=== PATIENT | male | born 1940 | race Caucasian/White ===

== ENCOUNTER 2018-03-17 10:00 | Outpatient (RCR) | payer MEDICARE, OTHER, SELFPAY ==
[2018-03-10 09:02] VITALS: BP 134/76; PULSE 60; RESP 18; TEMP 35.6; BMI 32.0
--- NOTE | 2018-03-10 10:00 | HP.PCM_ITS ---
(1) Traumatic wound Status: Acute Current Visit: Yes (2) Atrial fibrillation Status: Chronic Current Visit: No Qualifiers: Atrial fibrillation type: chronic Qualified Code(s): I48.2 - Chronic atrial fibrillation Code(s): I48.91 - Unspecified atrial fibrillation (3) CHF (congestive heart failure) Status: Chronic Current Visit: No Code(s): I50.9 - Heart failure, unspecified (4) History of permanent cardiac pacemaker placement Status: Chronic Current Visit: No Code(s): Z95.0 - Presence of cardiac pacemaker (5) Renal insufficiency Status: Chronic Current Visit: No Code(s): N28.9 - Disorder of kidney and ureter, unspecified (6) Hyperlipidemia Status: Chronic Current Visit: No Code(s): E78.5 - Hyperlipidemia, unspecified (7) Exertional dyspnea Status: Chronic Current Visit: No Code(s): R06.09 - Other forms of dyspnea (8) Anticoagulated on Coumadin Status: Chronic Current Visit: Yes Code(s): Z51.81 - Encounter for therapeutic drug level monitoring; Z79.01 - snf (current) use of anticoagulants (9) History of thrombophlebitis Status: Chronic Current Visit: No Code(s): Z86.72 - Personal history of thrombophlebitis (10) Left leg swelling Status: Chronic Current Visit: Yes Code(s): M79.89 - Other specified soft tissue disorders (11) Leg edema, left Status: Chronic Current Visit: Yes Code(s): R60.0 - Localized edema (12) Lipodermatosclerosis Status: Chronic Current Visit: Yes Code(s): I83.10 - Varicose veins of unspecified lower extremity with inflammation (13) Chronic venous insufficiency Status: Chronic Current Visit: Yes Code(s): I87.2 - Venous insufficiency ( chronic) (peripheral) (14) Obesity (BMI 30.0-34.9) Status: Chronic Current Visit: No Code(s): E66.9 - Obesity, unspecified History of Present Illness Date of Service: 03/10/18 Chief Complaint: Recent traumatic injury to the left anterior tibial surface with persistent wound History of Wound: This is a 77-year-old male with multiple pre-existing medical problems. He was in his normal state of health until approximately 3 weeks ago. At that time, he sustained trauma to the left anterior tibial surface, resulting in 2 adjacent superficial wounds. He was evaluated by his primary care physician, and placed on oral cephalexin, which he continues to take on a daily basis, with approximately 3 days remaining. The traumatic wounds have failed to heal, and the patient presents at this time for further evaluation and management. The patient typically sleeps on a flat mattress at night, though occasionally sleeps in a recliner due to breathing problems. He claims to be active. He does not ambulate liberally, however, claiming to suffer from shortness of breath which occurs with activity. 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 It is uncertain whether this was deep or superficial thrombophlebitis. Past Medical History Past Medical History: Chronic Problems Atrial fibrillation (Chronic) CHF (congestive heart failure) (Chronic) History of permanent cardiac pacemaker placement (Chronic) Renal insufficiency (Chronic) Hyperlipidemia (Chronic) Exertional dyspnea (Chronic) Anticoagulated on Coumadin (Chronic) History of thrombophlebitis (Chronic) Left leg swelling (Chronic) Leg edema, left (Chronic) Lipodermatosclerosis (Chronic) Chronic venous insufficiency (Chronic) Obesity (BMI 30.0-34.9) (Chronic) Past Medical History: Patient has a history of atrial fibrillation, congestive heart failure, hypertension, prior pacemaker/defibrillator placement, renal insufficiency, and hyperlipidemia. He also has a history of right lower extremity thrombophlebitis. He suffers from exertional dyspnea. His history is negative for myocardial infarction, diabetes mellitus, cerebrovascular accident, pulmonary disease, and thyroid disease. Surgical History: total hip arthroplasty, total knee arthroplasty, - - Ablation and pacemaker/defibrillator insertion Allergies/Adverse Reactions: Allergies wheat Allergy (Verified 06/21/13 15:32) Other has Ciliac disease Home Medications: Ambulatory Orders Medication Instructions Recorded Carvedilol [Coreg] 25 mg PO BID 06/21/13 Ipratropium [place] 0.06% 2 spray NASAL BID 06/21/13 [ATROVENT NASAL SPRAY] Ropinirole HCl [Requip] 0.5 mg PO QHS 06/21/13 Simvastatin [Zocor] 20 mg PO QHS 06/21/13 Warfarin [Coumadin] 5 mg PO DAILY 06/21/13 traMADol [Ultram (G)] 50 mg PO DAILY PRN PRN 06/21/13 Calcium Carb/Vitamin D3/Vit K1 1 each PO DAILY 03/10/18 [Citracal Soft Chew] Cholecalciferol (Vitamin D3) 2,000 unit PO DAILY 03/10/18 [Vitamin D3] Losartan Potassium 100 mg PO DAILY 03/10/18 Magnesium 100 mg PO BID 03/10/18 Potassium 30 mg PO BID 03/10/18 - Family History Paternal - - The patient's father at the age of 72 with a history of emphysema. Patient's father was a smoker. Patient's mother at age of 87 from an abdominal aortic aneurysm. Patient had a sister who at the age of 37 from kidney failure. He also had a sister who at the age of 44 from a brain aneurysm. Lives: Spouse/ Significant Other Smoking Status: Never smoker Tobacco Use: Non-smoker Alcohol: Rare Drugs: None Review of Systems Constitutional: Denies: Chills, Fever, Weight Change Eyes: Denies: Pain, Vision Change HEENT: Denies: Difficulty Hearing, Difficulty Swallowing, Sinus Congestion Cardiovascular: Denies: Chest Pain, Palpitations Respiratory: Denies: Cough, Shortness of Breath Gastrointestinal: Denies: Diarrhea, Nausea, Vomiting Genitourinary: Denies: Dysuria, Hematuria Endocrine: Denies: Heat/ Cold Intolerance, Polydipsia, Polyuria Hematologic/ Lymphatic: Denies: Easy Bruising, Easy Bleeding - Physical Exam Vital Signs Temp Pulse Resp BP 96.0 F L 60 18 134/76 H 03/10/18 09:02 03/10/18 09:02 03/10/18 09:02 03/10/18 09:02 General: Alert, Oriented x3, Cooperative, No apparent distress, Well developed, Well nourished HEENT: Atraumatic, PERRLA, EOMI, Normocephalic Oral: Moist Mucosa Neck: Supple, No JVD, Negative Carotid Bruits, Negative Hepatojugular Reflux, No Nodes, No Nuchal Rigidity, Trachea Midline Lungs: Clear to auscultation, Normal air movement, No rhonchi, No wheeze, No rales Cardiovascular: Regular rate, Regular Rhythm, Normal S1, Normal S2, No murmurs, - - The patient's implanted pacemaker is palpable in the left upper chest. Abdomen: Soft, Non Tender, Non-Distended, Obese Extremities: No clubbing, No cyanosis, No Calf Tenderness, - - Mild swelling is noted in the patient's left lower extremity. Both lower extremities demonstrate chronic changes of venous insufficiency, namely hyperpigmentation and lipodermatosclerosis in the gaiter areas. 2 small superficial ulcerations are noted on the left anterior tibial surface, result of recent trauma. Mentions are documented elsewhere. There is no obvious sign of infection or cellulitis. There is a moderate amount of bioburden and some frankly necrotic tissue present. Skin: No rashes Wound Measurements and Assessment WC - Nurse 1 - General Ulcer Measurement Start: 03/10/18 09:01 Freq: Status: Active Protocol: Activity Type Activity Date Activity User E-Sign Co-Sign Detail Recorded Client Recorded Date Recorded By Document 03/10/18 09:02 DV [id number] 03/10/18 09:19 DV 03/10/18 09:02 Wound Center Nurse 1 [Ulcer Assessment] #4 LEFT INFERIOR CURTIS -Combined with other wound No -Current Size (cm) - Length 0.8 -Current Size (cm) - Width 0.5 -Current Size (cm) - Depth 0.1 -Total Square Cm 0.40 -Date of Last Picture (Recall this 03/10/18 field) -Photo Taken Yes -Epithelialization Medium 34-66% -Tunneling No -Undermining/Tunneling No -Circular Undermining No -Classification - Thickness Full Thickness without Exposed Support Structure -Exudate Amt None Present (0 %) -Wound Margin Flat & Intact -Granulation Amt None Present (0 %) -Granulation Quality N/A -Slough/Fibrin Yes -Necrosis Amt Medium (34-66%) -Necrotic Tissue Type Adherent Slough -Structure Exposed None/Limited to Skin Breakdown -Texture ([place]-wound Skin Appearance) Assessed Localized Edema Scarring -Moisture ([place]-wound Skin Appearance Assessed ) Weeping -Color ([place]-wound Skin Appearance) Assessed Hemosiderin Staining -Temperature ([place]-wound Skin No Abnormality Appearance) (Pt Warm) -Tenderness on Palpation ([place]-wound No Skin Appearance) -Ulcer Cleansing Rinsed/ Irrigated with Saline -Foul Odor after Cleansing No -Anesthetic Used 4% Lidocaine Solution #3 LEFT SUPERIOR CURTIS -Combined with other wound No -Current Size (cm) - Length 0.4 -Current Size (cm) - Width 0.8 -Current Size (cm) - Depth 0.1 -Total Square Cm 0.32 -Date of Last Picture (Recall this 03/10/18 field) -Photo Taken Yes -Epithelialization Medium 34-66% -Tunneling No -Undermining/Tunneling No -Classification - Thickness Full Thickness without Exposed Support Structure -Exudate Amt None Present (0 %) -Wound Margin Flat & Intact -Granulation Amt Medium (34-66%) -Granulation Quality Red -Slough/Fibrin Yes -Necrosis Amt Medium (34-66%) -Necrotic Tissue Type Adherent Slough -Structure Exposed None/Limited to Skin Breakdown -Texture ([place]-wound Skin Appearance) Assessed Scarring -Moisture ([place]-wound Skin Appearance Assessed ) Weeping -Color ([place]-wound Skin Appearance) Assessed Erythema Hemosiderin Staining -Temperature ([place]-wound Skin No Abnormality Appearance) (Pt Warm) -Tenderness on Palpation ([place]-wound No Skin Appearance) -Ulcer Cleansing Rinsed/ Irrigated with Saline -Foul Odor after Cleansing No -Anesthetic Used 4% Lidocaine Solution [Edema Assessment] -Lower Limb Edema Present Yes -Right Calf (cm) 38.0 -Right Ankle (cm) 23.5 -Left Calf (cm) 40.0 -Left Ankle (cm) 24.9 Musculoskeletal: No Muscle Wasting Neurological: Cranial nerves II-XII grossly intact, Neuro grossly intact Psych/Mental Status: Normal Affect, Appropriate, Alert and oriented to time, place, person, mood and affect Debridement Note Laterality: Left - Anterior tibial surface Type of Debridement: Excisional debridement Anesthesia Used: 4% Lidocaine Solution Depth: Down to and including healthy tissue, in the subcutaneous layer Percentage of wound debrided: 100 Instrument Used: 5mm curette Severity: Fat Layer Exposed Amount of bleeding with debridement: Mild Bleeding Controlled with: Compression and gauze Patient tolerated procedure well Assessment/Plan Active Problems Traumatic wound (Acute) Anticoagulated on Coumadin (Chronic) Left leg swelling (Chronic) Leg edema, left (Chronic) Lipodermatosclerosis (Chronic) Chronic venous insufficiency (Chronic) Assessment: Is a 77-year-old male multiple medical problems. He presents with trauma to the left anterior tibial surface approximately 3 weeks ago, and two superficial wounds on the left anterior tibial surface which have failed to heal appropriately. Patient is currently on cephalexin, as prescribed by his primary care physician. Plan: The patient has been advised to elevate his lower extremities as much as possible. Elevation is to be accomplished with his legs at heart level, or higher. This is to be implemented even during daytime hours. The patient has been encouraged to refrain from sleeping in a recliner. Activity has been encouraged. We are to implement compression initially by means of SpandaGrips to the lower extremities. We are to implement the use of collagenase Santyl topically to the superficial wounds on the left anterior tibial surface. Collagenase Santyl will be applied on a daily basis. We are to obtain a battery of diagnostic laboratory studies, including a CBC and conference of metabolic profile. With manifestations of chronic venous disease, a venous duplex examination will be performed. Because of the presence of a chronic, nonhealing wound, and noninvasive lower extremity arterial study will also be obtained. She has been advised to finish his current prescription for antibiotic. Patient is to return in 1 week for reevaluation. Influenza vaccine was not administered today. Patient is not a smoker. Patient weighs 243 pounds. He stands 6 feet 1 inches tall. His BMI is 32.1, which places him in an obese class I category. Weight loss has been recommended, and collaboration with his primary care physician has been recommended.
[2018-03-10 12:59] LABS: Hematocrit 43.2 % (40-54); Hemoglobin 14.5 g/dl (13.0-16.5); Mean Corp Hgb Conc 33.6 g/gl (32-36); Mean Corpuscular Hgb 32.8 pg (27.0-32.0); Mean Corpuscular Volume 97.7 fL (80-94); Mean Platelet Vol. 9.5 fl (6.2-12.0); Platelet Count 154 K/mm3 (150-450); RBC Distribution Width CV 14.1 % (11.6-14.6); Red Blood Count 4.42 M/mm3 (4.6-6.2); Scan Indicated on CBC? Y/N NO; White Blood Count 6.2 K/mm3 (4.4-11.0)
[2018-03-10 13:26] LABS: ALB/GLOB Ratio 1.1 RATIO (0.9-2.4); AST(SGOT) 20 U/L (15-37); Alanine Aminotransfer ALT/SGPT 28 U/L (16-61); Albumin, Serum 3.7 g/dL (3.2-5.0); Alkaline Phosphatase 44 U/L (45-117); BUN 23 mg/dL (7-18); BUN/Creat Ratio 14.4 RATIO (10-20); EST Glomerular Filtration Rate 45 mL/min (>60); Est Glom Filt Rate - Afr Amer 54 mL/min (>60); Globulin 3.4 g/dL (2.2-4.2); Glucose 81 mg/dL (74-106); Protein, Total 7.1 g/dL (6.4-8.2); Sodium Level 142 mmol/L (136-145)
[2018-03-10 13:27] LABS: Anion Gap 7 (5-15); Chloride 106 mmol/L (98-107); Potassium 4.9 mmol/L (3.5-5.1); Prealbumin 26.9 mg/dL (20.0-40.0)
--- NOTE | 2018-03-17 07:56 | VDLE_ITS ---
Reason For Study: venous insufficiency RIGHT LEFT CFV is compressible, spontaneous, phasic, CFV is compressible, spontaneous, phasic, competent and demonstrates normal competent, and demonstrates normal augmentation. augmentation. FV is compressible, spontaneous, phasic, FV is compressible, spontaneous, phasic, competent and demonstrates normal competent and demonstrates normal augmentation. augmentation. POP V is compressible, spontaneous, phasic, POP V is compressible, spontaneous, phasic, competent and demonstrates normal competent and demonstrates normal augmentation. augmentation. T/P Trunk is compressible. T/P Trunk is compressible. PTV is compressible. PTV is compressible. RT PerV is compressible. LT PerV is compressible. S-F Junction is incompetent for greater S-F Junction is competent. than .5 seconds. GSV is incompetent throughout for greater GSV is incompetent throughout for greater than .5 seconds. GSV measures .497 c .473 than .5 seconds. GSV measures .495 x .499 cm. cm. ASV below the knee is incompetent for SSV is competent. greater than .5 seconds. ASV measures .323 Procedure x .335 cm. Exam performed in department. SSV is incompetent for greater than .5 The exam was diagnostic. seconds. SSV measures .220 x .237 cm. Interpretation Summary Deep veins of the lower extremities are bilaterally patent and compressible segmentally. There is no evidence of deep vein thrombosis on either side. Valvular competence appears intact within the proximal deep venous systems bilaterally. The greater saphenous veins appear bilaterally patent and compressible segmentally. The right sapheno-femoral junction is incompetent . The left sapheno- femoral junction is competent . Segmental valvular incompetence is noted within the greater saphenous veins bilaterally. The right small saphenous vein is patent and competent. The left small saphenous vein is patent and incompetent. The left accessory saphenous vein below the knee is incompetent. Ordering Physician: Jose Raul Thomas Performed By: Gilmer Ren RVT
[2018-03-17 10:15] VITALS: BP 140/90; PULSE 61; RESP 18; TEMP 36; BMI 32.0
--- NOTE | 2018-03-17 11:34 | PCM.WC.HP ---
(1) Traumatic wound Status: Acute Current Visit: Yes (2) Atrial fibrillation Status: Chronic Current Visit: No Qualifiers: Atrial fibrillation type: chronic Qualified Code(s): I48.2 - Chronic atrial fibrillation Code(s): I48.91 - Unspecified atrial fibrillation (3) CHF (congestive heart failure) Status: Chronic Current Visit: No Code(s): I50.9 - Heart failure, unspecified (4) History of permanent cardiac pacemaker placement Status: Chronic Current Visit: No Code(s): Z95.0 - Presence of cardiac pacemaker (5) Renal insufficiency Status: Chronic Current Visit: No Code(s): N28.9 - Disorder of kidney and ureter, unspecified (6) Hyperlipidemia Status: Chronic Current Visit: No Code(s): E78.5 - Hyperlipidemia, unspecified (7) Exertional dyspnea Status: Chronic Current Visit: No Code(s): R06.09 - Other forms of dyspnea (8) Anticoagulated on Coumadin Status: Chronic Current Visit: Yes Code(s): Z51.81 - Encounter for therapeutic drug level monitoring; Z79.01 - FPC (current) use of anticoagulants (9) History of thrombophlebitis Status: Chronic Current Visit: No Code(s): Z86.72 - Personal history of thrombophlebitis (10) Left leg swelling Status: Chronic Current Visit: Yes Code(s): M79.89 - Other specified soft tissue disorders (11) Leg edema, left Status: Chronic Current Visit: Yes Code(s): R60.0 - Localized edema (12) Lipodermatosclerosis Status: Chronic Current Visit: Yes Code(s): I83.10 - Varicose veins of unspecified lower extremity with inflammation (13) Chronic venous insufficiency Status: Chronic Current Visit: Yes Code(s): I87.2 - Venous insufficiency (chronic) (peripheral) (14) Obesity (BMI 30.0-34.9) Status: Chronic Current Visit: No Code(s): E66.9 - Obesity, unspecified History of Present Illness Date of Service: 03/17/18 Chief Complaint: Recent traumatic injury to the left anterior tibial surface with persistent wound History of Wound: This is a 77-year-old male with multiple pre-existing medical problems. He was in his normal state of health until approximately 3 weeks prior to presentation. At that time, he sustained trauma to the left anterior tibial surface, resulting in 2 adjacent superficial wounds. He was evaluated by his primary care physician, and placed on oral cephalexin, which has now been completed. The traumatic wounds failed to heal, and the patient presented for further evaluation and management. The patient typically sleeps on a flat mattress at night, though occasionally sleeps in a recliner due to breathing problems. He claims to be active. He does not ambulate liberally, however, claiming to suffer from shortness of breath which occurs with activity. 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 It is uncertain whether this was deep or superficial thrombophlebitis. Past Medical History Past Medical History: Chronic Problems Atrial fibrillation (Chronic) CHF (congestive heart failure) (Chronic) History of permanent cardiac pacemaker placement (Chronic) Renal insufficiency (Chronic) Hyperlipidemia (Chronic) Exertional dyspnea (Chronic) Anticoagulated on Coumadin (Chronic) History of thrombophlebitis (Chronic) Left leg swelling (Chronic) Leg edema, left (Chronic) Lipodermatosclerosis (Chronic) Chronic venous insufficiency (Chronic) Obesity (BMI 30.0-34.9) (Chronic) Surgical History: total hip arthroplasty, total knee arthroplasty, - - Ablation and pacemaker/defibrillator insertion Allergies/Adverse Reactions: Allergies wheat Allergy (Verified 06/21/13 15:32) Other has Ciliac disease Home Medications: Ambulatory Orders Medication Instructions Recorded Carvedilol [Coreg] 25 mg PO BID 06/21/13 Ipratropium [place] 0.06% 2 spray NASAL BID 06/21/13 [ATROVENT NASAL SPRAY] Ropinirole HCl [Requip] 0.5 mg PO QHS 06/21/13 Simvastatin [Zocor] 20 mg PO QHS 06/21/13 Warfarin [Coumadin] 5 mg PO DAILY 06/21/13 traMADol [Ultram (G)] 50 mg PO DAILY PRN PRN 06/21/13 Calcium Carb/Vitamin D3/Vit K1 1 each PO DAILY 03/10/18 [Citracal Soft Chew] Cholecalciferol (Vitamin D3) 2,000 unit PO DAILY 03/10/18 [Vitamin D3] Losartan Potassium 100 mg PO DAILY 03/10/18 Magnesium 100 mg PO BID 03/10/18 Potassium 30 mg PO BID 03/10/18 - Family History Paternal - - The patient's father at the age of 72 with a history of emphysema. Patient's father was a smoker. Patient's mother at age of 87 from an abdominal aortic aneurysm. Patient had a sister who at the age of 37 from kidney failure. He also had a sister who at the age of 44 from a brain aneurysm. Lives: Spouse/ Significant Other Smoking Status: Never smoker Tobacco Use: Non-smoker Alcohol: Rare Drugs: None Review of Systems Constitutional: Denies: Chills, Fever, Weight Change Eyes: Denies: Pain, Vision Change HEENT: Denies: Difficulty Hearing, Difficulty Swallowing, Sinus Congestion Cardiovascular: Denies: Chest Pain, Palpitations Respiratory: Denies: Cough, Shortness of Breath Gastrointestinal: Denies: Diarrhea, Nausea, Vomiting Genitourinary: Denies: Dysuria, Hematuria Endocrine: Denies: Heat/ Cold Intolerance, Polydipsia, Polyuria Hematologic/ Lymphatic: Denies: Easy Bruising, Easy Bleeding - Physical Exam Vital Signs Temp Pulse Resp BP 96.8 F L 61 18 140/90 H 03/17/18 10:15 03/17/18 10:15 03/17/18 10:15 03/17/18 10:15 General: Alert, Oriented x3, Cooperative, No apparent distress, Well developed, Well nourished HEENT: Atraumatic, PERRLA, EOMI, Normocephalic Oral: Moist Mucosa Neck: No JVD Lungs: Normal air movement Abdomen: Non-Distended Extremities: No clubbing, No cyanosis, No Calf Tenderness, - - Very slight swelling and edema is noted in the lower extremities bilaterally. The traumatic wounds on the left anterior tibial surface appear slightly improved. There is a moderate amount of bioburden. There is no sign of infection or cellulitis. Dimensions are documented elsewhere. Skin: No rashes Wound Measurements and Assessment WC - Nurse 1 - General Ulcer Measurement Start: 03/10/18 09:01 Freq: Status: Active Protocol: Activity Type Activity Date Activity User E-Sign Co-Sign Detail Recorded Client Recorded Date Recorded By Document 03/17/18 10:15 [id number] 03/17/18 10:19 03/17/18 10:15 Wound Center Nurse 1 [Ulcer Assessment] #4 LEFT INFERIOR CURTIS -Combined with other wound No -Current Size (cm) - Length 1.0 -Current Size (cm) - Width 0.7 -Current Size (cm) - Depth 0.1 -Total Square Cm 0.70 -Photo Taken No -Epithelialization Small 1-33% -Tunneling No -Undermining/Tunneling No -Circular Undermining No -Classification - Thickness Full Thickness without Exposed Support Structure -Exudate Amt Small (1-33%) -Exudate Type Serosanguineous -Wound Margin Distinct, Outline Attached -Granulation Amt Large (67-100%) -Granulation Quality Red -Slough/Fibrin Yes -Necrosis Amt Small (1-33%) -Necrotic Tissue Type Adherent Slough -Structure Exposed Fascia Fat Layer Exposed -Texture ([place]-wound Skin Appearance) No Abnormality Assessed -Moisture ([place]-wound Skin Appearance Weeping ) -Color ([place]-wound Skin Appearance) Assessed Erythema -Temperature ([place]-wound Skin No Abnormality Appearance) (Pt Warm) -Tenderness on Palpation ([place]-wound No Skin Appearance) -Ulcer Cleansing Rinsed/ Irrigated with Saline -Foul Odor after Cleansing No -Anesthetic Used 4% Lidocaine Solution #3 LEFT SUPERIOR CURTIS -Combined with other wound No -Current Size (cm) - Length 0.3 -Current Size (cm) - Width 0.6 -Current Size (cm) - Depth 0.1 -Total Square Cm 0.18 -Photo Taken No -Epithelialization Small 1-33% -Tunneling No -Undermining/Tunneling No -Circular Undermining No -Classification - Thickness Full Thickness without Exposed Support Structure -Exudate Amt Small (1-33%) -Exudate Type Serosanguineous -Wound Margin Distinct, Outline Attached -Granulation Amt Large (67-100%) -Granulation Quality Red -Slough/Fibrin Yes -Necrosis Amt Small (1-33%) -Necrotic Tissue Type Adherent Slough -Structure Exposed Fascia Fat Layer Exposed -Texture ([place]-wound Skin Appearance) No Abnormality Assessed -Moisture ([place]-wound Skin Appearance Weeping ) -Color ([place]-wound Skin Appearance) Assessed Erythema -Temperature ([place]-wound Skin No Abnormality Appearance) (Pt Warm) -Tenderness on Palpation ([place]-wound No Skin Appearance) -Ulcer Cleansing Rinsed/ Irrigated with Saline -Foul Odor after Cleansing No -Anesthetic Used 4% Lidocaine Solution [Edema Assessment] -Lower Limb Edema Present Yes -Right Calf (cm) 38.0 -Right Ankle (cm) 24.0 -Left Calf (cm) 39.5 -Left Ankle (cm) 24.5 WC - Nurse 2 - General Ulcer CM Notes Start: 03/10/18 09:01 Freq: Status: Active Protocol: Activity Type Activity Date Activity User E-Sign Co-Sign Detail Recorded Client Recorded Date Recorded By Document 03/17/18 11:19 CS [id number] 03/17/18 11:26 CS 03/17/18 11:19 Wound Center Nurse 2 [Procedure/Treatment] #4 LEFT INFERIOR CURTIS -Time 11:20 -Correct Patient Yes -Correct Side, Site, Position Yes -Correct Procedure Yes -Procedure Performed Yes -Type of Procedure Debridement -Clinical Debridement Subcutaneous -Post Debridement Size (cm) - Length 0.8 -Post Debridement Size (cm) - Width 0.7 -Post Debridement Size (cm) - Depth 0.1 -Total Square Cm 0.56 -Wound/Ulcer Outcome Not Healed -Ulcer Cleansing Not Cleansed -Foul Odor after Cleansing No -Bioengineered Tissue No -Bleeding Controlled with NA -Treatment Response Procedure Tolerated Well #3 LEFT SUPERIOR CURTIS -Time 11:20 -Correct Patient Yes -Correct Side, Site, Position Yes -Correct Procedure Yes -Procedure Performed Yes -Type of Procedure Debridement -Clinical Debridement Subcutaneous -Post Debridement Size (cm) - Length 0.6 -Post Debridement Size (cm) - Width 1.0 -Post Debridement Size (cm) - Depth 0.1 -Total Square Cm 0.60 -Wound/Ulcer Outcome Not Healed -Ulcer Cleansing Not Cleansed -Foul Odor after Cleansing No -Bioengineered Tissue No -Bleeding Controlled with NA -Treatment Response Procedure Tolerated Well [See Physician Procedure note for Specifics] Pain Scale: 0-10 Numeric [Pain] -Is Patient Pain Free? Yes Musculoskeletal: No Muscle Wasting Neurological: Cranial nerves II-XII grossly intact, Neuro grossly intact Psych/Mental Status: Normal Affect, Appropriate, Alert and oriented to time, place, person, mood and affect Debridement Note Post-Debridement Measurements/Treatment WC - Nurse 2 - General Ulcer CM Notes Start: 03/10/18 09:01 Freq: Status: Active Protocol: Activity Type Activity Date Activity User E-Sign Co-Sign Detail Recorded Client Recorded Date Recorded By Document 03/10/18 09:53 JS [id number] 03/10/18 09:55 Document 03/17/18 11:19 [id number] 03/17/18 11:26 03/10/18 03/17/18 09:53 11:19 Wound Center Nurse 2 #4 LEFT INFERIOR CURTIS -Time 09:54 11:20 -Correct Patient Yes Yes -Correct Side, Site, Position Yes Yes -Correct Procedure Yes Yes -Procedure Performed Yes Yes -Type of Procedure Debridement -Clinical Debridement Subcutaneous -Post Debridement Size (cm) - Length 1.2 0.8 -Post Debridement Size (cm) - Width 0.9 0.7 -Post Debridement Size (cm) - Depth 0.1 0.1 -Total Square Cm 1.08 0.56 -Wound/Ulcer Outcome Not Healed Not Healed -Ulcer Cleansing Rinsed/ Not Cleansed Irrigated with Saline -Foul Odor after Cleansing No No -Bioengineered Tissue No No -Topical Lidocaine (%) 4 -Lidocaine (ml) 5 -Bleeding Controlled with NA NA -Treatment Response Procedure Procedure Tolerated Well Tolerated Well #3 LEFT SUPERIOR CURTIS -Time 09:53 11:20 -Correct Patient Yes Yes -Correct Side, Site, Position Yes Yes -Correct Procedure Yes Yes -Procedure Performed Yes Yes -Type of Procedure Debridement Debridement -Clinical Debridement Subcutaneous Subcutaneous -Post Debridement Size (cm) - Length 0.6 0.6 -Post Debridement Size (cm) - Width 1.2 1.0 -Post Debridement Size (cm) - Depth 0.1 0.1 -Total Square Cm 0.72 0.60 -Wound/Ulcer Outcome Not Healed Not Healed -Ulcer Cleansing Rinsed/ Not Cleansed Irrigated with Saline -Foul Odor after Cleansing No No -Bioengineered Tissue No No -Topical Lidocaine (%) 4 -Lidocaine (ml) 5 -Bleeding Controlled with NA NA -Treatment Response Procedure Procedure Tolerated Well Tolerated Well Pain Scale: 0-10 Numeric Is Patient Pain Free? Yes Yes Laterality: Left - Anterior tibial surface ? 2 Type of Debridement: Excisional debridement Anesthesia Used: 4% Lidocaine Solution Depth: Down to and including healthy tissue, in the subcutaneous layer Percentage of wound debrided: 100 Instrument Used: 5mm curette Severity: Fat Layer Exposed Amount of bleeding with debridement: Mild Bleeding Controlled with: Compression and gauze Patient tolerated procedure well Assessment/Plan Active Problems Traumatic wound (Acute) Anticoagulated on Coumadin (Chronic) Left leg swelling (Chronic) Leg edema, left (Chronic) Lipodermatosclerosis (Chronic) Chronic venous insufficiency (Chronic) Assessment: This is a 77-year-old male multiple medical problems. He presented with trauma to the left anterior tibial surface approximately 3 weeks prior to presentation, and two superficial wounds on the left anterior tibial surface which failed to heal appropriately. The patient has completed a course of oral cephalexin, as prescribed by his primary care physician. The battery of diagnostic tests have been completed. Laboratory results have been reviewed, and are as follows: Glucose 81, BUN 23, creatinine 1.60, total protein 7.1, albumin 3.7, calcium 9.0, AST 20, alkaline phosphatase 44, ALT 28, total bilirubin 0.80, sodium 142, potassium 4.9, chloride 106, serum prealbumin 26.9, white blood count 6.2, hemoglobin 14.5, hematocrit 43.2, platelets 154,000. Venous duplex has been performed, revealing incompetence of the right great saphenous vein, the left great saphenous vein, left small saphenous vein, and the left accessory saphenous vein. A noninvasive lower extremity arterial study appears relatively normal. Plan: The patient has been advised to elevate his lower extremities as much as possible. Elevation is to be accomplished with his legs at heart level, or higher. This is to be implemented even during daytime hours. The patient has been encouraged to refrain from sleeping in a recliner. Activity has been encouraged. We are to implement compression to the left lower extremity by means of SurePress wraps, which will be applied daily. We are to continue the use of collagenase Santyl topically to the superficial wounds on the left anterior tibial surface. Collagenase Santyl will be applied on a daily basis. Patient is to return in 2 weeks for reevaluation, as he will be on vacation next week. Influenza vaccine was not administered today. Patient is not a smoker. Patient weighs 243 pounds. He stands 6 feet 1 inches tall. His BMI is 32.1, which places him in an obese class I category. Weight loss has been recommended, and collaboration with his primary care physician has been recommended.
--- NOTE | 2018-03-17 15:12 | LEAS ---
Arterial Study - Arterial Study Arterial Study: This is a 77-year-old male with suspected peripheral arterial occlusive disease. He is brought to the noninvasive vascular laboratory at this time for the purpose of bilateral noninvasive lower extremity arterial assessment. Doppler signal assessment was used to evaluate the pulses at ankle level bilaterally. The posterior tibial and dorsalis pedis pulses were triphasic bilaterally. Segmental limb pressures were obtained bilaterally. The right ankle pressure, as determined by posterior tibial pulse, was measured at 196 mmHg. The right ankle pressure, as determined by dorsalis pedis pulse, was measured at 198 mmHg. The right digital pressure was measured at 192 mmHg. The left ankle pressure, as determined by posterior tibial pulse, was measured at 211 mmHg. The left ankle pressure, as determined by dorsalis pedis pulse, was measured at 199 mmHg. The left digital pressure was measured at 253 mmHg. Pulse-volume recordings were obtained bilaterally and segmentally. Waveform amplitudes appeared to be satisfactory at all levels bilaterally, including low thigh, calf, ankle, and digital levels. Resting ankle-brachial indices were calculated bilaterally. The resting right ankle-brachial index was calculated to be 1.32. The resting left ankle-brachial index was calculated to be 1.41. Digital-brachial indices were calculated bilaterally. The right digital-brachial index was calculated to be 1.28. The left digital-brachial index was calculated to be 1.69. Impression: Based upon the findings of this resting noninvasive lower extremity arterial study, there is no evidence of significant atherosclerotic peripheral arterial occlusive disease in the lower extremities bilaterally. Triphasic waveforms were noted at ankle level bilaterally. The resting right ankle-brachial index is normal. The resting left ankle-brachial index is supra-normal. The right digital-brachial index is normal. The left digital-brachial index is supra-normal. The supra-normal values of the resting ankle-brachial index and the digital-brachial index in the left lower extremity suggest arterial calcification. Clinical correlation is advised.
--- NOTE | 2018-03-17 15:20 | LEAS_ITS ---
Arterial Study - Arterial Study Arterial Study: This is a 77-year-old male with suspected peripheral arterial occlusive disease. He is brought to the noninvasive vascular laboratory at this time for the purpose of bilateral noninvasive lower extremity arterial assessment. Doppler signal assessment was used to evaluate the pulses at ankle level bilaterally. The posterior tibial and dorsalis pedis pulses were triphasic bilaterally. Segmental limb pressures were obtained bilaterally. The right ankle pressure, as determined by posterior tibial pulse, was measured at 196 mmHg. The right ankle pressure, as determined by dorsalis pedis pulse, was measured at 198 mmHg. The right digital pressure was measured at 192 mmHg. The left ankle pressure, as determined by posterior tibial pulse, was measured at 211 mmHg. The left ankle pressure, as determined by dorsalis pedis pulse, was measured at 199 mmHg. The left digital pressure was measured at 253 mmHg. Pulse-volume recordings were obtained bilaterally and segmentally. Waveform amplitudes appeared to be satisfactory at all levels bilaterally, including low thigh, calf, ankle, and digital levels. Resting ankle-brachial indices were calculated bilaterally. The resting right ankle-brachial index was calculated to be 1.32. The resting left ankle- brachial index was calculated to be 1.41. Digital-brachial indices were calculated bilaterally. The right digital- brachial index was calculated to be 1.28. The left digital-brachial index was calculated to be 1.69. Impression: Based upon the findings of this resting noninvasive lower extremity arterial study, there is no evidence of significant atherosclerotic peripheral arterial occlusive disease in the lower extremities bilaterally. Triphasic waveforms were noted at ankle level bilaterally. The resting right ankle- brachial index is normal. The resting left ankle-brachial index is supra- normal. The right digital-brachial index is normal. The left digital-brachial index is supra-normal. The supra-normal values of the resting ankle-brachial index and the digital-brachial index in the left lower extremity suggest arterial calcification. Clinical correlation is advised.
== END 2018-03-21 23:59 ==
LOC: WC 10:00
PROVIDERS: Family Provider Internal Medicine; PCP Internal Medicine; Visit Provider Surgery
DX: I83.10 Varicose veins of unspecified lower extremity with inflammation (principal); I48.91 Unspecified atrial fibrillation; I50.9 Heart failure, unspecified; Z95.0 Presence of cardiac pacemaker; E78.5 Hyperlipidemia, unspecified; R06.09 Other forms of dyspnea; R60.0 Localized edema; I87.2 Venous insufficiency (chronic) (peripheral); E66.9 Obesity, unspecified; Z68.32 Body mass index [BMI] 32.0-32.9, adult; Z71.3 Dietary counseling and surveillance; I73.9 Peripheral vascular disease, unspecified; M79.89 Other specified soft tissue disorders; S81.812A Laceration without foreign body, left lower leg, initial encounter; X58.XXXA Exposure to other specified factors, initial encounter
CPT/HCPCS: 11042; 80053; 84134; 85027; 93923; 93970; 99213; G0463

== ENCOUNTER 2018-03-29 11:15 | Emergency (ER) | payer MEDICARE, OTHER, SELFPAY ==
[2018-03-29 11:15] VITALS: BP 148/79; PULSE 60; RESP 14; TEMP 36; O2SAT 98; BMI 31.6
[2018-03-29 11:34] VITALS: BP 142/81; PULSE 60; RESP 15
[2018-03-29 11:49] LABS: Absolute Lymphocyte Count 1.28 X10^3/ul (0.83-4.51); Absolute Neutrophil Count 5.2 X10^3/uL (2.0-7.7); Basophil# 0.05 X10^3/uL; Basophil% 0.7 % (0-1); Eosinophil# 0.17 X10^3/uL; Eosinophils% 2.3 % (0-5); Hematocrit 41.2 % (40-54); Hemoglobin 14.3 g/dl (13.0-16.5); Lymphocyte # 1.28 X10^3/ul (4.0); Lymphocyte % 17.3 % (19-41); Mean Corp Hgb Conc 34.7 g/gl (32-36); Mean Corpuscular Hgb 33.9 pg (27.0-32.0); Mean Corpuscular Volume 97.6 fL (80-94); Mean Platelet Vol. 8.8 fl (6.2-12.0); Monocyte# 0.74 X10^3/uL; Neutrophil # 5.15 X10^3/uL (2.7-7.7); Neutrophil % 69.3 % (47-70); Platelet Count 163 K/mm3 (150-450); RBC Distribution Width CV 14.1 % (11.6-14.6); RBC Distribution Width SD 48.9 fl (35.1-43.9); Red Blood Count 4.22 M/mm3 (4.6-6.2); White Blood Count 7.4 K/mm3 (4.4-11.0)
[2018-03-29 11:51] LABS: POSITIVE COUNT NO; POSITIVE DIFFERENTIAL NO; POSITIVE MORPHOLOGY NO
--- NOTE | 2018-03-29 11:52 | ED.DCSUM_ITS ---
- ER Visit Summary Date of Service: 03/29/18 Chief Complaint: Left leg redness History of Present Illness: The patient is a 78 M presents to the emergency department with increasing redness of his left leg. The patient had an injury about 6 weeks ago. He has a nonhealing wound. There is some erythema around and he was on antibiotics for 10 days with little improvement. He has been following at the wound care center. He has had negative lower extremity Dopplers. He has had normal lower extremity arterial studies. He states that over the past 2 days, the redness has increased and is had some increasing pain. He denies any fevers or chills. The patient is on Coumadin for history of atrial fibrillation. Physical Examination: Exam is relatively unremarkable. Patient does have a nonhealing wound on the anterior aspect of the left garcia. There is some surrounding cellulitis. There is no purulence. There is a lymphogenic streak. Compartments are soft. Test Results: [] Emergency Department Course and Treatment: The patient has had some increasing redness around his chronic wound. There is minimal cellulitis. There is no streaking. I did obtain screening labs which are unremarkable. The patient has not had fever or chills. He has no evidence of sepsis. I am going to start him on oral doxycycline therapy as he is on Coumadin. He is comfortable with this plan of care and will continue to follow-up with the wound care center. Treatment Plan: [] Disposition: Discharge Impression: 1. Left lower extremity cellulitis This note was generated with [employer] dictation software. It may contain incorrect words, spelling, and punctuation that were not noted in review of the chart prior to signing ED Disposition - Plan for ED Patient: Chief Complaint: Cellulitis Instructions: Discharge Instructions for Cellulitis Prescriptions: Doxycycline Monohydrate 100 mg PO BID #20 cap Referrals: Dat Bullard [Primary Care Provider] -
[2018-03-29 12:02] LABS: Anion Gap 8 (5-15); BUN 29 mg/dL (7-18); BUN/Creat Ratio 15.3 RATIO (10-20); Calcium,Total 8.7 mg/dL (8.5-10.1); Chloride 106 mmol/L (98-107); Creatinine, Serum 1.89 mg/dL (0.70-1.30); EST Glomerular Filtration Rate 37 mL/min (>60); Est Glom Filt Rate - Afr Amer 45 mL/min (>60); Estimated Creatinine Clearance 37.45 ml/min; Glucose 99 mg/dL (74-106); Potassium 4.6 mmol/L (3.5-5.1); Sodium Level 141 mmol/L (136-145)
[2018-03-29] MEDS: Doxycycline 100 MG CAPSULE PO (12:22)
== END 2018-03-29 12:25 | disposition home or self-care (01) ==
PROVIDERS: Emergency Provider Emergency Medicine; Family Provider Internal Medicine; PCP Internal Medicine
DX: L03.116 Cellulitis of left lower limb (principal); I48.91 Unspecified atrial fibrillation; Z79.01 Long term (current) use of anticoagulants; Z79.891 Long term (current) use of opiate analgesic; Z79.899 Other long term (current) drug therapy
CPT/HCPCS: 80048; 85025; 99282; A4216

== ENCOUNTER 2018-04-16 10:15 | Outpatient (RCR) | payer MEDICARE, OTHER, SELFPAY ==
[2018-03-22 01:14] VITALS: BP 140/90; PULSE 61; RESP 18; TEMP 36
[2018-04-01 12:20] VITALS: BP 143/94; PULSE 60; RESP 16; TEMP 35.5
--- NOTE | 2018-04-01 15:04 | PCM.WC.PN ---
(1) Traumatic wound Status: Chronic Current Visit: Yes (2) Leg edema, left Status: Chronic Current Visit: Yes Code(s): R60.0 - Localized edema Type of Wound Date of Service: 04/01/18 Chief Complaint: Recent traumatic injury to the left anterior tibial surface with persistent wound History of Wound: This is a 77-year-old male with multiple pre-existing medical problems. He was in his normal state of health until approximately 3 weeks prior to presentation. At that time, he sustained trauma to the left anterior tibial surface, resulting in 2 adjacent superficial wounds. He was evaluated by his primary care physician, and placed on oral cephalexin, which has now been completed. The traumatic wounds failed to heal, and the patient presented for further evaluation and management. The patient typically sleeps on a flat mattress at night, though occasionally sleeps in a recliner due to breathing problems. He claims to be active. He does not ambulate liberally, however, claiming to suffer from shortness of breath which occurs with activity. 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 It is uncertain whether this was deep or superficial thrombophlebitis. Progress of Wound: Transfer of care from Dr. Thomas. No new complaints at this time. Has been applying santyl however, has not done this consistently due to burning on application. He was also recently seen in the ER and managed for left lower extremity cellulitis. He is currently on Doxycycline. He feels well otherwise and denies any other complaints at this time. - Physical Exam Vital Signs Temp Pulse Resp BP 96 F L 60 16 143/94 H 04/01/18 12:20 04/01/18 12:20 04/01/18 12:20 04/01/18 12:20 General: Alert, Oriented x3, Cooperative, No apparent distress HEENT: Atraumatic Oral: Moist Mucosa Neck: Supple Lungs: Normal air movement Abdomen: Soft, Non Tender Extremities: No cyanosis, Edema Skin: Ulcer/ Wound Wound Measurements and Assessment WC - Nurse 1 - General Ulcer Measurement Start: 04/01/18 12:20 Freq: Status: Active Protocol: Activity Type Activity Date Activity User E-Sign Co-Sign Detail Recorded Client Recorded Date Recorded By Document 04/01/18 12:20 [facility] [id number] 04/01/18 12:28 [facility] 04/01/18 12:20 Wound Center Nurse 1 [Ulcer Assessment] #4 LEFT INFERIOR GARCIA -Combined with other wound No -Current Size (cm) - Length 2.2 -Current Size (cm) - Width 1.1 -Current Size (cm) - Depth 0.1 -Total Square Cm 2.42 -Photo Taken No -Epithelialization None Present -Tunneling No -Undermining/Tunneling No -Circular Undermining No -Exudate Amt None Present (0 %) -Exudate Type Serosanguineous -Wound Margin Distinct, Outline Attached -Granulation Amt None Present (0 %) -Slough/Fibrin Yes -Necrosis Amt Small (1-33%) -Necrotic Tissue Type Adherent Slough -Structure Exposed N/A -Texture ([place]-wound Skin Appearance) Scarring -Moisture ([place]-wound Skin Appearance Dry/Scaly ) -Color ([place]-wound Skin Appearance) Hemosiderin Staining -Temperature ([place]-wound Skin No Abnormality Appearance) (Pt Warm) -Tenderness on Palpation ([place]-wound No Skin Appearance) -Ulcer Cleansing Rinsed/ Irrigated with Saline -Foul Odor after Cleansing No -Anesthetic Used 4% Lidocaine Solution #3 LEFT SUPERIOR GARCIA -Combined with other wound No -Current Size (cm) - Length 0.4 -Current Size (cm) - Width 0.6 -Current Size (cm) - Depth 0.1 -Total Square Cm 0.24 -Photo Taken No -Epithelialization None Present -Tunneling No -Undermining/Tunneling No -Circular Undermining No -Exudate Amt None Present (0 %) -Wound Margin Distinct, Outline Attached -Granulation Amt None Present (0 %) -Slough/Fibrin Yes -Necrosis Amt Large (67-100%) -Necrotic Tissue Type Eschar -Structure Exposed N/A -Texture ([place]-wound Skin Appearance) Scarring -Moisture ([place]-wound Skin Appearance Dry/Scaly ) -Color ([place]-wound Skin Appearance) Assessed -Temperature ([place]-wound Skin No Abnormality Appearance) (Pt Warm) -Tenderness on Palpation ([place]-wound No Skin Appearance) -Ulcer Cleansing Rinsed/ Irrigated with Saline -Foul Odor after Cleansing No -Anesthetic Used 4% Lidocaine Solution [Edema Assessment] -Lower Limb Edema Present Yes -Left Calf (cm) 37 -Left Ankle (cm) 23.8 WC - Nurse 2 - General Ulcer CM Notes Start: 07/11/18 12:20 Freq: Status: Active Protocol: Activity Type Activity Date Activity User E-Sign Co-Sign Detail Recorded Client Recorded Date Recorded By Document 04/01/18 13:26 [id number] 04/01/18 13:28 04/01/18 13:26 Wound Center Nurse 2 [Procedure/Treatment] #4 LEFT INFERIOR GARCIA -Time 13:27 -Correct Patient Yes -Correct Side, Site, Position Yes -Correct Procedure Yes -Procedure Performed Yes -Type of Procedure Debridement -Clinical Debridement Subcutaneous -Post Debridement Size (cm) - Length 2.0 -Post Debridement Size (cm) - Width 1.2 -Post Debridement Size (cm) - Depth 0.2 -Total Square Cm 2.40 -Wound/Ulcer Outcome Not Healed -Ulcer Cleansing Rinsed/ Irrigated with Saline -Foul Odor after Cleansing No -Bioengineered Tissue No -Topical Lidocaine (%) 5 -Bleeding Controlled with NA -Treatment Response Procedure Tolerated Well #3 LEFT SUPERIOR GARCIA -Time 13:27 -Correct Patient Yes -Correct Side, Site, Position Yes -Correct Procedure Yes -Procedure Performed Yes -Type of Procedure Debridement -Clinical Debridement Subcutaneous -Post Debridement Size (cm) - Length 0.7 -Post Debridement Size (cm) - Width 0.9 -Post Debridement Size (cm) - Depth 0.2 -Total Square Cm 0.63 -Wound/Ulcer Outcome Not Healed -Ulcer Cleansing Rinsed/ Irrigated with Saline -Foul Odor after Cleansing No -Bioengineered Tissue No -Topical Lidocaine (%) 5 -Bleeding Controlled with NA -Treatment Response Procedure Tolerated Well [See Physician Procedure note for Specifics] Pain Scale: 0-10 Numeric [Pain] -Is Patient Pain Free? Yes Musculoskeletal: No Muscle Wasting Neurological: Cranial nerves II-XII grossly intact Psych/Mental Status: Normal Affect Debridement Note Post-Debridement Measurements/Treatment WC - Nurse 2 - General Ulcer CM Notes Start: 04/01/18 12:20 Freq: Status: Active Protocol: Activity Type Activity Date Activity User E-Sign Co-Sign Detail Recorded Client Recorded Date Recorded By Document 04/01/18 13:26 [id number] 04/01/18 13:28 04/01/18 13:26 Wound Center Nurse 2 #4 LEFT INFERIOR GARCIA -Time 13:27 -Correct Patient Yes -Correct Side, Site, Position Yes -Correct Procedure Yes -Procedure Performed Yes -Type of Procedure Debridement -Clinical Debridement Subcutaneous -Post Debridement Size (cm) - Length 2.0 -Post Debridement Size (cm) - Width 1.2 -Post Debridement Size (cm) - Depth 0.2 -Total Square Cm 2.40 -Wound/Ulcer Outcome Not Healed -Ulcer Cleansing Rinsed/ Irrigated with Saline -Foul Odor after Cleansing No -Bioengineered Tissue No -Topical Lidocaine (%) 5 -Bleeding Controlled with NA -Treatment Response Procedure Tolerated Well #3 LEFT SUPERIOR GARCIA -Time 13:27 -Correct Patient Yes -Correct Side, Site, Position Yes -Correct Procedure Yes -Procedure Performed Yes -Type of Procedure Debridement -Clinical Debridement Subcutaneous -Post Debridement Size (cm) - Length 0.7 -Post Debridement Size (cm) - Width 0.9 -Post Debridement Size (cm) - Depth 0.2 -Total Square Cm 0.63 -Wound/Ulcer Outcome Not Healed -Ulcer Cleansing Rinsed/ Irrigated with Saline -Foul Odor after Cleansing No -Bioengineered Tissue No -Topical Lidocaine (%) 5 -Bleeding Controlled with NA -Treatment Response Procedure Tolerated Well Pain Scale: 0-10 Numeric Is Patient Pain Free? Yes Wound debrided: Left Garcia ( Inferior ) Wound Grade/Stage: Stage II Type of Debridement: Excisional debridement Anesthesia Used: 4% Lidocaine Solution Depth: Down to and including healthy tissue, in the subcutaneous layer Percentage of wound debrided: 100 Instrument Used: 5mm curette Tissue Removed: Slough and devitalized tissue Severity: Fat Layer Exposed Amount of bleeding with debridement: Mild Bleeding Controlled with: Pressure Patient tolerated procedure well - Additional Wound Wound debrided: Left garcia ( Superior ) Wound Grade/Stage: Stage II Type of Debridement: Excisional debridement Anesthesia Used: 4% Lidocaine Solution Depth: Down to and including healthy tissue, in the subcutaneous layer Percentage of wound debrided: 100 Instrument Used: 5mm curette Tissue Removed: Slough and devitalized tissue Severity: Fat Layer Exposed Amount of bleeding with debridement: Mild Bleeding Controlled with: Pressure Patient tolerated procedure: Patient tolerated procedure well Assessment/Plan Active Problems Traumatic wound (Chronic) Leg edema, left (Chronic) Assessment: Traumatic left lower extremity wounds with delayed healing. Left lower extremity cellulitis. Plan: Cellulitis appears to be resolving however, still significantly tender. No obvious signs of infection otherwise. Debridement done as documented above. Procedure was well tolerated. Advised to complete course of Abx. If indicated, will culture next week. Switch to Pomogran. Chnage daily. 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 Elevate lower extremity when sitted and in bed. Increased protein intake. Follow up in 1 week. Advised to call with any questions or concerns.
--- NOTE | 2018-04-01 15:13 | PN.PCM_ITS ---
(1) Traumatic wound Status: Chronic Current Visit: Yes (2) Leg edema, left Status: Chronic Current Visit: Yes Code(s): R60.0 - Localized edema Type of Wound Date of Service: 04/01/18 Chief Complaint: Recent traumatic injury to the left anterior tibial surface with persistent wound History of Wound: This is a 77-year-old male with multiple pre-existing medical problems. He was in his normal state of health until approximately 3 weeks prior to presentation. At that time, he sustained trauma to the left anterior tibial surface, resulting in 2 adjacent superficial wounds. He was evaluated by his primary care physician, and placed on oral cephalexin, which has now been completed. The traumatic wounds failed to heal, and the patient presented for further evaluation and management. The patient typically sleeps on a flat mattress at night, though occasionally sleeps in a recliner due to breathing problems. He claims to be active. He does not ambulate liberally, however, claiming to suffer from shortness of breath which occurs with activity. 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 It is uncertain whether this was deep or superficial thrombophlebitis. Progress of Wound: Transfer of care from Dr. Thomas. No new complaints at this time. Has been applying santyl however, has not done this consistently due to burning on application. He was also recently seen in the ER and managed for left lower extremity cellulitis. He is currently on Doxycycline. He feels well otherwise and denies any other complaints at this time. - Physical Exam Vital Signs Temp Pulse Resp BP 96 F L 60 16 143/94 H 04/01/18 12:20 04/01/18 12:20 04/01/18 12:20 04/01/18 12:20 General: Alert, Oriented x3, Cooperative, No apparent distress HEENT: Atraumatic Oral: Moist Mucosa Neck: Supple Lungs: Normal air movement Abdomen: Soft, Non Tender Extremities: No cyanosis, Edema Skin: Ulcer/ Wound Wound Measurements and Assessment WC - Nurse 1 - General Ulcer Measurement Start: 04/01/18 12:20 Freq: Status: Active Protocol: Activity Type Activity Date Activity User E-Sign Co-Sign Detail Recorded Client Recorded Date Recorded By Document 04/01/18 12:20 [facility] [id number] 04/01/18 12:28 [facility] 04/01/18 12:20 Wound Center Nurse 1 [Ulcer Assessment] #4 LEFT INFERIOR GARCIA -Combined with other wound No -Current Size (cm) - Length 2.2 -Current Size (cm) - Width 1.1 -Current Size (cm) - Depth 0.1 -Total Square Cm 2.42 -Photo Taken No -Epithelialization None Present -Tunneling No -Undermining/Tunneling No -Circular Undermining No -Exudate Amt None Present (0 %) -Exudate Type Serosanguineous -Wound Margin Distinct, Outline Attached -Granulation Amt None Present (0 %) -Slough/Fibrin Yes -Necrosis Amt Small (1-33%) -Necrotic Tissue Type Adherent Slough -Structure Exposed N/A -Texture ([place]-wound Skin Appearance) Scarring -Moisture ([place]-wound Skin Appearance Dry/Scaly ) -Color ([place]-wound Skin Appearance) Hemosiderin Staining -Temperature ([place]-wound Skin No Abnormality Appearance) (Pt Warm) -Tenderness on Palpation ([place]-wound No Skin Appearance) -Ulcer Cleansing Rinsed/ Irrigated with Saline -Foul Odor after Cleansing No -Anesthetic Used 4% Lidocaine Solution #3 LEFT SUPERIOR GARCIA -Combined with other wound No -Current Size (cm) - Length 0.4 -Current Size (cm) - Width 0.6 -Current Size (cm) - Depth 0.1 -Total Square Cm 0.24 -Photo Taken No -Epithelialization None Present -Tunneling No -Undermining/Tunneling No -Circular Undermining No -Exudate Amt None Present (0 %) -Wound Margin Distinct, Outline Attached -Granulation Amt None Present (0 %) -Slough/Fibrin Yes -Necrosis Amt Large (67-100%) -Necrotic Tissue Type Eschar -Structure Exposed N/A -Texture ([place]-wound Skin Appearance) Scarring -Moisture ([place]-wound Skin Appearance Dry/Scaly ) -Color ([place]-wound Skin Appearance) Assessed -Temperature ([place]-wound Skin No Abnormality Appearance) (Pt Warm) -Tenderness on Palpation ([place]-wound No Skin Appearance) -Ulcer Cleansing Rinsed/ Irrigated with Saline -Foul Odor after Cleansing No -Anesthetic Used 4% Lidocaine Solution [Edema Assessment] -Lower Limb Edema Present Yes -Left Calf (cm) 37 -Left Ankle (cm) 23.8 WC - Nurse 2 - General Ulcer CM Notes Start: 07/11/18 12:20 Freq: Status: Active Protocol: Activity Type Activity Date Activity User E-Sign Co-Sign Detail Recorded Client Recorded Date Recorded By Document 04/01/18 13:26 [id number] 04/01/18 13:28 04/01/18 13:26 Wound Center Nurse 2 [Procedure/Treatment] #4 LEFT INFERIOR GARCIA -Time 13:27 -Correct Patient Yes -Correct Side, Site, Position Yes -Correct Procedure Yes -Procedure Performed Yes -Type of Procedure Debridement -Clinical Debridement Subcutaneous -Post Debridement Size (cm) - Length 2.0 -Post Debridement Size (cm) - Width 1.2 -Post Debridement Size (cm) - Depth 0.2 -Total Square Cm 2.40 -Wound/Ulcer Outcome Not Healed -Ulcer Cleansing Rinsed/ Irrigated with Saline -Foul Odor after Cleansing No -Bioengineered Tissue No -Topical Lidocaine (%) 5 -Bleeding Controlled with NA -Treatment Response Procedure Tolerated Well #3 LEFT SUPERIOR GARCIA -Time 13:27 -Correct Patient Yes -Correct Side, Site, Position Yes -Correct Procedure Yes -Procedure Performed Yes -Type of Procedure Debridement -Clinical Debridement Subcutaneous -Post Debridement Size (cm) - Length 0.7 -Post Debridement Size (cm) - Width 0.9 -Post Debridement Size (cm) - Depth 0.2 -Total Square Cm 0.63 -Wound/Ulcer Outcome Not Healed -Ulcer Cleansing Rinsed/ Irrigated with Saline -Foul Odor after Cleansing No -Bioengineered Tissue No -Topical Lidocaine (%) 5 -Bleeding Controlled with NA -Treatment Response Procedure Tolerated Well [See Physician Procedure note for Specifics] Pain Scale: 0-10 Numeric [Pain] -Is Patient Pain Free? Yes Musculoskeletal: No Muscle Wasting Neurological: Cranial nerves II-XII grossly intact Psych/Mental Status: Normal Affect Debridement Note Post-Debridement Measurements/Treatment WC - Nurse 2 - General Ulcer CM Notes Start: 04/01/18 12:20 Freq: Status: Active Protocol: Activity Type Activity Date Activity User E-Sign Co-Sign Detail Recorded Client Recorded Date Recorded By Document 04/01/18 13:26 [id number] 04/01/18 13:28 04/01/18 13:26 Wound Center Nurse 2 #4 LEFT INFERIOR GARCIA -Time 13:27 -Correct Patient Yes -Correct Side, Site, Position Yes -Correct Procedure Yes -Procedure Performed Yes -Type of Procedure Debridement -Clinical Debridement Subcutaneous -Post Debridement Size (cm) - Length 2.0 -Post Debridement Size (cm) - Width 1.2 -Post Debridement Size (cm) - Depth 0.2 -Total Square Cm 2.40 -Wound/Ulcer Outcome Not Healed -Ulcer Cleansing Rinsed/ Irrigated with Saline -Foul Odor after Cleansing No -Bioengineered Tissue No -Topical Lidocaine (%) 5 -Bleeding Controlled with NA -Treatment Response Procedure Tolerated Well #3 LEFT SUPERIOR GARCIA -Time 13:27 -Correct Patient Yes -Correct Side, Site, Position Yes -Correct Procedure Yes -Procedure Performed Yes -Type of Procedure Debridement -Clinical Debridement Subcutaneous -Post Debridement Size (cm) - Length 0.7 -Post Debridement Size (cm) - Width 0.9 -Post Debridement Size (cm) - Depth 0.2 -Total Square Cm 0.63 -Wound/Ulcer Outcome Not Healed -Ulcer Cleansing Rinsed/ Irrigated with Saline -Foul Odor after Cleansing No -Bioengineered Tissue No -Topical Lidocaine (%) 5 -Bleeding Controlled with NA -Treatment Response Procedure Tolerated Well Pain Scale: 0-10 Numeric Is Patient Pain Free? Yes Wound debrided: Left Garcia ( Inferior ) Wound Grade/Stage: Stage II Type of Debridement: Excisional debridement Anesthesia Used: 4% Lidocaine Solution Depth: Down to and including healthy tissue, in the subcutaneous layer Percentage of wound debrided: 100 Instrument Used: 5mm curette Tissue Removed: Slough and devitalized tissue Severity: Fat Layer Exposed Amount of bleeding with debridement: Mild Bleeding Controlled with: Pressure Patient tolerated procedure well - Additional Wound Wound debrided: Left garcia ( Superior ) Wound Grade/Stage: Stage II Type of Debridement: Excisional debridement Anesthesia Used: 4% Lidocaine Solution Depth: Down to and including healthy tissue, in the subcutaneous layer Percentage of wound debrided: 100 Instrument Used: 5mm curette Tissue Removed: Slough and devitalized tissue Severity: Fat Layer Exposed Amount of bleeding with debridement: Mild Bleeding Controlled with: Pressure Patient tolerated procedure: Patient tolerated procedure well Assessment/Plan Active Problems Traumatic wound (Chronic) Leg edema, left (Chronic) Assessment: Traumatic left lower extremity wounds with delayed healing. Left lower extremity cellulitis. Plan: Cellulitis appears to be resolving however, still significantly tender. No obvious signs of infection otherwise. Debridement done as documented above. Procedure was well tolerated. Advised to complete course of Abx. If indicated, will culture next week. Switch to Pomogran. Chnage daily. 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 Elevate lower extremity when sitted and in bed. Increased protein intake. Follow up in 1 week. Advised to call with any questions or concerns.
[2018-04-03 15:41] VITALS: BP 157/98; PULSE 61; RESP 16; TEMP 36.1
--- NOTE | 2018-04-03 18:36 | PCM.WC.HP ---
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 He was in his normal state of health until February 2018. At that time, he sustained trauma to the left anterior tibial surface, resulting in 2 adjacent superficial wounds. He was evaluated by his primary care physician, and placed on oral cephalexin, which has now been completed. The traumatic wounds failed to heal, and the patient presented for further evaluation and management. The patient typically sleeps on a flat mattress at night, though occasionally sleeps in a recliner due to breathing problems. He claims to be active. He does not ambulate liberally, however, claiming to suffer from shortness of breath which occurs with activity. 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 It is uncertain whether this was deep or superficial thrombophlebitis. He has been being seen by several physicians at the wound center, most recently Dr. Thomas and Dr. Valentine. He had been using santyl but was changed to promogran last week. He has had increased pain and redness and went to the ER and was given doxycycline. He is tolerating this medicine. He is on day 5 of 10. He states that the pain has not improved. No cultures have been taken. Denies fever or chills or drainage. 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 (Chronic) Surgical History: total hip arthroplasty, total knee arthroplasty, - - Ablation and pacemaker/defibrillator insertion Allergies/Adverse Reactions: Allergies wheat Allergy (Verified 03/29/18 11:19) Other has Ciliac disease Home Medications: Ambulatory Orders Medication Instructions Recorded Carvedilol [Coreg] 25 mg PO BID 06/21/13 Ipratropium [place] 0.06% 2 spray NASAL BID 06/21/13 [ATROVENT NASAL SPRAY] Ropinirole HCl [Requip] 0.5 mg PO QHS 06/21/13 Simvastatin [Zocor] 20 mg PO QHS 06/21/13 Warfarin [Coumadin] 5 mg PO DAILY 06/21/13 traMADol [Ultram (G)] 50 mg PO DAILY PRN PRN 06/21/13 Calcium Carb/Vitamin D3/Vit K1 1 each PO DAILY 03/10/18 [Citracal Soft Chew] Cholecalciferol (Vitamin D3) 2,000 unit PO BID 03/10/18 [Vitamin D3] Losartan Potassium 100 mg PO DAILY 03/10/18 Magnesium 100 mg PO DAILY 03/10/18 Potassium 30 mg PO DAILY 03/10/18 Doxycycline Monohydrate 100 mg PO BID #20 cap 03/29/18 - Family History Paternal - - The patient's father at the age of 72 with a history of emphysema. Patient's father was a smoker. Patient's mother at age of 87 from an abdominal aortic aneurysm. Patient had a sister who at the age of 37 from kidney failure. He also had a sister who at the age of 44 from a brain aneurysm. Lives: Spouse/ Significant Other Smoking Status: Never smoker Tobacco Use: Non-smoker Alcohol: None Drugs: None Review of Systems Constitutional: Denies: Chills, Fever, Weight Change Eyes: Denies: Pain, Vision Change HEENT: Denies: Difficulty Hearing, Difficulty Swallowing, Sinus Congestion Cardiovascular: Denies: Chest Pain, Palpitations Respiratory: Denies: Cough, Shortness of Breath Gastrointestinal: Denies: Diarrhea, Nausea, Vomiting Genitourinary: Denies: Dysuria, Hematuria Musculoskeletal: Reports: Back Pain, Joint Pain Skin: Reports: Wounds Endocrine: Denies: Heat/ Cold Intolerance, Polydipsia, Polyuria Hematologic/ Lymphatic: Denies: Easy Bruising, Easy Bleeding - Physical Exam Vital Signs Temp Pulse Resp BP 96.9 F L 61 16 157/98 H 04/03/18 15:41 04/03/18 15:41 04/03/18 15:41 04/03/18 15:41 General: Alert, Oriented x3, Cooperative, No apparent distress HEENT: Atraumatic, Normocephalic Oral: Moist Mucosa Neck: Supple, No JVD Lungs: Clear to auscultation Cardiovascular: Regular rate, Regular Rhythm Abdomen: Soft, Non Tender Extremities: Edema Skin: Ulcer/ Wound Wound Measurements and Assessment - Nurse 1 - General Ulcer Measurement Start: 04/01/18 12:20 Freq: Status: Active Protocol: Activity Type Activity Date Activity User E-Sign Co-Sign Detail Recorded Client Recorded Date Recorded By Document 04/01/18 12:20 [facility] [id number] 04/01/18 12:28 [facility] Document 04/03/18 15:41 [facility] [id number] 04/03/18 15:50 [facility] 04/01/18 04/03/18 12:20 15:41 Wound Center Nurse 1 [Ulcer Assessment] #4 LEFT INFERIOR GARCIA cluster -Combined with other wound No No -Current Size (cm) - Length 2.2 2.5 -Current Size (cm) - Width 1.1 0.8 -Current Size (cm) - Depth 0.1 0.1 -Total Square Cm 2.42 2.00 -Photo Taken No No -Epithelialization None Present None Present -Tunneling No No -Undermining/Tunneling No No -Circular Undermining No No -Exudate Amt None Present (0 Small (1-33%) %) -Exudate Type Serosanguineous Serosanguineous -Wound Margin Distinct, Distinct, Outline Outline Attached Attached -Granulation Amt None Present (0 Small (1-33%) %) -Granulation Quality Red -Slough/Fibrin Yes Yes -Necrosis Amt Small (1-33%) Large (67-100%) -Necrotic Tissue Type Adherent Slough Eschar -Structure Exposed N/A N/A -Texture ([place]-wound Skin Appearance) Scarring Scarring -Moisture ([place]-wound Skin Appearance Dry/Scaly Dry/Scaly ) -Color ([place]-wound Skin Appearance) Hemosiderin Erythema Staining Hemosiderin Staining -Temperature ([place]-wound Skin No Abnormality No Abnormality Appearance) (Pt Warm) (Pt Warm) -Tenderness on Palpation ([place]-wound No Yes Skin Appearance) -Ulcer Cleansing Rinsed/ Rinsed/ Irrigated with Irrigated with Saline Saline -Foul Odor after Cleansing No No -Anesthetic Used 4% Lidocaine 5% Lidocaine Solution Gel #3 LEFT SUPERIOR GARCIA -Combined with other wound No No -Current Size (cm) - Length 0.4 0.5 -Current Size (cm) - Width 0.6 0.5 -Current Size (cm) - Depth 0.1 0.1 -Total Square Cm 0.24 0.25 -Photo Taken No No -Epithelialization None Present None Present -Tunneling No No -Undermining/Tunneling No No -Circular Undermining No No -Exudate Amt None Present (0 Small (1-33%) %) -Exudate Type Serosanguineous -Wound Margin Distinct, Distinct, Outline Outline Attached Attached -Granulation Amt None Present (0 Small (1-33%) %) -Granulation Quality Red -Slough/Fibrin Yes Yes -Necrosis Amt Large (67-100%) Large (67-100%) -Necrotic Tissue Type Eschar Adherent Slough -Structure Exposed N/A None/Limited to Skin Breakdown -Texture ([place]-wound Skin Appearance) Scarring Scarring -Moisture ([place]-wound Skin Appearance Dry/Scaly Dry/Scaly ) -Color ([place]-wound Skin Appearance) Assessed Erythema Hemosiderin Staining -Temperature ([place]-wound Skin No Abnormality No Abnormality Appearance) (Pt Warm) (Pt Warm) -Tenderness on Palpation ([place]-wound No Yes Skin Appearance) -Ulcer Cleansing Rinsed/ Rinsed/ Irrigated with Irrigated with Saline Saline -Foul Odor after Cleansing No No -Anesthetic Used 4% Lidocaine 5% Lidocaine Solution Gel [Edema Assessment] -Lower Limb Edema Present Yes Yes -Left Calf (cm) 37 36.6 -Left Ankle (cm) 23.8 22.9 WC - Nurse 2 - General Ulcer CM Notes Start: 04/01/18 12:20 Freq: Status: Active Protocol: Activity Type Activity Date Activity User E-Sign Co-Sign Detail Recorded Client Recorded Date Recorded By Document 04/01/18 13:26 JS [id number] 04/01/18 13:28 JS Document 04/03/18 16:30 TM [id number] 04/03/18 16:43 TM 04/01/18 04/03/18 13:26 16:30 Wound Center Nurse 2 [Procedure/Treatment] #4 LEFT INFERIOR GARCIA cluster -Time 13:27 16:30 -Correct Patient Yes Yes -Correct Side, Site, Position Yes Yes -Correct Procedure Yes Yes -Procedure Performed Yes Yes -Type of Procedure Debridement Debridement -Clinical Debridement Subcutaneous Subcutaneous -Post Debridement Size (cm) - Length 2.0 3.2 -Post Debridement Size (cm) - Width 1.2 3.0 -Post Debridement Size (cm) - Depth 0.2 0.1 -Total Square Cm 2.40 9.60 -Wound/Ulcer Outcome Not Healed Not Healed -Ulcer Cleansing Rinsed/ Rinsed/ Irrigated with Irrigated with Saline Saline -Foul Odor after Cleansing No No -Bioengineered Tissue No No -Topical Lidocaine (%) 5 5 -Bleeding Controlled with NA Pressure -Treatment Response Procedure Procedure Tolerated Well Tolerated Well #3 LEFT SUPERIOR GARCIA -Time 13:27 16:31 -Correct Patient Yes Yes -Correct Side, Site, Position Yes Yes -Correct Procedure Yes Yes -Procedure Performed Yes Yes -Type of Procedure Debridement Debridement -Clinical Debridement Subcutaneous Subcutaneous -Post Debridement Size (cm) - Length 0.7 0.6 -Post Debridement Size (cm) - Width 0.9 0.7 -Post Debridement Size (cm) - Depth 0.2 0.1 -Total Square Cm 0.63 0.42 -Wound/Ulcer Outcome Not Healed Not Healed -Ulcer Cleansing Rinsed/ Rinsed/ Irrigated with Irrigated with Saline Saline -Foul Odor after Cleansing No No -Bioengineered Tissue No No -Topical Lidocaine (%) 5 5 -Bleeding Controlled with NA Pressure -Treatment Response Procedure Procedure Tolerated Well Tolerated Well [See Physician Procedure note for Specifics] Pain Scale: 0-10 Numeric [Pain] -Is Patient Pain Free? Yes Yes Psych/Mental Status: Normal Affect, Appropriate Debridement Note Post-Debridement Measurements/Treatment WC - Nurse 2 - General Ulcer CM Notes Start: 04/01/18 12:20 Freq: Status: Active Protocol: Activity Type Activity Date Activity User E-Sign Co-Sign Detail Recorded Client Recorded Date Recorded By Document 04/01/18 13:26 JS [id number] 04/01/18 13:28 JS Document 04/03/18 16:30 TM [id number] 04/03/18 16:43 TM 04/01/18 04/03/18 13:26 16:30 Wound Center Nurse 2 #4 LEFT INFERIOR GARCIA cluster -Time 13:27 16:30 -Correct Patient Yes Yes -Correct Side, Site, Position Yes Yes -Correct Procedure Yes Yes -Procedure Performed Yes Yes -Type of Procedure Debridement Debridement -Clinical Debridement Subcutaneous Subcutaneous -Post Debridement Size (cm) - Length 2.0 3.2 -Post Debridement Size (cm) - Width 1.2 3.0 -Post Debridement Size (cm) - Depth 0.2 0.1 -Total Square Cm 2.40 9.60 -Wound/Ulcer Outcome Not Healed Not Healed -Ulcer Cleansing Rinsed/ Rinsed/ Irrigated with Irrigated with Saline Saline -Foul Odor after Cleansing No No -Bioengineered Tissue No No -Topical Lidocaine (%) 5 5 -Bleeding Controlled with NA Pressure -Treatment Response Procedure Procedure Tolerated Well Tolerated Well #3 LEFT SUPERIOR GARCIA -Time 13:27 16:31 -Correct Patient Yes Yes -Correct Side, Site, Position Yes Yes -Correct Procedure Yes Yes -Procedure Performed Yes Yes -Type of Procedure Debridement Debridement -Clinical Debridement Subcutaneous Subcutaneous -Post Debridement Size (cm) - Length 0.7 0.6 -Post Debridement Size (cm) - Width 0.9 0.7 -Post Debridement Size (cm) - Depth 0.2 0.1 -Total Square Cm 0.63 0.42 -Wound/Ulcer Outcome Not Healed Not Healed -Ulcer Cleansing Rinsed/ Rinsed/ Irrigated with Irrigated with Saline Saline -Foul Odor after Cleansing No No -Bioengineered Tissue No No -Topical Lidocaine (%) 5 5 -Bleeding Controlled with NA Pressure -Treatment Response Procedure Procedure Tolerated Well Tolerated Well Pain Scale: 0-10 Numeric Is Patient Pain Free? Yes Yes Wound debrided: left inferior garcia cluster Laterality: Left Type of Debridement: Excisional debridement Anesthesia Used: 4% Lidocaine Solution Depth: Down to and including healthy tissue, in the subcutaneous layer Percentage of wound debrided: 100 Instrument Used: 5mm curette Tissue Removed: yellow slough, devitalized tissue Severity: Fat Layer Exposed Amount of bleeding with debridement: Mild Bleeding Controlled with: Compression and gauze Patient tolerated procedure well - Additional Wound Wound debrided: left superior garcia Laterality: Left Type of Debridement: Excisional debridement Anesthesia Used: 4% Lidocaine Solution Depth: Down to and including healthy tissue, in the subcutaneous layer Percentage of wound debrided: 100 Instrument Used: 5mm curette Tissue Removed: yellow slough, devitalized tissue Severity: Fat Layer Exposed Amount of bleeding with debridement: Mild Bleeding Controlled with: Compression and gauze Patient tolerated procedure: Patient tolerated procedure well Assessment/Plan Active Problems Traumatic wound (Chronic) Anticoagulated on Coumadin (Chronic) Leg edema, left (Chronic) Open wound of left lower extremity (Chronic) 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 Left lower extremity cellulitis. Plan: Cellulitis improved but he continues to still be significantly tender. No obvious signs of infection otherwise. Debridement done as documented above. Procedure was tolerated. Advised to complete course of Abx. Culture obtained. Advised tylenol and tramadol for pain. Could consider xray or CT for evaluation for osteomyelitis if he still continues to have pain out of proportion to clinical appearance. Significant eschar present on inferior wound - changed back to Santyl. Continued Promogran to superior wound. Change daily. 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 Elevate lower extremity when sitting and in bed. Increased protein intake. Follow up in 1 week. Advised to call with any questions or concerns.
--- NOTE | 2018-04-03 18:48 | HP.PCM_ITS ---
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 He was in his normal state of health until February 2018. At that time, he sustained trauma to the left anterior tibial surface, resulting in 2 adjacent superficial wounds. He was evaluated by his primary care physician, and placed on oral cephalexin, which has now been completed. The traumatic wounds failed to heal, and the patient presented for further evaluation and management. The patient typically sleeps on a flat mattress at night, though occasionally sleeps in a recliner due to breathing problems. He claims to be active. He does not ambulate liberally, however, claiming to suffer from shortness of breath which occurs with activity. 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 It is uncertain whether this was deep or superficial thrombophlebitis. He has been being seen by several physicians at the wound center, most recently Dr. Thomas and Dr. Valentine. He had been using santyl but was changed to promogran last week. He has had increased pain and redness and went to the ER and was given doxycycline. He is tolerating this medicine. He is on day 5 of 10. He states that the pain has not improved. No cultures have been taken. Denies fever or chills or drainage. 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 (Chronic) Surgical History: total hip arthroplasty, total knee arthroplasty, - - Ablation and pacemaker/defibrillator insertion Allergies/Adverse Reactions: Allergies wheat Allergy (Verified 03/29/18 11:19) Other has Ciliac disease Home Medications: Ambulatory Orders Medication Instructions Recorded Carvedilol [Coreg] 25 mg PO BID 06/21/13 Ipratropium [place] 0.06% 2 spray NASAL BID 06/21/13 [ATROVENT NASAL SPRAY] Ropinirole HCl [Requip] 0.5 mg PO QHS 06/21/13 Simvastatin [Zocor] 20 mg PO QHS 06/21/13 Warfarin [Coumadin] 5 mg PO DAILY 06/21/13 traMADol [Ultram (G)] 50 mg PO DAILY PRN PRN 06/21/13 Calcium Carb/Vitamin D3/Vit K1 1 each PO DAILY 03/10/18 [Citracal Soft Chew] Cholecalciferol (Vitamin D3) 2,000 unit PO BID 03/10/18 [Vitamin D3] Losartan Potassium 100 mg PO DAILY 03/10/18 Magnesium 100 mg PO DAILY 03/10/18 Potassium 30 mg PO DAILY 03/10/18 Doxycycline Monohydrate 100 mg PO BID #20 cap 03/29/18 - Family History Paternal - - The patient's father at the age of 72 with a history of emphysema. Patient's father was a smoker. Patient's mother at age of 87 from an abdominal aortic aneurysm. Patient had a sister who at the age of 37 from kidney failure. He also had a sister who at the age of 44 from a brain aneurysm. Lives: Spouse/ Significant Other Smoking Status: Never smoker Tobacco Use: Non-smoker Alcohol: None Drugs: None Review of Systems Constitutional: Denies: Chills, Fever, Weight Change Eyes: Denies: Pain, Vision Change HEENT: Denies: Difficulty Hearing, Difficulty Swallowing, Sinus Congestion Cardiovascular: Denies: Chest Pain, Palpitations Respiratory: Denies: Cough, Shortness of Breath Gastrointestinal: Denies: Diarrhea, Nausea, Vomiting Genitourinary: Denies: Dysuria, Hematuria Musculoskeletal: Reports: Back Pain, Joint Pain Skin: Reports: Wounds Endocrine: Denies: Heat/ Cold Intolerance, Polydipsia, Polyuria Hematologic/ Lymphatic: Denies: Easy Bruising, Easy Bleeding - Physical Exam Vital Signs Temp Pulse Resp BP 96.9 F L 61 16 157/98 H 04/03/18 15:41 04/03/18 15:41 04/03/18 15:41 04/03/18 15:41 General: Alert, Oriented x3, Cooperative, No apparent distress HEENT: Atraumatic, Normocephalic Oral: Moist Mucosa Neck: Supple, No JVD Lungs: Clear to auscultation Cardiovascular: Regular rate, Regular Rhythm Abdomen: Soft, Non Tender Extremities: Edema Skin: Ulcer/ Wound Wound Measurements and Assessment - Nurse 1 - General Ulcer Measurement Start: 04/01/18 12:20 Freq: Status: Active Protocol: Activity Type Activity Date Activity User E-Sign Co-Sign Detail Recorded Client Recorded Date Recorded By Document 04/01/18 12:20 [facility] [id number] 04/01/18 12:28 [facility] Document 04/03/18 15:41 [facility] [id number] 04/03/18 15:50 [facility] 04/01/18 04/03/18 12:20 15:41 Wound Center Nurse 1 [Ulcer Assessment] #4 LEFT INFERIOR GARCIA cluster -Combined with other wound No No -Current Size (cm) - Length 2.2 2.5 -Current Size (cm) - Width 1.1 0.8 -Current Size (cm) - Depth 0.1 0.1 -Total Square Cm 2.42 2.00 -Photo Taken No No -Epithelialization None Present None Present -Tunneling No No -Undermining/Tunneling No No -Circular Undermining No No -Exudate Amt None Present (0 Small (1-33%) %) -Exudate Type Serosanguineous Serosanguineous -Wound Margin Distinct, Distinct, Outline Outline Attached Attached -Granulation Amt None Present (0 Small (1-33%) %) -Granulation Quality Red -Slough/Fibrin Yes Yes -Necrosis Amt Small (1-33%) Large (67-100%) -Necrotic Tissue Type Adherent Slough Eschar -Structure Exposed N/A N/A -Texture ([place]-wound Skin Appearance) Scarring Scarring -Moisture ([place]-wound Skin Appearance Dry/Scaly Dry/Scaly ) -Color ([place]-wound Skin Appearance) Hemosiderin Erythema Staining Hemosiderin Staining -Temperature ([place]-wound Skin No Abnormality No Abnormality Appearance) (Pt Warm) (Pt Warm) -Tenderness on Palpation ([place]-wound No Yes Skin Appearance) -Ulcer Cleansing Rinsed/ Rinsed/ Irrigated with Irrigated with Saline Saline -Foul Odor after Cleansing No No -Anesthetic Used 4% Lidocaine 5% Lidocaine Solution Gel #3 LEFT SUPERIOR GARCIA -Combined with other wound No No -Current Size (cm) - Length 0.4 0.5 -Current Size (cm) - Width 0.6 0.5 -Current Size (cm) - Depth 0.1 0.1 -Total Square Cm 0.24 0.25 -Photo Taken No No -Epithelialization None Present None Present -Tunneling No No -Undermining/Tunneling No No -Circular Undermining No No -Exudate Amt None Present (0 Small (1-33%) %) -Exudate Type Serosanguineous -Wound Margin Distinct, Distinct, Outline Outline Attached Attached -Granulation Amt None Present (0 Small (1-33%) %) -Granulation Quality Red -Slough/Fibrin Yes Yes -Necrosis Amt Large (67-100%) Large (67-100%) -Necrotic Tissue Type Eschar Adherent Slough -Structure Exposed N/A None/Limited to Skin Breakdown -Texture ([place]-wound Skin Appearance) Scarring Scarring -Moisture ([place]-wound Skin Appearance Dry/Scaly Dry/Scaly ) -Color ([place]-wound Skin Appearance) Assessed Erythema Hemosiderin Staining -Temperature ([place]-wound Skin No Abnormality No Abnormality Appearance) (Pt Warm) (Pt Warm) -Tenderness on Palpation ([place]-wound No Yes Skin Appearance) -Ulcer Cleansing Rinsed/ Rinsed/ Irrigated with Irrigated with Saline Saline -Foul Odor after Cleansing No No -Anesthetic Used 4% Lidocaine 5% Lidocaine Solution Gel [Edema Assessment] -Lower Limb Edema Present Yes Yes -Left Calf (cm) 37 36.6 -Left Ankle (cm) 23.8 22.9 WC - Nurse 2 - General Ulcer CM Notes Start: 04/01/18 12:20 Freq: Status: Active Protocol: Activity Type Activity Date Activity User E-Sign Co-Sign Detail Recorded Client Recorded Date Recorded By Document 04/01/18 13:26 JS [id number] 04/01/18 13:28 JS Document 04/03/18 16:30 TM [id number] 04/03/18 16:43 TM 04/01/18 04/03/18 13:26 16:30 Wound Center Nurse 2 [Procedure/Treatment] #4 LEFT INFERIOR GARCIA cluster -Time 13:27 16:30 -Correct Patient Yes Yes -Correct Side, Site, Position Yes Yes -Correct Procedure Yes Yes -Procedure Performed Yes Yes -Type of Procedure Debridement Debridement -Clinical Debridement Subcutaneous Subcutaneous -Post Debridement Size (cm) - Length 2.0 3.2 -Post Debridement Size (cm) - Width 1.2 3.0 -Post Debridement Size (cm) - Depth 0.2 0.1 -Total Square Cm 2.40 9.60 -Wound/Ulcer Outcome Not Healed Not Healed -Ulcer Cleansing Rinsed/ Rinsed/ Irrigated with Irrigated with Saline Saline -Foul Odor after Cleansing No No -Bioengineered Tissue No No -Topical Lidocaine (%) 5 5 -Bleeding Controlled with NA Pressure -Treatment Response Procedure Procedure Tolerated Well Tolerated Well #3 LEFT SUPERIOR GARCIA -Time 13:27 16:31 -Correct Patient Yes Yes -Correct Side, Site, Position Yes Yes -Correct Procedure Yes Yes -Procedure Performed Yes Yes -Type of Procedure Debridement Debridement -Clinical Debridement Subcutaneous Subcutaneous -Post Debridement Size (cm) - Length 0.7 0.6 -Post Debridement Size (cm) - Width 0.9 0.7 -Post Debridement Size (cm) - Depth 0.2 0.1 -Total Square Cm 0.63 0.42 -Wound/Ulcer Outcome Not Healed Not Healed -Ulcer Cleansing Rinsed/ Rinsed/ Irrigated with Irrigated with Saline Saline -Foul Odor after Cleansing No No -Bioengineered Tissue No No -Topical Lidocaine (%) 5 5 -Bleeding Controlled with NA Pressure -Treatment Response Procedure Procedure Tolerated Well Tolerated Well [See Physician Procedure note for Specifics] Pain Scale: 0-10 Numeric [Pain] -Is Patient Pain Free? Yes Yes Psych/Mental Status: Normal Affect, Appropriate Debridement Note Post-Debridement Measurements/Treatment WC - Nurse 2 - General Ulcer CM Notes Start: 04/01/18 12:20 Freq: Status: Active Protocol: Activity Type Activity Date Activity User E-Sign Co-Sign Detail Recorded Client Recorded Date Recorded By Document 04/01/18 13:26 JS [id number] 04/01/18 13:28 JS Document 04/03/18 16:30 TM [id number] 04/03/18 16:43 TM 04/01/18 04/03/18 13:26 16:30 Wound Center Nurse 2 #4 LEFT INFERIOR GARCIA cluster -Time 13:27 16:30 -Correct Patient Yes Yes -Correct Side, Site, Position Yes Yes -Correct Procedure Yes Yes -Procedure Performed Yes Yes -Type of Procedure Debridement Debridement -Clinical Debridement Subcutaneous Subcutaneous -Post Debridement Size (cm) - Length 2.0 3.2 -Post Debridement Size (cm) - Width 1.2 3.0 -Post Debridement Size (cm) - Depth 0.2 0.1 -Total Square Cm 2.40 9.60 -Wound/Ulcer Outcome Not Healed Not Healed -Ulcer Cleansing Rinsed/ Rinsed/ Irrigated with Irrigated with Saline Saline -Foul Odor after Cleansing No No -Bioengineered Tissue No No -Topical Lidocaine (%) 5 5 -Bleeding Controlled with NA Pressure -Treatment Response Procedure Procedure Tolerated Well Tolerated Well #3 LEFT SUPERIOR GARCIA -Time 13:27 16:31 -Correct Patient Yes Yes -Correct Side, Site, Position Yes Yes -Correct Procedure Yes Yes -Procedure Performed Yes Yes -Type of Procedure Debridement Debridement -Clinical Debridement Subcutaneous Subcutaneous -Post Debridement Size (cm) - Length 0.7 0.6 -Post Debridement Size (cm) - Width 0.9 0.7 -Post Debridement Size (cm) - Depth 0.2 0.1 -Total Square Cm 0.63 0.42 -Wound/Ulcer Outcome Not Healed Not Healed -Ulcer Cleansing Rinsed/ Rinsed/ Irrigated with Irrigated with Saline Saline -Foul Odor after Cleansing No No -Bioengineered Tissue No No -Topical Lidocaine (%) 5 5 -Bleeding Controlled with NA Pressure -Treatment Response Procedure Procedure Tolerated Well Tolerated Well Pain Scale: 0-10 Numeric Is Patient Pain Free? Yes Yes Wound debrided: left inferior garcia cluster Laterality: Left Type of Debridement: Excisional debridement Anesthesia Used: 4% Lidocaine Solution Depth: Down to and including healthy tissue, in the subcutaneous layer Percentage of wound debrided: 100 Instrument Used: 5mm curette Tissue Removed: yellow slough, devitalized tissue Severity: Fat Layer Exposed Amount of bleeding with debridement: Mild Bleeding Controlled with: Compression and gauze Patient tolerated procedure well - Additional Wound Wound debrided: left superior garcia Laterality: Left Type of Debridement: Excisional debridement Anesthesia Used: 4% Lidocaine Solution Depth: Down to and including healthy tissue, in the subcutaneous layer Percentage of wound debrided: 100 Instrument Used: 5mm curette Tissue Removed: yellow slough, devitalized tissue Severity: Fat Layer Exposed Amount of bleeding with debridement: Mild Bleeding Controlled with: Compression and gauze Patient tolerated procedure: Patient tolerated procedure well Assessment/Plan Active Problems Traumatic wound (Chronic) Anticoagulated on Coumadin (Chronic) Leg edema, left (Chronic) Open wound of left lower extremity (Chronic) 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 Left lower extremity cellulitis. Plan: Cellulitis improved but he continues to still be significantly tender. No obvious signs of infection otherwise. Debridement done as documented above. Procedure was tolerated. Advised to complete course of Abx. Culture obtained. Advised tylenol and tramadol for pain. Could consider xray or CT for evaluation for osteomyelitis if he still continues to have pain out of proportion to clinical appearance. Significant eschar present on inferior wound - changed back to Santyl. Continued Promogran to superior wound. Change daily. Tubi authorizer for edema management. Elevate lower extremity when sitting and in bed. Increased protein intake. Follow up in 1 week. Advised to call with any questions or concerns.
[2018-04-08 08:49] VITALS: BP 135/53; PULSE 65; RESP 16; TEMP 36
--- NOTE | 2018-04-08 10:01 | PCM.WC.PN ---
(1) Traumatic wound Status: Chronic Current Visit: Yes (2) Leg edema, left Status: Chronic Current Visit: Yes Code(s): R60.0 - Localized edema Type of Wound Date of Service: 04/08/18 Chief Complaint: Recent traumatic injury to the left anterior tibial surface with persistent wound History of Wound: This is a 77-year-old male with multiple pre-existing medical problems. He was in his normal state of health until February 2018. At that time, he sustained trauma to the left anterior tibial surface, resulting in 2 adjacent superficial wounds. He was evaluated by his primary care physician, and placed on oral cephalexin, which has now been completed. The traumatic wounds failed to heal, and the patient presented for further evaluation and management. The patient typically sleeps on a flat mattress at night, though occasionally sleeps in a recliner due to breathing problems. He claims to be active. He does not ambulate liberally, however, claiming to suffer from shortness of breath which occurs with activity. 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 It is uncertain whether this was deep or superficial thrombophlebitis. He has been being seen by several physicians at the wound center, most recently Dr. Thomas and Dr. Valentine. He had been using santyl but was changed to promogran last week. He has had increased pain and redness and went to the ER and was given doxycycline. He is tolerating this medicine. He is on day 5 of 10. He states that the pain has not improved. No cultures have been taken. Denies fever or chills or drainage. Progress of Wound: Pain is better at this time. However, he presents with a new wound adjacent to his previous wound. He denies any known precipitaing factor. He represented here on friday and was seen by Dr. Tavarez due to significant pain. He was switched back to santyl and this time he states that he tolerated this well. He otherwise feels well. - Physical Exam Vital Signs Temp Pulse Resp BP 96.8 F L 65 16 135/53 H 04/08/18 08:49 04/08/18 08:49 04/08/18 08:49 04/08/18 08:49 General: Alert, Oriented x3, Cooperative, No apparent distress HEENT: Atraumatic Oral: Moist Mucosa Neck: Supple Lungs: Normal air movement Abdomen: Non Tender Extremities: No cyanosis Skin: Ulcer/ Wound Wound Measurements and Assessment WC - Nurse 1 - General Ulcer Measurement Start: 04/01/18 12:20 Freq: Status: Active Protocol: Activity Type Activity Date Activity User E-Sign Co-Sign Detail Recorded Client Recorded Date Recorded By Document 04/08/18 08:49 ME [id number] 04/08/18 09:00 [place] 04/08/18 08:49 Wound Center Nurse 1 [Ulcer Assessment] #4 LEFT INFERIOR CURTIS cluster -Combined with other wound No -Current Size (cm) - Length 3.7 -Current Size (cm) - Width 2 -Current Size (cm) - Depth 0.1 -Total Square Cm 7.4 -Date of Last Picture (Recall this 04/08/18 field) -Photo Taken Yes -Epithelialization None Present -Tunneling No -Undermining/Tunneling No -Circular Undermining No -Exudate Amt Small (1-33%) -Exudate Type Serosanguineous -Wound Margin Flat & Intact -Granulation Amt Small (1-33%) -Granulation Quality Red -Necrosis Amt Large (67-100%) -Necrotic Tissue Type Eschar -Structure Exposed N/A -Texture (Eznobia-wound Skin Appearance) Assessed Localized Edema -Moisture (Zenobia-wound Skin Appearance Assessed ) -Color (Zenobia-wound Skin Appearance) Assessed Hemosiderin Staining -Temperature (Zenobia-wound Skin No Abnormality Appearance) (Pt Warm) -Tenderness on Palpation (Zenobia-wound Yes Skin Appearance) -Ulcer Cleansing Rinsed/ Irrigated with Saline -Foul Odor after Cleansing No -Anesthetic Used 4% Lidocaine Solution #3 LEFT SUPERIOR CURTIS -Combined with other wound No -Current Size (cm) - Length 0.5 -Current Size (cm) - Width 0.7 -Current Size (cm) - Depth 0.1 -Total Square Cm 0.35 -Date of Last Picture (Recall this 04/08/18 field) -Photo Taken Yes -Epithelialization None Present -Tunneling No -Undermining/Tunneling No -Circular Undermining No -Exudate Amt Small (1-33%) -Exudate Type Serosanguineous -Wound Margin Flat & Intact -Granulation Amt None Present (0 %) -Granulation Quality N/A -Slough/Fibrin Yes -Necrosis Amt Large (67-100%) -Necrotic Tissue Type Eschar -Texture (Zenobia-wound Skin Appearance) Assessed Localized Edema -Moisture (Zenobia-wound Skin Appearance Assessed ) -Color (Zenobia-wound Skin Appearance) Assessed Hemosiderin Staining -Temperature (Zenobia-wound Skin No Abnormality Appearance) (Pt Warm) -Tenderness on Palpation (Zenobia-wound No Skin Appearance) -Ulcer Cleansing Rinsed/ Irrigated with Saline -Foul Odor after Cleansing Yes -Anesthetic Used 4% Lidocaine Solution [Edema Assessment] -Left Calf (cm) 38 -Point of Measurement (cm from the 23.5 medial instep) WC - Nurse 2 - General Ulcer CM Notes Start: 04/01/18 12:20 Freq: Status: Active Protocol: Activity Type Activity Date Activity User E-Sign Co-Sign Detail Recorded Client Recorded Date Recorded By Document 04/08/18 09:34 ZOË [id number] 04/08/18 09:36 ZOË 04/08/18 09:34 Wound Center Nurse 2 [Procedure/Treatment] #4 LEFT INFERIOR CURTIS cluster -Time 09:34 -Correct Patient Yes -Correct Side, Site, Position Yes -Correct Procedure Yes -Procedure Performed Yes -Type of Procedure Debridement -Clinical Debridement Subcutaneous -Post Debridement Size (cm) - Length 3.9 -Post Debridement Size (cm) - Width 2.2 -Post Debridement Size (cm) - Depth 0.2 -Total Square Cm 8.58 -Wound/Ulcer Outcome Not Healed -Ulcer Cleansing Rinsed/ Irrigated with Saline -Foul Odor after Cleansing No -Bioengineered Tissue No -Topical Lidocaine (%) 4 -Lidocaine (ml) 5 -Bleeding Controlled with NA -Treatment Response Procedure Tolerated Well #3 LEFT SUPERIOR CURTIS -Time 09:35 -Correct Patient Yes -Correct Side, Site, Position Yes -Correct Procedure Yes -Procedure Performed Yes -Type of Procedure Debridement -Clinical Debridement Subcutaneous -Post Debridement Size (cm) - Length 0.5 -Post Debridement Size (cm) - Width 0.9 -Post Debridement Size (cm) - Depth 0.2 -Total Square Cm 0.45 -Wound/Ulcer Outcome Not Healed -Ulcer Cleansing Rinsed/ Irrigated with Saline -Foul Odor after Cleansing No -Bioengineered Tissue No -Topical Lidocaine (%) 4 -Lidocaine (ml) 5 -Bleeding Controlled with NA -Treatment Response Procedure Tolerated Well [See Physician Procedure note for Specifics] Pain Scale: 0-10 Numeric [Pain] -Is Patient Pain Free? Yes Musculoskeletal: No Muscle Wasting Neurological: Cranial nerves II-XII grossly intact Psych/Mental Status: Normal Affect Debridement Note Post-Debridement Measurements/Treatment WC - Nurse 2 - General Ulcer CM Notes Start: 04/01/18 12:20 Freq: Status: Active Protocol: Activity Type Activity Date Activity User E-Sign Co-Sign Detail Recorded Client Recorded Date Recorded By Document 04/01/18 13:26 [id number] 04/01/18 13:28 Document 04/03/18 16:30 TM [id number] 04/03/18 16:43 TM Document 04/08/18 09:34 JS [id number] 04/08/18 09:36 04/01/18 04/03/18 04/08/18 13:26 16:30 09:34 Wound Center Nurse 2 #4 LEFT INFERIOR CURTIS cluster -Time 13:27 16:30 09:34 -Correct Patient Yes Yes Yes -Correct Side, Site, Position Yes Yes Yes -Correct Procedure Yes Yes Yes -Procedure Performed Yes Yes Yes -Type of Procedure Debridement Debridement Debridement -Clinical Debridement Subcutaneous Subcutaneous Subcutaneous -Post Debridement Size (cm) - Length 2.0 3.2 3.9 -Post Debridement Size (cm) - Width 1.2 3.0 2.2 -Post Debridement Size (cm) - Depth 0.2 0.1 0.2 -Total Square Cm 2.40 9.60 8.58 -Wound/Ulcer Outcome Not Healed Not Healed Not Healed -Ulcer Cleansing Rinsed/ Rinsed/ Rinsed/ Irrigated with Irrigated with Irrigated with Saline Saline Saline -Foul Odor after Cleansing No No No -Bioengineered Tissue No No No -Topical Lidocaine (%) 5 5 4 -Lidocaine (ml) 5 -Bleeding Controlled with NA Pressure NA -Treatment Response Procedure Procedure Procedure Tolerated Well Tolerated Well Tolerated Well #3 LEFT SUPERIOR CURTIS -Time 13:27 16:31 09:35 -Correct Patient Yes Yes Yes -Correct Side, Site, Position Yes Yes Yes -Correct Procedure Yes Yes Yes -Procedure Performed Yes Yes Yes -Type of Procedure Debridement Debridement Debridement -Clinical Debridement Subcutaneous Subcutaneous Subcutaneous -Post Debridement Size (cm) - Length 0.7 0.6 0.5 -Post Debridement Size (cm) - Width 0.9 0.7 0.9 -Post Debridement Size (cm) - Depth 0.2 0.1 0.2 -Total Square Cm 0.63 0.42 0.45 -Wound/Ulcer Outcome Not Healed Not Healed Not Healed -Ulcer Cleansing Rinsed/ Rinsed/ Rinsed/ Irrigated with Irrigated with Irrigated with Saline Saline Saline -Foul Odor after Cleansing No No No -Bioengineered Tissue No No No -Topical Lidocaine (%) 5 5 4 -Lidocaine (ml) 5 -Bleeding Controlled with NA Pressure NA -Treatment Response Procedure Procedure Procedure Tolerated Well Tolerated Well Tolerated Well Pain Scale: 0-10 Numeric Is Patient Pain Free? Yes Yes Yes Wound debrided: Left Lower extremity ( Inferior cluster ) Wound Grade/Stage: Stage II Type of Debridement: Excisional debridement Anesthesia Used: 4% Lidocaine Solution Depth: Down to and including healthy tissue, in the subcutaneous layer Percentage of wound debrided: 100 Instrument Used: 5mm curette Tissue Removed: Slough and devitalized tisue Severity: Fat Layer Exposed Amount of bleeding with debridement: Mild Bleeding Controlled with: Pressure Patient tolerated procedure well - Additional Wound Wound debrided: Left lower extremity Superior Wound Grade/Stage: Stage II Type of Debridement: Excisional debridement Anesthesia Used: 4% Lidocaine Solution Depth: Down to and including healthy tissue, in the subcutaneous layer Percentage of wound debrided: 100 Instrument Used: 5mm curette Tissue Removed: Slough and devitalized tissue Severity: Fat Layer Exposed Amount of bleeding with debridement: Mild Bleeding Controlled with: Pressure Patient tolerated procedure: Patient tolerated procedure well Assessment/Plan Active Problems Traumatic wound (Chronic) Anticoagulated on Coumadin (Chronic) Leg edema, left (Chronic) Open wound of left lower extremity (Chronic) 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 Left lower extremity cellulitis. Plan: New wound noted ajacent to the inferior ulcer. Debridement of all ulcers done as documented above. Procedure was well tolerated. No significant Eschar noted on inferior ulcer and pain is improved as compared to last week. Cultuyres reviewed. Last dose of Abx was today. Will however hold off Abx due to interaction with Coumadin. Will review need for next week. Continue Promogran/Cassandra with adaptic over top. Change daily. 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 Elevate lower extremity when sitting and in bed. Increased protein intake. Follow up in 1 week. Advised to call with any questions or concerns.
--- NOTE | 2018-04-08 10:12 | PN.PCM_ITS ---
(1) Traumatic wound Status: Chronic Current Visit: Yes (2) Leg edema, left Status: Chronic Current Visit: Yes Code(s): R60.0 - Localized edema Type of Wound Date of Service: 04/08/18 Chief Complaint: Recent traumatic injury to the left anterior tibial surface with persistent wound History of Wound: This is a 77-year-old male with multiple pre-existing medical problems. He was in his normal state of health until February 2018. At that time, he sustained trauma to the left anterior tibial surface, resulting in 2 adjacent superficial wounds. He was evaluated by his primary care physician, and placed on oral cephalexin, which has now been completed. The traumatic wounds failed to heal, and the patient presented for further evaluation and management. The patient typically sleeps on a flat mattress at night, though occasionally sleeps in a recliner due to breathing problems. He claims to be active. He does not ambulate liberally, however, claiming to suffer from shortness of breath which occurs with activity. 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 It is uncertain whether this was deep or superficial thrombophlebitis. He has been being seen by several physicians at the wound center, most recently Dr. Thomas and Dr. Valentine. He had been using santyl but was changed to promogran last week. He has had increased pain and redness and went to the ER and was given doxycycline. He is tolerating this medicine. He is on day 5 of 10. He states that the pain has not improved. No cultures have been taken. Denies fever or chills or drainage. Progress of Wound: Pain is better at this time. However, he presents with a new wound adjacent to his previous wound. He denies any known precipitaing factor. He represented here on friday and was seen by Dr. Tavarez due to significant pain. He was switched back to santyl and this time he states that he tolerated this well. He otherwise feels well. - Physical Exam Vital Signs Temp Pulse Resp BP 96.8 F L 65 16 135/53 H 04/08/18 08:49 04/08/18 08:49 04/08/18 08:49 04/08/18 08:49 General: Alert, Oriented x3, Cooperative, No apparent distress HEENT: Atraumatic Oral: Moist Mucosa Neck: Supple Lungs: Normal air movement Abdomen: Non Tender Extremities: No cyanosis Skin: Ulcer/ Wound Wound Measurements and Assessment WC - Nurse 1 - General Ulcer Measurement Start: 04/01/18 12:20 Freq: Status: Active Protocol: Activity Type Activity Date Activity User E-Sign Co-Sign Detail Recorded Client Recorded Date Recorded By Document 04/08/18 08:49 [place] [id number] 04/08/18 09:00 [place] 04/08/18 08:49 Wound Center Nurse 1 [Ulcer Assessment] #4 LEFT INFERIOR CURTIS cluster -Combined with other wound No -Current Size (cm) - Length 3.7 -Current Size (cm) - Width 2 -Current Size (cm) - Depth 0.1 -Total Square Cm 7.4 -Date of Last Picture (Recall this 04/08/18 field) -Photo Taken Yes -Epithelialization None Present -Tunneling No -Undermining/Tunneling No -Circular Undermining No -Exudate Amt Small (1-33%) -Exudate Type Serosanguineous -Wound Margin Flat & Intact -Granulation Amt Small (1-33%) -Granulation Quality Red -Necrosis Amt Large (67-100%) -Necrotic Tissue Type Eschar -Structure Exposed N/A -Texture (Zenobia-wound Skin Appearance) Assessed Localized Edema -Moisture (Zenobia-wound Skin Appearance Assessed ) -Color (Zenobia-wound Skin Appearance) Assessed Hemosiderin Staining -Temperature (Zenobia-wound Skin No Abnormality Appearance) (Pt Warm) -Tenderness on Palpation (Zenobia-wound Yes Skin Appearance) -Ulcer Cleansing Rinsed/ Irrigated with Saline -Foul Odor after Cleansing No -Anesthetic Used 4% Lidocaine Solution #3 LEFT SUPERIOR CURTIS -Combined with other wound No -Current Size (cm) - Length 0.5 -Current Size (cm) - Width 0.7 -Current Size (cm) - Depth 0.1 -Total Square Cm 0.35 -Date of Last Picture (Recall this 04/08/18 field) -Photo Taken Yes -Epithelialization None Present -Tunneling No -Undermining/Tunneling No -Circular Undermining No -Exudate Amt Small (1-33%) -Exudate Type Serosanguineous -Wound Margin Flat & Intact -Granulation Amt None Present (0 %) -Granulation Quality N/A -Slough/Fibrin Yes -Necrosis Amt Large (67-100%) -Necrotic Tissue Type Eschar -Texture (Zenobia-wound Skin Appearance) Assessed Localized Edema -Moisture (Zenobia-wound Skin Appearance Assessed ) -Color (Zenobia-wound Skin Appearance) Assessed Hemosiderin Staining -Temperature (Zenobia-wound Skin No Abnormality Appearance) (Pt Warm) -Tenderness on Palpation (Zenobia-wound No Skin Appearance) -Ulcer Cleansing Rinsed/ Irrigated with Saline -Foul Odor after Cleansing Yes -Anesthetic Used 4% Lidocaine Solution [Edema Assessment] -Left Calf (cm) 38 -Point of Measurement (cm from the 23.5 medial instep) WC - Nurse 2 - General Ulcer CM Notes Start: 04/01/18 12:20 Freq: Status: Active Protocol: Activity Type Activity Date Activity User E-Sign Co-Sign Detail Recorded Client Recorded Date Recorded By Document 04/08/18 09:34 ZOË [id number] 04/08/18 09:36 ZOË 04/08/18 09:34 Wound Center Nurse 2 [Procedure/Treatment] #4 LEFT INFERIOR CURTIS cluster -Time 09:34 -Correct Patient Yes -Correct Side, Site, Position Yes -Correct Procedure Yes -Procedure Performed Yes -Type of Procedure Debridement -Clinical Debridement Subcutaneous -Post Debridement Size (cm) - Length 3.9 -Post Debridement Size (cm) - Width 2.2 -Post Debridement Size (cm) - Depth 0.2 -Total Square Cm 8.58 -Wound/Ulcer Outcome Not Healed -Ulcer Cleansing Rinsed/ Irrigated with Saline -Foul Odor after Cleansing No -Bioengineered Tissue No -Topical Lidocaine (%) 4 -Lidocaine (ml) 5 -Bleeding Controlled with NA -Treatment Response Procedure Tolerated Well #3 LEFT SUPERIOR CURTIS -Time 09:35 -Correct Patient Yes -Correct Side, Site, Position Yes -Correct Procedure Yes -Procedure Performed Yes -Type of Procedure Debridement -Clinical Debridement Subcutaneous -Post Debridement Size (cm) - Length 0.5 -Post Debridement Size (cm) - Width 0.9 -Post Debridement Size (cm) - Depth 0.2 -Total Square Cm 0.45 -Wound/Ulcer Outcome Not Healed -Ulcer Cleansing Rinsed/ Irrigated with Saline -Foul Odor after Cleansing No -Bioengineered Tissue No -Topical Lidocaine (%) 4 -Lidocaine (ml) 5 -Bleeding Controlled with NA -Treatment Response Procedure Tolerated Well [See Physician Procedure note for Specifics] Pain Scale: 0-10 Numeric [Pain] -Is Patient Pain Free? Yes Musculoskeletal: No Muscle Wasting Neurological: Cranial nerves II-XII grossly intact Psych/Mental Status: Normal Affect Debridement Note Post-Debridement Measurements/Treatment WC - Nurse 2 - General Ulcer CM Notes Start: 04/01/18 12:20 Freq: Status: Active Protocol: Activity Type Activity Date Activity User E-Sign Co-Sign Detail Recorded Client Recorded Date Recorded By Document 04/01/18 13:26 [id number] 04/01/18 13:28 Document 04/03/18 16:30 TM [id number] 04/03/18 16:43 TM Document 04/08/18 09:34 JS [id number] 04/08/18 09:36 04/01/18 04/03/18 04/08/18 13:26 16:30 09:34 Wound Center Nurse 2 #4 LEFT INFERIOR CURTIS cluster -Time 13:27 16:30 09:34 -Correct Patient Yes Yes Yes -Correct Side, Site, Position Yes Yes Yes -Correct Procedure Yes Yes Yes -Procedure Performed Yes Yes Yes -Type of Procedure Debridement Debridement Debridement -Clinical Debridement Subcutaneous Subcutaneous Subcutaneous -Post Debridement Size (cm) - Length 2.0 3.2 3.9 -Post Debridement Size (cm) - Width 1.2 3.0 2.2 -Post Debridement Size (cm) - Depth 0.2 0.1 0.2 -Total Square Cm 2.40 9.60 8.58 -Wound/Ulcer Outcome Not Healed Not Healed Not Healed -Ulcer Cleansing Rinsed/ Rinsed/ Rinsed/ Irrigated with Irrigated with Irrigated with Saline Saline Saline -Foul Odor after Cleansing No No No -Bioengineered Tissue No No No -Topical Lidocaine (%) 5 5 4 -Lidocaine (ml) 5 -Bleeding Controlled with NA Pressure NA -Treatment Response Procedure Procedure Procedure Tolerated Well Tolerated Well Tolerated Well #3 LEFT SUPERIOR CURTIS -Time 13:27 16:31 09:35 -Correct Patient Yes Yes Yes -Correct Side, Site, Position Yes Yes Yes -Correct Procedure Yes Yes Yes -Procedure Performed Yes Yes Yes -Type of Procedure Debridement Debridement Debridement -Clinical Debridement Subcutaneous Subcutaneous Subcutaneous -Post Debridement Size (cm) - Length 0.7 0.6 0.5 -Post Debridement Size (cm) - Width 0.9 0.7 0.9 -Post Debridement Size (cm) - Depth 0.2 0.1 0.2 -Total Square Cm 0.63 0.42 0.45 -Wound/Ulcer Outcome Not Healed Not Healed Not Healed -Ulcer Cleansing Rinsed/ Rinsed/ Rinsed/ Irrigated with Irrigated with Irrigated with Saline Saline Saline -Foul Odor after Cleansing No No No -Bioengineered Tissue No No No -Topical Lidocaine (%) 5 5 4 -Lidocaine (ml) 5 -Bleeding Controlled with NA Pressure NA -Treatment Response Procedure Procedure Procedure Tolerated Well Tolerated Well Tolerated Well Pain Scale: 0-10 Numeric Is Patient Pain Free? Yes Yes Yes Wound debrided: Left Lower extremity ( Inferior cluster ) Wound Grade/Stage: Stage II Type of Debridement: Excisional debridement Anesthesia Used: 4% Lidocaine Solution Depth: Down to and including healthy tissue, in the subcutaneous layer Percentage of wound debrided: 100 Instrument Used: 5mm curette Tissue Removed: Slough and devitalized tisue Severity: Fat Layer Exposed Amount of bleeding with debridement: Mild Bleeding Controlled with: Pressure Patient tolerated procedure well - Additional Wound Wound debrided: Left lower extremity Superior Wound Grade/Stage: Stage II Type of Debridement: Excisional debridement Anesthesia Used: 4% Lidocaine Solution Depth: Down to and including healthy tissue, in the subcutaneous layer Percentage of wound debrided: 100 Instrument Used: 5mm curette Tissue Removed: Slough and devitalized tissue Severity: Fat Layer Exposed Amount of bleeding with debridement: Mild Bleeding Controlled with: Pressure Patient tolerated procedure: Patient tolerated procedure well Assessment/Plan Active Problems Traumatic wound (Chronic) Anticoagulated on Coumadin (Chronic) Leg edema, left (Chronic) Open wound of left lower extremity (Chronic) 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 Left lower extremity cellulitis. Plan: New wound noted ajacent to the inferior ulcer. Debridement of all ulcers done as documented above. Procedure was well tolerated. No significant Eschar noted on inferior ulcer and pain is improved as compared to last week. Cultuyres reviewed. Last dose of Abx was today. Will however hold off Abx due to interaction with Coumadin. Will review need for next week. Continue Promogran/Cassandra with adaptic over top. Change daily. 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 Elevate lower extremity when sitting and in bed. Increased protein intake. Follow up in 1 week. Advised to call with any questions or concerns.
[2018-04-16 11:00] VITALS: BP 111/73; PULSE 60; RESP 18; TEMP 35.1
--- NOTE | 2018-04-16 13:03 | PCM.WC.PN ---
(1) Traumatic wound Status: Chronic Current Visit: Yes (2) Leg edema, left Status: Chronic Current Visit: Yes Code(s): R60.0 - Localized edema Type of Wound Date of Service: 04/16/18 Chief Complaint: Recent traumatic injury to the left anterior tibial surface with persistent wound History of Wound: This is a 77-year-old male with multiple pre-existing medical problems. He was in his normal state of health until February 2018. At that time, he sustained trauma to the left anterior tibial surface, resulting in 2 adjacent superficial wounds. He was evaluated by his primary care physician, and placed on oral cephalexin, which has now been completed. The traumatic wounds failed to heal, and the patient presented for further evaluation and management. The patient typically sleeps on a flat mattress at night, though occasionally sleeps in a recliner due to breathing problems. He claims to be active. He does not ambulate liberally, however, claiming to suffer from shortness of breath which occurs with activity. 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 It is uncertain whether this was deep or superficial thrombophlebitis. He has been being seen by several physicians at the wound center, most recently Dr. Thomas and Dr. Valentine. He had been using santyl but was changed to promogran last week. He has had increased pain and redness and went to the ER and was given doxycycline. He is tolerating this medicine. He is on day 5 of 10. He states that the pain has not improved. No cultures have been taken. Denies fever or chills or drainage. Progress of Wound: Stable. No new complaints at this time. Now approved for epifix. - Physical Exam Vital Signs Temp Pulse Resp BP 95.1 F L 60 18 111/73 04/16/18 11:00 04/16/18 11:00 04/16/18 11:00 04/16/18 11:00 General: Alert, Oriented x3, Cooperative, No apparent distress HEENT: Atraumatic Oral: Moist Mucosa Neck: Supple Lungs: Normal air movement Abdomen: Non Tender Extremities: No cyanosis, Edema Skin: Ulcer/ Wound Wound Measurements and Assessment WC - Nurse 1 - General Ulcer Measurement Start: 04/01/18 12:20 Freq: Status: Active Protocol: Activity Type Activity Date Activity User E-Sign Co-Sign Detail Recorded Client Recorded Date Recorded By Document 04/16/18 11:00 DL [id number] 04/16/18 11:07 DL 04/16/18 11:00 Wound Center Nurse 1 [Ulcer Assessment] #4 LEFT INFERIOR CURTIS cluster -Current Size (cm) - Length 3.9 -Current Size (cm) - Width 2 -Current Size (cm) - Depth 0.1 -Total Square Cm 7.8 -Photo Taken No -Exudate Amt Small (1-33%) -Exudate Type Serosanguineous -Wound Margin Distinct, Outline Attached -Granulation Amt Small (1-33%) -Granulation Quality Red -Necrosis Amt Large (67-100%) -Necrotic Tissue Type Adherent Slough -Structure Exposed N/A -Texture ([place]-wound Skin Appearance) Scarring -Moisture ([place]-wound Skin Appearance Dry/Scaly ) -Color ([place]-wound Skin Appearance) Hemosiderin Staining -Temperature ([place]-wound Skin No Abnormality Appearance) (Pt Warm) -Tenderness on Palpation ([place]-wound No Skin Appearance) -Ulcer Cleansing Rinsed/ Irrigated with Saline -Foul Odor after Cleansing No -Anesthetic Used 5% Lidocaine Gel #3 LEFT SUPERIOR CURTIS -Current Size (cm) - Length 0.4 -Current Size (cm) - Width 0.5 -Current Size (cm) - Depth 0.1 -Total Square Cm 0.20 -Photo Taken No -Exudate Amt Small (1-33%) -Exudate Type Serosanguineous -Wound Margin Distinct, Outline Attached -Granulation Amt None Present (0 %) -Necrosis Amt Large (67-100%) -Necrotic Tissue Type Adherent Slough -Structure Exposed N/A -Texture ([place]-wound Skin Appearance) Scarring -Moisture ([place]-wound Skin Appearance Dry/Scaly ) -Color ([place]-wound Skin Appearance) Hemosiderin Staining -Temperature ([place]-wound Skin No Abnormality Appearance) (Pt Warm) -Ulcer Cleansing Rinsed/ Irrigated with Saline -Foul Odor after Cleansing No -Anesthetic Used 5% Lidocaine Gel [Edema Assessment] -Left Calf (cm) 35.6 -Left Ankle (cm) 22.6 WC - Nurse 2 - General Ulcer CM Notes Start: 04/01/18 12:20 Freq: Status: Active Protocol: Activity Type Activity Date Activity User E-Sign Co-Sign Detail Recorded Client Recorded Date Recorded By Document 04/16/18 11:48 TM [id number] 04/16/18 11:51 04/16/18 11:48 Wound Center Nurse 2 [Procedure/Treatment] #4 LEFT INFERIOR CURTIS cluster -Time 11:48 -Correct Patient Yes -Correct Side, Site, Position Yes -Correct Procedure Yes -Procedure Performed Yes -Type of Procedure Debridement -Clinical Debridement Subcutaneous -Post Debridement Size (cm) - Length 4.0 -Post Debridement Size (cm) - Width 2.0 -Post Debridement Size (cm) - Depth 0.2 -Total Square Cm 8.00 -Wound/Ulcer Outcome Not Healed -Ulcer Cleansing Rinsed/ Irrigated with Saline -Foul Odor after Cleansing No -Bioengineered Tissue Yes -Type of bioengineered Tissue EPIFIX -Expiration Date 01/20/23 -Product Lot Number [id number] -Percent Used 50 -Saline Lot Number [id number] -Topical Lidocaine (%) 4 -Bleeding Controlled with Pressure -Treatment Response Procedure Tolerated Well #3 LEFT SUPERIOR CURTIS -Time 11:49 -Correct Patient Yes -Correct Side, Site, Position Yes -Correct Procedure Yes -Procedure Performed Yes -Type of Procedure Debridement -Clinical Debridement Subcutaneous -Post Debridement Size (cm) - Length 0.4 -Post Debridement Size (cm) - Width 0.4 -Post Debridement Size (cm) - Depth 0.2 -Total Square Cm 0.16 -Wound/Ulcer Outcome Not Healed -Ulcer Cleansing Rinsed/ Irrigated with Saline -Foul Odor after Cleansing No -Bioengineered Tissue Yes -Type of bioengineered Tissue EPIFIX -Expiration Date 01/20/23 -Product Lot Number [id number] -Percent Used 50 -Saline Lot Number [id number] -Topical Lidocaine (%) 4 -Bleeding Controlled with Pressure -Treatment Response Procedure Tolerated Well [See Physician Procedure note for Specifics] Pain Scale: 0-10 Numeric [Pain] -Is Patient Pain Free? Yes Musculoskeletal: No Muscle Wasting Neurological: Cranial nerves II-XII grossly intact Psych/Mental Status: Normal Affect Debridement Note Post-Debridement Measurements/Treatment WC - Nurse 2 - General Ulcer CM Notes Start: 04/01/18 12:20 Freq: Status: Active Protocol: Activity Type Activity Date Activity User E-Sign Co-Sign Detail Recorded Client Recorded Date Recorded By Document 04/01/18 13:26 [id number] 04/01/18 13:28 Document 04/03/18 16:30 [id number] 04/03/18 16:43 Document 04/08/18 09:34 JS [id number] 04/08/18 09:36 JS Document 04/16/18 11:48 [id number] 04/16/18 11:51 04/01/18 04/03/18 04/08/18 13:26 16:30 09:34 Wound Center Nurse 2 #4 LEFT INFERIOR CURTIS cluster -Time 13:27 16:30 09:34 -Correct Patient Yes Yes Yes -Correct Side, Site, Position Yes Yes Yes -Correct Procedure Yes Yes Yes -Procedure Performed Yes Yes Yes -Type of Procedure Debridement Debridement Debridement -Clinical Debridement Subcutaneous Subcutaneous Subcutaneous -Post Debridement Size (cm) - Length 2.0 3.2 3.9 -Post Debridement Size (cm) - Width 1.2 3.0 2.2 -Post Debridement Size (cm) - Depth 0.2 0.1 0.2 -Total Square Cm 2.40 9.60 8.58 -Wound/Ulcer Outcome Not Healed Not Healed Not Healed -Ulcer Cleansing Rinsed/ Rinsed/ Rinsed/ Irrigated with Irrigated with Irrigated with Saline Saline Saline -Foul Odor after Cleansing No No No -Bioengineered Tissue No No No -Type of bioengineered Tissue -Expiration Date -Product Lot Number -Percent Used -Saline Lot Number -Topical Lidocaine (%) 5 5 4 -Lidocaine (ml) 5 -Bleeding Controlled with NA Pressure NA -Treatment Response Procedure Procedure Procedure Tolerated Well Tolerated Well Tolerated Well #3 LEFT SUPERIOR CURTIS -Time 13:27 16:31 09:35 -Correct Patient Yes Yes Yes -Correct Side, Site, Position Yes Yes Yes -Correct Procedure Yes Yes Yes -Procedure Performed Yes Yes Yes -Type of Procedure Debridement Debridement Debridement -Clinical Debridement Subcutaneous Subcutaneous Subcutaneous -Post Debridement Size (cm) - Length 0.7 0.6 0.5 -Post Debridement Size (cm) - Width 0.9 0.7 0.9 -Post Debridement Size (cm) - Depth 0.2 0.1 0.2 -Total Square Cm 0.63 0.42 0.45 -Wound/Ulcer Outcome Not Healed Not Healed Not Healed -Ulcer Cleansing Rinsed/ Rinsed/ Rinsed/ Irrigated with Irrigated with Irrigated with Saline Saline Saline -Foul Odor after Cleansing No No No -Bioengineered Tissue No No No -Type of bioengineered Tissue -Expiration Date -Product Lot Number -Percent Used -Saline Lot Number -Topical Lidocaine (%) 5 5 4 -Lidocaine (ml) 5 -Bleeding Controlled with NA Pressure NA -Treatment Response Procedure Procedure Procedure Tolerated Well Tolerated Well Tolerated Well Pain Scale: 0-10 Numeric Is Patient Pain Free? Yes Yes Yes 04/16/18 11:48 Wound Center Nurse 2 #4 LEFT INFERIOR CURTIS cluster -Time 11:48 -Correct Patient Yes -Correct Side, Site, Position Yes -Correct Procedure Yes -Procedure Performed Yes -Type of Procedure Debridement -Clinical Debridement Subcutaneous -Post Debridement Size (cm) - Length 4.0 -Post Debridement Size (cm) - Width 2.0 -Post Debridement Size (cm) - Depth 0.2 -Total Square Cm 8.00 -Wound/Ulcer Outcome Not Healed -Ulcer Cleansing Rinsed/ Irrigated with Saline -Foul Odor after Cleansing No -Bioengineered Tissue Yes -Type of bioengineered Tissue EPIFIX -Expiration Date 01/20/23 -Product Lot Number [id number] -Percent Used 50 -Saline Lot Number [id number] -Topical Lidocaine (%) 4 -Lidocaine (ml) -Bleeding Controlled with Pressure -Treatment Response Procedure Tolerated Well #3 LEFT SUPERIOR CURTIS -Time 11:49 -Correct Patient Yes -Correct Side, Site, Position Yes -Correct Procedure Yes -Procedure Performed Yes -Type of Procedure Debridement -Clinical Debridement Subcutaneous -Post Debridement Size (cm) - Length 0.4 -Post Debridement Size (cm) - Width 0.4 -Post Debridement Size (cm) - Depth 0.2 -Total Square Cm 0.16 -Wound/Ulcer Outcome Not Healed -Ulcer Cleansing Rinsed/ Irrigated with Saline -Foul Odor after Cleansing No -Bioengineered Tissue Yes -Type of bioengineered Tissue EPIFIX -Expiration Date 01/20/23 -Product Lot Number [id number] -Percent Used 50 -Saline Lot Number [id number] -Topical Lidocaine (%) 4 -Lidocaine (ml) -Bleeding Controlled with Pressure -Treatment Response Procedure Tolerated Well Pain Scale: 0-10 Numeric Is Patient Pain Free? Yes Wound debrided: Left lower extremity Wound Grade/Stage: Stage II Type of Debridement: Excisional debridement Anesthesia Used: 4% Lidocaine Solution, 5% Lidocaine Gel Depth: Down to and including healthy tissue, in the subcutaneous layer Percentage of wound debrided: 100 Instrument Used: 5mm curette Tissue Removed: Slough and devitalized tissue Severity: Fat Layer Exposed Amount of bleeding with debridement: Mild Bleeding Controlled with: Pressure Patient tolerated procedure well Assessment/Plan Active Problems Traumatic wound (Chronic) Anticoagulated on Coumadin (Chronic) Leg edema, left (Chronic) Open wound of left lower extremity (Chronic) 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 Left lower extremity cellulitis. Plan: No new complaints at this time. Still has lower extremity pain but denies any discharge from wound. No ovbious signs of infection. he also has not utilized compression well due to ?pain. Debridement done as documented above. First application of Epifix done using the mesh using 100% of product. Moistened with hydrogel, wound veil over top secured with steristrips. Tubi edging machine catcher for edema management. Elevate lower extremity when sitting and in bed. Increased protein intake and protein supplements. Follow up in 1 week. Advised to call with any questions or concerns.
--- NOTE | 2018-04-16 13:10 | PN.PCM_ITS ---
(1) Traumatic wound Status: Chronic Current Visit: Yes (2) Leg edema, left Status: Chronic Current Visit: Yes Code(s): R60.0 - Localized edema Type of Wound Date of Service: 04/16/18 Chief Complaint: Recent traumatic injury to the left anterior tibial surface with persistent wound History of Wound: This is a 77-year-old male with multiple pre-existing medical problems. He was in his normal state of health until February 2018. At that time, he sustained trauma to the left anterior tibial surface, resulting in 2 adjacent superficial wounds. He was evaluated by his primary care physician, and placed on oral cephalexin, which has now been completed. The traumatic wounds failed to heal, and the patient presented for further evaluation and management. The patient typically sleeps on a flat mattress at night, though occasionally sleeps in a recliner due to breathing problems. He claims to be active. He does not ambulate liberally, however, claiming to suffer from shortness of breath which occurs with activity. 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 It is uncertain whether this was deep or superficial thrombophlebitis. He has been being seen by several physicians at the wound center, most recently Dr. Thomas and Dr. Valentine. He had been using santyl but was changed to promogran last week. He has had increased pain and redness and went to the ER and was given doxycycline. He is tolerating this medicine. He is on day 5 of 10. He states that the pain has not improved. No cultures have been taken. Denies fever or chills or drainage. Progress of Wound: Stable. No new complaints at this time. Now approved for epifix. - Physical Exam Vital Signs Temp Pulse Resp BP 95.1 F L 60 18 111/73 04/16/18 11:00 04/16/18 11:00 04/16/18 11:00 04/16/18 11:00 General: Alert, Oriented x3, Cooperative, No apparent distress HEENT: Atraumatic Oral: Moist Mucosa Neck: Supple Lungs: Normal air movement Abdomen: Non Tender Extremities: No cyanosis, Edema Skin: Ulcer/ Wound Wound Measurements and Assessment WC - Nurse 1 - General Ulcer Measurement Start: 04/01/18 12:20 Freq: Status: Active Protocol: Activity Type Activity Date Activity User E-Sign Co-Sign Detail Recorded Client Recorded Date Recorded By Document 04/16/18 11:00 DL [id number] 04/16/18 11:07 DL 04/16/18 11:00 Wound Center Nurse 1 [Ulcer Assessment] #4 LEFT INFERIOR CURTIS cluster -Current Size (cm) - Length 3.9 -Current Size (cm) - Width 2 -Current Size (cm) - Depth 0.1 -Total Square Cm 7.8 -Photo Taken No -Exudate Amt Small (1-33%) -Exudate Type Serosanguineous -Wound Margin Distinct, Outline Attached -Granulation Amt Small (1-33%) -Granulation Quality Red -Necrosis Amt Large (67-100%) -Necrotic Tissue Type Adherent Slough -Structure Exposed N/A -Texture ([place]-wound Skin Appearance) Scarring -Moisture ([place]-wound Skin Appearance Dry/Scaly ) -Color ([place]-wound Skin Appearance) Hemosiderin Staining -Temperature ([place]-wound Skin No Abnormality Appearance) (Pt Warm) -Tenderness on Palpation ([place]-wound No Skin Appearance) -Ulcer Cleansing Rinsed/ Irrigated with Saline -Foul Odor after Cleansing No -Anesthetic Used 5% Lidocaine Gel #3 LEFT SUPERIOR CURTIS -Current Size (cm) - Length 0.4 -Current Size (cm) - Width 0.5 -Current Size (cm) - Depth 0.1 -Total Square Cm 0.20 -Photo Taken No -Exudate Amt Small (1-33%) -Exudate Type Serosanguineous -Wound Margin Distinct, Outline Attached -Granulation Amt None Present (0 %) -Necrosis Amt Large (67-100%) -Necrotic Tissue Type Adherent Slough -Structure Exposed N/A -Texture ([place]-wound Skin Appearance) Scarring -Moisture ([place]-wound Skin Appearance Dry/Scaly ) -Color ([place]-wound Skin Appearance) Hemosiderin Staining -Temperature ([place]-wound Skin No Abnormality Appearance) (Pt Warm) -Ulcer Cleansing Rinsed/ Irrigated with Saline -Foul Odor after Cleansing No -Anesthetic Used 5% Lidocaine Gel [Edema Assessment] -Left Calf (cm) 35.6 -Left Ankle (cm) 22.6 WC - Nurse 2 - General Ulcer CM Notes Start: 04/01/18 12:20 Freq: Status: Active Protocol: Activity Type Activity Date Activity User E-Sign Co-Sign Detail Recorded Client Recorded Date Recorded By Document 04/16/18 11:48 TM [id number] 04/16/18 11:51 04/16/18 11:48 Wound Center Nurse 2 [Procedure/Treatment] #4 LEFT INFERIOR CURTIS cluster -Time 11:48 -Correct Patient Yes -Correct Side, Site, Position Yes -Correct Procedure Yes -Procedure Performed Yes -Type of Procedure Debridement -Clinical Debridement Subcutaneous -Post Debridement Size (cm) - Length 4.0 -Post Debridement Size (cm) - Width 2.0 -Post Debridement Size (cm) - Depth 0.2 -Total Square Cm 8.00 -Wound/Ulcer Outcome Not Healed -Ulcer Cleansing Rinsed/ Irrigated with Saline -Foul Odor after Cleansing No -Bioengineered Tissue Yes -Type of bioengineered Tissue EPIFIX -Expiration Date 01/20/23 -Product Lot Number [id number] -Percent Used 50 -Saline Lot Number [id number] -Topical Lidocaine (%) 4 -Bleeding Controlled with Pressure -Treatment Response Procedure Tolerated Well #3 LEFT SUPERIOR CURTIS -Time 11:49 -Correct Patient Yes -Correct Side, Site, Position Yes -Correct Procedure Yes -Procedure Performed Yes -Type of Procedure Debridement -Clinical Debridement Subcutaneous -Post Debridement Size (cm) - Length 0.4 -Post Debridement Size (cm) - Width 0.4 -Post Debridement Size (cm) - Depth 0.2 -Total Square Cm 0.16 -Wound/Ulcer Outcome Not Healed -Ulcer Cleansing Rinsed/ Irrigated with Saline -Foul Odor after Cleansing No -Bioengineered Tissue Yes -Type of bioengineered Tissue EPIFIX -Expiration Date 01/20/23 -Product Lot Number [id number] -Percent Used 50 -Saline Lot Number [id number] -Topical Lidocaine (%) 4 -Bleeding Controlled with Pressure -Treatment Response Procedure Tolerated Well [See Physician Procedure note for Specifics] Pain Scale: 0-10 Numeric [Pain] -Is Patient Pain Free? Yes Musculoskeletal: No Muscle Wasting Neurological: Cranial nerves II-XII grossly intact Psych/Mental Status: Normal Affect Debridement Note Post-Debridement Measurements/Treatment WC - Nurse 2 - General Ulcer CM Notes Start: 04/01/18 12:20 Freq: Status: Active Protocol: Activity Type Activity Date Activity User E-Sign Co-Sign Detail Recorded Client Recorded Date Recorded By Document 04/01/18 13:26 [id number] 04/01/18 13:28 Document 04/03/18 16:30 [id number] 04/03/18 16:43 Document 04/08/18 09:34 JS [id number] 04/08/18 09:36 JS Document 04/16/18 11:48 [id number] 04/16/18 11:51 04/01/18 04/03/18 04/08/18 13:26 16:30 09:34 Wound Center Nurse 2 #4 LEFT INFERIOR CURTIS cluster -Time 13:27 16:30 09:34 -Correct Patient Yes Yes Yes -Correct Side, Site, Position Yes Yes Yes -Correct Procedure Yes Yes Yes -Procedure Performed Yes Yes Yes -Type of Procedure Debridement Debridement Debridement -Clinical Debridement Subcutaneous Subcutaneous Subcutaneous -Post Debridement Size (cm) - Length 2.0 3.2 3.9 -Post Debridement Size (cm) - Width 1.2 3.0 2.2 -Post Debridement Size (cm) - Depth 0.2 0.1 0.2 -Total Square Cm 2.40 9.60 8.58 -Wound/Ulcer Outcome Not Healed Not Healed Not Healed -Ulcer Cleansing Rinsed/ Rinsed/ Rinsed/ Irrigated with Irrigated with Irrigated with Saline Saline Saline -Foul Odor after Cleansing No No No -Bioengineered Tissue No No No -Type of bioengineered Tissue -Expiration Date -Product Lot Number -Percent Used -Saline Lot Number -Topical Lidocaine (%) 5 5 4 -Lidocaine (ml) 5 -Bleeding Controlled with NA Pressure NA -Treatment Response Procedure Procedure Procedure Tolerated Well Tolerated Well Tolerated Well #3 LEFT SUPERIOR CURTIS -Time 13:27 16:31 09:35 -Correct Patient Yes Yes Yes -Correct Side, Site, Position Yes Yes Yes -Correct Procedure Yes Yes Yes -Procedure Performed Yes Yes Yes -Type of Procedure Debridement Debridement Debridement -Clinical Debridement Subcutaneous Subcutaneous Subcutaneous -Post Debridement Size (cm) - Length 0.7 0.6 0.5 -Post Debridement Size (cm) - Width 0.9 0.7 0.9 -Post Debridement Size (cm) - Depth 0.2 0.1 0.2 -Total Square Cm 0.63 0.42 0.45 -Wound/Ulcer Outcome Not Healed Not Healed Not Healed -Ulcer Cleansing Rinsed/ Rinsed/ Rinsed/ Irrigated with Irrigated with Irrigated with Saline Saline Saline -Foul Odor after Cleansing No No No -Bioengineered Tissue No No No -Type of bioengineered Tissue -Expiration Date -Product Lot Number -Percent Used -Saline Lot Number -Topical Lidocaine (%) 5 5 4 -Lidocaine (ml) 5 -Bleeding Controlled with NA Pressure NA -Treatment Response Procedure Procedure Procedure Tolerated Well Tolerated Well Tolerated Well Pain Scale: 0-10 Numeric Is Patient Pain Free? Yes Yes Yes 04/16/18 11:48 Wound Center Nurse 2 #4 LEFT INFERIOR CURTIS cluster -Time 11:48 -Correct Patient Yes -Correct Side, Site, Position Yes -Correct Procedure Yes -Procedure Performed Yes -Type of Procedure Debridement -Clinical Debridement Subcutaneous -Post Debridement Size (cm) - Length 4.0 -Post Debridement Size (cm) - Width 2.0 -Post Debridement Size (cm) - Depth 0.2 -Total Square Cm 8.00 -Wound/Ulcer Outcome Not Healed -Ulcer Cleansing Rinsed/ Irrigated with Saline -Foul Odor after Cleansing No -Bioengineered Tissue Yes -Type of bioengineered Tissue EPIFIX -Expiration Date 01/20/23 -Product Lot Number [id number] -Percent Used 50 -Saline Lot Number [id number] -Topical Lidocaine (%) 4 -Lidocaine (ml) -Bleeding Controlled with Pressure -Treatment Response Procedure Tolerated Well #3 LEFT SUPERIOR CURTIS -Time 11:49 -Correct Patient Yes -Correct Side, Site, Position Yes -Correct Procedure Yes -Procedure Performed Yes -Type of Procedure Debridement -Clinical Debridement Subcutaneous -Post Debridement Size (cm) - Length 0.4 -Post Debridement Size (cm) - Width 0.4 -Post Debridement Size (cm) - Depth 0.2 -Total Square Cm 0.16 -Wound/Ulcer Outcome Not Healed -Ulcer Cleansing Rinsed/ Irrigated with Saline -Foul Odor after Cleansing No -Bioengineered Tissue Yes -Type of bioengineered Tissue EPIFIX -Expiration Date 01/20/23 -Product Lot Number [id number] -Percent Used 50 -Saline Lot Number [id number] -Topical Lidocaine (%) 4 -Lidocaine (ml) -Bleeding Controlled with Pressure -Treatment Response Procedure Tolerated Well Pain Scale: 0-10 Numeric Is Patient Pain Free? Yes Wound debrided: Left lower extremity Wound Grade/Stage: Stage II Type of Debridement: Excisional debridement Anesthesia Used: 4% Lidocaine Solution, 5% Lidocaine Gel Depth: Down to and including healthy tissue, in the subcutaneous layer Percentage of wound debrided: 100 Instrument Used: 5mm curette Tissue Removed: Slough and devitalized tissue Severity: Fat Layer Exposed Amount of bleeding with debridement: Mild Bleeding Controlled with: Pressure Patient tolerated procedure well Assessment/Plan Active Problems Traumatic wound (Chronic) Anticoagulated on Coumadin (Chronic) Leg edema, left (Chronic) Open wound of left lower extremity (Chronic) 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 Left lower extremity cellulitis. Plan: No new complaints at this time. Still has lower extremity pain but denies any discharge from wound. No ovbious signs of infection. he also has not utilized compression well due to ?pain. Debridement done as documented above. First application of Epifix done using the mesh using 100% of product. Moistened with hydrogel, wound veil over top secured with steristrips. Tubi technical solution architect for edema management. Elevate lower extremity when sitting and in bed. Increased protein intake and protein supplements. Follow up in 1 week. Advised to call with any questions or concerns.
== END 2018-04-21 23:59 ==
LOC: WC 10:15
PROVIDERS: Family Provider Internal Medicine; PCP Internal Medicine; Visit Provider Internal Medicine
DX: I83.028 Varicose veins of left lower extremity with ulcer other part of lower leg (principal); L97.822 Non-pressure chronic ulcer of other part of left lower leg with fat layer exposed; Z79.01 Long term (current) use of anticoagulants; I48.2 Chronic atrial fibrillation; E78.5 Hyperlipidemia, unspecified; I50.9 Heart failure, unspecified; Z95.0 Presence of cardiac pacemaker
CPT/HCPCS: 11042; 15271; 87070; 87075; 87077; 87186; 87205; 97602; Q4131

== ENCOUNTER 2018-05-20 09:30 | Outpatient (RCR) | payer MEDICARE, OTHER, SELFPAY ==
[2018-04-22 01:09] VITALS: BP 111/73; PULSE 60; RESP 18; TEMP 35.1
[2018-04-22 08:38] VITALS: BP 114/76; PULSE 64; RESP 16; TEMP 36.1
--- NOTE | 2018-04-22 08:44 | PCM.WC.PN ---
(1) Atrial fibrillation Status: Chronic Current Visit: No Qualifiers: Code(s): I48.91 - Unspecified atrial fibrillation (2) Open wound of left lower extremity Status: Chronic Current Visit: No Qualifiers: Code(s): S81.802A - Unspecified open wound, left lower leg, initial encounter Type of Wound Date of Service: 04/22/18 Chief Complaint: Recent traumatic injury to the left anterior tibial surface with persistent wound History of Wound: This is a 77-year-old male with multiple pre-existing medical problems. He was in his normal state of health until February 2018. At that time, he sustained trauma to the left anterior tibial surface, resulting in 2 adjacent superficial wounds. He was evaluated by his primary care physician, and placed on oral cephalexin, which has now been completed. The traumatic wounds failed to heal, and the patient presented for further evaluation and management. The patient typically sleeps on a flat mattress at night, though occasionally sleeps in a recliner due to breathing problems. He claims to be active. He does not ambulate liberally, however, claiming to suffer from shortness of breath which occurs with activity. 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 It is uncertain whether this was deep or superficial thrombophlebitis. He has been being seen by several physicians at the wound center, most recently Dr. Thomas and Dr. Valentine. He had been using santyl but was changed to promogran last week. He has had increased pain and redness and went to the ER and was given doxycycline. He is tolerating this medicine. He is on day 5 of 10. He states that the pain has not improved. No cultures have been taken. Denies fever or chills or drainage. Progress of Wound: Stable. Has had one application of epiifx so far. - Physical Exam Vital Signs Temp Pulse Resp BP 95.1 F L 60 18 111/73 04/22/18 01:09 04/22/18 01:09 04/22/18 01:09 04/22/18 01:09 General: Alert, Oriented x3, Cooperative, No apparent distress HEENT: Atraumatic Oral: Moist Mucosa Neck: Supple Lungs: Normal air movement Extremities: No cyanosis, Edema Musculoskeletal: No Muscle Wasting Neurological: Cranial nerves II-XII grossly intact Psych/Mental Status: Normal Affect Debridement Note Wound debrided: Left lower extremity Wound Grade/Stage: Stage II Type of Debridement: Excisional debridement Anesthesia Used: 4% Lidocaine Solution Depth: Down to and including healthy tissue, in the subcutaneous layer Percentage of wound debrided: 100 Instrument Used: 5mm curette Tissue Removed: Slough and devitalized tissue Severity: Fat Layer Exposed Amount of bleeding with debridement: Mild Bleeding Controlled with: Pressure Patient tolerated procedure well Assessment/Plan Assessment: Traumatic left lower extremity wounds with delayed healing. Left lower extremity cellulitis. Plan: No new complaints at this time. Debridement done as documented above. 2nd application of Epifix done using the mesh using 100% of product. Moistened with hydrogel, wound veil over top secured with steristrips. Double layer Tubi plastic machine operator for edema management. Elevate lower extremity when seated and in bed. Increased protein intake and protein supplements. Follow up in 1 week. Advised to call with any questions or concerns.
[2018-04-29 09:35] VITALS: BP 126/79; PULSE 61; RESP 16; TEMP 36.3
--- NOTE | 2018-04-29 10:18 | PCM.WC.PN ---
(1) Open wound of left lower extremity Status: Chronic Current Visit: Yes Qualifiers: Code(s): S81.802A - Unspecified open wound, left lower leg, initial encounter (2) Atrial fibrillation Status: Chronic Current Visit: No Qualifiers: Code(s): I48.91 - Unspecified atrial fibrillation Type of Wound Date of Service: 04/29/18 Chief Complaint: Recent traumatic injury to the left anterior tibial surface with persistent wound History of Wound: This is a 77-year-old male with multiple pre-existing medical problems. He was in his normal state of health until February 2018. At that time, he sustained trauma to the left anterior tibial surface, resulting in 2 adjacent superficial wounds. He was evaluated by his primary care physician, and placed on oral cephalexin, which has now been completed. The traumatic wounds failed to heal, and the patient presented for further evaluation and management. The patient typically sleeps on a flat mattress at night, though occasionally sleeps in a recliner due to breathing problems. He claims to be active. He does not ambulate liberally, however, claiming to suffer from shortness of breath which occurs with activity. 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 It is uncertain whether this was deep or superficial thrombophlebitis. He has been being seen by several physicians at the wound center, most recently Dr. Thomas and Dr. Valentine. He had been using santyl but was changed to promogran last week. He has had increased pain and redness and went to the ER and was given doxycycline. He is tolerating this medicine. He is on day 5 of 10. He states that the pain has not improved. No cultures have been taken. Denies fever or chills or drainage. Progress of Wound: Improving. - Physical Exam Vital Signs Temp Pulse Resp BP 97.3 F L 61 16 126/79 H 04/29/18 09:35 04/29/18 09:35 04/29/18 09:35 04/29/18 09:35 General: Alert, Oriented x3, Cooperative, No apparent distress HEENT: Atraumatic Oral: Moist Mucosa Neck: Supple Lungs: Normal air movement Extremities: No cyanosis Skin: Ulcer/ Wound Wound Measurements and Assessment WC - Nurse 1 - General Ulcer Measurement Start: 04/22/18 08:37 Freq: Status: Active Protocol: Activity Type Activity Date Activity User E-Sign Co-Sign Detail Recorded Client Recorded Date Recorded By Document 04/29/18 09:27 [id number] 04/29/18 09:35 04/29/18 09:27 Wound Center Nurse 1 [Ulcer Assessment] #4 LEFT INFERIOR CURTIS cluster -Combined with other wound No -Current Size (cm) - Length 3.2 -Current Size (cm) - Width 1.6 -Current Size (cm) - Depth 0.1 -Total Square Cm 5.12 -Photo Taken No -Epithelialization Small 1-33% -Tunneling No -Undermining/Tunneling No -Circular Undermining No -Exudate Amt Small (1-33%) -Exudate Type Serosanguineous -Wound Margin Distinct, Outline Attached -Granulation Amt Medium (34-66%) -Granulation Quality Pale [place] -Slough/Fibrin Yes -Necrosis Amt None Present (0 %) -Necrotic Tissue Type Adherent Slough -Structure Exposed N/A None/Limited to Skin Breakdown -Texture ([place]-wound Skin Appearance) Assessed Scarring -Moisture ([place]-wound Skin Appearance No Abnormality ) Assessed -Color ([place]-wound Skin Appearance) No Abnormality Assessed -Temperature ([place]-wound Skin No Abnormality Appearance) (Pt Warm) -Tenderness on Palpation ([place]-wound No Skin Appearance) -Ulcer Cleansing Rinsed/ Irrigated with Saline -Foul Odor after Cleansing No -Anesthetic Used 4% Lidocaine Solution #3 LEFT SUPERIOR CURTIS -Combined with other wound No -Current Size (cm) - Length 0.1 -Current Size (cm) - Width 0.1 -Current Size (cm) - Depth 0.1 -Total Square Cm 0.01 -Photo Taken No -Epithelialization Large 67-100% -Tunneling No -Undermining/Tunneling No -Circular Undermining No [Edema Assessment] -Lower Limb Edema Present No -Right Calf (cm) 35.8 -Right Ankle (cm) 22 -Left Calf (cm) 36.1 -Left Ankle (cm) 22.2 Musculoskeletal: No Muscle Wasting Neurological: Cranial nerves II-XII grossly intact Psych/Mental Status: Normal Affect Debridement Note Post-Debridement Measurements/Treatment WC - Nurse 2 - General Ulcer CM Notes Start: 04/22/18 08:37 Freq: Status: Active Protocol: Activity Type Activity Date Activity User E-Sign Co-Sign Detail Recorded Client Recorded Date Recorded By Document 04/22/18 08:52 MW [id number] 04/22/18 09:03 MW 04/22/18 08:52 Wound Center Nurse 2 #4 LEFT INFERIOR CURTIS cluster -Time 08:52 -Correct Patient Yes -Correct Side, Site, Position Yes -Correct Procedure Yes -Procedure Performed Yes -Type of Procedure Debridement -Clinical Debridement Subcutaneous -Post Debridement Size (cm) - Length 3.8 -Post Debridement Size (cm) - Width 2.0 -Post Debridement Size (cm) - Depth 0.2 -Total Square Cm 7.60 -Wound/Ulcer Outcome Not Healed -Ulcer Cleansing Rinsed/ Irrigated with Saline -Foul Odor after Cleansing No -Bioengineered Tissue Yes -Type of bioengineered Tissue EPIFIX -Expiration Date 09/26/22 -Product Lot Number [id number] -Percent Used 100 -Saline Lot Number [id number] -Bleeding Controlled with Pressure -Treatment Response Procedure Tolerated Well #3 LEFT SUPERIOR CURTIS -Time 08:52 -Correct Patient Yes -Correct Side, Site, Position Yes -Correct Procedure Yes -Procedure Performed Yes -Type of Procedure Debridement -Clinical Debridement Subcutaneous -Post Debridement Size (cm) - Length 0.4 -Post Debridement Size (cm) - Width 0.5 -Post Debridement Size (cm) - Depth 0.1 -Total Square Cm 0.20 -Wound/Ulcer Outcome Not Healed -Ulcer Cleansing Rinsed/ Irrigated with Saline -Foul Odor after Cleansing No -Bioengineered Tissue Yes -Type of bioengineered Tissue EPIFIX -Expiration Date 09/26/22 -Product Lot Number [id number] -Percent Used 100 -Saline Lot Number [id number] -Bleeding Controlled with Pressure -Treatment Response Procedure Tolerated Well Pain Scale: 0-10 Numeric Is Patient Pain Free? Yes Wound debrided: Left lowere extremity ( Inferior ) Wound Grade/Stage: Stage II Type of Debridement: Excisional debridement Anesthesia Used: 4% Lidocaine Solution Depth: Down to and including healthy tissue, in the subcutaneous layer Percentage of wound debrided: 100 Instrument Used: 5mm curette Tissue Removed: Slough and devitalized tissue Severity: Fat Layer Exposed Amount of bleeding with debridement: Mild Bleeding Controlled with: Pressure Patient tolerated procedure well - Additional Wound Wound debrided: Left lower extremity ( Superior ) Wound Grade/Stage: Stage II Type of Debridement: Excisional debridement Anesthesia Used: 4% Lidocaine Solution Depth: Down to and including healthy tissue, in the subcutaneous layer Percentage of wound debrided: 100 Instrument Used: 5mm curette Tissue Removed: Devitalized tissue Severity: Fat Layer Exposed Amount of bleeding with debridement: Mild Bleeding Controlled with: Pressure Patient tolerated procedure: Patient tolerated procedure well Assessment/Plan Active Problems Open wound of left lower extremity (Chronic) Assessment: Traumatic left lower extremity wounds with delayed healing. Left lower extremity cellulitis. Plan: Improving wound. Debridement done as documented above. 3rd application of Epifix done using 100% of product to the inferior ulcer. Moistened with hydrogel, wound veil over top secured with steristrips. Pomogran to the superior ulcer. leave in place x 1 week. Double layer Tubi supervisor sawmill for edema management. Elevate lower extremity when seated and in bed. Increased protein intake and protein supplements. Follow up in 1 week. Advised to call with any questions or concerns.
--- NOTE | 2018-04-29 10:22 | PN.PCM_ITS ---
(1) Open wound of left lower extremity Status: Chronic Current Visit: Yes Qualifiers: Code(s): S81.802A - Unspecified open wound, left lower leg, initial encounter (2) Atrial fibrillation Status: Chronic Current Visit: No Qualifiers: Code(s): I48.91 - Unspecified atrial fibrillation Type of Wound Date of Service: 04/29/18 Chief Complaint: Recent traumatic injury to the left anterior tibial surface with persistent wound History of Wound: This is a 77-year-old male with multiple pre-existing medical problems. He was in his normal state of health until February 2018. At that time, he sustained trauma to the left anterior tibial surface, resulting in 2 adjacent superficial wounds. He was evaluated by his primary care physician, and placed on oral cephalexin, which has now been completed. The traumatic wounds failed to heal, and the patient presented for further evaluation and management. The patient typically sleeps on a flat mattress at night, though occasionally sleeps in a recliner due to breathing problems. He claims to be active. He does not ambulate liberally, however, claiming to suffer from shortness of breath which occurs with activity. 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 It is uncertain whether this was deep or superficial thrombophlebitis. He has been being seen by several physicians at the wound center, most recently Dr. Thomas and Dr. Valentine. He had been using santyl but was changed to promogran last week. He has had increased pain and redness and went to the ER and was given doxycycline. He is tolerating this medicine. He is on day 5 of 10. He states that the pain has not improved. No cultures have been taken. Denies fever or chills or drainage. Progress of Wound: Improving. - Physical Exam Vital Signs Temp Pulse Resp BP 97.3 F L 61 16 126/79 H 04/29/18 09:35 04/29/18 09:35 04/29/18 09:35 04/29/18 09:35 General: Alert, Oriented x3, Cooperative, No apparent distress HEENT: Atraumatic Oral: Moist Mucosa Neck: Supple Lungs: Normal air movement Extremities: No cyanosis Skin: Ulcer/ Wound Wound Measurements and Assessment WC - Nurse 1 - General Ulcer Measurement Start: 04/22/18 08:37 Freq: Status: Active Protocol: Activity Type Activity Date Activity User E-Sign Co-Sign Detail Recorded Client Recorded Date Recorded By Document 04/29/18 09:27 [id number] 04/29/18 09:35 04/29/18 09:27 Wound Center Nurse 1 [Ulcer Assessment] #4 LEFT INFERIOR CUTRIS cluster -Combined with other wound No -Current Size (cm) - Length 3.2 -Current Size (cm) - Width 1.6 -Current Size (cm) - Depth 0.1 -Total Square Cm 5.12 -Photo Taken No -Epithelialization Small 1-33% -Tunneling No -Undermining/Tunneling No -Circular Undermining No -Exudate Amt Small (1-33%) -Exudate Type Serosanguineous -Wound Margin Distinct, Outline Attached -Granulation Amt Medium (34-66%) -Granulation Quality Pale [place] -Slough/Fibrin Yes -Necrosis Amt None Present (0 %) -Necrotic Tissue Type Adherent Slough -Structure Exposed N/A None/Limited to Skin Breakdown -Texture ([place]-wound Skin Appearance) Assessed Scarring -Moisture ([place]-wound Skin Appearance No Abnormality ) Assessed -Color ([place]-wound Skin Appearance) No Abnormality Assessed -Temperature ([place]-wound Skin No Abnormality Appearance) (Pt Warm) -Tenderness on Palpation ([place]-wound No Skin Appearance) -Ulcer Cleansing Rinsed/ Irrigated with Saline -Foul Odor after Cleansing No -Anesthetic Used 4% Lidocaine Solution #3 LEFT SUPERIOR CURTIS -Combined with other wound No -Current Size (cm) - Length 0.1 -Current Size (cm) - Width 0.1 -Current Size (cm) - Depth 0.1 -Total Square Cm 0.01 -Photo Taken No -Epithelialization Large 67-100% -Tunneling No -Undermining/Tunneling No -Circular Undermining No [Edema Assessment] -Lower Limb Edema Present No -Right Calf (cm) 35.8 -Right Ankle (cm) 22 -Left Calf (cm) 36.1 -Left Ankle (cm) 22.2 Musculoskeletal: No Muscle Wasting Neurological: Cranial nerves II-XII grossly intact Psych/Mental Status: Normal Affect Debridement Note Post-Debridement Measurements/Treatment WC - Nurse 2 - General Ulcer CM Notes Start: 04/22/18 08:37 Freq: Status: Active Protocol: Activity Type Activity Date Activity User E-Sign Co-Sign Detail Recorded Client Recorded Date Recorded By Document 04/22/18 08:52 MW [id number] 04/22/18 09:03 MW 04/22/18 08:52 Wound Center Nurse 2 #4 LEFT INFERIOR CURTIS cluster -Time 08:52 -Correct Patient Yes -Correct Side, Site, Position Yes -Correct Procedure Yes -Procedure Performed Yes -Type of Procedure Debridement -Clinical Debridement Subcutaneous -Post Debridement Size (cm) - Length 3.8 -Post Debridement Size (cm) - Width 2.0 -Post Debridement Size (cm) - Depth 0.2 -Total Square Cm 7.60 -Wound/Ulcer Outcome Not Healed -Ulcer Cleansing Rinsed/ Irrigated with Saline -Foul Odor after Cleansing No -Bioengineered Tissue Yes -Type of bioengineered Tissue EPIFIX -Expiration Date 09/26/22 -Product Lot Number [id number] -Percent Used 100 -Saline Lot Number [id number] -Bleeding Controlled with Pressure -Treatment Response Procedure Tolerated Well #3 LEFT SUPERIOR CURTIS -Time 08:52 -Correct Patient Yes -Correct Side, Site, Position Yes -Correct Procedure Yes -Procedure Performed Yes -Type of Procedure Debridement -Clinical Debridement Subcutaneous -Post Debridement Size (cm) - Length 0.4 -Post Debridement Size (cm) - Width 0.5 -Post Debridement Size (cm) - Depth 0.1 -Total Square Cm 0.20 -Wound/Ulcer Outcome Not Healed -Ulcer Cleansing Rinsed/ Irrigated with Saline -Foul Odor after Cleansing No -Bioengineered Tissue Yes -Type of bioengineered Tissue EPIFIX -Expiration Date 09/26/22 -Product Lot Number [id number] -Percent Used 100 -Saline Lot Number [id number] -Bleeding Controlled with Pressure -Treatment Response Procedure Tolerated Well Pain Scale: 0-10 Numeric Is Patient Pain Free? Yes Wound debrided: Left lowere extremity ( Inferior ) Wound Grade/Stage: Stage II Type of Debridement: Excisional debridement Anesthesia Used: 4% Lidocaine Solution Depth: Down to and including healthy tissue, in the subcutaneous layer Percentage of wound debrided: 100 Instrument Used: 5mm curette Tissue Removed: Slough and devitalized tissue Severity: Fat Layer Exposed Amount of bleeding with debridement: Mild Bleeding Controlled with: Pressure Patient tolerated procedure well - Additional Wound Wound debrided: Left lower extremity ( Superior ) Wound Grade/Stage: Stage II Type of Debridement: Excisional debridement Anesthesia Used: 4% Lidocaine Solution Depth: Down to and including healthy tissue, in the subcutaneous layer Percentage of wound debrided: 100 Instrument Used: 5mm curette Tissue Removed: Devitalized tissue Severity: Fat Layer Exposed Amount of bleeding with debridement: Mild Bleeding Controlled with: Pressure Patient tolerated procedure: Patient tolerated procedure well Assessment/Plan Active Problems Open wound of left lower extremity (Chronic) Assessment: Traumatic left lower extremity wounds with delayed healing. Left lower extremity cellulitis. Plan: Improving wound. Debridement done as documented above. 3rd application of Epifix done using 100% of product to the inferior ulcer. Moistened with hydrogel, wound veil over top secured with steristrips. Pomogran to the superior ulcer. leave in place x 1 week. Double layer Tubi brick pitcher for edema management. Elevate lower extremity when seated and in bed. Increased protein intake and protein supplements. Follow up in 1 week. Advised to call with any questions or concerns.
[2018-05-06 08:31] VITALS: BP 146/64; PULSE 60; RESP 16; TEMP 36.1
--- NOTE | 2018-05-06 09:01 | PCM.WC.PN ---
(1) Open wound of left lower extremity Status: Chronic Current Visit: Yes Qualifiers: Code(s): S81.802A - Unspecified open wound, left lower leg, initial encounter (2) Atrial fibrillation Status: Chronic Current Visit: No Qualifiers: Code(s): I48.91 - Unspecified atrial fibrillation Type of Wound Date of Service: 05/06/18 Chief Complaint: Recent traumatic injury to the left anterior tibial surface with persistent wound History of Wound: This is a 77-year-old male with multiple pre-existing medical problems. He was in his normal state of health until February 2018. At that time, he sustained trauma to the left anterior tibial surface, resulting in 2 adjacent superficial wounds. He was evaluated by his primary care physician, and placed on oral cephalexin, which has now been completed. The traumatic wounds failed to heal, and the patient presented for further evaluation and management. The patient typically sleeps on a flat mattress at night, though occasionally sleeps in a recliner due to breathing problems. He claims to be active. He does not ambulate liberally, however, claiming to suffer from shortness of breath which occurs with activity. 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 It is uncertain whether this was deep or superficial thrombophlebitis. He has been being seen by several physicians at the wound center, most recently Dr. Thomas and Dr. Valentine. He had been using santyl but was changed to promogran last week. He has had increased pain and redness and went to the ER and was given doxycycline. He is tolerating this medicine. He is on day 5 of 10. He states that the pain has not improved. No cultures have been taken. Denies fever or chills or drainage. Progress of Wound: Improving. - Physical Exam Vital Signs Temp Pulse Resp BP 97.0 F L 60 16 146/64 H 05/06/18 08:31 05/06/18 08:31 05/06/18 08:31 05/06/18 08:31 General: Alert, Oriented x3, Cooperative, No apparent distress HEENT: Atraumatic Oral: Moist Mucosa Neck: Supple Lungs: Normal air movement Extremities: No cyanosis Skin: Ulcer/ Wound Wound Measurements and Assessment WC - Nurse 1 - General Ulcer Measurement Start: 04/22/18 08:37 Freq: Status: Active Protocol: Activity Type Activity Date Activity User E-Sign Co-Sign Detail Recorded Client Recorded Date Recorded By Document 05/06/18 08:31 TX [id number] 05/06/18 08:35 [place] 05/06/18 08:31 Wound Center Nurse 1 [Ulcer Assessment] #4 LEFT INFERIOR CURTIS cluster -Combined with other wound No -Current Size (cm) - Length 3.6 -Current Size (cm) - Width 1.8 -Current Size (cm) - Depth 0.1 -Total Square Cm 6.48 -Photo Taken No -Tunneling No -Undermining/Tunneling No -Circular Undermining No -Exudate Amt Small (1-33%) -Exudate Type Serosanguineous -Wound Margin Flat & Intact -Granulation Amt Small (1-33%) -Granulation Quality Pale [place] -Slough/Fibrin Yes -Necrosis Amt Large (67-100%) -Necrotic Tissue Type Eschar -Texture ([place]-wound Skin Appearance) Assessed -Moisture ([place]-wound Skin Appearance Assessed ) -Color ([place]-wound Skin Appearance) Assessed Hemosiderin Staining -Temperature ([place]-wound Skin No Abnormality Appearance) (Pt Warm) -Tenderness on Palpation ([place]-wound Yes Skin Appearance) -Ulcer Cleansing Rinsed/ Irrigated with Saline -Foul Odor after Cleansing No -Anesthetic Used 5% Lidocaine Gel #3 LEFT SUPERIOR CURTIS -Combined with other wound No -Current Size (cm) - Length 0.3 -Current Size (cm) - Width 0.3 -Current Size (cm) - Depth 0.1 -Total Square Cm 0.09 -Photo Taken No -Epithelialization Small 1-33% -Tunneling No -Undermining/Tunneling No -Circular Undermining No -Exudate Amt None Present (0 %) -Wound Margin Flat & Intact -Granulation Amt Large (67-100%) -Granulation Quality [place] -Slough/Fibrin No -Texture ([place]-wound Skin Appearance) Assessed -Moisture ([place]-wound Skin Appearance Assessed ) -Color ([place]-wound Skin Appearance) Assessed -Temperature ([place]-wound Skin No Abnormality Appearance) (Pt Warm) -Tenderness on Palpation ([place]-wound No Skin Appearance) -Ulcer Cleansing Rinsed/ Irrigated with Saline -Foul Odor after Cleansing No -Anesthetic Used 5% Lidocaine Gel [Edema Assessment] -Lower Limb Edema Present Yes -Left Calf (cm) 37 -Left Ankle (cm) 24 WC - Nurse 2 - General Ulcer CM Notes Start: 04/22/18 08:37 Freq: Status: Active Protocol: Activity Type Activity Date Activity User E-Sign Co-Sign Detail Recorded Client Recorded Date Recorded By Document 05/06/18 08:49 CS [id number] 05/06/18 08:56 CS 05/06/18 08:49 Wound Center Nurse 2 [Procedure/Treatment] #4 LEFT INFERIOR CURTIS cluster -Time 08:52 -Correct Patient Yes -Correct Side, Site, Position Yes -Correct Procedure Yes -Procedure Performed Yes -Type of Procedure Debridement -Clinical Debridement Subcutaneous -Post Debridement Size (cm) - Length 3.5 -Post Debridement Size (cm) - Width 1.8 -Post Debridement Size (cm) - Depth 0.1 -Total Square Cm 6.30 -Wound/Ulcer Outcome Not Healed -Ulcer Cleansing Rinsed/ Irrigated with Saline -Foul Odor after Cleansing No -Bioengineered Tissue Yes -Type of bioengineered Tissue EPIFIX -Expiration Date 01/20/23 -Product Lot Number [id number] -Percent Used 100 -Saline Lot Number [id number] -Bleeding Controlled with Pressure -Treatment Response Procedure Tolerated Well #3 LEFT SUPERIOR CURTIS -Time 08:51 -Correct Patient No -Correct Side, Site, Position No -Correct Procedure No -Procedure Performed No -Post Debridement Size (cm) - Length 0 -Post Debridement Size (cm) - Width 0 -Post Debridement Size (cm) - Depth 0 -Total Square Cm 0 -Wound/Ulcer Outcome Healed- Epithelialized [See Physician Procedure note for Specifics] Pain Scale: 0-10 Numeric [Pain] -Is Patient Pain Free? No Musculoskeletal: No Muscle Wasting Neurological: Cranial nerves II-XII grossly intact Psych/Mental Status: Normal Affect Debridement Note Post-Debridement Measurements/Treatment WC - Nurse 2 - General Ulcer CM Notes Start: 04/22/18 08:37 Freq: Status: Active Protocol: Activity Type Activity Date Activity User E-Sign Co-Sign Detail Recorded Client Recorded Date Recorded By Document 04/22/18 08:52 MW [id number] 04/22/18 09:03 MW Document 04/29/18 10:16 JS [id number] 04/29/18 10:20 JS Document 05/06/18 08:49 CS [id number] 05/06/18 08:56 04/22/18 0805/06/18 08:52 10:16 08:49 Wound Center Nurse 2 #4 LEFT INFERIOR CURTIS cluster -Time 08:52 10:16 08:52 -Correct Patient Yes Yes Yes -Correct Side, Site, Position Yes Yes Yes -Correct Procedure Yes Yes Yes -Procedure Performed Yes Yes Yes -Type of Procedure Debridement Debridement Debridement -Clinical Debridement Subcutaneous Subcutaneous Subcutaneous -Post Debridement Size (cm) - Length 3.8 3.5 3.5 -Post Debridement Size (cm) - Width 2.0 1.5 1.8 -Post Debridement Size (cm) - Depth 0.2 0.2 0.1 -Total Square Cm 7.60 5.25 6.30 -Wound/Ulcer Outcome Not Healed Not Healed Not Healed -Ulcer Cleansing Rinsed/ Rinsed/ Rinsed/ Irrigated with Irrigated with Irrigated with Saline Saline Saline -Foul Odor after Cleansing No No No -Bioengineered Tissue Yes Yes Yes -Type of bioengineered Tissue EPIFIX EPIFIX EPIFIX -Expiration Date 09/26/22 12/21/22 01/20/23 -Product Lot Number [id number] -Percent Used 100 100 100 -Saline Lot Number [id number] -Topical Lidocaine (%) 4 -Bleeding Controlled with Pressure NA Pressure -Treatment Response Procedure Procedure Procedure Tolerated Well Tolerated Well Tolerated Well #3 LEFT SUPERIOR CURTIS -Time 08:52 10:17 08:51 -Correct Patient Yes Yes No -Correct Side, Site, Position Yes Yes No -Correct Procedure Yes Yes No -Procedure Performed Yes Yes No -Type of Procedure Debridement Debridement -Clinical Debridement Subcutaneous Subcutaneous -Post Debridement Size (cm) - Length 0.4 0.1 0 -Post Debridement Size (cm) - Width 0.5 0.1 0 -Post Debridement Size (cm) - Depth 0.1 0.1 0 -Total Square Cm 0.20 0.01 0 -Wound/Ulcer Outcome Not Healed Not Healed Healed- Epithelialized -Ulcer Cleansing Rinsed/ Rinsed/ Irrigated with Irrigated with Saline Saline -Foul Odor after Cleansing No No -Bioengineered Tissue Yes No -Type of bioengineered Tissue EPIFIX -Expiration Date 09/26/22 -Product Lot Number [id number] -Percent Used 100 -Saline Lot Number [id number] -Bleeding Controlled with Pressure NA -Treatment Response Procedure Procedure Tolerated Well Tolerated Well Pain Scale: 0-10 Numeric Is Patient Pain Free? Yes Yes No Wound debrided: Left lower extremity Wound Grade/Stage: Stage II Type of Debridement: Excisional debridement Anesthesia Used: 4% Lidocaine Solution Depth: Down to and including healthy tissue, in the subcutaneous layer Percentage of wound debrided: 100 Instrument Used: 5mm curette Tissue Removed: Slough and devitalized tissue Severity: Fat Layer Exposed Amount of bleeding with debridement: Mild Bleeding Controlled with: Pressure Patient tolerated procedure well Assessment/Plan Active Problems Open wound of left lower extremity (Chronic) Assessment: Traumatic left lower extremity wounds with delayed healing. Left lower extremity cellulitis. Plan: Stable wound. Debridement done as documented above. 4th application of Epifix done using 100% of product to the inferior ulcer. Moistened with hydrogel, wound veil over top secured with steristrip. Leave in place x 1 week. Tubi application tester for edema management. Elevate lower extremity when seated and in bed. Increased protein intake and protein supplements. Follow up in 1 week. Advised to call with any questions or concerns.
--- NOTE | 2018-05-06 09:04 | PN.PCM_ITS ---
(1) Open wound of left lower extremity Status: Chronic Current Visit: Yes Qualifiers: Code(s): S81.802A - Unspecified open wound, left lower leg, initial encounter (2) Atrial fibrillation Status: Chronic Current Visit: No Qualifiers: Code(s): I48.91 - Unspecified atrial fibrillation Type of Wound Date of Service: 05/06/18 Chief Complaint: Recent traumatic injury to the left anterior tibial surface with persistent wound History of Wound: This is a 77-year-old male with multiple pre-existing medical problems. He was in his normal state of health until February 2018. At that time, he sustained trauma to the left anterior tibial surface, resulting in 2 adjacent superficial wounds. He was evaluated by his primary care physician, and placed on oral cephalexin, which has now been completed. The traumatic wounds failed to heal, and the patient presented for further evaluation and management. The patient typically sleeps on a flat mattress at night, though occasionally sleeps in a recliner due to breathing problems. He claims to be active. He does not ambulate liberally, however, claiming to suffer from shortness of breath which occurs with activity. 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 It is uncertain whether this was deep or superficial thrombophlebitis. He has been being seen by several physicians at the wound center, most recently Dr. Thomas and Dr. Valentine. He had been using santyl but was changed to promogran last week. He has had increased pain and redness and went to the ER and was given doxycycline. He is tolerating this medicine. He is on day 5 of 10. He states that the pain has not improved. No cultures have been taken. Denies fever or chills or drainage. Progress of Wound: Improving. - Physical Exam Vital Signs Temp Pulse Resp BP 97.0 F L 60 16 146/64 H 05/06/18 08:31 05/06/18 08:31 05/06/18 08:31 05/06/18 08:31 General: Alert, Oriented x3, Cooperative, No apparent distress HEENT: Atraumatic Oral: Moist Mucosa Neck: Supple Lungs: Normal air movement Extremities: No cyanosis Skin: Ulcer/ Wound Wound Measurements and Assessment WC - Nurse 1 - General Ulcer Measurement Start: 04/22/18 08:37 Freq: Status: Active Protocol: Activity Type Activity Date Activity User E-Sign Co-Sign Detail Recorded Client Recorded Date Recorded By Document 05/06/18 08:31 LA [id number] 05/06/18 08:35 LA 05/06/18 08:31 Wound Center Nurse 1 [Ulcer Assessment] #4 LEFT INFERIOR CURTIS cluster -Combined with other wound No -Current Size (cm) - Length 3.6 -Current Size (cm) - Width 1.8 -Current Size (cm) - Depth 0.1 -Total Square Cm 6.48 -Photo Taken No -Tunneling No -Undermining/Tunneling No -Circular Undermining No -Exudate Amt Small (1-33%) -Exudate Type Serosanguineous -Wound Margin Flat & Intact -Granulation Amt Small (1-33%) -Granulation Quality Pale [place] -Slough/Fibrin Yes -Necrosis Amt Large (67-100%) -Necrotic Tissue Type Eschar -Texture ([place]-wound Skin Appearance) Assessed -Moisture ([place]-wound Skin Appearance Assessed ) -Color ([place]-wound Skin Appearance) Assessed Hemosiderin Staining -Temperature ([place]-wound Skin No Abnormality Appearance) (Pt Warm) -Tenderness on Palpation ([place]-wound Yes Skin Appearance) -Ulcer Cleansing Rinsed/ Irrigated with Saline -Foul Odor after Cleansing No -Anesthetic Used 5% Lidocaine Gel #3 LEFT SUPERIOR CURTIS -Combined with other wound No -Current Size (cm) - Length 0.3 -Current Size (cm) - Width 0.3 -Current Size (cm) - Depth 0.1 -Total Square Cm 0.09 -Photo Taken No -Epithelialization Small 1-33% -Tunneling No -Undermining/Tunneling No -Circular Undermining No -Exudate Amt None Present (0 %) -Wound Margin Flat & Intact -Granulation Amt Large (67-100%) -Granulation Quality [place] -Slough/Fibrin No -Texture ([place]-wound Skin Appearance) Assessed -Moisture ([place]-wound Skin Appearance Assessed ) -Color ([place]-wound Skin Appearance) Assessed -Temperature ([place]-wound Skin No Abnormality Appearance) (Pt Warm) -Tenderness on Palpation ([place]-wound No Skin Appearance) -Ulcer Cleansing Rinsed/ Irrigated with Saline -Foul Odor after Cleansing No -Anesthetic Used 5% Lidocaine Gel [Edema Assessment] -Lower Limb Edema Present Yes -Left Calf (cm) 37 -Left Ankle (cm) 24 WC - Nurse 2 - General Ulcer CM Notes Start: 04/22/18 08:37 Freq: Status: Active Protocol: Activity Type Activity Date Activity User E-Sign Co-Sign Detail Recorded Client Recorded Date Recorded By Document 05/06/18 08:49 CS [id number] 05/06/18 08:56 CS 05/06/18 08:49 Wound Center Nurse 2 [Procedure/Treatment] #4 LEFT INFERIOR CURTIS cluster -Time 08:52 -Correct Patient Yes -Correct Side, Site, Position Yes -Correct Procedure Yes -Procedure Performed Yes -Type of Procedure Debridement -Clinical Debridement Subcutaneous -Post Debridement Size (cm) - Length 3.5 -Post Debridement Size (cm) - Width 1.8 -Post Debridement Size (cm) - Depth 0.1 -Total Square Cm 6.30 -Wound/Ulcer Outcome Not Healed -Ulcer Cleansing Rinsed/ Irrigated with Saline -Foul Odor after Cleansing No -Bioengineered Tissue Yes -Type of bioengineered Tissue EPIFIX -Expiration Date 01/20/23 -Product Lot Number [id number] -Percent Used 100 -Saline Lot Number [id number] -Bleeding Controlled with Pressure -Treatment Response Procedure Tolerated Well #3 LEFT SUPERIOR CURTIS -Time 08:51 -Correct Patient No -Correct Side, Site, Position No -Correct Procedure No -Procedure Performed No -Post Debridement Size (cm) - Length 0 -Post Debridement Size (cm) - Width 0 -Post Debridement Size (cm) - Depth 0 -Total Square Cm 0 -Wound/Ulcer Outcome Healed- Epithelialized [See Physician Procedure note for Specifics] Pain Scale: 0-10 Numeric [Pain] -Is Patient Pain Free? No Musculoskeletal: No Muscle Wasting Neurological: Cranial nerves II-XII grossly intact Psych/Mental Status: Normal Affect Debridement Note Post-Debridement Measurements/Treatment WC - Nurse 2 - General Ulcer CM Notes Start: 04/22/18 08:37 Freq: Status: Active Protocol: Activity Type Activity Date Activity User E-Sign Co-Sign Detail Recorded Client Recorded Date Recorded By Document 04/22/18 08:52 MW [id number] 04/22/18 09:03 MW Document 04/29/18 10:16 JS [id number] 04/29/18 10:20 JS Document 05/06/18 08:49 CS [id number] 05/06/18 08:56 04/22/18 0805/06/18 08:52 10:16 08:49 Wound Center Nurse 2 #4 LEFT INFERIOR CURTIS cluster -Time 08:52 10:16 08:52 -Correct Patient Yes Yes Yes -Correct Side, Site, Position Yes Yes Yes -Correct Procedure Yes Yes Yes -Procedure Performed Yes Yes Yes -Type of Procedure Debridement Debridement Debridement -Clinical Debridement Subcutaneous Subcutaneous Subcutaneous -Post Debridement Size (cm) - Length 3.8 3.5 3.5 -Post Debridement Size (cm) - Width 2.0 1.5 1.8 -Post Debridement Size (cm) - Depth 0.2 0.2 0.1 -Total Square Cm 7.60 5.25 6.30 -Wound/Ulcer Outcome Not Healed Not Healed Not Healed -Ulcer Cleansing Rinsed/ Rinsed/ Rinsed/ Irrigated with Irrigated with Irrigated with Saline Saline Saline -Foul Odor after Cleansing No No No -Bioengineered Tissue Yes Yes Yes -Type of bioengineered Tissue EPIFIX EPIFIX EPIFIX -Expiration Date 09/26/22 12/21/22 01/20/23 -Product Lot Number [id number] -Percent Used 100 100 100 -Saline Lot Number [id number] -Topical Lidocaine (%) 4 -Bleeding Controlled with Pressure NA Pressure -Treatment Response Procedure Procedure Procedure Tolerated Well Tolerated Well Tolerated Well #3 LEFT SUPERIOR CURTIS -Time 08:52 10:17 08:51 -Correct Patient Yes Yes No -Correct Side, Site, Position Yes Yes No -Correct Procedure Yes Yes No -Procedure Performed Yes Yes No -Type of Procedure Debridement Debridement -Clinical Debridement Subcutaneous Subcutaneous -Post Debridement Size (cm) - Length 0.4 0.1 0 -Post Debridement Size (cm) - Width 0.5 0.1 0 -Post Debridement Size (cm) - Depth 0.1 0.1 0 -Total Square Cm 0.20 0.01 0 -Wound/Ulcer Outcome Not Healed Not Healed Healed- Epithelialized -Ulcer Cleansing Rinsed/ Rinsed/ Irrigated with Irrigated with Saline Saline -Foul Odor after Cleansing No No -Bioengineered Tissue Yes No -Type of bioengineered Tissue EPIFIX -Expiration Date 09/26/22 -Product Lot Number [id number] -Percent Used 100 -Saline Lot Number [id number] -Bleeding Controlled with Pressure NA -Treatment Response Procedure Procedure Tolerated Well Tolerated Well Pain Scale: 0-10 Numeric Is Patient Pain Free? Yes Yes No Wound debrided: Left lower extremity Wound Grade/Stage: Stage II Type of Debridement: Excisional debridement Anesthesia Used: 4% Lidocaine Solution Depth: Down to and including healthy tissue, in the subcutaneous layer Percentage of wound debrided: 100 Instrument Used: 5mm curette Tissue Removed: Slough and devitalized tissue Severity: Fat Layer Exposed Amount of bleeding with debridement: Mild Bleeding Controlled with: Pressure Patient tolerated procedure well Assessment/Plan Active Problems Open wound of left lower extremity (Chronic) Assessment: Traumatic left lower extremity wounds with delayed healing. Left lower extremity cellulitis. Plan: Stable wound. Debridement done as documented above. 4th application of Epifix done using 100% of product to the inferior ulcer. Moistened with hydrogel, wound veil over top secured with steristrip. Leave in place x 1 week. Tubi wheel fitter for edema management. Elevate lower extremity when seated and in bed. Increased protein intake and protein supplements. Follow up in 1 week. Advised to call with any questions or concerns.
[2018-05-13 09:08] VITALS: BP 158/89; PULSE 60; RESP 20; TEMP 36.3
--- NOTE | 2018-05-13 10:23 | PCM.WC.PN ---
(1) Open wound of left lower extremity Status: Chronic Current Visit: Yes Qualifiers: Code(s): S81.802A - Unspecified open wound, left lower leg, initial encounter (2) Atrial fibrillation Status: Chronic Current Visit: No Qualifiers: Code(s): I48.91 - Unspecified atrial fibrillation Type of Wound Date of Service: 05/13/18 Chief Complaint: Recent traumatic injury to the left anterior tibial surface with persistent wound History of Wound: This is a 77-year-old male with multiple pre-existing medical problems. He was in his normal state of health until February 2018. At that time, he sustained trauma to the left anterior tibial surface, resulting in 2 adjacent superficial wounds. He was evaluated by his primary care physician, and placed on oral cephalexin, which has now been completed. The traumatic wounds failed to heal, and the patient presented for further evaluation and management. The patient typically sleeps on a flat mattress at night, though occasionally sleeps in a recliner due to breathing problems. He claims to be active. He does not ambulate liberally, however, claiming to suffer from shortness of breath which occurs with activity. 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 It is uncertain whether this was deep or superficial thrombophlebitis. He has been being seen by several physicians at the wound center, most recently Dr. Thomas and Dr. Valentine. He had been using santyl but was changed to promogran last week. He has had increased pain and redness and went to the ER and was given doxycycline. He is tolerating this medicine. He is on day 5 of 10. He states that the pain has not improved. No cultures have been taken. Denies fever or chills or drainage. Progress of Wound: Improving. - Physical Exam Vital Signs Temp Pulse Resp BP 97.3 F L 60 20 H 158/89 H 05/13/18 09:08 05/13/18 09:08 05/13/18 09:08 05/13/18 09:08 General: Alert HEENT: Atraumatic Oral: Moist Mucosa Neck: Supple Lungs: Normal air movement Extremities: No cyanosis Skin: Ulcer/ Wound Wound Measurements and Assessment WC - Nurse 1 - General Ulcer Measurement Start: 04/22/18 08:37 Freq: Status: Active Protocol: Activity Type Activity Date Activity User E-Sign Co-Sign Detail Recorded Client Recorded Date Recorded By Document 05/13/18 09:08 RB [id number] 05/13/18 09:15 RB 05/13/18 09:08 Wound Center Nurse 1 [Ulcer Assessment] #4 LEFT INFERIOR CURTIS cluster -Combined with other wound No -Current Size (cm) - Length 3.3 -Current Size (cm) - Width 1.5 -Current Size (cm) - Depth 0.2 -Total Square Cm 4.95 -Photo Taken No -Tunneling No -Undermining/Tunneling No -Circular Undermining No -Classification - Thickness Full Thickness without Exposed Support Structure -Exudate Amt Small (1-33%) -Exudate Type Serosanguineous -Wound Margin Distinct, Outline Attached -Granulation Amt Large (67-100%) -Granulation Quality [place] -Slough/Fibrin Yes -Necrosis Amt Small (1-33%) -Necrotic Tissue Type Adherent Slough -Structure Exposed N/A -Texture ([place]-wound Skin Appearance) Assessed -Moisture ([place]-wound Skin Appearance Assessed ) -Color ([place]-wound Skin Appearance) Assessed -Temperature ([place]-wound Skin No Abnormality Appearance) (Pt Warm) -Tenderness on Palpation ([place]-wound No Skin Appearance) -Ulcer Cleansing Rinsed/ Irrigated with Saline -Foul Odor after Cleansing No -Anesthetic Used 5% Lidocaine Gel [Edema Assessment] -Lower Limb Edema Present Yes -Left Calf (cm) 37.2 -Left Ankle (cm) 23 WC - Nurse 2 - General Ulcer CM Notes Start: 04/22/18 08:37 Freq: Status: Active Protocol: Activity Type Activity Date Activity User E-Sign Co-Sign Detail Recorded Client Recorded Date Recorded By Document 05/13/18 09:33 MW [id number] 05/13/18 09:39 MW 05/13/18 09:33 Wound Center Nurse 2 [Procedure/Treatment] #4 LEFT INFERIOR CURTIS cluster -Time 09:34 -Correct Patient Yes -Correct Side, Site, Position Yes -Correct Procedure Yes -Procedure Performed Yes -Type of Procedure Debridement -Clinical Debridement Subcutaneous -Post Debridement Size (cm) - Length 3.2 -Post Debridement Size (cm) - Width 1.7 -Post Debridement Size (cm) - Depth 0.1 -Total Square Cm 5.44 -Wound/Ulcer Outcome Not Healed -Ulcer Cleansing Rinsed/ Irrigated with Saline -Foul Odor after Cleansing No -Bioengineered Tissue Yes -Type of bioengineered Tissue EPIFIX -Expiration Date 01/20/23 -Product Lot Number [id number] -Percent Used 100 -Saline Lot Number [id number] -Bleeding Controlled with Pressure -Treatment Response Procedure Tolerated Well [See Physician Procedure note for Specifics] Pain Scale: 0-10 Numeric [Pain] -Is Patient Pain Free? Yes Musculoskeletal: No Muscle Wasting Neurological: Cranial nerves II-XII grossly intact Psych/Mental Status: Normal Affect Debridement Note Post-Debridement Measurements/Treatment WC - Nurse 2 - General Ulcer CM Notes Start: 04/22/18 08:37 Freq: Status: Active Protocol: Activity Type Activity Date Activity User E-Sign Co-Sign Detail Recorded Client Recorded Date Recorded By Document 04/22/18 08:52 MW [id number] 04/22/18 09:03 MW Document 04/29/18 10:16 JS [id number] 04/29/18 10:20 JS Document 05/06/18 08:49 CS [id number] 05/06/18 08:56 CS Document 05/13/18 09:33 MW [id number] 05/13/18 09:39 MW 04/22/18 04/29/18 05/06/18 08:52 10:16 08:49 Wound Center Nurse 2 #4 LEFT INFERIOR CURTIS cluster -Time 08:52 10:16 08:52 -Correct Patient Yes Yes Yes -Correct Side, Site, Position Yes Yes Yes -Correct Procedure Yes Yes Yes -Procedure Performed Yes Yes Yes -Type of Procedure Debridement Debridement Debridement -Clinical Debridement Subcutaneous Subcutaneous Subcutaneous -Post Debridement Size (cm) - Length 3.8 3.5 3.5 -Post Debridement Size (cm) - Width 2.0 1.5 1.8 -Post Debridement Size (cm) - Depth 0.2 0.2 0.1 -Total Square Cm 7.60 5.25 6.30 -Wound/Ulcer Outcome Not Healed Not Healed Not Healed -Ulcer Cleansing Rinsed/ Rinsed/ Rinsed/ Irrigated with Irrigated with Irrigated with Saline Saline Saline -Foul Odor after Cleansing No No No -Bioengineered Tissue Yes Yes Yes -Type of bioengineered Tissue EPIFIX EPIFIX EPIFIX -Expiration Date 09/26/22 12/21/22 01/20/23 -Product Lot Number [id number] -Percent Used 100 100 100 -Saline Lot Number [id number] -Topical Lidocaine (%) 4 -Bleeding Controlled with Pressure NA Pressure -Treatment Response Procedure Procedure Procedure Tolerated Well Tolerated Well Tolerated Well #3 LEFT SUPERIOR CURTIS -Time 08:52 10:17 08:51 -Correct Patient Yes Yes No -Correct Side, Site, Position Yes Yes No -Correct Procedure Yes Yes No -Procedure Performed Yes Yes No -Type of Procedure Debridement Debridement -Clinical Debridement Subcutaneous Subcutaneous -Post Debridement Size (cm) - Length 0.4 0.1 0 -Post Debridement Size (cm) - Width 0.5 0.1 0 -Post Debridement Size (cm) - Depth 0.1 0.1 0 -Total Square Cm 0.20 0.01 0 -Wound/Ulcer Outcome Not Healed Not Healed Healed- Epithelialized -Ulcer Cleansing Rinsed/ Rinsed/ Irrigated with Irrigated with Saline Saline -Foul Odor after Cleansing No No -Bioengineered Tissue Yes No -Type of bioengineered Tissue EPIFIX -Expiration Date 09/26/22 -Product Lot Number [id number] -Percent Used 100 -Saline Lot Number [id number] -Bleeding Controlled with Pressure NA -Treatment Response Procedure Procedure Tolerated Well Tolerated Well Pain Scale: 0-10 Numeric Is Patient Pain Free? Yes Yes No 18 09:33 Wound Center Nurse 2 #4 LEFT INFERIOR CURTIS cluster -Time 09:34 -Correct Patient Yes -Correct Side, Site, Position Yes -Correct Procedure Yes -Procedure Performed Yes -Type of Procedure Debridement -Clinical Debridement Subcutaneous -Post Debridement Size (cm) - Length 3.2 -Post Debridement Size (cm) - Width 1.7 -Post Debridement Size (cm) - Depth 0.1 -Total Square Cm 5.44 -Wound/Ulcer Outcome Not Healed -Ulcer Cleansing Rinsed/ Irrigated with Saline -Foul Odor after Cleansing No -Bioengineered Tissue Yes -Type of bioengineered Tissue EPIFIX -Expiration Date 01/20/23 -Product Lot Number [id number] -Percent Used 100 -Saline Lot Number [id number] -Topical Lidocaine (%) -Bleeding Controlled with Pressure -Treatment Response Procedure Tolerated Well #3 LEFT SUPERIOR CURTIS -Time -Correct Patient -Correct Side, Site, Position -Correct Procedure -Procedure Performed -Type of Procedure -Clinical Debridement -Post Debridement Size (cm) - Length -Post Debridement Size (cm) - Width -Post Debridement Size (cm) - Depth -Total Square Cm -Wound/Ulcer Outcome -Ulcer Cleansing -Foul Odor after Cleansing -Bioengineered Tissue -Type of bioengineered Tissue -Expiration Date -Product Lot Number -Percent Used -Saline Lot Number -Bleeding Controlled with -Treatment Response Pain Scale: 0-10 Numeric Is Patient Pain Free? Yes Wound debrided: Left lower extremity ( Inferior ) Wound Grade/Stage: Stgae II Type of Debridement: Excisional debridement Anesthesia Used: 5% Lidocaine Gel Depth: Down to and including healthy tissue, in the subcutaneous layer Percentage of wound debrided: 100 Instrument Used: 3mm curette Tissue Removed: Slough and devitalized tissue Severity: Fat Layer Exposed Amount of bleeding with debridement: Mild Bleeding Controlled with: Pressure Patient tolerated procedure well Assessment/Plan Active Problems Open wound of left lower extremity (Chronic) Assessment: Traumatic left lower extremity wounds with delayed healing. Left lower extremity cellulitis. Plan: Improving wound. Debridement done as documented above. 5th application of Epifix done using 100% of product to the inferior ulcer. Moistened with hydrogel, wound veil over top secured with steristrip. Leave in place x 1 week. 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 Elevate lower extremity when seated and in bed. Increased protein intake and protein supplements. Follow up in 1 week. Advised to call with any questions or concerns.
--- NOTE | 2018-05-13 10:26 | PN.PCM_ITS ---
(1) Open wound of left lower extremity Status: Chronic Current Visit: Yes Qualifiers: Code(s): S81.802A - Unspecified open wound, left lower leg, initial encounter (2) Atrial fibrillation Status: Chronic Current Visit: No Qualifiers: Code(s): I48.91 - Unspecified atrial fibrillation Type of Wound Date of Service: 05/13/18 Chief Complaint: Recent traumatic injury to the left anterior tibial surface with persistent wound History of Wound: This is a 77-year-old male with multiple pre-existing medical problems. He was in his normal state of health until February 2018. At that time, he sustained trauma to the left anterior tibial surface, resulting in 2 adjacent superficial wounds. He was evaluated by his primary care physician, and placed on oral cephalexin, which has now been completed. The traumatic wounds failed to heal, and the patient presented for further evaluation and management. The patient typically sleeps on a flat mattress at night, though occasionally sleeps in a recliner due to breathing problems. He claims to be active. He does not ambulate liberally, however, claiming to suffer from shortness of breath which occurs with activity. 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 It is uncertain whether this was deep or superficial thrombophlebitis. He has been being seen by several physicians at the wound center, most recently Dr. Thomas and Dr. Valentine. He had been using santyl but was changed to promogran last week. He has had increased pain and redness and went to the ER and was given doxycycline. He is tolerating this medicine. He is on day 5 of 10. He states that the pain has not improved. No cultures have been taken. Denies fever or chills or drainage. Progress of Wound: Improving. - Physical Exam Vital Signs Temp Pulse Resp BP 97.3 F L 60 20 H 158/89 H 05/13/18 09:08 05/13/18 09:08 05/13/18 09:08 05/13/18 09:08 General: Alert HEENT: Atraumatic Oral: Moist Mucosa Neck: Supple Lungs: Normal air movement Extremities: No cyanosis Skin: Ulcer/ Wound Wound Measurements and Assessment WC - Nurse 1 - General Ulcer Measurement Start: 04/22/18 08:37 Freq: Status: Active Protocol: Activity Type Activity Date Activity User E-Sign Co-Sign Detail Recorded Client Recorded Date Recorded By Document 05/13/18 09:08 RB [id number] 05/13/18 09:15 RB 05/13/18 09:08 Wound Center Nurse 1 [Ulcer Assessment] #4 LEFT INFERIOR CURTIS cluster -Combined with other wound No -Current Size (cm) - Length 3.3 -Current Size (cm) - Width 1.5 -Current Size (cm) - Depth 0.2 -Total Square Cm 4.95 -Photo Taken No -Tunneling No -Undermining/Tunneling No -Circular Undermining No -Classification - Thickness Full Thickness without Exposed Support Structure -Exudate Amt Small (1-33%) -Exudate Type Serosanguineous -Wound Margin Distinct, Outline Attached -Granulation Amt Large (67-100%) -Granulation Quality [place] -Slough/Fibrin Yes -Necrosis Amt Small (1-33%) -Necrotic Tissue Type Adherent Slough -Structure Exposed N/A -Texture ([place]-wound Skin Appearance) Assessed -Moisture ([place]-wound Skin Appearance Assessed ) -Color ([place]-wound Skin Appearance) Assessed -Temperature ([place]-wound Skin No Abnormality Appearance) (Pt Warm) -Tenderness on Palpation ([place]-wound No Skin Appearance) -Ulcer Cleansing Rinsed/ Irrigated with Saline -Foul Odor after Cleansing No -Anesthetic Used 5% Lidocaine Gel [Edema Assessment] -Lower Limb Edema Present Yes -Left Calf (cm) 37.2 -Left Ankle (cm) 23 WC - Nurse 2 - General Ulcer CM Notes Start: 04/22/18 08:37 Freq: Status: Active Protocol: Activity Type Activity Date Activity User E-Sign Co-Sign Detail Recorded Client Recorded Date Recorded By Document 05/13/18 09:33 MW [id number] 05/13/18 09:39 MW 05/13/18 09:33 Wound Center Nurse 2 [Procedure/Treatment] #4 LEFT INFERIOR CURTIS cluster -Time 09:34 -Correct Patient Yes -Correct Side, Site, Position Yes -Correct Procedure Yes -Procedure Performed Yes -Type of Procedure Debridement -Clinical Debridement Subcutaneous -Post Debridement Size (cm) - Length 3.2 -Post Debridement Size (cm) - Width 1.7 -Post Debridement Size (cm) - Depth 0.1 -Total Square Cm 5.44 -Wound/Ulcer Outcome Not Healed -Ulcer Cleansing Rinsed/ Irrigated with Saline -Foul Odor after Cleansing No -Bioengineered Tissue Yes -Type of bioengineered Tissue EPIFIX -Expiration Date 01/20/23 -Product Lot Number [id number] -Percent Used 100 -Saline Lot Number [id number] -Bleeding Controlled with Pressure -Treatment Response Procedure Tolerated Well [See Physician Procedure note for Specifics] Pain Scale: 0-10 Numeric [Pain] -Is Patient Pain Free? Yes Musculoskeletal: No Muscle Wasting Neurological: Cranial nerves II-XII grossly intact Psych/Mental Status: Normal Affect Debridement Note Post-Debridement Measurements/Treatment WC - Nurse 2 - General Ulcer CM Notes Start: 04/22/18 08:37 Freq: Status: Active Protocol: Activity Type Activity Date Activity User E-Sign Co-Sign Detail Recorded Client Recorded Date Recorded By Document 04/22/18 08:52 MW [id number] 04/22/18 09:03 MW Document 04/29/18 10:16 JS [id number] 04/29/18 10:20 JS Document 05/06/18 08:49 CS [id number] 05/06/18 08:56 CS Document 05/13/18 09:33 MW [id number] 05/13/18 09:39 MW 04/22/18 04/29/18 05/06/18 08:52 10:16 08:49 Wound Center Nurse 2 #4 LEFT INFERIOR CURTIS cluster -Time 08:52 10:16 08:52 -Correct Patient Yes Yes Yes -Correct Side, Site, Position Yes Yes Yes -Correct Procedure Yes Yes Yes -Procedure Performed Yes Yes Yes -Type of Procedure Debridement Debridement Debridement -Clinical Debridement Subcutaneous Subcutaneous Subcutaneous -Post Debridement Size (cm) - Length 3.8 3.5 3.5 -Post Debridement Size (cm) - Width 2.0 1.5 1.8 -Post Debridement Size (cm) - Depth 0.2 0.2 0.1 -Total Square Cm 7.60 5.25 6.30 -Wound/Ulcer Outcome Not Healed Not Healed Not Healed -Ulcer Cleansing Rinsed/ Rinsed/ Rinsed/ Irrigated with Irrigated with Irrigated with Saline Saline Saline -Foul Odor after Cleansing No No No -Bioengineered Tissue Yes Yes Yes -Type of bioengineered Tissue EPIFIX EPIFIX EPIFIX -Expiration Date 09/26/22 12/21/22 01/20/23 -Product Lot Number [id number] -Percent Used 100 100 100 -Saline Lot Number [id number] -Topical Lidocaine (%) 4 -Bleeding Controlled with Pressure NA Pressure -Treatment Response Procedure Procedure Procedure Tolerated Well Tolerated Well Tolerated Well #3 LEFT SUPERIOR CURTIS -Time 08:52 10:17 08:51 -Correct Patient Yes Yes No -Correct Side, Site, Position Yes Yes No -Correct Procedure Yes Yes No -Procedure Performed Yes Yes No -Type of Procedure Debridement Debridement -Clinical Debridement Subcutaneous Subcutaneous -Post Debridement Size (cm) - Length 0.4 0.1 0 -Post Debridement Size (cm) - Width 0.5 0.1 0 -Post Debridement Size (cm) - Depth 0.1 0.1 0 -Total Square Cm 0.20 0.01 0 -Wound/Ulcer Outcome Not Healed Not Healed Healed- Epithelialized -Ulcer Cleansing Rinsed/ Rinsed/ Irrigated with Irrigated with Saline Saline -Foul Odor after Cleansing No No -Bioengineered Tissue Yes No -Type of bioengineered Tissue EPIFIX -Expiration Date 09/26/22 -Product Lot Number [id number] -Percent Used 100 -Saline Lot Number [id number] -Bleeding Controlled with Pressure NA -Treatment Response Procedure Procedure Tolerated Well Tolerated Well Pain Scale: 0-10 Numeric Is Patient Pain Free? Yes Yes No 18 09:33 Wound Center Nurse 2 #4 LEFT INFERIOR CURTIS cluster -Time 09:34 -Correct Patient Yes -Correct Side, Site, Position Yes -Correct Procedure Yes -Procedure Performed Yes -Type of Procedure Debridement -Clinical Debridement Subcutaneous -Post Debridement Size (cm) - Length 3.2 -Post Debridement Size (cm) - Width 1.7 -Post Debridement Size (cm) - Depth 0.1 -Total Square Cm 5.44 -Wound/Ulcer Outcome Not Healed -Ulcer Cleansing Rinsed/ Irrigated with Saline -Foul Odor after Cleansing No -Bioengineered Tissue Yes -Type of bioengineered Tissue EPIFIX -Expiration Date 01/20/23 -Product Lot Number [id number] -Percent Used 100 -Saline Lot Number [id number] -Topical Lidocaine (%) -Bleeding Controlled with Pressure -Treatment Response Procedure Tolerated Well #3 LEFT SUPERIOR CURTIS -Time -Correct Patient -Correct Side, Site, Position -Correct Procedure -Procedure Performed -Type of Procedure -Clinical Debridement -Post Debridement Size (cm) - Length -Post Debridement Size (cm) - Width -Post Debridement Size (cm) - Depth -Total Square Cm -Wound/Ulcer Outcome -Ulcer Cleansing -Foul Odor after Cleansing -Bioengineered Tissue -Type of bioengineered Tissue -Expiration Date -Product Lot Number -Percent Used -Saline Lot Number -Bleeding Controlled with -Treatment Response Pain Scale: 0-10 Numeric Is Patient Pain Free? Yes Wound debrided: Left lower extremity ( Inferior ) Wound Grade/Stage: Stgae II Type of Debridement: Excisional debridement Anesthesia Used: 5% Lidocaine Gel Depth: Down to and including healthy tissue, in the subcutaneous layer Percentage of wound debrided: 100 Instrument Used: 3mm curette Tissue Removed: Slough and devitalized tissue Severity: Fat Layer Exposed Amount of bleeding with debridement: Mild Bleeding Controlled with: Pressure Patient tolerated procedure well Assessment/Plan Active Problems Open wound of left lower extremity (Chronic) Assessment: Traumatic left lower extremity wounds with delayed healing. Left lower extremity cellulitis. Plan: Improving wound. Debridement done as documented above. 5th application of Epifix done using 100% of product to the inferior ulcer. Moistened with hydrogel, wound veil over top secured with steristrip. Leave in place x 1 week. 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 Elevate lower extremity when seated and in bed. Increased protein intake and protein supplements. Follow up in 1 week. Advised to call with any questions or concerns.
[2018-05-20 09:24] VITALS: BP 146/83; PULSE 62; RESP 18; TEMP 36.2
--- NOTE | 2018-05-20 09:53 | PCM.WC.PN ---
(1) Open wound of left lower extremity Status: Chronic Current Visit: Yes Qualifiers: Code(s): S81.802A - Unspecified open wound, left lower leg, initial encounter (2) Atrial fibrillation Status: Chronic Current Visit: No Qualifiers: Code(s): I48.91 - Unspecified atrial fibrillation Type of Wound Date of Service: 05/20/18 Chief Complaint: Recent traumatic injury to the left anterior tibial surface with persistent wound History of Wound: This is a 77-year-old male with multiple pre-existing medical problems. He was in his normal state of health until February 2018. At that time, he sustained trauma to the left anterior tibial surface, resulting in 2 adjacent superficial wounds. He was evaluated by his primary care physician, and placed on oral cephalexin, which has now been completed. The traumatic wounds failed to heal, and the patient presented for further evaluation and management. The patient typically sleeps on a flat mattress at night, though occasionally sleeps in a recliner due to breathing problems. He claims to be active. He does not ambulate liberally, however, claiming to suffer from shortness of breath which occurs with activity. 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 It is uncertain whether this was deep or superficial thrombophlebitis. He has been being seen by several physicians at the wound center, most recently Dr. Thomas and Dr. Valentine. He had been using santyl but was changed to promogran last week. He has had increased pain and redness and went to the ER and was given doxycycline. He is tolerating this medicine. He is on day 5 of 10. He states that the pain has not improved. No cultures have been taken. Denies fever or chills or drainage. Progress of Wound: Improving. - Physical Exam Vital Signs Temp Pulse Resp BP 97.1 F L 62 18 146/83 H 05/20/18 09:24 05/20/18 09:24 05/20/18 09:24 05/20/18 09:24 General: Alert, Oriented x3, Cooperative, No apparent distress HEENT: Atraumatic Oral: Moist Mucosa Neck: Supple Lungs: Normal air movement Extremities: No cyanosis Skin: Ulcer/ Wound Wound Measurements and Assessment WC - Nurse 1 - General Ulcer Measurement Start: 04/22/18 08:37 Freq: Status: Active Protocol: Activity Type Activity Date Activity User E-Sign Co-Sign Detail Recorded Client Recorded Date Recorded By Document 05/20/18 09:24 CS [id number] 05/20/18 09:29 CS 05/20/18 09:24 Wound Center Nurse 1 [Ulcer Assessment] #4 LEFT INFERIOR CURTIS cluster -Combined with other wound No -Current Size (cm) - Length 3.4 -Current Size (cm) - Width 1.1 -Current Size (cm) - Depth 0.2 -Total Square Cm 3.74 -Photo Taken No -Epithelialization None Present -Tunneling No -Undermining/Tunneling No -Circular Undermining No -Exudate Amt Medium (34-66%) -Exudate Type Serosanguineous -Wound Margin Thickened & Rolled Under -Granulation Amt Medium (34-66%) -Granulation Quality Pale [place] -Slough/Fibrin Yes -Necrosis Amt None Present (0 %) -Necrotic Tissue Type Adherent Slough -Structure Exposed None/Limited to Skin Breakdown -Texture (Zenobia-wound Skin Appearance) No Abnormality Assessed -Moisture ([place]-wound Skin Appearance No Abnormality ) Assessed -Color ([place]-wound Skin Appearance) Hemosiderin Staining -Temperature ([place]-wound Skin No Abnormality Appearance) (Pt Warm) -Tenderness on Palpation ([place]-wound No Skin Appearance) -Ulcer Cleansing Rinsed/ Irrigated with Saline -Foul Odor after Cleansing No -Anesthetic Used 5% Lidocaine Gel [Edema Assessment] -Lower Limb Edema Present Yes -Left Calf (cm) 38.1 -Left Ankle (cm) 23 WC - Nurse 2 - General Ulcer CM Notes Start: 04/22/18 08:37 Freq: Status: Active Protocol: Activity Type Activity Date Activity User E-Sign Co-Sign Detail Recorded Client Recorded Date Recorded By Document 05/20/18 09:42 MW [id number] 05/20/18 09:50 MW 05/20/18 09:42 Wound Center Nurse 2 [Procedure/Treatment] #4 LEFT INFERIOR CURTIS cluster -Time 09:43 -Correct Patient Yes -Correct Side, Site, Position Yes -Correct Procedure Yes -Procedure Performed Yes -Type of Procedure Debridement -Clinical Debridement Subcutaneous -Post Debridement Size (cm) - Length 3.0 -Post Debridement Size (cm) - Width 1.6 -Post Debridement Size (cm) - Depth 0.1 -Total Square Cm 4.80 -Wound/Ulcer Outcome Not Healed -Ulcer Cleansing Rinsed/ Irrigated with Saline -Foul Odor after Cleansing No -Bioengineered Tissue Yes -Type of bioengineered Tissue EPIFIX -Expiration Date 01/20/23 -Product Lot Number [id number] -Percent Used 100 -Saline Lot Number [id number] -Bleeding Controlled with Pressure -Treatment Response Procedure Tolerated Well [See Physician Procedure note for Specifics] Pain Scale: 0-10 Numeric [Pain] -Is Patient Pain Free? Yes Musculoskeletal: No Muscle Wasting Neurological: Cranial nerves II-XII grossly intact Psych/Mental Status: Normal Affect Debridement Note Post-Debridement Measurements/Treatment WC - Nurse 2 - General Ulcer CM Notes Start: 04/22/18 08:37 Freq: Status: Active Protocol: Activity Type Activity Date Activity User E-Sign Co-Sign Detail Recorded Client Recorded Date Recorded By Document 04/22/18 08:52 MW [id number] 04/22/18 09:03 MW Document 04/29/18 10:16 JS [id number] 04/29/18 10:20 JS Document 05/06/18 08:49 CS [id number] 05/06/18 08:56 CS Document 05/13/18 09:33 MW [id number] 05/13/18 09:39 MW Document 05/20/18 09:42 MW [id number] 05/20/18 09:50 MW 04/22/18 04/29/18 05/06/18 08:52 10:16 08:49 Wound Center Nurse 2 #4 LEFT INFERIOR CURTIS cluster -Time 08:52 10:16 08:52 -Correct Patient Yes Yes Yes -Correct Side, Site, Position Yes Yes Yes -Correct Procedure Yes Yes Yes -Procedure Performed Yes Yes Yes -Type of Procedure Debridement Debridement Debridement -Clinical Debridement Subcutaneous Subcutaneous Subcutaneous -Post Debridement Size (cm) - Length 3.8 3.5 3.5 -Post Debridement Size (cm) - Width 2.0 1.5 1.8 -Post Debridement Size (cm) - Depth 0.2 0.2 0.1 -Total Square Cm 7.60 5.25 6.30 -Wound/Ulcer Outcome Not Healed Not Healed Not Healed -Ulcer Cleansing Rinsed/ Rinsed/ Rinsed/ Irrigated with Irrigated with Irrigated with Saline Saline Saline -Foul Odor after Cleansing No No No -Bioengineered Tissue Yes Yes Yes -Type of bioengineered Tissue EPIFIX EPIFIX EPIFIX -Expiration Date 09/26/22 12/21/22 01/20/23 -Product Lot Number [id number] -Percent Used 100 100 100 -Saline Lot Number [id number] -Topical Lidocaine (%) 4 -Bleeding Controlled with Pressure NA Pressure -Treatment Response Procedure Procedure Procedure Tolerated Well Tolerated Well Tolerated Well #3 LEFT SUPERIOR CURTIS -Time 08:52 10:17 08:51 -Correct Patient Yes Yes No -Correct Side, Site, Position Yes Yes No -Correct Procedure Yes Yes No -Procedure Performed Yes Yes No -Type of Procedure Debridement Debridement -Clinical Debridement Subcutaneous Subcutaneous -Post Debridement Size (cm) - Length 0.4 0.1 0 -Post Debridement Size (cm) - Width 0.5 0.1 0 -Post Debridement Size (cm) - Depth 0.1 0.1 0 -Total Square Cm 0.20 0.01 0 -Wound/Ulcer Outcome Not Healed Not Healed Healed- Epithelialized -Ulcer Cleansing Rinsed/ Rinsed/ Irrigated with Irrigated with Saline Saline -Foul Odor after Cleansing No No -Bioengineered Tissue Yes No -Type of bioengineered Tissue EPIFIX -Expiration Date 09/26/22 -Product Lot Number [id number] -Percent Used 100 -Saline Lot Number [id number] -Bleeding Controlled with Pressure NA -Treatment Response Procedure Procedure Tolerated Well Tolerated Well Pain Scale: 0-10 Numeric Is Patient Pain Free? Yes Yes No 05/13/18 05/20/18 09:33 09:42 Wound Center Nurse 2 #4 LEFT INFERIOR CURTIS cluster -Time 09:34 09:43 -Correct Patient Yes Yes -Correct Side, Site, Position Yes Yes -Correct Procedure Yes Yes -Procedure Performed Yes Yes -Type of Procedure Debridement Debridement -Clinical Debridement Subcutaneous Subcutaneous -Post Debridement Size (cm) - Length 3.2 3.0 -Post Debridement Size (cm) - Width 1.7 1.6 -Post Debridement Size (cm) - Depth 0.1 0.1 -Total Square Cm 5.44 4.80 -Wound/Ulcer Outcome Not Healed Not Healed -Ulcer Cleansing Rinsed/ Rinsed/ Irrigated with Irrigated with Saline Saline -Foul Odor after Cleansing No No -Bioengineered Tissue Yes Yes -Type of bioengineered Tissue EPIFIX EPIFIX -Expiration Date 01/20/23 01/20/23 -Product Lot Number [id number] -Percent Used 100 100 -Saline Lot Number [id number] -Topical Lidocaine (%) -Bleeding Controlled with Pressure Pressure -Treatment Response Procedure Procedure Tolerated Well Tolerated Well #3 LEFT SUPERIOR CURTIS -Time -Correct Patient -Correct Side, Site, Position -Correct Procedure -Procedure Performed -Type of Procedure -Clinical Debridement -Post Debridement Size (cm) - Length -Post Debridement Size (cm) - Width -Post Debridement Size (cm) - Depth -Total Square Cm -Wound/Ulcer Outcome -Ulcer Cleansing -Foul Odor after Cleansing -Bioengineered Tissue -Type of bioengineered Tissue -Expiration Date -Product Lot Number -Percent Used -Saline Lot Number -Bleeding Controlled with -Treatment Response Pain Scale: 0-10 Numeric Is Patient Pain Free? Yes Yes Wound debrided: Left lower extremity Wound Grade/Stage: Stage II Type of Debridement: Excisional debridement Anesthesia Used: 4% Lidocaine Solution Depth: Down to and including healthy tissue, in the subcutaneous layer Percentage of wound debrided: 100 Instrument Used: 3mm curette Tissue Removed: Slough and devitalized tissue Severity: Fat Layer Exposed Amount of bleeding with debridement: Mild Bleeding Controlled with: Pressure Patient tolerated procedure well Assessment/Plan Active Problems Open wound of left lower extremity (Chronic) Assessment: Traumatic left lower extremity wounds with delayed healing. Left lower extremity cellulitis. Plan: Improving wound. Debridement done as documented above. 6th application of Epifix done using 100% of product. Moistened with hydrogel, wound veil over top secured with steristrip. Leave in place x 1 week. Tubi tarp repairer for edema management. Elevate lower extremity when seated and in bed. Increased protein intake and protein supplements. Follow up in 1 week. Advised to call with any questions or concerns.
--- NOTE | 2018-05-20 09:56 | PN.PCM_ITS ---
(1) Open wound of left lower extremity Status: Chronic Current Visit: Yes Qualifiers: Code(s): S81.802A - Unspecified open wound, left lower leg, initial encounter (2) Atrial fibrillation Status: Chronic Current Visit: No Qualifiers: Code(s): I48.91 - Unspecified atrial fibrillation Type of Wound Date of Service: 05/20/18 Chief Complaint: Recent traumatic injury to the left anterior tibial surface with persistent wound History of Wound: This is a 77-year-old male with multiple pre-existing medical problems. He was in his normal state of health until February 2018. At that time, he sustained trauma to the left anterior tibial surface, resulting in 2 adjacent superficial wounds. He was evaluated by his primary care physician, and placed on oral cephalexin, which has now been completed. The traumatic wounds failed to heal, and the patient presented for further evaluation and management. The patient typically sleeps on a flat mattress at night, though occasionally sleeps in a recliner due to breathing problems. He claims to be active. He does not ambulate liberally, however, claiming to suffer from shortness of breath which occurs with activity. 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 It is uncertain whether this was deep or superficial thrombophlebitis. He has been being seen by several physicians at the wound center, most recently Dr. Thomas and Dr. Valentine. He had been using santyl but was changed to promogran last week. He has had increased pain and redness and went to the ER and was given doxycycline. He is tolerating this medicine. He is on day 5 of 10. He states that the pain has not improved. No cultures have been taken. Denies fever or chills or drainage. Progress of Wound: Improving. - Physical Exam Vital Signs Temp Pulse Resp BP 97.1 F L 62 18 146/83 H 05/20/18 09:24 05/20/18 09:24 05/20/18 09:24 05/20/18 09:24 General: Alert, Oriented x3, Cooperative, No apparent distress HEENT: Atraumatic Oral: Moist Mucosa Neck: Supple Lungs: Normal air movement Extremities: No cyanosis Skin: Ulcer/ Wound Wound Measurements and Assessment WC - Nurse 1 - General Ulcer Measurement Start: 04/22/18 08:37 Freq: Status: Active Protocol: Activity Type Activity Date Activity User E-Sign Co-Sign Detail Recorded Client Recorded Date Recorded By Document 05/20/18 09:24 CS [id number] 05/20/18 09:29 CS 05/20/18 09:24 Wound Center Nurse 1 [Ulcer Assessment] #4 LEFT INFERIOR CURTIS cluster -Combined with other wound No -Current Size (cm) - Length 3.4 -Current Size (cm) - Width 1.1 -Current Size (cm) - Depth 0.2 -Total Square Cm 3.74 -Photo Taken No -Epithelialization None Present -Tunneling No -Undermining/Tunneling No -Circular Undermining No -Exudate Amt Medium (34-66%) -Exudate Type Serosanguineous -Wound Margin Thickened & Rolled Under -Granulation Amt Medium (34-66%) -Granulation Quality Pale [place] -Slough/Fibrin Yes -Necrosis Amt None Present (0 %) -Necrotic Tissue Type Adherent Slough -Structure Exposed None/Limited to Skin Breakdown -Texture ([place]-wound Skin Appearance) No Abnormality Assessed -Moisture ([place]-wound Skin Appearance No Abnormality ) Assessed -Color ([place]-wound Skin Appearance) Hemosiderin Staining -Temperature ([place]-wound Skin No Abnormality Appearance) (Pt Warm) -Tenderness on Palpation ([place]-wound No Skin Appearance) -Ulcer Cleansing Rinsed/ Irrigated with Saline -Foul Odor after Cleansing No -Anesthetic Used 5% Lidocaine Gel [Edema Assessment] -Lower Limb Edema Present Yes -Left Calf (cm) 38.1 -Left Ankle (cm) 23 WC - Nurse 2 - General Ulcer CM Notes Start: 04/22/18 08:37 Freq: Status: Active Protocol: Activity Type Activity Date Activity User E-Sign Co-Sign Detail Recorded Client Recorded Date Recorded By Document 05/20/18 09:42 MW [id number] 05/20/18 09:50 MW 05/20/18 09:42 Wound Center Nurse 2 [Procedure/Treatment] #4 LEFT INFERIOR CURTIS cluster -Time 09:43 -Correct Patient Yes -Correct Side, Site, Position Yes -Correct Procedure Yes -Procedure Performed Yes -Type of Procedure Debridement -Clinical Debridement Subcutaneous -Post Debridement Size (cm) - Length 3.0 -Post Debridement Size (cm) - Width 1.6 -Post Debridement Size (cm) - Depth 0.1 -Total Square Cm 4.80 -Wound/Ulcer Outcome Not Healed -Ulcer Cleansing Rinsed/ Irrigated with Saline -Foul Odor after Cleansing No -Bioengineered Tissue Yes -Type of bioengineered Tissue EPIFIX -Expiration Date 01/20/23 -Product Lot Number [id number] -Percent Used 100 -Saline Lot Number [id number] -Bleeding Controlled with Pressure -Treatment Response Procedure Tolerated Well [See Physician Procedure note for Specifics] Pain Scale: 0-10 Numeric [Pain] -Is Patient Pain Free? Yes Musculoskeletal: No Muscle Wasting Neurological: Cranial nerves II-XII grossly intact Psych/Mental Status: Normal Affect Debridement Note Post-Debridement Measurements/Treatment WC - Nurse 2 - General Ulcer CM Notes Start: 04/22/18 08:37 Freq: Status: Active Protocol: Activity Type Activity Date Activity User E-Sign Co-Sign Detail Recorded Client Recorded Date Recorded By Document 04/22/18 08:52 MW [id number] 04/22/18 09:03 MW Document 04/29/18 10:16 JS [id number] 04/29/18 10:20 JS Document 05/06/18 08:49 CS [id number] 05/06/18 08:56 CS Document 05/13/18 09:33 MW [id number] 05/13/18 09:39 MW Document 05/20/18 09:42 MW [id number] 05/20/18 09:50 MW 04/22/18 04/29/18 05/06/18 08:52 10:16 08:49 Wound Center Nurse 2 #4 LEFT INFERIOR CURTIS cluster -Time 08:52 10:16 08:52 -Correct Patient Yes Yes Yes -Correct Side, Site, Position Yes Yes Yes -Correct Procedure Yes Yes Yes -Procedure Performed Yes Yes Yes -Type of Procedure Debridement Debridement Debridement -Clinical Debridement Subcutaneous Subcutaneous Subcutaneous -Post Debridement Size (cm) - Length 3.8 3.5 3.5 -Post Debridement Size (cm) - Width 2.0 1.5 1.8 -Post Debridement Size (cm) - Depth 0.2 0.2 0.1 -Total Square Cm 7.60 5.25 6.30 -Wound/Ulcer Outcome Not Healed Not Healed Not Healed -Ulcer Cleansing Rinsed/ Rinsed/ Rinsed/ Irrigated with Irrigated with Irrigated with Saline Saline Saline -Foul Odor after Cleansing No No No -Bioengineered Tissue Yes Yes Yes -Type of bioengineered Tissue EPIFIX EPIFIX EPIFIX -Expiration Date 09/26/22 12/21/22 01/20/23 -Product Lot Number [id number] -Percent Used 100 100 100 -Saline Lot Number [id number] -Topical Lidocaine (%) 4 -Bleeding Controlled with Pressure NA Pressure -Treatment Response Procedure Procedure Procedure Tolerated Well Tolerated Well Tolerated Well #3 LEFT SUPERIOR CURTIS -Time 08:52 10:17 08:51 -Correct Patient Yes Yes No -Correct Side, Site, Position Yes Yes No -Correct Procedure Yes Yes No -Procedure Performed Yes Yes No -Type of Procedure Debridement Debridement -Clinical Debridement Subcutaneous Subcutaneous -Post Debridement Size (cm) - Length 0.4 0.1 0 -Post Debridement Size (cm) - Width 0.5 0.1 0 -Post Debridement Size (cm) - Depth 0.1 0.1 0 -Total Square Cm 0.20 0.01 0 -Wound/Ulcer Outcome Not Healed Not Healed Healed- Epithelialized -Ulcer Cleansing Rinsed/ Rinsed/ Irrigated with Irrigated with Saline Saline -Foul Odor after Cleansing No No -Bioengineered Tissue Yes No -Type of bioengineered Tissue EPIFIX -Expiration Date 09/26/22 -Product Lot Number [id number] -Percent Used 100 -Saline Lot Number [id number] -Bleeding Controlled with Pressure NA -Treatment Response Procedure Procedure Tolerated Well Tolerated Well Pain Scale: 0-10 Numeric Is Patient Pain Free? Yes Yes No 05/13/18 05/20/18 09:33 09:42 Wound Center Nurse 2 #4 LEFT INFERIOR CURTIS cluster -Time 09:34 09:43 -Correct Patient Yes Yes -Correct Side, Site, Position Yes Yes -Correct Procedure Yes Yes -Procedure Performed Yes Yes -Type of Procedure Debridement Debridement -Clinical Debridement Subcutaneous Subcutaneous -Post Debridement Size (cm) - Length 3.2 3.0 -Post Debridement Size (cm) - Width 1.7 1.6 -Post Debridement Size (cm) - Depth 0.1 0.1 -Total Square Cm 5.44 4.80 -Wound/Ulcer Outcome Not Healed Not Healed -Ulcer Cleansing Rinsed/ Rinsed/ Irrigated with Irrigated with Saline Saline -Foul Odor after Cleansing No No -Bioengineered Tissue Yes Yes -Type of bioengineered Tissue EPIFIX EPIFIX -Expiration Date 01/20/23 01/20/23 -Product Lot Number [id number] -Percent Used 100 100 -Saline Lot Number [id number] -Topical Lidocaine (%) -Bleeding Controlled with Pressure Pressure -Treatment Response Procedure Procedure Tolerated Well Tolerated Well #3 LEFT SUPERIOR CURTIS -Time -Correct Patient -Correct Side, Site, Position -Correct Procedure -Procedure Performed -Type of Procedure -Clinical Debridement -Post Debridement Size (cm) - Length -Post Debridement Size (cm) - Width -Post Debridement Size (cm) - Depth -Total Square Cm -Wound/Ulcer Outcome -Ulcer Cleansing -Foul Odor after Cleansing -Bioengineered Tissue -Type of bioengineered Tissue -Expiration Date -Product Lot Number -Percent Used -Saline Lot Number -Bleeding Controlled with -Treatment Response Pain Scale: 0-10 Numeric Is Patient Pain Free? Yes Yes Wound debrided: Left lower extremity Wound Grade/Stage: Stage II Type of Debridement: Excisional debridement Anesthesia Used: 4% Lidocaine Solution Depth: Down to and including healthy tissue, in the subcutaneous layer Percentage of wound debrided: 100 Instrument Used: 3mm curette Tissue Removed: Slough and devitalized tissue Severity: Fat Layer Exposed Amount of bleeding with debridement: Mild Bleeding Controlled with: Pressure Patient tolerated procedure well Assessment/Plan Active Problems Open wound of left lower extremity (Chronic) Assessment: Traumatic left lower extremity wounds with delayed healing. Left lower extremity cellulitis. Plan: Improving wound. Debridement done as documented above. 6th application of Epifix done using 100% of product. Moistened with hydrogel, wound veil over top secured with steristrip. Leave in place x 1 week. Tubi letterpress setter for edema management. Elevate lower extremity when seated and in bed. Increased protein intake and protein supplements. Follow up in 1 week. Advised to call with any questions or concerns.
== END 2018-05-22 23:59 ==
LOC: WC 09:30
PROVIDERS: Family Provider Internal Medicine; PCP Internal Medicine; Visit Provider Internal Medicine
DX: S81.832A Puncture wound without foreign body, left lower leg, initial encounter (principal); X58.XXXA Exposure to other specified factors, initial encounter; I48.91 Unspecified atrial fibrillation; R06.02 Shortness of breath; Z86.72 Personal history of thrombophlebitis; L03.116 Cellulitis of left lower limb; R60.0 Localized edema
CPT/HCPCS: 15271; 15275; Q4131

== ENCOUNTER 2018-06-17 08:30 | Outpatient (RCR) | payer MEDICARE, OTHER, SELFPAY ==
[2018-05-23 01:14] VITALS: BP 146/83; PULSE 62; RESP 18; TEMP 36.2
[2018-05-27 09:22] VITALS: BP 128/79; PULSE 60; RESP 18; TEMP 36.1
--- NOTE | 2018-05-27 10:05 | PCM.WC.PN ---
(1) Open wound of left lower extremity Status: Chronic Current Visit: Yes Qualifiers: Code(s): S81.802A - Unspecified open wound, left lower leg, initial encounter (2) Chronic venous insufficiency Status: Chronic Current Visit: Yes Code(s): I87.2 - Venous insufficiency (chronic) (peripheral) (3) Traumatic wound Status: Chronic Current Visit: Yes Type of Wound Date of Service: 05/27/18 Chief Complaint: Recent traumatic injury to the left anterior tibial surface with persistent wound History of Wound: This is a 77-year-old male with multiple pre-existing medical problems. He was in his normal state of health until February 2018. At that time, he sustained trauma to the left anterior tibial surface, resulting in 2 adjacent superficial wounds. He was evaluated by his primary care physician, and placed on oral cephalexin, which has now been completed. The traumatic wounds failed to heal, and the patient presented for further evaluation and management. The patient typically sleeps on a flat mattress at night, though occasionally sleeps in a recliner due to breathing problems. He claims to be active. He does not ambulate liberally, however, claiming to suffer from shortness of breath which occurs with activity. 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 It is uncertain whether this was deep or superficial thrombophlebitis. He has been being seen by several physicians at the wound center, most recently Dr. Thomas and Dr. Valentine. He had been using santyl but was changed to promogran last week. He has had increased pain and redness and went to the ER and was given doxycycline. He is tolerating this medicine. He is on day 5 of 10. He states that the pain has not improved. No cultures have been taken. Denies fever or chills or drainage. Progress of Wound: Stable. - Physical Exam Vital Signs Temp Pulse Resp BP 97 F L 60 18 128/79 H 05/27/18 09:22 05/27/18 09:22 05/27/18 09:22 05/27/18 09:22 General: Alert, Oriented x3, Cooperative, No apparent distress HEENT: Atraumatic Oral: Moist Mucosa Neck: Supple Lungs: Normal air movement Abdomen: Non Tender Extremities: No cyanosis Skin: Ulcer/ Wound Wound Measurements and Assessment WC - Nurse 1 - General Ulcer Measurement Start: 05/27/18 09:22 Freq: Status: Active Protocol: Activity Type Activity Date Activity User E-Sign Co-Sign Detail Recorded Client Recorded Date Recorded By Document 05/27/18 09:22 RB [id number] 05/27/18 09:32 RB 05/27/18 09:22 Wound Center Nurse 1 [Ulcer Assessment] #4 LEFT INFERIOR CURTIS cluster -Combined with other wound No -Current Size (cm) - Length 3.2 -Current Size (cm) - Width 1.5 -Current Size (cm) - Depth 0.1 -Total Square Cm 4.80 -Photo Taken No -Tunneling No -Undermining/Tunneling No -Circular Undermining No -Classification - Thickness Full Thickness without Exposed Support Structure -Exudate Amt Small (1-33%) -Exudate Type Serosanguineous -Wound Margin Distinct, Outline Attached -Granulation Amt Medium (34-66%) -Granulation Quality Red -Necrosis Amt Small (1-33%) -Necrotic Tissue Type Adherent Slough -Structure Exposed N/A -Texture ([place]enobia-wound Skin Appearance) Assessed -Moisture ([place]-wound Skin Appearance Assessed ) Dry/Scaly -Color ([place]obia-wound Skin Appearance) Assessed -Temperature ([place]-wound Skin No Abnormality Appearance) (Pt Warm) -Tenderness on Palpation ([place]enobia-wound No Skin Appearance) -Ulcer Cleansing Rinsed/ Irrigated with Saline -Foul Odor after Cleansing No -Anesthetic Used 5% Lidocaine Gel [Edema Assessment] -Lower Limb Edema Present Yes -Left Calf (cm) 38 -Left Ankle (cm) 24.2 - Nurse 2 - General Ulcer CM Notes Start: 05/27/18 09:22 Freq: Status: Active Protocol: Activity Type Activity Date Activity User E-Sign Co-Sign Detail Recorded Client Recorded Date Recorded By Document 05/27/18 09:42 MW [id number] 05/27/18 09:50 MW 05/27/18 09:42 Wound Center Nurse 2 [Procedure/Treatment] #4 LEFT INFERIOR CURTIS cluster -Time 09:42 -Correct Patient Yes -Correct Side, Site, Position Yes -Correct Procedure Yes -Procedure Performed Yes -Type of Procedure Debridement -Clinical Debridement Subcutaneous -Post Debridement Size (cm) - Length 3.0 -Post Debridement Size (cm) - Width 1.5 -Post Debridement Size (cm) - Depth 0.1 -Total Square Cm 4.50 -Wound/Ulcer Outcome Not Healed -Ulcer Cleansing Rinsed/ Irrigated with Saline -Foul Odor after Cleansing No -Bioengineered Tissue Yes -Type of bioengineered Tissue EPIFIX -Expiration Date 01/20/23 -Product Lot Number [id number] -Percent Used 100 -Bleeding Controlled with Pressure -Treatment Response Procedure Tolerated Well [See Physician Procedure note for Specifics] Pain Scale: 0-10 Numeric [Pain] -Is Patient Pain Free? Yes Musculoskeletal: No Muscle Wasting Neurological: Cranial nerves II-XII grossly intact Psych/Mental Status: Normal Affect Debridement Note Post-Debridement Measurements/Treatment WC - Nurse 2 - General Ulcer CM Notes Start: 05/27/18 09:22 Freq: Status: Active Protocol: Activity Type Activity Date Activity User E-Sign Co-Sign Detail Recorded Client Recorded Date Recorded By Document 05/27/18 09:42 MW [id number] 05/27/18 09:50 MW 05/27/18 09:42 Wound Center Nurse 2 #4 LEFT INFERIOR CURTIS cluster -Time 09:42 -Correct Patient Yes -Correct Side, Site, Position Yes -Correct Procedure Yes -Procedure Performed Yes -Type of Procedure Debridement -Clinical Debridement Subcutaneous -Post Debridement Size (cm) - Length 3.0 -Post Debridement Size (cm) - Width 1.5 -Post Debridement Size (cm) - Depth 0.1 -Total Square Cm 4.50 -Wound/Ulcer Outcome Not Healed -Ulcer Cleansing Rinsed/ Irrigated with Saline -Foul Odor after Cleansing No -Bioengineered Tissue Yes -Type of bioengineered Tissue EPIFIX -Expiration Date 01/20/23 -Product Lot Number [id number] -Percent Used 100 -Bleeding Controlled with Pressure -Treatment Response Procedure Tolerated Well Pain Scale: 0-10 Numeric Is Patient Pain Free? Yes Wound debrided: Left lower extremity Wound Grade/Stage: Stage II Type of Debridement: Excisional debridement Anesthesia Used: 4% Lidocaine Solution, 5% Lidocaine Gel Depth: Down to and including healthy tissue, in the subcutaneous layer Percentage of wound debrided: 100 Instrument Used: 3mm curette Tissue Removed: Slough and devitalized tissue Severity: Fat Layer Exposed Amount of bleeding with debridement: Mild Bleeding Controlled with: Pressure Patient tolerated procedure well Assessment/Plan Active Problems Traumatic wound (Chronic) Chronic venous insufficiency (Chronic) Open wound of left lower extremity (Chronic) Assessment: Traumatic left lower extremity wounds with delayed healing. Left lower extremity cellulitis. Plan: Stable wound. Debridement done as documented above. 7th application of Epifix done using 100% of product. Moistened with hydrogel, wound veil over top secured with steristrip. Leave in place x 1 week. Tubi lapeler for edema management. Elevate lower extremity when seated and in bed. Increased protein intake and protein supplements. Follow up in 1 week. Advised to call with any questions or concerns.
--- NOTE | 2018-05-27 10:09 | PN.PCM_ITS ---
(1) Open wound of left lower extremity Status: Chronic Current Visit: Yes Qualifiers: Code(s): S81.802A - Unspecified open wound, left lower leg, initial encounter (2) Chronic venous insufficiency Status: Chronic Current Visit: Yes Code(s): I87.2 - Venous insufficiency ( chronic) (peripheral) (3) Traumatic wound Status: Chronic Current Visit: Yes Type of Wound Date of Service: 05/27/18 Chief Complaint: Recent traumatic injury to the left anterior tibial surface with persistent wound History of Wound: This is a 77-year-old male with multiple pre-existing medical problems. He was in his normal state of health until February 2018. At that time, he sustained trauma to the left anterior tibial surface, resulting in 2 adjacent superficial wounds. He was evaluated by his primary care physician, and placed on oral cephalexin, which has now been completed. The traumatic wounds failed to heal, and the patient presented for further evaluation and management. The patient typically sleeps on a flat mattress at night, though occasionally sleeps in a recliner due to breathing problems. He claims to be active. He does not ambulate liberally, however, claiming to suffer from shortness of breath which occurs with activity. 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 It is uncertain whether this was deep or superficial thrombophlebitis. He has been being seen by several physicians at the wound center, most recently Dr. Thomas and Dr. Valentine. He had been using santyl but was changed to promogran last week. He has had increased pain and redness and went to the ER and was given doxycycline. He is tolerating this medicine. He is on day 5 of 10. He states that the pain has not improved. No cultures have been taken. Denies fever or chills or drainage. Progress of Wound: Stable. - Physical Exam Vital Signs Temp Pulse Resp BP 97 F L 60 18 128/79 H 05/27/18 09:22 05/27/18 09:22 05/27/18 09:22 05/27/18 09:22 General: Alert, Oriented x3, Cooperative, No apparent distress HEENT: Atraumatic Oral: Moist Mucosa Neck: Supple Lungs: Normal air movement Abdomen: Non Tender Extremities: No cyanosis Skin: Ulcer/ Wound Wound Measurements and Assessment WC - Nurse 1 - General Ulcer Measurement Start: 05/27/18 09:22 Freq: Status: Active Protocol: Activity Type Activity Date Activity User E-Sign Co-Sign Detail Recorded Client Recorded Date Recorded By Document 05/27/18 09:22 RB [id number] 05/27/18 09:32 RB 05/27/18 09:22 Wound Center Nurse 1 [Ulcer Assessment] #4 LEFT INFERIOR CURTIS cluster -Combined with other wound No -Current Size (cm) - Length 3.2 -Current Size (cm) - Width 1.5 -Current Size (cm) - Depth 0.1 -Total Square Cm 4.80 -Photo Taken No -Tunneling No -Undermining/Tunneling No -Circular Undermining No -Classification - Thickness Full Thickness without Exposed Support Structure -Exudate Amt Small (1-33%) -Exudate Type Serosanguineous -Wound Margin Distinct, Outline Attached -Granulation Amt Medium (34-66%) -Granulation Quality Red -Necrosis Amt Small (1-33%) -Necrotic Tissue Type Adherent Slough -Structure Exposed N/A -Texture ([place]enobia-wound Skin Appearance) Assessed -Moisture ([place]-wound Skin Appearance Assessed ) Dry/Scaly -Color ([place]-wound Skin Appearance) Assessed -Temperature ([place]-wound Skin No Abnormality Appearance) (Pt Warm) -Tenderness on Palpation ([place]-wound No Skin Appearance) -Ulcer Cleansing Rinsed/ Irrigated with Saline -Foul Odor after Cleansing No -Anesthetic Used 5% Lidocaine Gel [Edema Assessment] -Lower Limb Edema Present Yes -Left Calf (cm) 38 -Left Ankle (cm) 24.2 - Nurse 2 - General Ulcer CM Notes Start: 05/27/18 09:22 Freq: Status: Active Protocol: Activity Type Activity Date Activity User E-Sign Co-Sign Detail Recorded Client Recorded Date Recorded By Document 05/27/18 09:42 MW [id number] 05/27/18 09:50 MW 05/27/18 09:42 Wound Center Nurse 2 [Procedure/Treatment] #4 LEFT INFERIOR CURTIS cluster -Time 09:42 -Correct Patient Yes -Correct Side, Site, Position Yes -Correct Procedure Yes -Procedure Performed Yes -Type of Procedure Debridement -Clinical Debridement Subcutaneous -Post Debridement Size (cm) - Length 3.0 -Post Debridement Size (cm) - Width 1.5 -Post Debridement Size (cm) - Depth 0.1 -Total Square Cm 4.50 -Wound/Ulcer Outcome Not Healed -Ulcer Cleansing Rinsed/ Irrigated with Saline -Foul Odor after Cleansing No -Bioengineered Tissue Yes -Type of bioengineered Tissue EPIFIX -Expiration Date 01/20/23 -Product Lot Number [id number] -Percent Used 100 -Bleeding Controlled with Pressure -Treatment Response Procedure Tolerated Well [See Physician Procedure note for Specifics] Pain Scale: 0-10 Numeric [Pain] -Is Patient Pain Free? Yes Musculoskeletal: No Muscle Wasting Neurological: Cranial nerves II-XII grossly intact Psych/Mental Status: Normal Affect Debridement Note Post-Debridement Measurements/Treatment WC - Nurse 2 - General Ulcer CM Notes Start: 05/27/18 09:22 Freq: Status: Active Protocol: Activity Type Activity Date Activity User E-Sign Co-Sign Detail Recorded Client Recorded Date Recorded By Document 05/27/18 09:42 MW [id number] 05/27/18 09:50 MW 05/27/18 09:42 Wound Center Nurse 2 #4 LEFT INFERIOR CURTIS cluster -Time 09:42 -Correct Patient Yes -Correct Side, Site, Position Yes -Correct Procedure Yes -Procedure Performed Yes -Type of Procedure Debridement -Clinical Debridement Subcutaneous -Post Debridement Size (cm) - Length 3.0 -Post Debridement Size (cm) - Width 1.5 -Post Debridement Size (cm) - Depth 0.1 -Total Square Cm 4.50 -Wound/Ulcer Outcome Not Healed -Ulcer Cleansing Rinsed/ Irrigated with Saline -Foul Odor after Cleansing No -Bioengineered Tissue Yes -Type of bioengineered Tissue EPIFIX -Expiration Date 01/20/23 -Product Lot Number [id number] -Percent Used 100 -Bleeding Controlled with Pressure -Treatment Response Procedure Tolerated Well Pain Scale: 0-10 Numeric Is Patient Pain Free? Yes Wound debrided: Left lower extremity Wound Grade/Stage: Stage II Type of Debridement: Excisional debridement Anesthesia Used: 4% Lidocaine Solution, 5% Lidocaine Gel Depth: Down to and including healthy tissue, in the subcutaneous layer Percentage of wound debrided: 100 Instrument Used: 3mm curette Tissue Removed: Slough and devitalized tissue Severity: Fat Layer Exposed Amount of bleeding with debridement: Mild Bleeding Controlled with: Pressure Patient tolerated procedure well Assessment/Plan Active Problems Traumatic wound (Chronic) Chronic venous insufficiency (Chronic) Open wound of left lower extremity (Chronic) Assessment: Traumatic left lower extremity wounds with delayed healing. Left lower extremity cellulitis. Plan: Stable wound. Debridement done as documented above. 7th application of Epifix done using 100% of product. Moistened with hydrogel, wound veil over top secured with steristrip. Leave in place x 1 week. Tubi appeals writer for edema management. Elevate lower extremity when seated and in bed. Increased protein intake and protein supplements. Follow up in 1 week. Advised to call with any questions or concerns.
[2018-06-03 08:06] VITALS: BP 137/86; PULSE 64; RESP 18; TEMP 35.9
--- NOTE | 2018-06-03 08:35 | PCM.WC.PN ---
(1) Open wound of left lower extremity Status: Chronic Current Visit: Yes Qualifiers: Code(s): S81.802A - Unspecified open wound, left lower leg, initial encounter (2) Chronic venous insufficiency Status: Chronic Current Visit: Yes Code(s): I87.2 - Venous insufficiency (chronic) (peripheral) (3) Traumatic wound Status: Chronic Current Visit: Yes Type of Wound Date of Service: 06/03/18 Chief Complaint: Recent traumatic injury to the left anterior tibial surface with persistent wound History of Wound: This is a 77-year-old male with multiple pre-existing medical problems. He was in his normal state of health until February 2018. At that time, he sustained trauma to the left anterior tibial surface, resulting in 2 adjacent superficial wounds. He was evaluated by his primary care physician, and placed on oral cephalexin, which has now been completed. The traumatic wounds failed to heal, and the patient presented for further evaluation and management. The patient typically sleeps on a flat mattress at night, though occasionally sleeps in a recliner due to breathing problems. He claims to be active. He does not ambulate liberally, however, claiming to suffer from shortness of breath which occurs with activity. 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 It is uncertain whether this was deep or superficial thrombophlebitis. He has been being seen by several physicians at the wound center, most recently Dr. Thomas and Dr. Valentine. He had been using santyl but was changed to promogran last week. He has had increased pain and redness and went to the ER and was given doxycycline. He is tolerating this medicine. He is on day 5 of 10. He states that the pain has not improved. No cultures have been taken. Denies fever or chills or drainage. Progress of Wound: Stable. - Physical Exam Vital Signs Temp Pulse Resp BP 96.7 F L 64 18 137/86 H 06/03/18 08:06 06/03/18 08:06 06/03/18 08:06 06/03/18 08:06 General: Alert, Oriented x3, Cooperative, No apparent distress HEENT: Atraumatic Oral: Moist Mucosa Neck: Supple Lungs: Normal air movement Abdomen: Soft, Non Tender Extremities: No cyanosis, Edema Skin: Ulcer/ Wound Wound Measurements and Assessment WC - Nurse 1 - General Ulcer Measurement Start: 05/27/18 09:22 Freq: Status: Active Protocol: Activity Type Activity Date Activity User E-Sign Co-Sign Detail Recorded Client Recorded Date Recorded By Document 06/03/18 08:06 DL [id number] 06/03/18 08:14 DL 06/03/18 08:06 Wound Center Nurse 1 [Ulcer Assessment] #4 LEFT INFERIOR CURTIS cluster -Current Size (cm) - Length 2.8 -Current Size (cm) - Width 1.5 -Current Size (cm) - Depth 0.1 -Total Square Cm 4.20 -Photo Taken No -Exudate Amt None Present (0 %) -Wound Margin Thickened -Granulation Amt None Present (0 %) -Necrosis Amt Large (67-100%) -Necrotic Tissue Type Adherent Slough -Structure Exposed N/A -Texture (Zenobia-wound Skin Appearance) Scarring -Moisture ([place]-wound Skin Appearance No Abnormality ) -Color ([place]-wound Skin Appearance) Hemosiderin Staining -Temperature ([place]-wound Skin No Abnormality Appearance) (Pt Warm) -Tenderness on Palpation ([place]-wound No Skin Appearance) -Ulcer Cleansing Wound Cleanser -Foul Odor after Cleansing No -Anesthetic Used 4% Lidocaine Solution [Edema Assessment] -Right Calf (cm) 35 -Right Ankle (cm) 22.6 -Left Calf (cm) 37 -Left Ankle (cm) 22.8 - Nurse 2 - General Ulcer CM Notes Start: 05/27/18 09:22 Freq: Status: Active Protocol: Activity Type Activity Date Activity User E-Sign Co-Sign Detail Recorded Client Recorded Date Recorded By Document 06/03/18 08:22 MW [id number] 06/03/18 08:25 MW 06/03/18 08:22 Wound Center Nurse 2 [Procedure/Treatment] #4 LEFT INFERIOR CURTIS cluster -Time 08:23 -Correct Patient Yes -Correct Side, Site, Position Yes -Correct Procedure Yes -Procedure Performed Yes -Type of Procedure Debridement -Clinical Debridement Subcutaneous -Post Debridement Size (cm) - Length 3.0 -Post Debridement Size (cm) - Width 0.8 -Post Debridement Size (cm) - Depth 0.1 -Total Square Cm 2.40 -Wound/Ulcer Outcome Not Healed -Ulcer Cleansing Rinsed/ Irrigated with Saline -Foul Odor after Cleansing No -Bioengineered Tissue No -Bleeding Controlled with Pressure -Treatment Response Procedure Tolerated Well [See Physician Procedure note for Specifics] Pain Scale: 0-10 Numeric [Pain] -Is Patient Pain Free? Yes Musculoskeletal: No Muscle Wasting Neurological: Cranial nerves II-XII grossly intact Psych/Mental Status: Normal Affect Debridement Note Post-Debridement Measurements/Treatment WC - Nurse 2 - General Ulcer CM Notes Start: 05/27/18 09:22 Freq: Status: Active Protocol: Activity Type Activity Date Activity User E-Sign Co-Sign Detail Recorded Client Recorded Date Recorded By Document 05/27/18 09:42 MW [id number] 05/27/18 09:50 MW Document 06/03/18 08:22 MW [id number] 06/03/18 08:25 MW 05/27/18 06/03/18 09:42 08:22 Wound Center Nurse 2 #4 LEFT INFERIOR CURTIS cluster -Time 09:42 08:23 -Correct Patient Yes Yes -Correct Side, Site, Position Yes Yes -Correct Procedure Yes Yes -Procedure Performed Yes Yes -Type of Procedure Debridement Debridement -Clinical Debridement Subcutaneous Subcutaneous -Post Debridement Size (cm) - Length 3.0 3.0 -Post Debridement Size (cm) - Width 1.5 0.8 -Post Debridement Size (cm) - Depth 0.1 0.1 -Total Square Cm 4.50 2.40 -Wound/Ulcer Outcome Not Healed Not Healed -Ulcer Cleansing Rinsed/ Rinsed/ Irrigated with Irrigated with Saline Saline -Foul Odor after Cleansing No No -Bioengineered Tissue Yes No -Type of bioengineered Tissue EPIFIX -Expiration Date 01/20/23 -Product Lot Number [id number] -Percent Used 100 -Bleeding Controlled with Pressure Pressure -Treatment Response Procedure Procedure Tolerated Well Tolerated Well Pain Scale: 0-10 Numeric Is Patient Pain Free? Yes Yes Wound debrided: Left lower extremity Wound Grade/Stage: Stage II Type of Debridement: Excisional debridement Anesthesia Used: 4% Lidocaine Solution, 5% Lidocaine Gel Depth: Down to and including healthy tissue, in the subcutaneous layer Percentage of wound debrided: 100 Instrument Used: 3mm curette Tissue Removed: Slough and devitalized tissue Severity: Fat Layer Exposed Amount of bleeding with debridement: Mild Bleeding Controlled with: Pressure Patient tolerated procedure well Assessment/Plan Active Problems Traumatic wound (Chronic) Chronic venous insufficiency (Chronic) Open wound of left lower extremity (Chronic) Assessment: Traumatic left lower extremity wounds with delayed healing. Left lower extremity cellulitis. Plan: Improving wound. Debridement done as documenetd above. procedure was well tolerated.Epifix holiday for now. Will switch to pomogran for a 1 - 2 weeks. Change every other day with adpatic over top. Tubi project geophysicist for edema management. Elevate lower extremity when seated and in bed. Increased protein intake and protein supplements. Follow up in 1 week. Advised to call with any questions or concerns.
--- NOTE | 2018-06-03 08:38 | PN.PCM_ITS ---
(1) Open wound of left lower extremity Status: Chronic Current Visit: Yes Qualifiers: Code(s): S81.802A - Unspecified open wound, left lower leg, initial encounter (2) Chronic venous insufficiency Status: Chronic Current Visit: Yes Code(s): I87.2 - Venous insufficiency ( chronic) (peripheral) (3) Traumatic wound Status: Chronic Current Visit: Yes Type of Wound Date of Service: 06/03/18 Chief Complaint: Recent traumatic injury to the left anterior tibial surface with persistent wound History of Wound: This is a 77-year-old male with multiple pre-existing medical problems. He was in his normal state of health until February 2018. At that time, he sustained trauma to the left anterior tibial surface, resulting in 2 adjacent superficial wounds. He was evaluated by his primary care physician, and placed on oral cephalexin, which has now been completed. The traumatic wounds failed to heal, and the patient presented for further evaluation and management. The patient typically sleeps on a flat mattress at night, though occasionally sleeps in a recliner due to breathing problems. He claims to be active. He does not ambulate liberally, however, claiming to suffer from shortness of breath which occurs with activity. 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 It is uncertain whether this was deep or superficial thrombophlebitis. He has been being seen by several physicians at the wound center, most recently Dr. Thomas and Dr. Valentine. He had been using santyl but was changed to promogran last week. He has had increased pain and redness and went to the ER and was given doxycycline. He is tolerating this medicine. He is on day 5 of 10. He states that the pain has not improved. No cultures have been taken. Denies fever or chills or drainage. Progress of Wound: Stable. - Physical Exam Vital Signs Temp Pulse Resp BP 96.7 F L 64 18 137/86 H 06/03/18 08:06 06/03/18 08:06 06/03/18 08:06 06/03/18 08:06 General: Alert, Oriented x3, Cooperative, No apparent distress HEENT: Atraumatic Oral: Moist Mucosa Neck: Supple Lungs: Normal air movement Abdomen: Soft, Non Tender Extremities: No cyanosis, Edema Skin: Ulcer/ Wound Wound Measurements and Assessment WC - Nurse 1 - General Ulcer Measurement Start: 05/27/18 09:22 Freq: Status: Active Protocol: Activity Type Activity Date Activity User E-Sign Co-Sign Detail Recorded Client Recorded Date Recorded By Document 06/03/18 08:06 DL [id number] 06/03/18 08:14 DL 06/03/18 08:06 Wound Center Nurse 1 [Ulcer Assessment] #4 LEFT INFERIOR CURTIS cluster -Current Size (cm) - Length 2.8 -Current Size (cm) - Width 1.5 -Current Size (cm) - Depth 0.1 -Total Square Cm 4.20 -Photo Taken No -Exudate Amt None Present (0 %) -Wound Margin Thickened -Granulation Amt None Present (0 %) -Necrosis Amt Large (67-100%) -Necrotic Tissue Type Adherent Slough -Structure Exposed N/A -Texture ([place]-wound Skin Appearance) Scarring -Moisture ([place]-wound Skin Appearance No Abnormality ) -Color ([place]-wound Skin Appearance) Hemosiderin Staining -Temperature ([place]-wound Skin No Abnormality Appearance) (Pt Warm) -Tenderness on Palpation ([place]-wound No Skin Appearance) -Ulcer Cleansing Wound Cleanser -Foul Odor after Cleansing No -Anesthetic Used 4% Lidocaine Solution [Edema Assessment] -Right Calf (cm) 35 -Right Ankle (cm) 22.6 -Left Calf (cm) 37 -Left Ankle (cm) 22.8 - Nurse 2 - General Ulcer CM Notes Start: 05/27/18 09:22 Freq: Status: Active Protocol: Activity Type Activity Date Activity User E-Sign Co-Sign Detail Recorded Client Recorded Date Recorded By Document 06/03/18 08:22 MW [id number] 06/03/18 08:25 MW 06/03/18 08:22 Wound Center Nurse 2 [Procedure/Treatment] #4 LEFT INFERIOR CURTIS cluster -Time 08:23 -Correct Patient Yes -Correct Side, Site, Position Yes -Correct Procedure Yes -Procedure Performed Yes -Type of Procedure Debridement -Clinical Debridement Subcutaneous -Post Debridement Size (cm) - Length 3.0 -Post Debridement Size (cm) - Width 0.8 -Post Debridement Size (cm) - Depth 0.1 -Total Square Cm 2.40 -Wound/Ulcer Outcome Not Healed -Ulcer Cleansing Rinsed/ Irrigated with Saline -Foul Odor after Cleansing No -Bioengineered Tissue No -Bleeding Controlled with Pressure -Treatment Response Procedure Tolerated Well [See Physician Procedure note for Specifics] Pain Scale: 0-10 Numeric [Pain] -Is Patient Pain Free? Yes Musculoskeletal: No Muscle Wasting Neurological: Cranial nerves II-XII grossly intact Psych/Mental Status: Normal Affect Debridement Note Post-Debridement Measurements/Treatment WC - Nurse 2 - General Ulcer CM Notes Start: 05/27/18 09:22 Freq: Status: Active Protocol: Activity Type Activity Date Activity User E-Sign Co-Sign Detail Recorded Client Recorded Date Recorded By Document 05/27/18 09:42 MW [id number] 05/27/18 09:50 MW Document 06/03/18 08:22 MW [id number] 06/03/18 08:25 MW 05/27/18 06/03/18 09:42 08:22 Wound Center Nurse 2 #4 LEFT INFERIOR CURTIS cluster -Time 09:42 08:23 -Correct Patient Yes Yes -Correct Side, Site, Position Yes Yes -Correct Procedure Yes Yes -Procedure Performed Yes Yes -Type of Procedure Debridement Debridement -Clinical Debridement Subcutaneous Subcutaneous -Post Debridement Size (cm) - Length 3.0 3.0 -Post Debridement Size (cm) - Width 1.5 0.8 -Post Debridement Size (cm) - Depth 0.1 0.1 -Total Square Cm 4.50 2.40 -Wound/Ulcer Outcome Not Healed Not Healed -Ulcer Cleansing Rinsed/ Rinsed/ Irrigated with Irrigated with Saline Saline -Foul Odor after Cleansing No No -Bioengineered Tissue Yes No -Type of bioengineered Tissue EPIFIX -Expiration Date 01/20/23 -Product Lot Number [id number] -Percent Used 100 -Bleeding Controlled with Pressure Pressure -Treatment Response Procedure Procedure Tolerated Well Tolerated Well Pain Scale: 0-10 Numeric Is Patient Pain Free? Yes Yes Wound debrided: Left lower extremity Wound Grade/Stage: Stage II Type of Debridement: Excisional debridement Anesthesia Used: 4% Lidocaine Solution, 5% Lidocaine Gel Depth: Down to and including healthy tissue, in the subcutaneous layer Percentage of wound debrided: 100 Instrument Used: 3mm curette Tissue Removed: Slough and devitalized tissue Severity: Fat Layer Exposed Amount of bleeding with debridement: Mild Bleeding Controlled with: Pressure Patient tolerated procedure well Assessment/Plan Active Problems Traumatic wound (Chronic) Chronic venous insufficiency (Chronic) Open wound of left lower extremity (Chronic) Assessment: Traumatic left lower extremity wounds with delayed healing. Left lower extremity cellulitis. Plan: Improving wound. Debridement done as documenetd above. procedure was well tolerated.Epifix holiday for now. Will switch to pomogran for a 1 - 2 weeks. Change every other day with adpatic over top. Tubi assembler metal building for edema management. Elevate lower extremity when seated and in bed. Increased protein intake and protein supplements. Follow up in 1 week. Advised to call with any questions or concerns.
[2018-06-10 09:09] VITALS: BP 135/82; PULSE 61; RESP 18; TEMP 36.7
--- NOTE | 2018-06-10 10:04 | PCM.WC.PN ---
(1) Open wound of left lower extremity Status: Chronic Current Visit: Yes Qualifiers: Code(s): S81.802A - Unspecified open wound, left lower leg, initial encounter (2) Chronic venous insufficiency Status: Chronic Current Visit: Yes Code(s): I87.2 - Venous insufficiency (chronic) (peripheral) (3) Traumatic wound Status: Chronic Current Visit: Yes Type of Wound Date of Service: 06/10/18 Chief Complaint: Recent traumatic injury to the left anterior tibial surface with persistent wound History of Wound: This is a 77-year-old male with multiple pre-existing medical problems. He was in his normal state of health until February 2018. At that time, he sustained trauma to the left anterior tibial surface, resulting in 2 adjacent superficial wounds. He was evaluated by his primary care physician, and placed on oral cephalexin, which has now been completed. The traumatic wounds failed to heal, and the patient presented for further evaluation and management. The patient typically sleeps on a flat mattress at night, though occasionally sleeps in a recliner due to breathing problems. He claims to be active. He does not ambulate liberally, however, claiming to suffer from shortness of breath which occurs with activity. 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 It is uncertain whether this was deep or superficial thrombophlebitis. He has been being seen by several physicians at the wound center, most recently Dr. Thomas and Dr. Valentine. He had been using santyl but was changed to promogran last week. He has had increased pain and redness and went to the ER and was given doxycycline. He is tolerating this medicine. He is on day 5 of 10. He states that the pain has not improved. No cultures have been taken. Denies fever or chills or drainage. Progress of Wound: Improving. - Physical Exam Vital Signs Temp Pulse Resp BP 98.0 F 61 18 135/82 H 06/10/18 09:09 06/10/18 09:09 06/10/18 09:09 06/10/18 09:09 General: Alert, Oriented x3, Cooperative, No apparent distress HEENT: Atraumatic Oral: Moist Mucosa Neck: Supple Lungs: Normal air movement Cardiovascular: Regular rate Extremities: No cyanosis Skin: Ulcer/ Wound Wound Measurements and Assessment WC - Nurse 1 - General Ulcer Measurement Start: 05/27/18 09:22 Freq: Status: Active Protocol: Activity Type Activity Date Activity User E-Sign Co-Sign Detail Recorded Client Recorded Date Recorded By Document 06/10/18 09:09 DV [id number] 06/10/18 09:11 DV 06/10/18 09:09 Wound Center Nurse 1 [Ulcer Assessment] #4 LEFT INFERIOR CURTIS cluster -Combined with other wound No -Current Size (cm) - Length 3.0 -Current Size (cm) - Width 0.9 -Current Size (cm) - Depth 0.1 -Total Square Cm 2.70 -Date of Last Picture (Recall this 06/10/18 field) -Photo Taken Yes -Epithelialization Small 1-33% -Tunneling No -Undermining/Tunneling No -Circular Undermining No -Exudate Amt Small (1-33%) -Exudate Type Serous -Wound Margin Flat & Intact -Granulation Amt Small (1-33%) -Granulation Quality Pale [place] -Necrosis Amt Small (1-33%) -Necrotic Tissue Type Adherent Slough -Structure Exposed Bone None/Limited to Skin Breakdown -Texture ([place]-wound Skin Appearance) Assessed Scarring -Moisture ([place]-wound Skin Appearance No Abnormality ) Assessed -Color ([place]-wound Skin Appearance) Assessed -Temperature ([place]-wound Skin No Abnormality Appearance) (Pt Warm) -Tenderness on Palpation ([place]-wound No Skin Appearance) -Ulcer Cleansing Wound Cleanser -Foul Odor after Cleansing No -Anesthetic Used 5% Lidocaine Gel JANIA - Nurse 2 - General Ulcer CM Notes Start: 05/27/18 09:22 Freq: Status: Active Protocol: Activity Type Activity Date Activity User E-Sign Co-Sign Detail Recorded Client Recorded Date Recorded By Document 06/10/18 09:30 MW [id number] 06/10/18 09:31 MW 06/10/18 09:30 Wound Center Nurse 2 [Procedure/Treatment] -Time 09:30 -Correct Patient Yes -Correct Side, Site, Position Yes -Correct Procedure Yes -Procedure Performed Yes -Type of Procedure Debridement -Clinical Debridement Subcutaneous -Post Debridement Size (cm) - Length 2.8 -Post Debridement Size (cm) - Width 0.7 -Post Debridement Size (cm) - Depth 0.1 -Total Square Cm 1.96 -Wound/Ulcer Outcome Not Healed -Ulcer Cleansing Rinsed/ Irrigated with Saline -Foul Odor after Cleansing No -Bioengineered Tissue No -Bleeding Controlled with Pressure -Treatment Response Procedure Tolerated Well [See Physician Procedure note for Specifics] Pain Scale: 0-10 Numeric [Pain] -Is Patient Pain Free? Yes Musculoskeletal: No Muscle Wasting Neurological: Cranial nerves II-XII grossly intact Psych/Mental Status: Normal Affect Debridement Note Post-Debridement Measurements/Treatment WC - Nurse 2 - General Ulcer CM Notes Start: 05/27/18 09:22 Freq: Status: Active Protocol: Activity Type Activity Date Activity User E-Sign Co-Sign Detail Recorded Client Recorded Date Recorded By Document 05/27/18 09:42 MW [id number] 05/27/18 09:50 MW Document 06/03/18 08:22 MW [id number] 06/03/18 08:25 MW Document 06/10/18 09:30 MW [id number] 06/10/18 09:31 MW 05/27/18 06/03/18 06/10/18 09:42 08:22 09:30 Wound Center Nurse 2 #4 LEFT INFERIOR CURTIS cluster -Time 09:42 08:23 09:30 -Correct Patient Yes Yes Yes -Correct Side, Site, Position Yes Yes Yes -Correct Procedure Yes Yes Yes -Procedure Performed Yes Yes Yes -Type of Procedure Debridement Debridement Debridement -Clinical Debridement Subcutaneous Subcutaneous Subcutaneous -Post Debridement Size (cm) - Length 3.0 3.0 2.8 -Post Debridement Size (cm) - Width 1.5 0.8 0.7 -Post Debridement Size (cm) - Depth 0.1 0.1 0.1 -Total Square Cm 4.50 2.40 1.96 -Wound/Ulcer Outcome Not Healed Not Healed Not Healed -Ulcer Cleansing Rinsed/ Rinsed/ Rinsed/ Irrigated with Irrigated with Irrigated with Saline Saline Saline -Foul Odor after Cleansing No No No -Bioengineered Tissue Yes No No -Type of bioengineered Tissue EPIFIX -Expiration Date 01/20/23 -Product Lot Number [id number] -Percent Used 100 -Bleeding Controlled with Pressure Pressure Pressure -Treatment Response Procedure Procedure Procedure Tolerated Well Tolerated Well Tolerated Well Pain Scale: 0-10 Numeric Is Patient Pain Free? Yes Yes Yes Wound debrided: Left Lower Extremity Wound Grade/Stage: Stage II Type of Debridement: Excisional debridement Anesthesia Used: 4% Lidocaine Solution Depth: Down to and including healthy tissue, in the subcutaneous layer Percentage of wound debrided: 100 Instrument Used: 3mm curette Tissue Removed: Slough and devitalized tissue Severity: Fat Layer Exposed Amount of bleeding with debridement: Mild Bleeding Controlled with: Pressure Patient tolerated procedure well Assessment/Plan Active Problems Traumatic wound (Chronic) Chronic venous insufficiency (Chronic) Open wound of left lower extremity (Chronic) Assessment: Penetrating traumatic left lower extremity wounds with delayed healing. Left lower extremity cellulitis. Plan: Wound continues to show slow but steady improvement. Debridement done as documenetd above. procedure was well tolerated.continue Epifix holiday for 1 more week. Continue pomogran. Change every other day with adpatic over top. Tubi manager privacy for edema management. Elevate lower extremity when seated and in bed. Increased protein intake and protein supplements also recommended. Follow up in 1 week. Advised to call with any questions or concerns. This note was generated with [employer] dictation software. It may contain incorrect words, spelling, and punctuation that were not noted in checking the note before signing.
--- NOTE | 2018-06-10 10:08 | PN.PCM_ITS ---
(1) Open wound of left lower extremity Status: Chronic Current Visit: Yes Qualifiers: Code(s): S81.802A - Unspecified open wound, left lower leg, initial encounter (2) Chronic venous insufficiency Status: Chronic Current Visit: Yes Code(s): I87.2 - Venous insufficiency ( chronic) (peripheral) (3) Traumatic wound Status: Chronic Current Visit: Yes Type of Wound Date of Service: 06/10/18 Chief Complaint: Recent traumatic injury to the left anterior tibial surface with persistent wound History of Wound: This is a 77-year-old male with multiple pre-existing medical problems. He was in his normal state of health until February 2018. At that time, he sustained trauma to the left anterior tibial surface, resulting in 2 adjacent superficial wounds. He was evaluated by his primary care physician, and placed on oral cephalexin, which has now been completed. The traumatic wounds failed to heal, and the patient presented for further evaluation and management. The patient typically sleeps on a flat mattress at night, though occasionally sleeps in a recliner due to breathing problems. He claims to be active. He does not ambulate liberally, however, claiming to suffer from shortness of breath which occurs with activity. 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 It is uncertain whether this was deep or superficial thrombophlebitis. He has been being seen by several physicians at the wound center, most recently Dr. Thomas and Dr. Valentine. He had been using santyl but was changed to promogran last week. He has had increased pain and redness and went to the ER and was given doxycycline. He is tolerating this medicine. He is on day 5 of 10. He states that the pain has not improved. No cultures have been taken. Denies fever or chills or drainage. Progress of Wound: Improving. - Physical Exam Vital Signs Temp Pulse Resp BP 98.0 F 61 18 135/82 H 06/10/18 09:09 06/10/18 09:09 06/10/18 09:09 06/10/18 09:09 General: Alert, Oriented x3, Cooperative, No apparent distress HEENT: Atraumatic Oral: Moist Mucosa Neck: Supple Lungs: Normal air movement Cardiovascular: Regular rate Extremities: No cyanosis Skin: Ulcer/ Wound Wound Measurements and Assessment WC - Nurse 1 - General Ulcer Measurement Start: 05/27/18 09:22 Freq: Status: Active Protocol: Activity Type Activity Date Activity User E-Sign Co-Sign Detail Recorded Client Recorded Date Recorded By Document 06/10/18 09:09 DV [id number] 06/10/18 09:11 DV 06/10/18 09:09 Wound Center Nurse 1 [Ulcer Assessment] #4 LEFT INFERIOR CURTIS cluster -Combined with other wound No -Current Size (cm) - Length 3.0 -Current Size (cm) - Width 0.9 -Current Size (cm) - Depth 0.1 -Total Square Cm 2.70 -Date of Last Picture (Recall this 06/10/18 field) -Photo Taken Yes -Epithelialization Small 1-33% -Tunneling No -Undermining/Tunneling No -Circular Undermining No -Exudate Amt Small (1-33%) -Exudate Type Serous -Wound Margin Flat & Intact -Granulation Amt Small (1-33%) -Granulation Quality Pale [place] -Necrosis Amt Small (1-33%) -Necrotic Tissue Type Adherent Slough -Structure Exposed Bone None/Limited to Skin Breakdown -Texture ([place]-wound Skin Appearance) Assessed Scarring -Moisture ([place]-wound Skin Appearance No Abnormality ) Assessed -Color ([place]-wound Skin Appearance) Assessed -Temperature ([place]-wound Skin No Abnormality Appearance) (Pt Warm) -Tenderness on Palpation ([place]-wound No Skin Appearance) -Ulcer Cleansing Wound Cleanser -Foul Odor after Cleansing No -Anesthetic Used 5% Lidocaine Gel JANIA - Nurse 2 - General Ulcer CM Notes Start: 05/27/18 09:22 Freq: Status: Active Protocol: Activity Type Activity Date Activity User E-Sign Co-Sign Detail Recorded Client Recorded Date Recorded By Document 06/10/18 09:30 MW [id number] 06/10/18 09:31 MW 06/10/18 09:30 Wound Center Nurse 2 [Procedure/Treatment] -Time 09:30 -Correct Patient Yes -Correct Side, Site, Position Yes -Correct Procedure Yes -Procedure Performed Yes -Type of Procedure Debridement -Clinical Debridement Subcutaneous -Post Debridement Size (cm) - Length 2.8 -Post Debridement Size (cm) - Width 0.7 -Post Debridement Size (cm) - Depth 0.1 -Total Square Cm 1.96 -Wound/Ulcer Outcome Not Healed -Ulcer Cleansing Rinsed/ Irrigated with Saline -Foul Odor after Cleansing No -Bioengineered Tissue No -Bleeding Controlled with Pressure -Treatment Response Procedure Tolerated Well [See Physician Procedure note for Specifics] Pain Scale: 0-10 Numeric [Pain] -Is Patient Pain Free? Yes Musculoskeletal: No Muscle Wasting Neurological: Cranial nerves II-XII grossly intact Psych/Mental Status: Normal Affect Debridement Note Post-Debridement Measurements/Treatment WC - Nurse 2 - General Ulcer CM Notes Start: 05/27/18 09:22 Freq: Status: Active Protocol: Activity Type Activity Date Activity User E-Sign Co-Sign Detail Recorded Client Recorded Date Recorded By Document 05/27/18 09:42 MW [id number] 05/27/18 09:50 MW Document 06/03/18 08:22 MW [id number] 06/03/18 08:25 MW Document 06/10/18 09:30 MW [id number] 06/10/18 09:31 MW 05/27/18 06/03/18 06/10/18 09:42 08:22 09:30 Wound Center Nurse 2 #4 LEFT INFERIOR CURTIS cluster -Time 09:42 08:23 09:30 -Correct Patient Yes Yes Yes -Correct Side, Site, Position Yes Yes Yes -Correct Procedure Yes Yes Yes -Procedure Performed Yes Yes Yes -Type of Procedure Debridement Debridement Debridement -Clinical Debridement Subcutaneous Subcutaneous Subcutaneous -Post Debridement Size (cm) - Length 3.0 3.0 2.8 -Post Debridement Size (cm) - Width 1.5 0.8 0.7 -Post Debridement Size (cm) - Depth 0.1 0.1 0.1 -Total Square Cm 4.50 2.40 1.96 -Wound/Ulcer Outcome Not Healed Not Healed Not Healed -Ulcer Cleansing Rinsed/ Rinsed/ Rinsed/ Irrigated with Irrigated with Irrigated with Saline Saline Saline -Foul Odor after Cleansing No No No -Bioengineered Tissue Yes No No -Type of bioengineered Tissue EPIFIX -Expiration Date 01/20/23 -Product Lot Number [id number] -Percent Used 100 -Bleeding Controlled with Pressure Pressure Pressure -Treatment Response Procedure Procedure Procedure Tolerated Well Tolerated Well Tolerated Well Pain Scale: 0-10 Numeric Is Patient Pain Free? Yes Yes Yes Wound debrided: Left Lower Extremity Wound Grade/Stage: Stage II Type of Debridement: Excisional debridement Anesthesia Used: 4% Lidocaine Solution Depth: Down to and including healthy tissue, in the subcutaneous layer Percentage of wound debrided: 100 Instrument Used: 3mm curette Tissue Removed: Slough and devitalized tissue Severity: Fat Layer Exposed Amount of bleeding with debridement: Mild Bleeding Controlled with: Pressure Patient tolerated procedure well Assessment/Plan Active Problems Traumatic wound (Chronic) Chronic venous insufficiency (Chronic) Open wound of left lower extremity (Chronic) Assessment: Penetrating traumatic left lower extremity wounds with delayed healing. Left lower extremity cellulitis. Plan: Wound continues to show slow but steady improvement. Debridement done as documenetd above. procedure was well tolerated.continue Epifix holiday for 1 more week. Continue pomogran. Change every other day with adpatic over top. Tubi waste treatment operator for edema management. Elevate lower extremity when seated and in bed. Increased protein intake and protein supplements also recommended. Follow up in 1 week. Advised to call with any questions or concerns. This note was generated with [employer] dictation software. It may contain incorrect words, spelling, and punctuation that were not noted in checking the note before signing.
[2018-06-17 08:34] VITALS: BP 150/90; PULSE 60; RESP 16; TEMP 36
--- NOTE | 2018-06-17 08:50 | PCM.WC.PN ---
(1) Open wound of left lower extremity Status: Chronic Current Visit: Yes Qualifiers: Code(s): S81.802A - Unspecified open wound, left lower leg, initial encounter (2) Chronic venous insufficiency Status: Chronic Current Visit: Yes Code(s): I87.2 - Venous insufficiency (chronic) (peripheral) (3) Traumatic wound Status: Chronic Current Visit: Yes Type of Wound Chief Complaint: Recent traumatic injury to the left anterior tibial surface with persistent wound History of Wound: This is a 77-year-old male with multiple pre-existing medical problems. He was in his normal state of health until February 2018. At that time, he sustained trauma to the left anterior tibial surface, resulting in 2 adjacent superficial wounds. He was evaluated by his primary care physician, and placed on oral cephalexin, which has now been completed. The traumatic wounds failed to heal, and the patient presented for further evaluation and management. The patient typically sleeps on a flat mattress at night, though occasionally sleeps in a recliner due to breathing problems. He claims to be active. He does not ambulate liberally, however, claiming to suffer from shortness of breath which occurs with activity. 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 It is uncertain whether this was deep or superficial thrombophlebitis. He has been being seen by several physicians at the wound center, most recently Dr. Thomas and Dr. Valentine. He had been using santyl but was changed to promogran last week. He has had increased pain and redness and went to the ER and was given doxycycline. He is tolerating this medicine. He is on day 5 of 10. He states that the pain has not improved. No cultures have been taken. Denies fever or chills or drainage. Progress of Wound: Old wound is improving. He however now presents with a new left inferior nazario wound whih he states that he sustained from brushing/ rubbing his skin too hard to remove skin . He denies any other complaints at this time. - Physical Exam Vital Signs Temp Pulse Resp BP 96.8 F L 60 16 150/90 H 06/17/18 08:34 06/17/18 08:34 06/17/18 08:34 06/17/18 08:34 General: Alert, Oriented x3, Cooperative, No apparent distress HEENT: Atraumatic Oral: Moist Mucosa Neck: Supple Lungs: Normal air movement Abdomen: Soft, Non Tender Extremities: No cyanosis Skin: Ulcer/ Wound Wound Measurements and Assessment WC - Nurse 1 - General Ulcer Measurement Start: 05/27/18 09:22 Freq: Status: Active Protocol: Activity Type Activity Date Activity User E-Sign Co-Sign Detail Recorded Client Recorded Date Recorded By Document 06/17/18 08:28 [id number] 06/17/18 08:34 06/17/18 08:28 Wound Center Nurse 1 [Ulcer Assessment] #5 LEFT INFERIOR NAZARIO -Combined with other wound No -Current Size (cm) - Length 1.9 -Current Size (cm) - Width 1.6 -Current Size (cm) - Depth 0.1 -Total Square Cm 3.04 -Date of Last Picture (Recall this 06/17/18 field) -Photo Taken Yes -Epithelialization None Present -Tunneling No -Undermining/Tunneling No -Circular Undermining No -Exudate Amt Small (1-33%) -Exudate Type Serosanguineous -Wound Margin Flat & Intact -Granulation Amt Large (67-100%) -Granulation Quality Red -Slough/Fibrin No -Necrosis Amt None Present (0 %) -Structure Exposed None/Limited to Skin Breakdown -Texture ([place]enobia-wound Skin Appearance) No Abnormality Assessed -Moisture ([place]-wound Skin Appearance No Abnormality ) Assessed -Color ([place]-wound Skin Appearance) No Abnormality Assessed -Temperature ([place]-wound Skin No Abnormality Appearance) (Pt Warm) -Tenderness on Palpation ([place]-wound No Skin Appearance) -Ulcer Cleansing Rinsed/ Irrigated with Saline -Foul Odor after Cleansing No -Anesthetic Used 5% Lidocaine Gel #4 LEFT SUPERIOR NAZARIO -Combined with other wound No -Current Size (cm) - Length 1.8 -Current Size (cm) - Width 0.7 -Current Size (cm) - Depth 0.1 -Total Square Cm 1.26 -Photo Taken No -Epithelialization Small 1-33% -Tunneling No -Undermining/Tunneling No -Circular Undermining No -Exudate Amt Small (1-33%) -Exudate Type Serosanguineous -Wound Margin Distinct, Outline Attached -Granulation Amt Medium (34-66%) -Granulation Quality Pale [place] -Slough/Fibrin Yes -Necrosis Amt None Present (0 %) -Necrotic Tissue Type Adherent Slough -Structure Exposed None/Limited to Skin Breakdown -Texture ([place]-wound Skin Appearance) Assessed Scarring -Moisture ([place]-wound Skin Appearance No Abnormality ) Assessed -Color ([place]-wound Skin Appearance) No Abnormality Assessed -Temperature ([place]-wound Skin No Abnormality Appearance) (Pt Warm) -Tenderness on Palpation ([place]enobia-wound No Skin Appearance) -Ulcer Cleansing Rinsed/ Irrigated with Saline -Foul Odor after Cleansing No -Anesthetic Used 5% Lidocaine Gel [Edema Assessment] -Lower Limb Edema Present No -Left Calf (cm) 37 -Left Ankle (cm) 23.2 WC - Nurse 2 - General Ulcer CM Notes Start: 05/27/18 09:22 Freq: Status: Active Protocol: Activity Type Activity Date Activity User E-Sign Co-Sign Detail Recorded Client Recorded Date Recorded By Document 06/17/18 08:41 MW [id number] 06/17/18 08:49 MW 06/17/18 08:41 Wound Center Nurse 2 [Procedure/Treatment] #5 LEFT INFERIOR NAZARIO -Time 08:43 -Correct Patient Yes -Correct Side, Site, Position Yes -Correct Procedure Yes -Procedure Performed Yes -Type of Procedure Debridement -Clinical Debridement Subcutaneous -Post Debridement Size (cm) - Length 1.8 -Post Debridement Size (cm) - Width 1.7 -Post Debridement Size (cm) - Depth 0.1 -Total Square Cm 3.06 -Wound/Ulcer Outcome Not Healed -Ulcer Cleansing Rinsed/ Irrigated with Saline -Foul Odor after Cleansing No -Bioengineered Tissue No -Bleeding Controlled with Pressure -Treatment Response Procedure Tolerated Well #4 LEFT SUPERIOR NAZARIO -Time 08:43 -Correct Patient Yes -Correct Side, Site, Position Yes -Correct Procedure Yes -Procedure Performed Yes -Type of Procedure Debridement -Clinical Debridement Subcutaneous -Post Debridement Size (cm) - Length 1.6 -Post Debridement Size (cm) - Width 0.7 -Post Debridement Size (cm) - Depth 0.1 -Total Square Cm 1.12 -Wound/Ulcer Outcome Not Healed -Ulcer Cleansing Rinsed/ Irrigated with Saline -Foul Odor after Cleansing No -Bioengineered Tissue Yes -Type of bioengineered Tissue EPIFIX -Expiration Date 02/20/23 -Product Lot Number [id number] -Percent Used 100 -Saline Lot Number [id number] -Bleeding Controlled with Pressure -Treatment Response Procedure Tolerated Well [See Physician Procedure note for Specifics] Pain Scale: 0-10 Numeric [Pain] -Is Patient Pain Free? Yes Musculoskeletal: No Muscle Wasting Neurological: Cranial nerves II-XII grossly intact Psych/Mental Status: Normal Affect Debridement Note Post-Debridement Measurements/Treatment WC - Nurse 2 - General Ulcer CM Notes Start: 05/27/18 09:22 Freq: Status: Active Protocol: Activity Type Activity Date Activity User E-Sign Co-Sign Detail Recorded Client Recorded Date Recorded By Document 05/27/18 09:42 MW [id number] 05/27/18 09:50 MW Document 06/03/18 08:22 MW [id number] 06/03/18 08:25 MW Document 06/10/18 09:30 MW [id number] 06/10/18 09:31 MW Document 06/17/18 08:41 MW [id number] 06/17/18 08:49 MW 05/27/18 06/03/18 06/10/18 09:42 08:22 09:30 Wound Center Nurse 2 #5 LEFT INFERIOR NAZARIO -Time -Correct Patient -Correct Side, Site, Position -Correct Procedure -Procedure Performed -Type of Procedure -Clinical Debridement -Post Debridement Size (cm) - Length -Post Debridement Size (cm) - Width -Post Debridement Size (cm) - Depth -Total Square Cm -Wound/Ulcer Outcome -Ulcer Cleansing -Foul Odor after Cleansing -Bioengineered Tissue -Bleeding Controlled with -Treatment Response #4 LEFT SUPERIOR NAZARIO -Time 09:42 08:23 09:30 -Correct Patient Yes Yes Yes -Correct Side, Site, Position Yes Yes Yes -Correct Procedure Yes Yes Yes -Procedure Performed Yes Yes Yes -Type of Procedure Debridement Debridement Debridement -Clinical Debridement Subcutaneous Subcutaneous Subcutaneous -Post Debridement Size (cm) - Length 3.0 3.0 2.8 -Post Debridement Size (cm) - Width 1.5 0.8 0.7 -Post Debridement Size (cm) - Depth 0.1 0.1 0.1 -Total Square Cm 4.50 2.40 1.96 -Wound/Ulcer Outcome Not Healed Not Healed Not Healed -Ulcer Cleansing Rinsed/ Rinsed/ Rinsed/ Irrigated with Irrigated with Irrigated with Saline Saline Saline -Foul Odor after Cleansing No No No -Bioengineered Tissue Yes No No -Type of bioengineered Tissue EPIFIX -Expiration Date 01/20/23 -Product Lot Number [id number] -Percent Used 100 -Saline Lot Number -Bleeding Controlled with Pressure Pressure Pressure -Treatment Response Procedure Procedure Procedure Tolerated Well Tolerated Well Tolerated Well Pain Scale: 0-10 Numeric Is Patient Pain Free? Yes Yes Yes 06/17/18 08:41 Wound Center Nurse 2 #5 LEFT INFERIOR NAZARIO -Time 08:43 -Correct Patient Yes -Correct Side, Site, Position Yes -Correct Procedure Yes -Procedure Performed Yes -Type of Procedure Debridement -Clinical Debridement Subcutaneous -Post Debridement Size (cm) - Length 1.8 -Post Debridement Size (cm) - Width 1.7 -Post Debridement Size (cm) - Depth 0.1 -Total Square Cm 3.06 -Wound/Ulcer Outcome Not Healed -Ulcer Cleansing Rinsed/ Irrigated with Saline -Foul Odor after Cleansing No -Bioengineered Tissue No -Bleeding Controlled with Pressure -Treatment Response Procedure Tolerated Well #4 LEFT SUPERIOR NAZARIO -Time 08:43 -Correct Patient Yes -Correct Side, Site, Position Yes -Correct Procedure Yes -Procedure Performed Yes -Type of Procedure Debridement -Clinical Debridement Subcutaneous -Post Debridement Size (cm) - Length 1.6 -Post Debridement Size (cm) - Width 0.7 -Post Debridement Size (cm) - Depth 0.1 -Total Square Cm 1.12 -Wound/Ulcer Outcome Not Healed -Ulcer Cleansing Rinsed/ Irrigated with Saline -Foul Odor after Cleansing No -Bioengineered Tissue Yes -Type of bioengineered Tissue EPIFIX -Expiration Date 02/20/23 -Product Lot Number [id number] -Percent Used 100 -Saline Lot Number [id number] -Bleeding Controlled with Pressure -Treatment Response Procedure Tolerated Well Pain Scale: 0-10 Numeric Is Patient Pain Free? Yes Wound debrided: Left Nazario ( Superior ) Wound Grade/Stage: Stage II Type of Debridement: Excisional debridement Anesthesia Used: 4% Lidocaine Solution Depth: Down to and including healthy tissue, in the subcutaneous layer Percentage of wound debrided: 100 Instrument Used: 3mm curette Tissue Removed: Slough and devitalized tissue Severity: Fat Layer Exposed Amount of bleeding with debridement: Mild Bleeding Controlled with: Pressure Patient tolerated procedure well - Additional Wound Wound debrided: Left nazario ( Inferior ) Wound Grade/Stage: Stage II Type of Debridement: Excisional debridement Anesthesia Used: 4% Lidocaine Solution Depth: Down to and including healthy tissue, in the subcutaneous layer Percentage of wound debrided: 100 Instrument Used: 3mm curette Tissue Removed: Slough and devitalized tissue Severity: Fat Layer Exposed Amount of bleeding with debridement: Mild Bleeding Controlled with: Pressure Patient tolerated procedure: Patient tolerated procedure well Assessment/Plan Active Problems Traumatic wound (Chronic) Chronic venous insufficiency (Chronic) Open wound of left lower extremity (Chronic) Assessment: Penetrating traumatic left lower extremity wounds with delayed healing. Left lower extremity cellulitis. Plan: Debridement of both wounds done as documenetd above. Procedure was well tolerated. Epifix applied to the superior wound using 100% of product. Moistened with saline, covered with wound veil and secured with steristrips. Pomogran to left inferior nazario wound with adpatic over top. Change every other day. 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 Elevate lower extremity when seated and in bed. Increased protein intake and protein supplements also recommended. Follow up in 1 week. Advised to call with any questions or concerns. This note was generated with [employer] dictation software. It may contain incorrect words, spelling, and punctuation that were not noted in checking the note before signing.
--- NOTE | 2018-06-17 09:02 | PN.PCM_ITS ---
(1) Open wound of left lower extremity Status: Chronic Current Visit: Yes Qualifiers: Code(s): S81.802A - Unspecified open wound, left lower leg, initial encounter (2) Chronic venous insufficiency Status: Chronic Current Visit: Yes Code(s): I87.2 - Venous insufficiency (chronic) (peripheral) (3) Traumatic wound Status: Chronic Current Visit: Yes Type of Wound Chief Complaint: Recent traumatic injury to the left anterior tibial surface with persistent wound History of Wound: This is a 77-year-old male with multiple pre-existing medical problems. He was in his normal state of health until February 2018. At that time, he sustained trauma to the left anterior tibial surface, resulting in 2 adjacent superficial wounds. He was evaluated by his primary care physician, and placed on oral cephalexin, which has now been completed. The traumatic wounds failed to heal, and the patient presented for further evaluation and management. The patient typically sleeps on a flat mattress at night, though occasionally sleeps in a recliner due to breathing problems. He claims to be active. He does not ambulate liberally, however, claiming to suffer from shortness of breath which occurs with activity. 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 It is uncertain whether this was deep or superficial thrombophlebitis. He has been being seen by several physicians at the wound center, most recently Dr. Thomas and Dr. Valentine. He had been using santyl but was changed to promogran last week. He has had increased pain and redness and went to the ER and was given doxycycline. He is tolerating this medicine. He is on day 5 of 10. He states that the pain has not improved. No cultures have been taken. Denies fever or chills or drainage. Progress of Wound: Old wound is improving. He however now presents with a new left inferior nazario wound whih he states that he sustained from brushing/ rubbing his skin too hard to remove skin . He denies any other complaints at this time. - Physical Exam Vital Signs Temp Pulse Resp BP 96.8 F L 60 16 150/90 H 06/17/18 08:34 06/17/18 08:34 06/17/18 08:34 06/17/18 08:34 General: Alert, Oriented x3, Cooperative, No apparent distress HEENT: Atraumatic Oral: Moist Mucosa Neck: Supple Lungs: Normal air movement Abdomen: Soft, Non Tender Extremities: No cyanosis Skin: Ulcer/ Wound Wound Measurements and Assessment WC - Nurse 1 - General Ulcer Measurement Start: 05/27/18 09:22 Freq: Status: Active Protocol: Activity Type Activity Date Activity User E-Sign Co-Sign Detail Recorded Client Recorded Date Recorded By Document 06/17/18 08:28 [id number] 06/17/18 08:34 06/17/18 08:28 Wound Center Nurse 1 [Ulcer Assessment] #5 LEFT INFERIOR NAZARIO -Combined with other wound No -Current Size (cm) - Length 1.9 -Current Size (cm) - Width 1.6 -Current Size (cm) - Depth 0.1 -Total Square Cm 3.04 -Date of Last Picture (Recall this 06/17/18 field) -Photo Taken Yes -Epithelialization None Present -Tunneling No -Undermining/Tunneling No -Circular Undermining No -Exudate Amt Small (1-33%) -Exudate Type Serosanguineous -Wound Margin Flat & Intact -Granulation Amt Large (67-100%) -Granulation Quality Red -Slough/Fibrin No -Necrosis Amt None Present (0 %) -Structure Exposed None/Limited to Skin Breakdown -Texture ([place]obia-wound Skin Appearance) No Abnormality Assessed -Moisture ([place]-wound Skin Appearance No Abnormality ) Assessed -Color ([place]-wound Skin Appearance) No Abnormality Assessed -Temperature ([place]-wound Skin No Abnormality Appearance) (Pt Warm) -Tenderness on Palpation ([place]obia-wound No Skin Appearance) -Ulcer Cleansing Rinsed/ Irrigated with Saline -Foul Odor after Cleansing No -Anesthetic Used 5% Lidocaine Gel #4 LEFT SUPERIOR NAZARIO -Combined with other wound No -Current Size (cm) - Length 1.8 -Current Size (cm) - Width 0.7 -Current Size (cm) - Depth 0.1 -Total Square Cm 1.26 -Photo Taken No -Epithelialization Small 1-33% -Tunneling No -Undermining/Tunneling No -Circular Undermining No -Exudate Amt Small (1-33%) -Exudate Type Serosanguineous -Wound Margin Distinct, Outline Attached -Granulation Amt Medium (34-66%) -Granulation Quality Pale [place] -Slough/Fibrin Yes -Necrosis Amt None Present (0 %) -Necrotic Tissue Type Adherent Slough -Structure Exposed None/Limited to Skin Breakdown -Texture ([place]enobia-wound Skin Appearance) Assessed Scarring -Moisture ([place]enobia-wound Skin Appearance No Abnormality ) Assessed -Color (Zenobia-wound Skin Appearance) No Abnormality Assessed -Temperature ([place]-wound Skin No Abnormality Appearance) (Pt Warm) -Tenderness on Palpation (Zenobia-wound No Skin Appearance) -Ulcer Cleansing Rinsed/ Irrigated with Saline -Foul Odor after Cleansing No -Anesthetic Used 5% Lidocaine Gel [Edema Assessment] -Lower Limb Edema Present No -Left Calf (cm) 37 -Left Ankle (cm) 23.2 WC - Nurse 2 - General Ulcer CM Notes Start: 05/27/18 09:22 Freq: Status: Active Protocol: Activity Type Activity Date Activity User E-Sign Co-Sign Detail Recorded Client Recorded Date Recorded By Document 06/17/18 08:41 MW [id number] 06/17/18 08:49 MW 06/17/18 08:41 Wound Center Nurse 2 [Procedure/Treatment] #5 LEFT INFERIOR NAZARIO -Time 08:43 -Correct Patient Yes -Correct Side, Site, Position Yes -Correct Procedure Yes -Procedure Performed Yes -Type of Procedure Debridement -Clinical Debridement Subcutaneous -Post Debridement Size (cm) - Length 1.8 -Post Debridement Size (cm) - Width 1.7 -Post Debridement Size (cm) - Depth 0.1 -Total Square Cm 3.06 -Wound/Ulcer Outcome Not Healed -Ulcer Cleansing Rinsed/ Irrigated with Saline -Foul Odor after Cleansing No -Bioengineered Tissue No -Bleeding Controlled with Pressure -Treatment Response Procedure Tolerated Well #4 LEFT SUPERIOR NAZARIO -Time 08:43 -Correct Patient Yes -Correct Side, Site, Position Yes -Correct Procedure Yes -Procedure Performed Yes -Type of Procedure Debridement -Clinical Debridement Subcutaneous -Post Debridement Size (cm) - Length 1.6 -Post Debridement Size (cm) - Width 0.7 -Post Debridement Size (cm) - Depth 0.1 -Total Square Cm 1.12 -Wound/Ulcer Outcome Not Healed -Ulcer Cleansing Rinsed/ Irrigated with Saline -Foul Odor after Cleansing No -Bioengineered Tissue Yes -Type of bioengineered Tissue EPIFIX -Expiration Date 02/20/23 -Product Lot Number [id number] -Percent Used 100 -Saline Lot Number [id number] -Bleeding Controlled with Pressure -Treatment Response Procedure Tolerated Well [See Physician Procedure note for Specifics] Pain Scale: 0-10 Numeric [Pain] -Is Patient Pain Free? Yes Musculoskeletal: No Muscle Wasting Neurological: Cranial nerves II-XII grossly intact Psych/Mental Status: Normal Affect Debridement Note Post-Debridement Measurements/Treatment WC - Nurse 2 - General Ulcer CM Notes Start: 05/27/18 09:22 Freq: Status: Active Protocol: Activity Type Activity Date Activity User E-Sign Co-Sign Detail Recorded Client Recorded Date Recorded By Document 05/27/18 09:42 MW [id number] 05/27/18 09:50 MW Document 06/03/18 08:22 MW [id number] 06/03/18 08:25 MW Document 06/10/18 09:30 MW [id number] 06/10/18 09:31 MW Document 06/17/18 08:41 MW [id number] 06/17/18 08:49 MW 05/27/18 06/03/18 06/10/18 09:42 08:22 09:30 Wound Center Nurse 2 #5 LEFT INFERIOR NAZARIO -Time -Correct Patient -Correct Side, Site, Position -Correct Procedure -Procedure Performed -Type of Procedure -Clinical Debridement -Post Debridement Size (cm) - Length -Post Debridement Size (cm) - Width -Post Debridement Size (cm) - Depth -Total Square Cm -Wound/Ulcer Outcome -Ulcer Cleansing -Foul Odor after Cleansing -Bioengineered Tissue -Bleeding Controlled with -Treatment Response #4 LEFT SUPERIOR NAZARIO -Time 09:42 08:23 09:30 -Correct Patient Yes Yes Yes -Correct Side, Site, Position Yes Yes Yes -Correct Procedure Yes Yes Yes -Procedure Performed Yes Yes Yes -Type of Procedure Debridement Debridement Debridement -Clinical Debridement Subcutaneous Subcutaneous Subcutaneous -Post Debridement Size (cm) - Length 3.0 3.0 2.8 -Post Debridement Size (cm) - Width 1.5 0.8 0.7 -Post Debridement Size (cm) - Depth 0.1 0.1 0.1 -Total Square Cm 4.50 2.40 1.96 -Wound/Ulcer Outcome Not Healed Not Healed Not Healed -Ulcer Cleansing Rinsed/ Rinsed/ Rinsed/ Irrigated with Irrigated with Irrigated with Saline Saline Saline -Foul Odor after Cleansing No No No -Bioengineered Tissue Yes No No -Type of bioengineered Tissue EPIFIX -Expiration Date 01/20/23 -Product Lot Number [id number] -Percent Used 100 -Saline Lot Number -Bleeding Controlled with Pressure Pressure Pressure -Treatment Response Procedure Procedure Procedure Tolerated Well Tolerated Well Tolerated Well Pain Scale: 0-10 Numeric Is Patient Pain Free? Yes Yes Yes 06/17/18 08:41 Wound Center Nurse 2 #5 LEFT INFERIOR NAZARIO -Time 08:43 -Correct Patient Yes -Correct Side, Site, Position Yes -Correct Procedure Yes -Procedure Performed Yes -Type of Procedure Debridement -Clinical Debridement Subcutaneous -Post Debridement Size (cm) - Length 1.8 -Post Debridement Size (cm) - Width 1.7 -Post Debridement Size (cm) - Depth 0.1 -Total Square Cm 3.06 -Wound/Ulcer Outcome Not Healed -Ulcer Cleansing Rinsed/ Irrigated with Saline -Foul Odor after Cleansing No -Bioengineered Tissue No -Bleeding Controlled with Pressure -Treatment Response Procedure Tolerated Well #4 LEFT SUPERIOR NAZARIO -Time 08:43 -Correct Patient Yes -Correct Side, Site, Position Yes -Correct Procedure Yes -Procedure Performed Yes -Type of Procedure Debridement -Clinical Debridement Subcutaneous -Post Debridement Size (cm) - Length 1.6 -Post Debridement Size (cm) - Width 0.7 -Post Debridement Size (cm) - Depth 0.1 -Total Square Cm 1.12 -Wound/Ulcer Outcome Not Healed -Ulcer Cleansing Rinsed/ Irrigated with Saline -Foul Odor after Cleansing No -Bioengineered Tissue Yes -Type of bioengineered Tissue EPIFIX -Expiration Date 02/20/23 -Product Lot Number [id number] -Percent Used 100 -Saline Lot Number [id number] -Bleeding Controlled with Pressure -Treatment Response Procedure Tolerated Well Pain Scale: 0-10 Numeric Is Patient Pain Free? Yes Wound debrided: Left Nazario ( Superior ) Wound Grade/Stage: Stage II Type of Debridement: Excisional debridement Anesthesia Used: 4% Lidocaine Solution Depth: Down to and including healthy tissue, in the subcutaneous layer Percentage of wound debrided: 100 Instrument Used: 3mm curette Tissue Removed: Slough and devitalized tissue Severity: Fat Layer Exposed Amount of bleeding with debridement: Mild Bleeding Controlled with: Pressure Patient tolerated procedure well - Additional Wound Wound debrided: Left nazario ( Inferior ) Wound Grade/Stage: Stage II Type of Debridement: Excisional debridement Anesthesia Used: 4% Lidocaine Solution Depth: Down to and including healthy tissue, in the subcutaneous layer Percentage of wound debrided: 100 Instrument Used: 3mm curette Tissue Removed: Slough and devitalized tissue Severity: Fat Layer Exposed Amount of bleeding with debridement: Mild Bleeding Controlled with: Pressure Patient tolerated procedure: Patient tolerated procedure well Assessment/Plan Active Problems Traumatic wound (Chronic) Chronic venous insufficiency (Chronic) Open wound of left lower extremity (Chronic) Assessment: Penetrating traumatic left lower extremity wounds with delayed healing. Left lower extremity cellulitis. Plan: Debridement of both wounds done as documenetd above. Procedure was well tolerated. Epifix applied to the superior wound using 100% of product. Moistened with saline, covered with wound veil and secured with steristrips. Pomogran to left inferior nazario wound with adpatic over top. Change every other day. Tubi correspondent for edema management. Elevate lower extremity when seated and in bed. Increased protein intake and protein supplements also recommended. Follow up in 1 week. Advised to call with any questions or concerns. This note was generated with [employer] dictation software. It may contain incorrect words, spelling, and punctuation that were not noted in checking the note before signing.
== END 2018-06-21 23:59 ==
LOC: WC 08:30
PROVIDERS: Family Provider Internal Medicine; PCP Internal Medicine; Visit Provider Internal Medicine
DX: I87.2 Venous insufficiency (chronic) (peripheral) (principal); S81.832A Puncture wound without foreign body, left lower leg, initial encounter; X58.XXXA Exposure to other specified factors, initial encounter; L03.116 Cellulitis of left lower limb
CPT/HCPCS: 11042; 15271; Q4131

== ENCOUNTER 2018-07-22 10:15 | Outpatient (RCR) | payer MEDICARE, OTHER, SELFPAY ==
[2018-06-22 00:57] VITALS: BP 150/90; PULSE 60; RESP 16; TEMP 36
[2018-06-24 10:00] VITALS: BP 121/78; PULSE 60; RESP 16; TEMP 36.6
--- NOTE | 2018-06-24 11:08 | PCM.WC.PN ---
(1) Open wound of left lower extremity Status: Chronic Current Visit: Yes Qualifiers: Code(s): S81.802A - Unspecified open wound, left lower leg, initial encounter (2) Traumatic wound Status: Chronic Current Visit: Yes Comment: Penetrating wound with fat layer exposed. (3) Chronic venous insufficiency Status: Chronic Current Visit: No Code(s): I87.2 - Venous insufficiency (chronic) (peripheral) Type of Wound Date of Service: 06/24/18 Chief Complaint: Recent traumatic injury to the left anterior tibial surface with persistent wound History of Wound: This is a 77-year-old male with multiple pre-existing medical problems. He was in his normal state of health until February 2018. At that time, he sustained trauma to the left anterior tibial surface, resulting in 2 adjacent superficial wounds. He was evaluated by his primary care physician, and placed on oral cephalexin, which has now been completed. The traumatic wounds failed to heal, and the patient presented for further evaluation and management. The patient typically sleeps on a flat mattress at night, though occasionally sleeps in a recliner due to breathing problems. He claims to be active. He does not ambulate liberally, however, claiming to suffer from shortness of breath which occurs with activity. 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 It is uncertain whether this was deep or superficial thrombophlebitis. He has been being seen by several physicians at the wound center, most recently Dr. Thomas and Dr. Valentine. He had been using santyl but was changed to promogran last week. He has had increased pain and redness and went to the ER and was given doxycycline. He is tolerating this medicine. He is on day 5 of 10. He states that the pain has not improved. No cultures have been taken. Denies fever or chills or drainage. Progress of Wound: Stable wounds. No complaints at this time. - Physical Exam Vital Signs Temp Pulse Resp BP 97.9 F 60 16 121/78 H 06/24/18 10:00 06/24/18 10:00 06/24/18 10:06/24/18 10:00 General: Alert, Oriented x3, Cooperative, No apparent distress HEENT: Atraumatic Oral: Moist Mucosa Neck: Supple Lungs: Normal air movement Abdomen: Non Tender Extremities: No cyanosis, Edema Skin: Ulcer/ Wound Wound Measurements and Assessment WC - Nurse 1 - General Ulcer Measurement Start: 06/24/18 09:59 Freq: Status: Active Protocol: Activity Type Activity Date Activity User E-Sign Co-Sign Detail Recorded Client Recorded Date Recorded By Document 06/24/18 10:00 [facility] [id number] 06/24/18 10:11 [facility] 06/24/18 10:00 Wound Center Nurse 1 [Ulcer Assessment] #5 LEFT INFERIOR CURTIS -Combined with other wound No -Current Size (cm) - Length 2.0 -Current Size (cm) - Width 1.4 -Current Size (cm) - Depth 0.1 -Total Square Cm 2.80 -Photo Taken No -Epithelialization Small 1-33% -Tunneling No -Undermining/Tunneling No -Circular Undermining No -Classification - Thickness Full Thickness without Exposed Support Structure -Exudate Amt Small (1-33%) -Exudate Type Serosanguineous -Wound Margin Flat & Intact -Granulation Amt Large (67-100%) -Granulation Quality Red -Slough/Fibrin No -Necrosis Amt None Present (0 %) -Structure Exposed None/Limited to Skin Breakdown -Texture (Zenobia-wound Skin Appearance) Scarring -Moisture (Zenobia-wound Skin Appearance No Abnormality ) Assessed -Color (Zenobia-wound Skin Appearance) Assessed Hemosiderin Staining -Temperature (Zenobia-wound Skin No Abnormality Appearance) (Pt Warm) -Tenderness on Palpation (Zenobia-wound Yes Skin Appearance) -Ulcer Cleansing Rinsed/ Irrigated with Saline -Foul Odor after Cleansing No -Anesthetic Used 4% Lidocaine Solution #4 LEFT SUPERIOR CURTIS -Combined with other wound No -Current Size (cm) - Length 1.8 -Current Size (cm) - Width 0.8 -Current Size (cm) - Depth 0.1 -Total Square Cm 1.44 -Photo Taken No -Epithelialization None Present -Tunneling No -Undermining/Tunneling No -Circular Undermining No -Exudate Amt None Present (0 %) -Wound Margin Distinct, Outline Attached -Granulation Amt None Present (0 %) -Slough/Fibrin Yes -Necrosis Amt Large (67-100%) -Necrotic Tissue Type Eschar -Structure Exposed N/A -Texture (Zenobia-wound Skin Appearance) Assessed Scarring -Moisture (Zenobia-wound Skin Appearance No Abnormality ) Assessed -Color (Zenobia-wound Skin Appearance) No Abnormality Assessed -Temperature (Zenobia-wound Skin No Abnormality Appearance) (Pt Warm) -Tenderness on Palpation (Zenobia-wound Yes Skin Appearance) -Ulcer Cleansing Rinsed/ Irrigated with Saline -Foul Odor after Cleansing No -Anesthetic Used 4% Lidocaine Solution [Edema Assessment] -Left Calf (cm) 38.7 -Left Ankle (cm) 23 WC - Nurse 2 - General Ulcer CM Notes Start: 06/24/18 09:59 Freq: Status: Active Protocol: Activity Type Activity Date Activity User E-Sign Co-Sign Detail Recorded Client Recorded Date Recorded By Document 06/24/18 10:23 MW [id number] 06/24/18 10:31 MW 06/24/18 10:23 Wound Center Nurse 2 [Procedure/Treatment] #5 LEFT INFERIOR CURTIS -Time 10:24 -Correct Patient Yes -Correct Side, Site, Position Yes -Correct Procedure Yes -Procedure Performed Yes -Type of Procedure Debridement -Clinical Debridement Subcutaneous -Post Debridement Size (cm) - Length 1.5 -Post Debridement Size (cm) - Width 1.5 -Post Debridement Size (cm) - Depth 0.1 -Total Square Cm 2.25 -Wound/Ulcer Outcome Not Healed -Ulcer Cleansing Rinsed/ Irrigated with Saline -Foul Odor after Cleansing No -Bioengineered Tissue Yes -Type of bioengineered Tissue EPIFIX -Expiration Date 02/20/23 -Product Lot Number [id number] -Percent Used 100 -Saline Lot Number [id number] -Bleeding Controlled with Pressure -Treatment Response Procedure Tolerated Well #4 LEFT SUPERIOR CURTIS -Time 10:24 -Correct Patient Yes -Correct Side, Site, Position Yes -Correct Procedure Yes -Procedure Performed Yes -Type of Procedure Debridement -Clinical Debridement Subcutaneous -Post Debridement Size (cm) - Length 1.5 -Post Debridement Size (cm) - Width 0.6 -Post Debridement Size (cm) - Depth 0.1 -Total Square Cm 0.90 -Wound/Ulcer Outcome Not Healed -Ulcer Cleansing Rinsed/ Irrigated with Saline -Foul Odor after Cleansing No -Bioengineered Tissue No -Expiration Date 02/20/23 -Product Lot Number [id number] -Percent Used 100 -Saline Lot Number [id number] -Bleeding Controlled with Pressure -Treatment Response Procedure Tolerated Well [See Physician Procedure note for Specifics] Pain Scale: 0-10 Numeric [Pain] -Is Patient Pain Free? Yes Musculoskeletal: No Muscle Wasting Neurological: Cranial nerves II-XII grossly intact Psych/Mental Status: Normal Affect Debridement Note Post-Debridement Measurements/Treatment WC - Nurse 2 - General Ulcer CM Notes Start: 06/24/18 09:59 Freq: Status: Active Protocol: Activity Type Activity Date Activity User E-Sign Co-Sign Detail Recorded Client Recorded Date Recorded By Document 06/24/18 10:23 MW [id number] 06/24/18 10:31 MW 06/24/18 10:23 Wound Center Nurse 2 #5 LEFT INFERIOR CURTIS -Time 10:24 -Correct Patient Yes -Correct Side, Site, Position Yes -Correct Procedure Yes -Procedure Performed Yes -Type of Procedure Debridement -Clinical Debridement Subcutaneous -Post Debridement Size (cm) - Length 1.5 -Post Debridement Size (cm) - Width 1.5 -Post Debridement Size (cm) - Depth 0.1 -Total Square Cm 2.25 -Wound/Ulcer Outcome Not Healed -Ulcer Cleansing Rinsed/ Irrigated with Saline -Foul Odor after Cleansing No -Bioengineered Tissue Yes -Type of bioengineered Tissue EPIFIX -Expiration Date 02/20/23 -Product Lot Number [id number] -Percent Used 100 -Saline Lot Number [id number] -Bleeding Controlled with Pressure -Treatment Response Procedure Tolerated Well #4 LEFT SUPERIOR CURTIS -Time 10:24 -Correct Patient Yes -Correct Side, Site, Position Yes -Correct Procedure Yes -Procedure Performed Yes -Type of Procedure Debridement -Clinical Debridement Subcutaneous -Post Debridement Size (cm) - Length 1.5 -Post Debridement Size (cm) - Width 0.6 -Post Debridement Size (cm) - Depth 0.1 -Total Square Cm 0.90 -Wound/Ulcer Outcome Not Healed -Ulcer Cleansing Rinsed/ Irrigated with Saline -Foul Odor after Cleansing No -Bioengineered Tissue No -Expiration Date 02/20/23 -Product Lot Number [id number] -Percent Used 100 -Saline Lot Number [id number] -Bleeding Controlled with Pressure -Treatment Response Procedure Tolerated Well Pain Scale: 0-10 Numeric Is Patient Pain Free? Yes Wound debrided: Left lower extremity inferior Wound Grade/Stage: Stage II Type of Debridement: Excisional debridement Anesthesia Used: 4% Lidocaine Solution Depth: Down to and including healthy tissue, in the subcutaneous layer Percentage of wound debrided: 100 Instrument Used: 3mm curette Tissue Removed: Slough and devitalized tissue Severity: Fat Layer Exposed Bleeding Controlled with: Pressure Patient tolerated procedure well - Additional Wound Wound debrided: Left lower extremity superior Wound Grade/Stage: Stage II Type of Debridement: Excisional debridement Anesthesia Used: 4% Lidocaine Solution Depth: Down to and including healthy tissue, in the subcutaneous layer Percentage of wound debrided: 100 Instrument Used: 3mm curette Tissue Removed: Slough and devitalized tissue Severity: Fat Layer Exposed Amount of bleeding with debridement: Mild Bleeding Controlled with: Pressure Patient tolerated procedure: Patient tolerated procedure well Assessment/Plan Active Problems Traumatic wound (Chronic) Penetrating wound with fat layer exposed. Open wound of left lower extremity (Chronic) Assessment: Penetrating traumatic left lower extremity wounds with delayed healing. Left lower extremity cellulitis. Plan: Debridement of both wounds done as documenetd above. Procedure was well tolerated. Epifix applied to both wounds in a 40 to 60% ratio using 100% of product. Moistened with hydrogel, wound veil over top and secured with Steri-Strips. Leave in place for 1 week. Tubi bag worker for edema management. Elevate lower extremity when seated and in bed. Increased protein intake and protein supplements also recommended. Follow up in 1 week. Advised to call with any questions or concerns. This note was generated with [employer]jit dictation software. It may contain incorrect words, spelling, and punctuation that were not noted in checking the note before signing.
--- NOTE | 2018-06-24 11:13 | PN.PCM_ITS ---
(1) Open wound of left lower extremity Status: Chronic Current Visit: Yes Qualifiers: Code(s): S81.802A - Unspecified open wound, left lower leg, initial encounter (2) Traumatic wound Status: Chronic Current Visit: Yes Comment: Penetrating wound with fat layer exposed. (3) Chronic venous insufficiency Status: Chronic Current Visit: No Code(s): I87.2 - Venous insufficiency (chronic) (peripheral) Type of Wound Date of Service: 06/24/18 Chief Complaint: Recent traumatic injury to the left anterior tibial surface with persistent wound History of Wound: This is a 77-year-old male with multiple pre-existing medical problems. He was in his normal state of health until February 2018. At that time, he sustained trauma to the left anterior tibial surface, resulting in 2 adjacent superficial wounds. He was evaluated by his primary care physician, and placed on oral cephalexin, which has now been completed. The traumatic wounds failed to heal, and the patient presented for further evaluation and management. The patient typically sleeps on a flat mattress at night, though occasionally sleeps in a recliner due to breathing problems. He claims to be active. He does not ambulate liberally, however, claiming to suffer from shortness of breath which occurs with activity. 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 It is uncertain whether this was deep or superficial thrombophlebitis. He has been being seen by several physicians at the wound center, most recently Dr. Thomas and Dr. Valentine. He had been using santyl but was changed to promogran last week. He has had increased pain and redness and went to the ER and was given doxycycline. He is tolerating this medicine. He is on day 5 of 10. He states that the pain has not improved. No cultures have been taken. Denies fever or chills or drainage. Progress of Wound: Stable wounds. No complaints at this time. - Physical Exam Vital Signs Temp Pulse Resp BP 97.9 F 60 16 121/78 H 06/24/18 10:00 06/24/18 10:00 06/24/18 10:06/24/18 10:00 General: Alert, Oriented x3, Cooperative, No apparent distress HEENT: Atraumatic Oral: Moist Mucosa Neck: Supple Lungs: Normal air movement Abdomen: Non Tender Extremities: No cyanosis, Edema Skin: Ulcer/ Wound Wound Measurements and Assessment WC - Nurse 1 - General Ulcer Measurement Start: 06/24/18 09:59 Freq: Status: Active Protocol: Activity Type Activity Date Activity User E-Sign Co-Sign Detail Recorded Client Recorded Date Recorded By Document 06/24/18 10:00 [facility] [id number] 06/24/18 10:11 [facility] 06/24/18 10:00 Wound Center Nurse 1 [Ulcer Assessment] #5 LEFT INFERIOR CURTIS -Combined with other wound No -Current Size (cm) - Length 2.0 -Current Size (cm) - Width 1.4 -Current Size (cm) - Depth 0.1 -Total Square Cm 2.80 -Photo Taken No -Epithelialization Small 1-33% -Tunneling No -Undermining/Tunneling No -Circular Undermining No -Classification - Thickness Full Thickness without Exposed Support Structure -Exudate Amt Small (1-33%) -Exudate Type Serosanguineous -Wound Margin Flat & Intact -Granulation Amt Large (67-100%) -Granulation Quality Red -Slough/Fibrin No -Necrosis Amt None Present (0 %) -Structure Exposed None/Limited to Skin Breakdown -Texture (Zenobia-wound Skin Appearance) Scarring -Moisture (Zenobia-wound Skin Appearance No Abnormality ) Assessed -Color (Zenobia-wound Skin Appearance) Assessed Hemosiderin Staining -Temperature ([place]enobia-wound Skin No Abnormality Appearance) (Pt Warm) -Tenderness on Palpation (Zenobia-wound Yes Skin Appearance) -Ulcer Cleansing Rinsed/ Irrigated with Saline -Foul Odor after Cleansing No -Anesthetic Used 4% Lidocaine Solution #4 LEFT SUPERIOR CURTIS -Combined with other wound No -Current Size (cm) - Length 1.8 -Current Size (cm) - Width 0.8 -Current Size (cm) - Depth 0.1 -Total Square Cm 1.44 -Photo Taken No -Epithelialization None Present -Tunneling No -Undermining/Tunneling No -Circular Undermining No -Exudate Amt None Present (0 %) -Wound Margin Distinct, Outline Attached -Granulation Amt None Present (0 %) -Slough/Fibrin Yes -Necrosis Amt Large (67-100%) -Necrotic Tissue Type Eschar -Structure Exposed N/A -Texture (Zenobia-wound Skin Appearance) Assessed Scarring -Moisture (Zenobia-wound Skin Appearance No Abnormality ) Assessed -Color (Zenobia-wound Skin Appearance) No Abnormality Assessed -Temperature (Zenobia-wound Skin No Abnormality Appearance) (Pt Warm) -Tenderness on Palpation (Zenobia-wound Yes Skin Appearance) -Ulcer Cleansing Rinsed/ Irrigated with Saline -Foul Odor after Cleansing No -Anesthetic Used 4% Lidocaine Solution [Edema Assessment] -Left Calf (cm) 38.7 -Left Ankle (cm) 23 WC - Nurse 2 - General Ulcer CM Notes Start: 06/24/18 09:59 Freq: Status: Active Protocol: Activity Type Activity Date Activity User E-Sign Co-Sign Detail Recorded Client Recorded Date Recorded By Document 06/24/18 10:23 MW [id number] 06/24/18 10:31 MW 06/24/18 10:23 Wound Center Nurse 2 [Procedure/Treatment] #5 LEFT INFERIOR CURTIS -Time 10:24 -Correct Patient Yes -Correct Side, Site, Position Yes -Correct Procedure Yes -Procedure Performed Yes -Type of Procedure Debridement -Clinical Debridement Subcutaneous -Post Debridement Size (cm) - Length 1.5 -Post Debridement Size (cm) - Width 1.5 -Post Debridement Size (cm) - Depth 0.1 -Total Square Cm 2.25 -Wound/Ulcer Outcome Not Healed -Ulcer Cleansing Rinsed/ Irrigated with Saline -Foul Odor after Cleansing No -Bioengineered Tissue Yes -Type of bioengineered Tissue EPIFIX -Expiration Date 02/20/23 -Product Lot Number [id number] -Percent Used 100 -Saline Lot Number [id number] -Bleeding Controlled with Pressure -Treatment Response Procedure Tolerated Well #4 LEFT SUPERIOR CURTIS -Time 10:24 -Correct Patient Yes -Correct Side, Site, Position Yes -Correct Procedure Yes -Procedure Performed Yes -Type of Procedure Debridement -Clinical Debridement Subcutaneous -Post Debridement Size (cm) - Length 1.5 -Post Debridement Size (cm) - Width 0.6 -Post Debridement Size (cm) - Depth 0.1 -Total Square Cm 0.90 -Wound/Ulcer Outcome Not Healed -Ulcer Cleansing Rinsed/ Irrigated with Saline -Foul Odor after Cleansing No -Bioengineered Tissue No -Expiration Date 02/20/23 -Product Lot Number [id number] -Percent Used 100 -Saline Lot Number [id number] -Bleeding Controlled with Pressure -Treatment Response Procedure Tolerated Well [See Physician Procedure note for Specifics] Pain Scale: 0-10 Numeric [Pain] -Is Patient Pain Free? Yes Musculoskeletal: No Muscle Wasting Neurological: Cranial nerves II-XII grossly intact Psych/Mental Status: Normal Affect Debridement Note Post-Debridement Measurements/Treatment WC - Nurse 2 - General Ulcer CM Notes Start: 06/24/18 09:59 Freq: Status: Active Protocol: Activity Type Activity Date Activity User E-Sign Co-Sign Detail Recorded Client Recorded Date Recorded By Document 06/24/18 10:23 MW [id number] 06/24/18 10:31 MW 06/24/18 10:23 Wound Center Nurse 2 #5 LEFT INFERIOR CURTIS -Time 10:24 -Correct Patient Yes -Correct Side, Site, Position Yes -Correct Procedure Yes -Procedure Performed Yes -Type of Procedure Debridement -Clinical Debridement Subcutaneous -Post Debridement Size (cm) - Length 1.5 -Post Debridement Size (cm) - Width 1.5 -Post Debridement Size (cm) - Depth 0.1 -Total Square Cm 2.25 -Wound/Ulcer Outcome Not Healed -Ulcer Cleansing Rinsed/ Irrigated with Saline -Foul Odor after Cleansing No -Bioengineered Tissue Yes -Type of bioengineered Tissue EPIFIX -Expiration Date 02/20/23 -Product Lot Number [id number] -Percent Used 100 -Saline Lot Number [id number] -Bleeding Controlled with Pressure -Treatment Response Procedure Tolerated Well #4 LEFT SUPERIOR CURTIS -Time 10:24 -Correct Patient Yes -Correct Side, Site, Position Yes -Correct Procedure Yes -Procedure Performed Yes -Type of Procedure Debridement -Clinical Debridement Subcutaneous -Post Debridement Size (cm) - Length 1.5 -Post Debridement Size (cm) - Width 0.6 -Post Debridement Size (cm) - Depth 0.1 -Total Square Cm 0.90 -Wound/Ulcer Outcome Not Healed -Ulcer Cleansing Rinsed/ Irrigated with Saline -Foul Odor after Cleansing No -Bioengineered Tissue No -Expiration Date 02/20/23 -Product Lot Number [id number] -Percent Used 100 -Saline Lot Number [id number] -Bleeding Controlled with Pressure -Treatment Response Procedure Tolerated Well Pain Scale: 0-10 Numeric Is Patient Pain Free? Yes Wound debrided: Left lower extremity inferior Wound Grade/Stage: Stage II Type of Debridement: Excisional debridement Anesthesia Used: 4% Lidocaine Solution Depth: Down to and including healthy tissue, in the subcutaneous layer Percentage of wound debrided: 100 Instrument Used: 3mm curette Tissue Removed: Slough and devitalized tissue Severity: Fat Layer Exposed Bleeding Controlled with: Pressure Patient tolerated procedure well - Additional Wound Wound debrided: Left lower extremity superior Wound Grade/Stage: Stage II Type of Debridement: Excisional debridement Anesthesia Used: 4% Lidocaine Solution Depth: Down to and including healthy tissue, in the subcutaneous layer Percentage of wound debrided: 100 Instrument Used: 3mm curette Tissue Removed: Slough and devitalized tissue Severity: Fat Layer Exposed Amount of bleeding with debridement: Mild Bleeding Controlled with: Pressure Patient tolerated procedure: Patient tolerated procedure well Assessment/Plan Active Problems Traumatic wound (Chronic) Penetrating wound with fat layer exposed. Open wound of left lower extremity (Chronic) Assessment: Penetrating traumatic left lower extremity wounds with delayed healing. Left lower extremity cellulitis. Plan: Debridement of both wounds done as documenetd above. Procedure was well tolerated. Epifix applied to both wounds in a 40 to 60% ratio using 100% of product. Moistened with hydrogel, wound veil over top and secured with Steri- Strips. Leave in place for 1 week. Tubi ferry captain for edema management. Elevate lower extremity when seated and in bed. Increased protein intake and protein supplements also recommended. Follow up in 1 week. Advised to call with any qu estions or concerns. This note was generated with trippiece dictation software. It may contain incorrect words, spelling, and punctuation that were not noted in checking the note before signing.
[2018-07-01 08:21] VITALS: BP 116/88; PULSE 60; RESP 18; TEMP 35.7
--- NOTE | 2018-07-01 09:10 | PCM.WC.PN ---
(1) Open wound of left lower extremity Status: Chronic Current Visit: Yes Qualifiers: Code(s): S81.802A - Unspecified open wound, left lower leg, initial encounter (2) Traumatic wound Status: Chronic Current Visit: Yes Comment: Penetrating wound with fat layer exposed. (3) Chronic venous insufficiency Status: Chronic Current Visit: No Code(s): I87.2 - Venous insufficiency (chronic) (peripheral) Type of Wound Chief Complaint: Recent traumatic injury to the left anterior tibial surface with persistent wound History of Wound: This is a 77-year-old male with multiple pre-existing medical problems. He was in his normal state of health until February 2018. At that time, he sustained trauma to the left anterior tibial surface, resulting in 2 adjacent superficial wounds. He was evaluated by his primary care physician, and placed on oral cephalexin, which has now been completed. The traumatic wounds failed to heal, and the patient presented for further evaluation and management. The patient typically sleeps on a flat mattress at night, though occasionally sleeps in a recliner due to breathing problems. He claims to be active. He does not ambulate liberally, however, claiming to suffer from shortness of breath which occurs with activity. 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 It is uncertain whether this was deep or superficial thrombophlebitis. He has been being seen by several physicians at the wound center, most recently Dr. Thomas and Dr. Valentine. He had been using santyl but was changed to promogran last week. He has had increased pain and redness and went to the ER and was given doxycycline. He is tolerating this medicine. He is on day 5 of 10. He states that the pain has not improved. No cultures have been taken. Denies fever or chills or drainage. Progress of Wound: Stable wounds. No complaints at this time. - Physical Exam Vital Signs Temp Pulse Resp BP 96.2 F L 60 18 116/88 H 07/01/18 08:21 07/01/18 08:21 07/01/18 08:21 07/01/18 08:21 General: Alert, Oriented x3, Cooperative, No apparent distress HEENT: Atraumatic Oral: Moist Mucosa Neck: Supple Lungs: Normal air movement Abdomen: Non Tender Extremities: No cyanosis Skin: Ulcer/ Wound Wound Measurements and Assessment WC - Nurse 1 - General Ulcer Measurement Start: 06/24/18 09:59 Freq: Status: Active Protocol: Activity Type Activity Date Activity User E-Sign Co-Sign Detail Recorded Client Recorded Date Recorded By Document 07/01/18 08:21 CS [id number] 07/01/18 08:23 CS 07/01/18 08:21 Wound Center Nurse 1 [Ulcer Assessment] #5 LEFT INFERIOR CURTIS -Combined with other wound No -Current Size (cm) - Length 0.6 -Current Size (cm) - Width 0.9 -Current Size (cm) - Depth 0.1 -Total Square Cm 0.54 -Photo Taken No -Epithelialization None Present -Tunneling No -Undermining/Tunneling No -Circular Undermining No -Temperature (Zenobia-wound Skin No Abnormality Appearance) (Pt Warm) -Tenderness on Palpation (Zenobia-wound Yes Skin Appearance) -Ulcer Cleansing Rinsed/ Irrigated with Saline -Foul Odor after Cleansing No -Anesthetic Used 4% Lidocaine Solution #4 LEFT SUPERIOR CURTIS -Combined with other wound No -Current Size (cm) - Length 1.6 -Current Size (cm) - Width 0.5 -Current Size (cm) - Depth 0.1 -Total Square Cm 0.80 -Photo Taken No -Epithelialization None Present -Tunneling No -Undermining/Tunneling No -Circular Undermining No -Exudate Amt None Present (0 %) -Granulation Amt None Present (0 %) -Necrosis Amt None Present (0 %) -Necrotic Tissue Type Eschar -Temperature (Zenobia-wound Skin No Abnormality Appearance) (Pt Warm) -Tenderness on Palpation (Zenobia-wound No Skin Appearance) -Ulcer Cleansing Rinsed/ Irrigated with Saline -Foul Odor after Cleansing No -Anesthetic Used 4% Lidocaine Solution [Edema Assessment] -Lower Limb Edema Present No -Left Calf (cm) 37.5 -Left Ankle (cm) 21.5 WC - Nurse 2 - General Ulcer CM Notes Start: 06/24/18 09:59 Freq: Status: Active Protocol: Activity Type Activity Date Activity User E-Sign Co-Sign Detail Recorded Client Recorded Date Recorded By Document 07/01/18 08:39 MW [id number] 07/01/18 08:47 MW 07/01/18 08:39 Wound Center Nurse 2 [Procedure/Treatment] #5 LEFT INFERIOR CURTIS -Time 08:39 -Correct Patient Yes -Correct Side, Site, Position Yes -Correct Procedure Yes -Procedure Performed Yes -Type of Procedure Debridement -Clinical Debridement Subcutaneous -Post Debridement Size (cm) - Length 1.0 -Post Debridement Size (cm) - Width 1.2 -Post Debridement Size (cm) - Depth 0.1 -Total Square Cm 1.20 -Wound/Ulcer Outcome Not Healed -Ulcer Cleansing Rinsed/ Irrigated with Saline -Foul Odor after Cleansing No -Bioengineered Tissue Yes -Type of bioengineered Tissue EPIFIX -Expiration Date 02/20/23 -Product Lot Number [id number] -Percent Used 100 -Saline Lot Number [id number] -Bleeding Controlled with Pressure -Treatment Response Procedure Tolerated Well #4 LEFT SUPERIOR CURTIS -Time 08:39 -Correct Patient Yes -Correct Side, Site, Position Yes -Correct Procedure Yes -Procedure Performed Yes -Type of Procedure Debridement -Clinical Debridement Subcutaneous -Post Debridement Size (cm) - Length 1.5 -Post Debridement Size (cm) - Width 0.6 -Post Debridement Size (cm) - Depth 0.1 -Total Square Cm 0.90 -Wound/Ulcer Outcome Not Healed -Bioengineered Tissue Yes -Type of bioengineered Tissue EPIFIX -Expiration Date 02/20/23 -Product Lot Number [id number] -Percent Used 100 -Saline Lot Number [id number] -Bleeding Controlled with Pressure -Treatment Response Procedure Tolerated Well [See Physician Procedure note for Specifics] Pain Scale: 0-10 Numeric [Pain] -Is Patient Pain Free? Yes Musculoskeletal: No Muscle Wasting Neurological: Cranial nerves II-XII grossly intact Psych/Mental Status: Normal Affect Debridement Note Post-Debridement Measurements/Treatment WC - Nurse 2 - General Ulcer CM Notes Start: 06/24/18 09:59 Freq: Status: Active Protocol: Activity Type Activity Date Activity User E-Sign Co-Sign Detail Recorded Client Recorded Date Recorded By Document 06/24/18 10:23 MW [id number] 06/24/18 10:31 MW Document 07/01/18 08:39 MW [id number] 07/01/18 08:47 MW 06/24/18 07/01/18 10:23 08:39 Wound Center Nurse 2 #5 LEFT INFERIOR CURTIS -Time 10:24 08:39 -Correct Patient Yes Yes -Correct Side, Site, Position Yes Yes -Correct Procedure Yes Yes -Procedure Performed Yes Yes -Type of Procedure Debridement Debridement -Clinical Debridement Subcutaneous Subcutaneous -Post Debridement Size (cm) - Length 1.5 1.0 -Post Debridement Size (cm) - Width 1.5 1.2 -Post Debridement Size (cm) - Depth 0.1 0.1 -Total Square Cm 2.25 1.20 -Wound/Ulcer Outcome Not Healed Not Healed -Ulcer Cleansing Rinsed/ Rinsed/ Irrigated with Irrigated with Saline Saline -Foul Odor after Cleansing No No -Bioengineered Tissue Yes Yes -Type of bioengineered Tissue EPIFIX EPIFIX -Expiration Date 02/20/23 02/20/23 -Product Lot Number [id number] -Percent Used 100 100 -Saline Lot Number [id number] -Bleeding Controlled with Pressure Pressure -Treatment Response Procedure Procedure Tolerated Well Tolerated Well #4 LEFT SUPERIOR CURTIS -Time 10:24 08:39 -Correct Patient Yes Yes -Correct Side, Site, Position Yes Yes -Correct Procedure Yes Yes -Procedure Performed Yes Yes -Type of Procedure Debridement Debridement -Clinical Debridement Subcutaneous Subcutaneous -Post Debridement Size (cm) - Length 1.5 1.5 -Post Debridement Size (cm) - Width 0.6 0.6 -Post Debridement Size (cm) - Depth 0.1 0.1 -Total Square Cm 0.90 0.90 -Wound/Ulcer Outcome Not Healed Not Healed -Ulcer Cleansing Rinsed/ Irrigated with Saline -Foul Odor after Cleansing No -Bioengineered Tissue No Yes -Type of bioengineered Tissue EPIFIX -Expiration Date 02/20/23 02/20/23 -Product Lot Number [id number] -Percent Used 100 100 -Saline Lot Number [id number] -Bleeding Controlled with Pressure Pressure -Treatment Response Procedure Procedure Tolerated Well Tolerated Well Pain Scale: 0-10 Numeric Is Patient Pain Free? Yes Yes Wound debrided: Left lower extremity superior Wound Grade/Stage: Stage II Type of Debridement: Excisional debridement Anesthesia Used: 4% Lidocaine Solution Depth: Down to and including healthy tissue, in the subcutaneous layer Percentage of wound debrided: 100 Instrument Used: 7mm curette Tissue Removed: Slough and devitalized tissue Severity: Fat Layer Exposed Amount of bleeding with debridement: Mild Bleeding Controlled with: Pressure Patient tolerated procedure well - Additional Wound Wound debrided: Left lower extremity inferior Wound Grade/Stage: Stage II Type of Debridement: Excisional debridement Anesthesia Used: 4% Lidocaine Solution Depth: Down to and including healthy tissue, in the subcutaneous layer Percentage of wound debrided: 100 Instrument Used: 7mm curette Tissue Removed: Slough and devitalized tissue Severity: Fat Layer Exposed Amount of bleeding with debridement: Mild Bleeding Controlled with: Pressure Patient tolerated procedure: Patient tolerated procedure well Assessment/Plan Active Problems Traumatic wound (Chronic) Penetrating wound with fat layer exposed. Open wound of left lower extremity (Chronic) Assessment: Penetrating traumatic left lower extremity wounds with delayed healing. Left lower extremity cellulitis. Plan: Debridement of both wounds done as documenetd above. Procedure was well tolerated. 10th Epifix applied to both wounds in a 40 to 60% ratio using 100% of product. Moistened with hydrogel, wound veil over top and secured with Steri-Strips. Leave in place for 1 week. Tubi decorating equipment setter for edema management. Elevate lower extremity when seated and in bed. Increased protein intake and protein supplements also recommended. Follow up in 1 week. Advised to call with any questions or concerns. This note was generated with [employer] dictation software. It may contain incorrect words, spelling, and punctuation that were not noted in checking the note before signing.
--- NOTE | 2018-07-01 09:13 | PN.PCM_ITS ---
(1) Open wound of left lower extremity Status: Chronic Current Visit: Yes Qualifiers: Code(s): S81.802A - Unspecified open wound, left lower leg, initial encounter (2) Traumatic wound Status: Chronic Current Visit: Yes Comment: Penetrating wound with fat layer exposed. (3) Chronic venous insufficiency Status: Chronic Current Visit: No Code(s): I87.2 - Venous insufficiency (chronic) (peripheral) Type of Wound Chief Complaint: Recent traumatic injury to the left anterior tibial surface with persistent wound History of Wound: This is a 77-year-old male with multiple pre-existing medical problems. He was in his normal state of health until February 2018. At that time, he sustained trauma to the left anterior tibial surface, resulting in 2 adjacent superficial wounds. He was evaluated by his primary care physician, and placed on oral cephalexin, which has now been completed. The traumatic wounds failed to heal, and the patient presented for further evaluation and management. The patient typically sleeps on a flat mattress at night, though occasionally sleeps in a recliner due to breathing problems. He claims to be active. He does not ambulate liberally, however, claiming to suffer from shortness of breath which o ccurs with activity. 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 It is uncertain whether this was deep or superficial thrombophlebitis. He has been being seen by several physicians at the wound center, most recently Dr. Thomas and Dr. Valentine. He had been using santyl but was changed to promogran last week. He has had increased pain and redness and went to the ER and was given doxycycline. He is tolerating this medicine. He is on day 5 of 10. He states that the pain has not improved. No cultures have been taken. Denies fever or chills or drainage. Progress of Wound: Stable wounds. No complaints at this time. - Physical Exam Vital Signs Temp Pulse Resp BP 96.2 F L 60 18 116/88 H 07/01/18 08:21 07/01/18 08:21 07/01/18 08:21 07/01/18 08:21 General: Alert, Oriented x3, Cooperative, No apparent distress HEENT: Atraumatic Oral: Moist Mucosa Neck: Supple Lungs: Normal air movement Abdomen: Non Tender Extremities: No cyanosis Skin: Ulcer/ Wound Wound Measurements and Assessment WC - Nurse 1 - General Ulcer Measurement Start: 06/24/18 09:59 Freq: Status: Active Protocol: Activity Type Activity Date Activity User E-Sign Co-Sign Detail Recorded Client Recorded Date Recorded By Document 07/01/18 08:21 CS [id number] 07/01/18 08:23 CS 07/01/18 08:21 Wound Center Nurse 1 [Ulcer Assessment] #5 LEFT INFERIOR CURTIS -Combined with other wound No -Current Size (cm) - Length 0.6 -Current Size (cm) - Width 0.9 -Current Size (cm) - Depth 0.1 -Total Square Cm 0.54 -Photo Taken No -Epithelialization None Present -Tunneling No -Undermining/Tunneling No -Circular Undermining No -Temperature (Zenobia-wound Skin No Abnormality Appearance) (Pt Warm) -Tenderness on Palpation (Zenobia-wound Yes Skin Appearance) -Ulcer Cleansing Rinsed/ Irrigated with Saline -Foul Odor after Cleansing No -Anesthetic Used 4% Lidocaine Solution #4 LEFT SUPERIOR CURTIS -Combined with other wound No -Current Size (cm) - Length 1.6 -Current Size (cm) - Width 0.5 -Current Size (cm) - Depth 0.1 -Total Square Cm 0.80 -Photo Taken No -Epithelialization None Present -Tunneling No -Undermining/Tunneling No -Circular Undermining No -Exudate Amt None Present (0 %) -Granulation Amt None Present (0 %) -Necrosis Amt None Present (0 %) -Necrotic Tissue Type Eschar -Temperature (Zenobia-wound Skin No Abnormality Appearance) (Pt Warm) -Tenderness on Palpation (Zenobia-wound No Skin Appearance) -Ulcer Cleansing Rinsed/ Irrigated with Saline -Foul Odor after Cleansing No -Anesthetic Used 4% Lidocaine Solution [Edema Assessment] -Lower Limb Edema Present No -Left Calf (cm) 37.5 -Left Ankle (cm) 21.5 WC - Nurse 2 - General Ulcer CM Notes Start: 06/24/18 09:59 Freq: Status: Active Protocol: Activity Type Activity Date Activity User E-Sign Co-Sign Detail Recorded Client Recorded Date Recorded By Document 07/01/18 08:39 MW [id number] 07/01/18 08:47 MW 07/01/18 08:39 Wound Center Nurse 2 [Procedure/Treatment] #5 LEFT INFERIOR CURTIS -Time 08:39 -Correct Patient Yes -Correct Side, Site, Position Yes -Correct Procedure Yes -Procedure Performed Yes -Type of Procedure Debridement -Clinical Debridement Subcutaneous -Post Debridement Size (cm) - Length 1.0 -Post Debridement Size (cm) - Width 1.2 -Post Debridement Size (cm) - Depth 0.1 -Total Square Cm 1.20 -Wound/Ulcer Outcome Not Healed -Ulcer Cleansing Rinsed/ Irrigated with Saline -Foul Odor after Cleansing No -Bioengineered Tissue Yes -Type of bioengineered Tissue EPIFIX -Expiration Date 02/20/23 -Product Lot Number [id number] -Percent Used 100 -Saline Lot Number [id number] -Bleeding Controlled with Pressure -Treatment Response Procedure Tolerated Well #4 LEFT SUPERIOR CURTIS -Time 08:39 -Correct Patient Yes -Correct Side, Site, Position Yes -Correct Procedure Yes -Procedure Performed Yes -Type of Procedure Debridement -Clinical Debridement Subcutaneous -Post Debridement Size (cm) - Length 1.5 -Post Debridement Size (cm) - Width 0.6 -Post Debridement Size (cm) - Depth 0.1 -Total Square Cm 0.90 -Wound/Ulcer Outcome Not Healed -Bioengineered Tissue Yes -Type of bioengineered Tissue EPIFIX -Expiration Date 02/20/23 -Product Lot Number [id number] -Percent Used 100 -Saline Lot Number [id number] -Bleeding Controlled with Pressure -Treatment Response Procedure Tolerated Well [See Physician Procedure note for Specifics] Pain Scale: 0-10 Numeric [Pain] -Is Patient Pain Free? Yes Musculoskeletal: No Muscle Wasting Neurological: Cranial nerves II-XII grossly intact Psych/Mental Status: Normal Affect Debridement Note Post-Debridement Measurements/Treatment WC - Nurse 2 - General Ulcer CM Notes Start: 06/24/18 09:59 Freq: Status: Active Protocol: Activity Type Activity Date Activity User E-Sign Co-Sign Detail Recorded Client Recorded Date Recorded By Document 06/24/18 10:23 MW [id number] 06/24/18 10:31 MW Document 07/01/18 08:39 MW [id number] 07/01/18 08:47 MW 06/24/18 07/01/18 10:23 08:39 Wound Center Nurse 2 #5 LEFT INFERIOR CURTIS -Time 10:24 08:39 -Correct Patient Yes Yes -Correct Side, Site, Position Yes Yes -Correct Procedure Yes Yes -Procedure Performed Yes Yes -Type of Procedure Debridement Debridement -Clinical Debridement Subcutaneous Subcutaneous -Post Debridement Size (cm) - Length 1.5 1.0 -Post Debridement Size (cm) - Width 1.5 1.2 -Post Debridement Size (cm) - Depth 0.1 0.1 -Total Square Cm 2.25 1.20 -Wound/Ulcer Outcome Not Healed Not Healed -Ulcer Cleansing Rinsed/ Rinsed/ Irrigated with Irrigated with Saline Saline -Foul Odor after Cleansing No No -Bioengineered Tissue Yes Yes -Type of bioengineered Tissue EPIFIX EPIFIX -Expiration Date 02/20/23 02/20/23 -Product Lot Number [id number] -Percent Used 100 100 -Saline Lot Number [id number] -Bleeding Controlled with Pressure Pressure -Treatment Response Procedure Procedure Tolerated Well Tolerated Well #4 LEFT SUPERIOR CURTIS -Time 10:24 08:39 -Correct Patient Yes Yes -Correct Side, Site, Position Yes Yes -Correct Procedure Yes Yes -Procedure Performed Yes Yes -Type of Procedure Debridement Debridement -Clinical Debridement Subcutaneous Subcutaneous -Post Debridement Size (cm) - Length 1.5 1.5 -Post Debridement Size (cm) - Width 0.6 0.6 -Post Debridement Size (cm) - Depth 0.1 0.1 -Total Square Cm 0.90 0.90 -Wound/Ulcer Outcome Not Healed Not Healed -Ulcer Cleansing Rinsed/ Irrigated with Saline -Foul Odor after Cleansing No -Bioengineered Tissue No Yes -Type of bioengineered Tissue EPIFIX -Expiration Date 02/20/23 02/20/23 -Product Lot Number [id number] -Percent Used 100 100 -Saline Lot Number [id number] -Bleeding Controlled with Pressure Pressure -Treatment Response Procedure Procedure Tolerated Well Tolerated Well Pain Scale: 0-10 Numeric Is Patient Pain Free? Yes Yes Wound debrided: Left lower extremity superior Wound Grade/Stage: Stage II Type of Debridement: Excisional debridement Anesthesia Used: 4% Lidocaine Solution Depth: Down to and including healthy tissue, in the subcutaneous layer Percentage of wound debrided: 100 Instrument Used: 7mm curette Tissue Removed: Slough and devitalized tissue Severity: Fat Layer Exposed Amount of bleeding with debridement: Mild Bleeding Controlled with: Pressure Patient tolerated procedure well - Additional Wound Wound debrided: Left lower extremity inferior Wound Grade/Stage: Stage II Type of Debridement: Excisional debridement Anesthesia Used: 4% Lidocaine Solution Depth: Down to and including healthy tissue, in the subcutaneous layer Percentage of wound debrided: 100 Instrument Used: 7mm curette Tissue Removed: Slough and devitalized tissue Severity: Fat Layer Exposed Amount of bleeding with debridement: Mild Bleeding Controlled with: Pressure Patient tolerated procedure: Patient tolerated procedure well Assessment/Plan Active Problems Traumatic wound (Chronic) Penetrating wound with fat layer exposed. Open wound of left lower extremity (Chronic) Assessment: Penetrating traumatic left lower extremity wounds with delayed healing. Left lower extremity cellulitis. Plan: Debridement of both wounds done as documenetd above. Procedure was well tolerated. 10th Epifix applied to both wounds in a 40 to 60% ratio using 100% of product. Moistened with hydrogel, wound veil over top and secured with Steri-Strips. Leave in place for 1 week. Tubi independent living specialist for edema management. Elevate lower extremity when seated and in bed. Increased protein intake and protein supplements also recommended. Follow up in 1 week. Advised to call with any questions or concerns. This note was generated with [employer] dictation software. It may contain incorrect words, spelling, and punctuation that were not noted in checking the note before signing.
[2018-07-08 10:20] VITALS: BP 153/89; PULSE 60; RESP 16; TEMP 35.7
--- NOTE | 2018-07-08 10:45 | PCM.WC.PN ---
(1) Open wound of left lower extremity Status: Chronic Current Visit: Yes Qualifiers: Code(s): S81.802A - Unspecified open wound, left lower leg, initial encounter (2) Traumatic wound Status: Chronic Current Visit: Yes Comment: Penetrating wound with fat layer exposed. (3) Chronic venous insufficiency Status: Chronic Current Visit: No Code(s): I87.2 - Venous insufficiency (chronic) (peripheral) Type of Wound Chief Complaint: Recent traumatic injury to the left anterior tibial surface with persistent wound History of Wound: This is a 77-year-old male with multiple pre-existing medical problems. He was in his normal state of health until February 2018. At that time, he sustained trauma to the left anterior tibial surface, resulting in 2 adjacent superficial wounds. He was evaluated by his primary care physician, and placed on oral cephalexin, which has now been completed. The traumatic wounds failed to heal, and the patient presented for further evaluation and management. The patient typically sleeps on a flat mattress at night, though occasionally sleeps in a recliner due to breathing problems. He claims to be active. He does not ambulate liberally, however, claiming to suffer from shortness of breath which occurs with activity. 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 It is uncertain whether this was deep or superficial thrombophlebitis. He has been being seen by several physicians at the wound center, most recently Dr. Thomas and Dr. Valentine. He had been using santyl but was changed to promogran last week. He has had increased pain and redness and went to the ER and was given doxycycline. He is tolerating this medicine. He is on day 5 of 10. He states that the pain has not improved. No cultures have been taken. Denies fever or chills or drainage. Progress of Wound: Improving. - Physical Exam Vital Signs Temp Pulse Resp BP 96.2 F L 60 16 153/89 H 07/08/18 10:20 07/08/18 10:20 07/08/18 10:20 07/08/18 10:20 General: Alert, Oriented x3, Cooperative, No apparent distress HEENT: Atraumatic Oral: Moist Mucosa Neck: Supple Abdomen: Soft, Non Tender Extremities: No cyanosis Skin: Ulcer/ Wound Wound Measurements and Assessment WC - Nurse 1 - General Ulcer Measurement Start: 06/24/18 09:59 Freq: Status: Active Protocol: Activity Type Activity Date Activity User E-Sign Co-Sign Detail Recorded Client Recorded Date Recorded By Document 07/08/18 10:20 TN [id number] 07/08/18 10:26 TN 07/08/18 10:20 Wound Center Nurse 1 [Ulcer Assessment] #5 LEFT INFERIOR CURTIS -Combined with other wound No -Current Size (cm) - Length 1.4 -Current Size (cm) - Width 1.1 -Current Size (cm) - Depth 0.1 -Total Square Cm 1.54 -Photo Taken No -Epithelialization None Present -Tunneling No -Undermining/Tunneling No -Circular Undermining No -Classification - Thickness Full Thickness without Exposed Support Structure -Change in Wound Grade/Stage No Query Text:If change please identify the Stage/Grade in the comment (ie. S2 G3) -Exudate Amt Small (1-33%) -Exudate Type Serous -Wound Margin Flat & Intact -Granulation Amt None Present (0 %) -Slough/Fibrin Yes -Necrotic Tissue Type Adherent Slough -Structure Exposed None/Limited to Skin Breakdown -Texture (Zenobia-wound Skin Appearance) Assessed Scarring -Moisture ([place]-wound Skin Appearance Assessed ) Dry/Scaly -Color ([place]-wound Skin Appearance) No Abnormality Assessed -Temperature ([place]-wound Skin No Abnormality Appearance) (Pt Warm) -Tenderness on Palpation ([place]-wound No Skin Appearance) -Ulcer Cleansing Rinsed/ Irrigated with Saline -Anesthetic Used 5% Lidocaine Gel #4 LEFT SUPERIOR CURTIS -Combined with other wound No -Current Size (cm) - Length 1.5 -Current Size (cm) - Width 0.7 -Current Size (cm) - Depth 0.1 -Total Square Cm 1.05 -Photo Taken No -Epithelialization None Present -Tunneling No -Undermining/Tunneling No -Circular Undermining No -Classification - Thickness Full Thickness without Exposed Support Structure -Change in Wound Grade/Stage No Query Text:If change please identify the Stage/Grade in the comment (ie. S2 G3) -Exudate Amt None Present (0 %) -Exudate Type Serous -Wound Margin Flat & Intact -Granulation Amt None Present (0 %) -Slough/Fibrin Yes -Necrosis Amt Large (67-100%) -Necrotic Tissue Type Adherent Slough -Structure Exposed None/Limited to Skin Breakdown -Texture ([place]-wound Skin Appearance) Assessed Scarring -Moisture ([place]-wound Skin Appearance Assessed ) Dry/Scaly -Color ([place]-wound Skin Appearance) No Abnormality Assessed -Temperature ([place]-wound Skin No Abnormality Appearance) (Pt Warm) -Tenderness on Palpation ([place]-wound No Skin Appearance) -Ulcer Cleansing Rinsed/ Irrigated with Saline -Foul Odor after Cleansing No -Anesthetic Used 5% Lidocaine Gel [Edema Assessment] -Lower Limb Edema Present No -Left Calf (cm) 39.2 -Left Ankle (cm) 23 WC - Nurse 2 - General Ulcer CM Notes Start: 06/24/18 09:59 Freq: Status: Active Protocol: Activity Type Activity Date Activity User E-Sign Co-Sign Detail Recorded Client Recorded Date Recorded By Document 07/08/18 10:36 MW [id number] 07/08/18 10:40 MW 07/08/18 10:36 Wound Center Nurse 2 [Procedure/Treatment] #5 LEFT INFERIOR CURTIS -Time 10:36 -Correct Patient Yes -Correct Side, Site, Position Yes -Correct Procedure Yes -Procedure Performed Yes -Type of Procedure Debridement -Clinical Debridement Subcutaneous -Post Debridement Size (cm) - Length 0.7 -Post Debridement Size (cm) - Width 0.7 -Post Debridement Size (cm) - Depth 0.1 -Total Square Cm 0.49 -Wound/Ulcer Outcome Not Healed -Ulcer Cleansing Rinsed/ Irrigated with Saline -Foul Odor after Cleansing No -Bioengineered Tissue No -Bleeding Controlled with Pressure -Treatment Response Procedure Tolerated Well #4 LEFT SUPERIOR CURTIS -Time 10:36 -Correct Patient Yes -Correct Side, Site, Position Yes -Correct Procedure Yes -Procedure Performed Yes -Type of Procedure Debridement -Clinical Debridement Subcutaneous -Post Debridement Size (cm) - Length 0.8 -Post Debridement Size (cm) - Width 0.3 -Post Debridement Size (cm) - Depth 0.1 -Total Square Cm 0.24 -Wound/Ulcer Outcome Not Healed -Ulcer Cleansing Rinsed/ Irrigated with Saline -Foul Odor after Cleansing No -Bioengineered Tissue No -Bleeding Controlled with Pressure -Treatment Response Procedure Tolerated Well [See Physician Procedure note for Specifics] Pain Scale: 0-10 Numeric [Pain] -Is Patient Pain Free? Yes Musculoskeletal: No Muscle Wasting Neurological: Cranial nerves II-XII grossly intact Psych/Mental Status: Normal Affect Debridement Note Post-Debridement Measurements/Treatment WC - Nurse 2 - General Ulcer CM Notes Start: 06/24/18 09:59 Freq: Status: Active Protocol: Activity Type Activity Date Activity User E-Sign Co-Sign Detail Recorded Client Recorded Date Recorded By Document 06/24/18 10:23 MW [id number] 06/24/18 10:31 MW Document 07/01/18 08:39 MW [id number] 07/01/18 08:47 MW Document 07/08/18 10:36 MW [id number] 07/08/18 10:40 MW 06/24/18 07/01/18 07/08/18 10:23 08:39 10:36 Wound Center Nurse 2 #5 LEFT INFERIOR CURTIS -Time 10:24 08:39 10:36 -Correct Patient Yes Yes Yes -Correct Side, Site, Position Yes Yes Yes -Correct Procedure Yes Yes Yes -Procedure Performed Yes Yes Yes -Type of Procedure Debridement Debridement Debridement -Clinical Debridement Subcutaneous Subcutaneous Subcutaneous -Post Debridement Size (cm) - Length 1.5 1.0 0.7 -Post Debridement Size (cm) - Width 1.5 1.2 0.7 -Post Debridement Size (cm) - Depth 0.1 0.1 0.1 -Total Square Cm 2.25 1.20 0.49 -Wound/Ulcer Outcome Not Healed Not Healed Not Healed -Ulcer Cleansing Rinsed/ Rinsed/ Rinsed/ Irrigated with Irrigated with Irrigated with Saline Saline Saline -Foul Odor after Cleansing No No No -Bioengineered Tissue Yes Yes No -Type of bioengineered Tissue EPIFIX EPIFIX -Expiration Date 02/20/23 02/20/23 -Product Lot Number [id number] -Percent Used 100 100 -Saline Lot Number [id number] -Bleeding Controlled with Pressure Pressure Pressure -Treatment Response Procedure Procedure Procedure Tolerated Well Tolerated Well Tolerated Well #4 LEFT SUPERIOR CURTIS -Time 10:24 08:39 10:36 -Correct Patient Yes Yes Yes -Correct Side, Site, Position Yes Yes Yes -Correct Procedure Yes Yes Yes -Procedure Performed Yes Yes Yes -Type of Procedure Debridement Debridement Debridement -Clinical Debridement Subcutaneous Subcutaneous Subcutaneous -Post Debridement Size (cm) - Length 1.5 1.5 0.8 -Post Debridement Size (cm) - Width 0.6 0.6 0.3 -Post Debridement Size (cm) - Depth 0.1 0.1 0.1 -Total Square Cm 0.90 0.90 0.24 -Wound/Ulcer Outcome Not Healed Not Healed Not Healed -Ulcer Cleansing Rinsed/ Rinsed/ Irrigated with Irrigated with Saline Saline -Foul Odor after Cleansing No No -Bioengineered Tissue No Yes No -Type of bioengineered Tissue EPIFIX -Expiration Date 02/20/23 02/20/23 -Product Lot Number [id number] -Percent Used 100 100 -Saline Lot Number [id number] -Bleeding Controlled with Pressure Pressure Pressure -Treatment Response Procedure Procedure Procedure Tolerated Well Tolerated Well Tolerated Well Pain Scale: 0-10 Numeric Is Patient Pain Free? Yes Yes Yes Wound debrided: Left lower extremity superior Wound Grade/Stage: Stage II Type of Debridement: Excisional debridement Anesthesia Used: 4% Lidocaine Solution Depth: Down to and including healthy tissue, in the subcutaneous layer Percentage of wound debrided: 100 Instrument Used: 7mm curette Tissue Removed: Slough and devitalized tissue Severity: Fat Layer Exposed Amount of bleeding with debridement: Mild Bleeding Controlled with: Pressure Patient tolerated procedure well - Additional Wound Wound debrided: Left lower extremity. Wound Grade/Stage: Stage II Type of Debridement: Excisional debridement Anesthesia Used: 4% Lidocaine Solution Depth: Down to and including healthy tissue, in the subcutaneous layer Percentage of wound debrided: 100 Instrument Used: 7mm curette Tissue Removed: Slough and devitalized tissue Severity: Fat Layer Exposed Amount of bleeding with debridement: Mild Bleeding Controlled with: Pressure Patient tolerated procedure: Patient tolerated procedure well Assessment/Plan Active Problems Traumatic wound (Chronic) Penetrating wound with fat layer exposed. Open wound of left lower extremity (Chronic) Assessment: Penetrating traumatic left lower extremity wounds with delayed healing. Left lower extremity cellulitis. Plan: Improving wounds. Debridement of both wounds done as documenetd above. Procedure was well tolerated. Will switch to Promogran with Adaptic over top. Change daily. Has done well and Promogran in the past. Continue Tubi military administrative technician for edema management. Elevate lower extremity when seated and in bed. Increased protein intake and protein supplements also recommended. Follow up in 1 week. Advised to call with any questions or concerns. This note was generated with [employer] software. It may contain incorrect words, spelling, and punctuation that were not noted in checking the note before signing.
[2018-07-15 09:26] VITALS: BP 148/90; PULSE 68; RESP 16; TEMP 35.5
--- NOTE | 2018-07-15 10:45 | PCM.WC.PN ---
(1) Open wound of left lower extremity Status: Chronic Current Visit: Yes Qualifiers: Code(s): S81.802A - Unspecified open wound, left lower leg, initial encounter (2) Traumatic wound Status: Chronic Current Visit: Yes Comment: Penetrating wound with fat layer exposed. (3) Chronic venous insufficiency Status: Chronic Current Visit: No Code(s): I87.2 - Venous insufficiency (chronic) (peripheral) Type of Wound Chief Complaint: Recent traumatic injury to the left anterior tibial surface with persistent wound History of Wound: This is a 77-year-old male with multiple pre-existing medical problems. He was in his normal state of health until February 2018. At that time, he sustained trauma to the left anterior tibial surface, resulting in 2 adjacent superficial wounds. He was evaluated by his primary care physician, and placed on oral cephalexin, which has now been completed. The traumatic wounds failed to heal, and the patient presented for further evaluation and management. The patient typically sleeps on a flat mattress at night, though occasionally sleeps in a recliner due to breathing problems. He claims to be active. He does not ambulate liberally, however, claiming to suffer from shortness of breath which occurs with activity. 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 It is uncertain whether this was deep or superficial thrombophlebitis. He has been being seen by several physicians at the wound center, most recently Dr. Thomas and Dr. Valentine. He had been using santyl but was changed to promogran last week. He has had increased pain and redness and went to the ER and was given doxycycline. He is tolerating this medicine. He is on day 5 of 10. He states that the pain has not improved. No cultures have been taken. Denies fever or chills or drainage. Progress of Wound: Stable. - Physical Exam Vital Signs Temp Pulse Resp BP 95.9 F L 68 16 148/90 H 07/15/18 09:26 07/15/18 09:26 07/15/18 09:26 07/15/18 09:26 General: Alert, Oriented x3, Cooperative, No apparent distress HEENT: Atraumatic Oral: Moist Mucosa Neck: Supple Lungs: Normal air movement Abdomen: Non Tender Extremities: No cyanosis Skin: Ulcer/ Wound Wound Measurements and Assessment WC - Nurse 1 - General Ulcer Measurement Start: 06/24/18 09:59 Freq: Status: Active Protocol: Activity Type Activity Date Activity User E-Sign Co-Sign Detail Recorded Client Recorded Date Recorded By Document 07/15/18 09:26 MW [id number] 07/15/18 09:30 MW 07/15/18 09:26 Wound Center Nurse 1 [Ulcer Assessment] #5 LEFT INFERIOR CURTIS -Combined with other wound No -Current Size (cm) - Length 1.0 -Current Size (cm) - Width 0.8 -Current Size (cm) - Depth 0.2 -Total Square Cm 0.80 -Photo Taken No -Epithelialization Small 1-33% -Tunneling No -Undermining/Tunneling No -Circular Undermining No -Exudate Amt Small (1-33%) -Exudate Type Serosanguineous -Wound Margin Flat & Intact -Granulation Amt Small (1-33%) -Granulation Quality Red -Slough/Fibrin Yes -Necrosis Amt Large (67-100%) -Necrotic Tissue Type Adherent Slough -Structure Exposed N/A -Texture ([place]obia-wound Skin Appearance) Assessed Localized Edema Scarring -Moisture ([place]-wound Skin Appearance Assessed ) Dry/Scaly -Color ([place]-wound Skin Appearance) Not Assessed Hemosiderin Staining -Temperature ([place]-wound Skin No Abnormality Appearance) (Pt Warm) -Ulcer Cleansing Rinsed/ Irrigated with Saline -Foul Odor after Cleansing No -Anesthetic Used 4% Lidocaine Solution #4 LEFT SUPERIOR CURTIS -Combined with other wound No -Current Size (cm) - Length 1.3 -Current Size (cm) - Width 0.5 -Current Size (cm) - Depth 0.1 -Total Square Cm 0.65 -Photo Taken No -Epithelialization Small 1-33% -Tunneling No -Undermining/Tunneling No -Circular Undermining No -Exudate Amt Small (1-33%) -Exudate Type Serosanguineous -Wound Margin Flat & Intact -Granulation Amt Large (67-100%) -Granulation Quality Red -Slough/Fibrin Yes -Necrosis Amt Small (1-33%) -Necrotic Tissue Type Adherent Slough -Structure Exposed N/A -Texture ([place]-wound Skin Appearance) Assessed Localized Edema Scarring -Moisture ([place]-wound Skin Appearance Assessed ) Dry/Scaly -Color ([place]-wound Skin Appearance) Assessed Hemosiderin Staining -Temperature ([place]-wound Skin No Abnormality Appearance) (Pt Warm) -Tenderness on Palpation ([place]-wound No Skin Appearance) -Ulcer Cleansing Rinsed/ Irrigated with Saline -Foul Odor after Cleansing No -Anesthetic Used 4% Lidocaine Solution [Edema Assessment] -Lower Limb Edema Present Yes -Left Calf (cm) 38.4 -Left Ankle (cm) 23.0 WC - Nurse 2 - General Ulcer CM Notes Start: 06/24/18 09:59 Freq: Status: Active Protocol: Activity Type Activity Date Activity User E-Sign Co-Sign Detail Recorded Client Recorded Date Recorded By Document 07/15/18 09:32 MW [id number] 07/15/18 09:35 MW 07/15/18 09:32 Wound Center Nurse 2 [Procedure/Treatment] #5 LEFT INFERIOR CURTIS -Time 09:32 -Correct Patient Yes -Correct Side, Site, Position Yes -Correct Procedure Yes -Procedure Performed Yes -Type of Procedure Debridement -Clinical Debridement Subcutaneous -Post Debridement Size (cm) - Length 0.5 -Post Debridement Size (cm) - Width 0.5 -Post Debridement Size (cm) - Depth 0.1 -Total Square Cm 0.25 -Wound/Ulcer Outcome Not Healed -Ulcer Cleansing Rinsed/ Irrigated with Saline -Foul Odor after Cleansing No -Bioengineered Tissue No -Bleeding Controlled with Pressure -Treatment Response Procedure Tolerated Well #4 LEFT SUPERIOR CURTIS -Time 09:33 -Correct Patient Yes -Correct Side, Site, Position Yes -Correct Procedure Yes -Procedure Performed Yes -Type of Procedure Debridement -Clinical Debridement Subcutaneous -Post Debridement Size (cm) - Length 0.8 -Post Debridement Size (cm) - Width 0.4 -Post Debridement Size (cm) - Depth 0.1 -Total Square Cm 0.32 -Wound/Ulcer Outcome Not Healed -Ulcer Cleansing Rinsed/ Irrigated with Saline -Foul Odor after Cleansing No -Bioengineered Tissue No -Bleeding Controlled with Pressure -Treatment Response Procedure Tolerated Well [See Physician Procedure note for Specifics] Pain Scale: 0-10 Numeric [Pain] -Is Patient Pain Free? Yes Musculoskeletal: No Muscle Wasting Neurological: Cranial nerves II-XII grossly intact Psych/Mental Status: Normal Affect Debridement Note Post-Debridement Measurements/Treatment WC - Nurse 2 - General Ulcer CM Notes Start: 06/24/18 09:59 Freq: Status: Active Protocol: Activity Type Activity Date Activity User E-Sign Co-Sign Detail Recorded Client Recorded Date Recorded By Document 06/24/18 10:23 MW [id number] 06/24/18 10:31 MW Document 07/01/18 08:39 MW [id number] 07/01/18 08:47 MW Document 07/08/18 10:36 MW [id number] 07/08/18 10:40 MW Document 07/15/18 09:32 MW [id number] 07/15/18 09:35 MW 06/24/18 07/01/18 07/08/18 10:23 08:39 10:36 Wound Center Nurse 2 #5 LEFT INFERIOR CURTIS -Time 10:24 08:39 10:36 -Correct Patient Yes Yes Yes -Correct Side, Site, Position Yes Yes Yes -Correct Procedure Yes Yes Yes -Procedure Performed Yes Yes Yes -Type of Procedure Debridement Debridement Debridement -Clinical Debridement Subcutaneous Subcutaneous Subcutaneous -Post Debridement Size (cm) - Length 1.5 1.0 0.7 -Post Debridement Size (cm) - Width 1.5 1.2 0.7 -Post Debridement Size (cm) - Depth 0.1 0.1 0.1 -Total Square Cm 2.25 1.20 0.49 -Wound/Ulcer Outcome Not Healed Not Healed Not Healed -Ulcer Cleansing Rinsed/ Rinsed/ Rinsed/ Irrigated with Irrigated with Irrigated with Saline Saline Saline -Foul Odor after Cleansing No No No -Bioengineered Tissue Yes Yes No -Type of bioengineered Tissue EPIFIX EPIFIX -Expiration Date 02/20/23 02/20/23 -Product Lot Number [id number] -Percent Used 100 100 -Saline Lot Number [id number] -Bleeding Controlled with Pressure Pressure Pressure -Treatment Response Procedure Procedure Procedure Tolerated Well Tolerated Well Tolerated Well #4 LEFT SUPERIOR CURTIS -Time 10:24 08:39 10:36 -Correct Patient Yes Yes Yes -Correct Side, Site, Position Yes Yes Yes -Correct Procedure Yes Yes Yes -Procedure Performed Yes Yes Yes -Type of Procedure Debridement Debridement Debridement -Clinical Debridement Subcutaneous Subcutaneous Subcutaneous -Post Debridement Size (cm) - Length 1.5 1.5 0.8 -Post Debridement Size (cm) - Width 0.6 0.6 0.3 -Post Debridement Size (cm) - Depth 0.1 0.1 0.1 -Total Square Cm 0.90 0.90 0.24 -Wound/Ulcer Outcome Not Healed Not Healed Not Healed -Ulcer Cleansing Rinsed/ Rinsed/ Irrigated with Irrigated with Saline Saline -Foul Odor after Cleansing No No -Bioengineered Tissue No Yes No -Type of bioengineered Tissue EPIFIX -Expiration Date 02/20/23 02/20/23 -Product Lot Number [id number] -Percent Used 100 100 -Saline Lot Number [id number] -Bleeding Controlled with Pressure Pressure Pressure -Treatment Response Procedure Procedure Procedure Tolerated Well Tolerated Well Tolerated Well Pain Scale: 0-10 Numeric Is Patient Pain Free? Yes Yes Yes 07/15/18 09:32 Wound Center Nurse 2 #5 LEFT INFERIOR CURTIS -Time 09:32 -Correct Patient Yes -Correct Side, Site, Position Yes -Correct Procedure Yes -Procedure Performed Yes -Type of Procedure Debridement -Clinical Debridement Subcutaneous -Post Debridement Size (cm) - Length 0.5 -Post Debridement Size (cm) - Width 0.5 -Post Debridement Size (cm) - Depth 0.1 -Total Square Cm 0.25 -Wound/Ulcer Outcome Not Healed -Ulcer Cleansing Rinsed/ Irrigated with Saline -Foul Odor after Cleansing No -Bioengineered Tissue No -Type of bioengineered Tissue -Expiration Date -Product Lot Number -Percent Used -Saline Lot Number -Bleeding Controlled with Pressure -Treatment Response Procedure Tolerated Well #4 LEFT SUPERIOR CURTIS -Time 09:33 -Correct Patient Yes -Correct Side, Site, Position Yes -Correct Procedure Yes -Procedure Performed Yes -Type of Procedure Debridement -Clinical Debridement Subcutaneous -Post Debridement Size (cm) - Length 0.8 -Post Debridement Size (cm) - Width 0.4 -Post Debridement Size (cm) - Depth 0.1 -Total Square Cm 0.32 -Wound/Ulcer Outcome Not Healed -Ulcer Cleansing Rinsed/ Irrigated with Saline -Foul Odor after Cleansing No -Bioengineered Tissue No -Type of bioengineered Tissue -Expiration Date -Product Lot Number -Percent Used -Saline Lot Number -Bleeding Controlled with Pressure -Treatment Response Procedure Tolerated Well Pain Scale: 0-10 Numeric Is Patient Pain Free? Yes Wound debrided: Lower extremity inferior Wound Grade/Stage: Stage II Type of Debridement: Excisional debridement Anesthesia Used: 4% Lidocaine Solution Depth: Down to and including healthy tissue, in the subcutaneous layer Percentage of wound debrided: 100 Instrument Used: 7mm curette Tissue Removed: Slough and devitalized tissue Severity: Fat Layer Exposed Amount of bleeding with debridement: Mild Bleeding Controlled with: Pressure Patient tolerated procedure well - Additional Wound Wound debrided: Left lower extremity superior Wound Grade/Stage: Stage II Type of Debridement: Excisional debridement Anesthesia Used: 4% Lidocaine Solution Depth: Down to and including healthy tissue, in the subcutaneous layer Percentage of wound debrided: 100 Instrument Used: 7mm curette Tissue Removed: Slough and devitalized tissue Severity: Fat Layer Exposed Amount of bleeding with debridement: Mild Bleeding Controlled with: Pressure Patient tolerated procedure: Patient tolerated procedure well Assessment/Plan Active Problems Traumatic wound (Chronic) Penetrating wound with fat layer exposed. Open wound of left lower extremity (Chronic) Assessment: Penetrating traumatic left lower extremity wounds with delayed healing. Left lower extremity cellulitis. Plan: Stable wounds. Debridement of both wounds done as documenetd above. Procedure was well tolerated. Continue Promogran with Adaptic over top. Change every other day. 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 Elevate lower extremity when seated and in bed. Increased protein intake and protein supplements also recommended. Follow up in 1 week. Advised to call with any questions or concerns. This note was generated with [employer] software. It may contain incorrect words, spelling, and punctuation that were not noted in checking the note before signing.
--- NOTE | 2018-07-15 10:50 | PN.PCM_ITS ---
(1) Open wound of left lower extremity Status: Chronic Current Visit: Yes Qualifiers: Code(s): S81.802A - Unspecified open wound, left lower leg, initial encounter (2) Traumatic wound Status: Chronic Current Visit: Yes Comment: Penetrating wound with fat layer exposed. (3) Chronic venous insufficiency Status: Chronic Current Visit: No Code(s): I87.2 - Venous insufficiency (chronic) (peripheral) Type of Wound Chief Complaint: Recent traumatic injury to the left anterior tibial surface with persistent wound History of Wound: This is a 77-year-old male with multiple pre-existing medical problems. He was in his normal state of health until February 2018. At that time, he sustained trauma to the left anterior tibial surface, resulting in 2 adjacent superficial wounds. He was evaluated by his primary care physician, and placed on oral cephalexin, which has now been completed. The traumatic wounds failed to heal, and the patient presented for further evaluation and management. The patient typically sleeps on a flat mattress at night, though occasionally sleeps in a recliner due to breathing problems. He claims to be active. He does not ambulate liberally, however, claiming to suffer from shortness of breath which o ccurs with activity. 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 It is uncertain whether this was deep or superficial thrombophlebitis. He has been being seen by several physicians at the wound center, most recently Dr. Thomas and Dr. Valentine. He had been using santyl but was changed to promogran last week. He has had increased pain and redness and went to the ER and was given doxycycline. He is tolerating this medicine. He is on day 5 of 10. He states that the pain has not improved. No cultures have been taken. Denies fever or chills or drainage. Progress of Wound: Stable. - Physical Exam Vital Signs Temp Pulse Resp BP 95.9 F L 68 16 148/90 H 07/15/18 09:26 07/15/18 09:26 07/15/18 09:26 07/15/18 09:26 General: Alert, Oriented x3, Cooperative, No apparent distress HEENT: Atraumatic Oral: Moist Mucosa Neck: Supple Lungs: Normal air movement Abdomen: Non Tender Extremities: No cyanosis Skin: Ulcer/ Wound Wound Measurements and Assessment WC - Nurse 1 - General Ulcer Measurement Start: 06/24/18 09:59 Freq: Status: Active Protocol: Activity Type Activity Date Activity User E-Sign Co-Sign Detail Recorded Client Recorded Date Recorded By Document 07/15/18 09:26 MW [id number] 07/15/18 09:30 MW 07/15/18 09:26 Wound Center Nurse 1 [Ulcer Assessment] #5 LEFT INFERIOR CURTIS -Combined with other wound No -Current Size (cm) - Length 1.0 -Current Size (cm) - Width 0.8 -Current Size (cm) - Depth 0.2 -Total Square Cm 0.80 -Photo Taken No -Epithelialization Small 1-33% -Tunneling No -Undermining/Tunneling No -Circular Undermining No -Exudate Amt Small (1-33%) -Exudate Type Serosanguineous -Wound Margin Flat & Intact -Granulation Amt Small (1-33%) -Granulation Quality Red -Slough/Fibrin Yes -Necrosis Amt Large (67-100%) -Necrotic Tissue Type Adherent Slough -Structure Exposed N/A -Texture ([place]-wound Skin Appearance) Assessed Localized Edema Scarring -Moisture ([place]-wound Skin Appearance Assessed ) Dry/Scaly -Color ([place]-wound Skin Appearance) Not Assessed Hemosiderin Staining -Temperature ([place]-wound Skin No Abnormality Appearance) (Pt Warm) -Ulcer Cleansing Rinsed/ Irrigated with Saline -Foul Odor after Cleansing No -Anesthetic Used 4% Lidocaine Solution #4 LEFT SUPERIOR CURTIS -Combined with other wound No -Current Size (cm) - Length 1.3 -Current Size (cm) - Width 0.5 -Current Size (cm) - Depth 0.1 -Total Square Cm 0.65 -Photo Taken No -Epithelialization Small 1-33% -Tunneling No -Undermining/Tunneling No -Circular Undermining No -Exudate Amt Small (1-33%) -Exudate Type Serosanguineous -Wound Margin Flat & Intact -Granulation Amt Large (67-100%) -Granulation Quality Red -Slough/Fibrin Yes -Necrosis Amt Small (1-33%) -Necrotic Tissue Type Adherent Slough -Structure Exposed N/A -Texture ([place]-wound Skin Appearance) Assessed Localized Edema Scarring -Moisture ([place]-wound Skin Appearance Assessed ) Dry/Scaly -Color ([place]-wound Skin Appearance) Assessed Hemosiderin Staining -Temperature ([place]-wound Skin No Abnormality Appearance) (Pt Warm) -Tenderness on Palpation ([place]-wound No Skin Appearance) -Ulcer Cleansing Rinsed/ Irrigated with Saline -Foul Odor after Cleansing No -Anesthetic Used 4% Lidocaine Solution [Edema Assessment] -Lower Limb Edema Present Yes -Left Calf (cm) 38.4 -Left Ankle (cm) 23.0 WC - Nurse 2 - General Ulcer CM Notes Start: 06/24/18 09:59 Freq: Status: Active Protocol: Activity Type Activity Date Activity User E-Sign Co-Sign Detail Recorded Client Recorded Date Recorded By Document 07/15/18 09:32 MW [id number] 07/15/18 09:35 MW 07/15/18 09:32 Wound Center Nurse 2 [Procedure/Treatment] #5 LEFT INFERIOR CURTIS -Time 09:32 -Correct Patient Yes -Correct Side, Site, Position Yes -Correct Procedure Yes -Procedure Performed Yes -Type of Procedure Debridement -Clinical Debridement Subcutaneous -Post Debridement Size (cm) - Length 0.5 -Post Debridement Size (cm) - Width 0.5 -Post Debridement Size (cm) - Depth 0.1 -Total Square Cm 0.25 -Wound/Ulcer Outcome Not Healed -Ulcer Cleansing Rinsed/ Irrigated with Saline -Foul Odor after Cleansing No -Bioengineered Tissue No -Bleeding Controlled with Pressure -Treatment Response Procedure Tolerated Well #4 LEFT SUPERIOR CURTIS -Time 09:33 -Correct Patient Yes -Correct Side, Site, Position Yes -Correct Procedure Yes -Procedure Performed Yes -Type of Procedure Debridement -Clinical Debridement Subcutaneous -Post Debridement Size (cm) - Length 0.8 -Post Debridement Size (cm) - Width 0.4 -Post Debridement Size (cm) - Depth 0.1 -Total Square Cm 0.32 -Wound/Ulcer Outcome Not Healed -Ulcer Cleansing Rinsed/ Irrigated with Saline -Foul Odor after Cleansing No -Bioengineered Tissue No -Bleeding Controlled with Pressure -Treatment Response Procedure Tolerated Well [See Physician Procedure note for Specifics] Pain Scale: 0-10 Numeric [Pain] -Is Patient Pain Free? Yes Musculoskeletal: No Muscle Wasting Neurological: Cranial nerves II-XII grossly intact Psych/Mental Status: Normal Affect Debridement Note Post-Debridement Measurements/Treatment WC - Nurse 2 - General Ulcer CM Notes Start: 06/24/18 09:59 Freq: Status: Active Protocol: Activity Type Activity Date Activity User E-Sign Co-Sign Detail Recorded Client Recorded Date Recorded By Document 06/24/18 10:23 MW [id number] 06/24/18 10:31 MW Document 07/01/18 08:39 MW [id number] 07/01/18 08:47 MW Document 07/08/18 10:36 MW [id number] 07/08/18 10:40 MW Document 07/15/18 09:32 MW [id number] 07/15/18 09:35 MW 06/24/18 07/01/18 07/08/18 10:23 08:39 10:36 Wound Center Nurse 2 #5 LEFT INFERIOR CURTIS -Time 10:24 08:39 10:36 -Correct Patient Yes Yes Yes -Correct Side, Site, Position Yes Yes Yes -Correct Procedure Yes Yes Yes -Procedure Performed Yes Yes Yes -Type of Procedure Debridement Debridement Debridement -Clinical Debridement Subcutaneous Subcutaneous Subcutaneous -Post Debridement Size (cm) - Length 1.5 1.0 0.7 -Post Debridement Size (cm) - Width 1.5 1.2 0.7 -Post Debridement Size (cm) - Depth 0.1 0.1 0.1 -Total Square Cm 2.25 1.20 0.49 -Wound/Ulcer Outcome Not Healed Not Healed Not Healed -Ulcer Cleansing Rinsed/ Rinsed/ Rinsed/ Irrigated with Irrigated with Irrigated with Saline Saline Saline -Foul Odor after Cleansing No No No -Bioengineered Tissue Yes Yes No -Type of bioengineered Tissue EPIFIX EPIFIX -Expiration Date 02/20/23 02/20/23 -Product Lot Number [id number] -Percent Used 100 100 -Saline Lot Number [id number] -Bleeding Controlled with Pressure Pressure Pressure -Treatment Response Procedure Procedure Procedure Tolerated Well Tolerated Well Tolerated Well #4 LEFT SUPERIOR CURTIS -Time 10:24 08:39 10:36 -Correct Patient Yes Yes Yes -Correct Side, Site, Position Yes Yes Yes -Correct Procedure Yes Yes Yes -Procedure Performed Yes Yes Yes -Type of Procedure Debridement Debridement Debridement -Clinical Debridement Subcutaneous Subcutaneous Subcutaneous -Post Debridement Size (cm) - Length 1.5 1.5 0.8 -Post Debridement Size (cm) - Width 0.6 0.6 0.3 -Post Debridement Size (cm) - Depth 0.1 0.1 0.1 -Total Square Cm 0.90 0.90 0.24 -Wound/Ulcer Outcome Not Healed Not Healed Not Healed -Ulcer Cleansing Rinsed/ Rinsed/ Irrigated with Irrigated with Saline Saline -Foul Odor after Cleansing No No -Bioengineered Tissue No Yes No -Type of bioengineered Tissue EPIFIX -Expiration Date 02/20/23 02/20/23 -Product Lot Number [id number] -Percent Used 100 100 -Saline Lot Number [id number] -Bleeding Controlled with Pressure Pressure Pressure -Treatment Response Procedure Procedure Procedure Tolerated Well Tolerated Well Tolerated Well Pain Scale: 0-10 Numeric Is Patient Pain Free? Yes Yes Yes 07/15/18 09:32 Wound Center Nurse 2 #5 LEFT INFERIOR CURTIS -Time 09:32 -Correct Patient Yes -Correct Side, Site, Position Yes -Correct Procedure Yes -Procedure Performed Yes -Type of Procedure Debridement -Clinical Debridement Subcutaneous -Post Debridement Size (cm) - Length 0.5 -Post Debridement Size (cm) - Width 0.5 -Post Debridement Size (cm) - Depth 0.1 -Total Square Cm 0.25 -Wound/Ulcer Outcome Not Healed -Ulcer Cleansing Rinsed/ Irrigated with Saline -Foul Odor after Cleansing No -Bioengineered Tissue No -Type of bioengineered Tissue -Expiration Date -Product Lot Number -Percent Used -Saline Lot Number -Bleeding Controlled with Pressure -Treatment Response Procedure Tolerated Well #4 LEFT SUPERIOR CURTIS -Time 09:33 -Correct Patient Yes -Correct Side, Site, Position Yes -Correct Procedure Yes -Procedure Performed Yes -Type of Procedure Debridement -Clinical Debridement Subcutaneous -Post Debridement Size (cm) - Length 0.8 -Post Debridement Size (cm) - Width 0.4 -Post Debridement Size (cm) - Depth 0.1 -Total Square Cm 0.32 -Wound/Ulcer Outcome Not Healed -Ulcer Cleansing Rinsed/ Irrigated with Saline -Foul Odor after Cleansing No -Bioengineered Tissue No -Type of bioengineered Tissue -Expiration Date -Product Lot Number -Percent Used -Saline Lot Number -Bleeding Controlled with Pressure -Treatment Response Procedure Tolerated Well Pain Scale: 0-10 Numeric Is Patient Pain Free? Yes Wound debrided: Lower extremity inferior Wound Grade/Stage: Stage II Type of Debridement: Excisional debridement Anesthesia Used: 4% Lidocaine Solution Depth: Down to and including healthy tissue, in the subcutaneous layer Percentage of wound debrided: 100 Instrument Used: 7mm curette Tissue Removed: Slough and devitalized tissue Severity: Fat Layer Exposed Amount of bleeding with debridement: Mild Bleeding Controlled with: Pressure Patient tolerated procedure well - Additional Wound Wound debrided: Left lower extremity superior Wound Grade/Stage: Stage II Type of Debridement: Excisional debridement Anesthesia Used: 4% Lidocaine Solution Depth: Down to and including healthy tissue, in the subcutaneous layer Percentage of wound debrided: 100 Instrument Used: 7mm curette Tissue Removed: Slough and devitalized tissue Severity: Fat Layer Exposed Amount of bleeding with debridement: Mild Bleeding Controlled with: Pressure Patient tolerated procedure: Patient tolerated procedure well Assessment/Plan Active Problems Traumatic wound (Chronic) Penetrating wound with fat layer exposed. Open wound of left lower extremity (Chronic) Assessment: Penetrating traumatic left lower extremity wounds with delayed healing. Left lower extremity cellulitis. Plan: Stable wounds. Debridement of both wounds done as documenetd above. Procedure was well tolerated. Continue Promogran with Adaptic over top. Change every other day. 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 Elevate lower extremity when seated and in bed. Increased protein intake and protein supplements also recommended. Follow up in 1 week. Advised to call with any questions or concerns. This note was generated with [employer] software. It may contain incorrect words, spelling, and punctuation that were not noted in checking the note before signing.
[2018-07-22 10:16] VITALS: BP 122/77; PULSE 105; RESP 20; TEMP 35.5
--- NOTE | 2018-07-22 10:37 | PCM.WC.PN ---
(1) Open wound of left lower extremity Status: Chronic Current Visit: Yes Qualifiers: Code(s): S81.802A - Unspecified open wound, left lower leg, initial encounter (2) Traumatic wound Status: Chronic Current Visit: Yes Comment: Penetrating wound with fat layer exposed. (3) Chronic venous insufficiency Status: Chronic Current Visit: No Code(s): I87.2 - Venous insufficiency (chronic) (peripheral) Type of Wound Chief Complaint: Recent traumatic injury to the left anterior tibial surface with persistent wound History of Wound: This is a 77-year-old male with multiple pre-existing medical problems. He was in his normal state of health until February 2018. At that time, he sustained trauma to the left anterior tibial surface, resulting in 2 adjacent superficial wounds. He was evaluated by his primary care physician, and placed on oral cephalexin, which has now been completed. The traumatic wounds failed to heal, and the patient presented for further evaluation and management. The patient typically sleeps on a flat mattress at night, though occasionally sleeps in a recliner due to breathing problems. He claims to be active. He does not ambulate liberally, however, claiming to suffer from shortness of breath which occurs with activity. 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 It is uncertain whether this was deep or superficial thrombophlebitis. He has been being seen by several physicians at the wound center, most recently Dr. Thomas and Dr. Valentine. He had been using santyl but was changed to promogran last week. He has had increased pain and redness and went to the ER and was given doxycycline. He is tolerating this medicine. He is on day 5 of 10. He states that the pain has not improved. No cultures have been taken. Denies fever or chills or drainage. Progress of Wound: Improving. - Physical Exam Vital Signs Temp Pulse Resp BP 95.9 F L 105 H 20 H 122/77 H 07/22/18 10:16 07/22/18 10:16 07/22/18 10:16 07/22/18 10:16 General: Alert, Oriented x3, Cooperative, No apparent distress HEENT: Atraumatic Oral: Moist Mucosa Neck: Supple Lungs: Normal air movement Abdomen: Soft, Non Tender Extremities: No cyanosis Wound Measurements and Assessment WC - Nurse 1 - General Ulcer Measurement Start: 06/24/18 09:59 Freq: Status: Active Protocol: Activity Type Activity Date Activity User E-Sign Co-Sign Detail Recorded Client Recorded Date Recorded By Document 07/22/18 10:16 DL [id number] 07/22/18 10:29 DL 07/22/18 10:16 Wound Center Nurse 1 [Ulcer Assessment] #5 LEFT INFERIOR CURTIS -Combined with other wound No -Current Size (cm) - Length 0.3 -Current Size (cm) - Width 0.3 -Current Size (cm) - Depth 0.1 -Total Square Cm 0.09 -Photo Taken No -Epithelialization Small 1-33% -Tunneling No -Undermining/Tunneling No -Circular Undermining No -Exudate Amt Small (1-33%) -Exudate Type Serosanguineous -Wound Margin Flat & Intact -Granulation Amt Small (1-33%) -Granulation Quality Hed[place] -Slough/Fibrin Yes -Necrosis Amt Medium (34-66%) -Necrotic Tissue Type Adherent Slough -Structure Exposed N/A -Texture ([place]-wound Skin Appearance) Assessed Scarring -Moisture ([place]-wound Skin Appearance Assessed ) Dry/Scaly -Color ([place]-wound Skin Appearance) Assessed Hemosiderin Staining -Temperature ([place]-wound Skin No Abnormality Appearance) (Pt Warm) -Tenderness on Palpation ([place]-wound No Skin Appearance) -Ulcer Cleansing Rinsed/ Irrigated with Saline -Foul Odor after Cleansing No -Anesthetic Used 5% Lidocaine Gel #4 LEFT SUPERIOR CURTIS -Combined with other wound No -Current Size (cm) - Length 0.9 -Current Size (cm) - Width 0.3 -Current Size (cm) - Depth 0.1 -Total Square Cm 0.27 -Photo Taken No -Epithelialization Small 1-33% -Tunneling No -Undermining/Tunneling No -Circular Undermining No -Exudate Amt Small (1-33%) -Exudate Type Serosanguineous -Wound Margin Flat & Intact -Granulation Amt Small (1-33%) -Granulation Quality Hed[place] -Slough/Fibrin Yes -Necrosis Amt Medium (34-66%) -Necrotic Tissue Type Adherent Slough -Structure Exposed N/A -Texture ([place]-wound Skin Appearance) Assessed Localized Edema -Moisture ([place]-wound Skin Appearance Assessed ) Dry/Scaly -Color ([place]-wound Skin Appearance) Assessed Hemosiderin Staining -Temperature ([place]-wound Skin No Abnormality Appearance) (Pt Warm) -Tenderness on Palpation ([place]-wound No Skin Appearance) -Ulcer Cleansing Rinsed/ Irrigated with Saline -Foul Odor after Cleansing No -Anesthetic Used 5% Lidocaine Gel [Edema Assessment] -Lower Limb Edema Present No -Left Calf (cm) 38.9 -Left Ankle (cm) 24.0 WC - Nurse 2 - General Ulcer CM Notes Start: 06/24/18 09:59 Freq: Status: Active Protocol: Activity Type Activity Date Activity User E-Sign Co-Sign Detail Recorded Client Recorded Date Recorded By Document 07/22/18 10:33 MW [id number] 07/22/18 10:35 MW 07/22/18 10:33 Wound Center Nurse 2 [Procedure/Treatment] #5 LEFT INFERIOR CURTIS -Time 10:33 -Correct Patient Yes -Correct Side, Site, Position Yes -Correct Procedure Yes -Procedure Performed Yes -Type of Procedure Debridement -Clinical Debridement Subcutaneous -Post Debridement Size (cm) - Length 0.4 -Post Debridement Size (cm) - Width 0.4 -Post Debridement Size (cm) - Depth 0.1 -Total Square Cm 0.16 -Wound/Ulcer Outcome Not Healed -Ulcer Cleansing Rinsed/ Irrigated with Saline -Foul Odor after Cleansing No -Bioengineered Tissue No -Bleeding Controlled with Pressure -Treatment Response Procedure Tolerated Well #4 LEFT SUPERIOR CURTIS -Time 10:33 -Correct Patient Yes -Correct Side, Site, Position Yes -Correct Procedure Yes -Procedure Performed Yes -Type of Procedure Debridement -Clinical Debridement Subcutaneous -Post Debridement Size (cm) - Length 0.1 -Post Debridement Size (cm) - Width 0.1 -Post Debridement Size (cm) - Depth 0.1 -Total Square Cm 0.01 -Wound/Ulcer Outcome Not Healed -Ulcer Cleansing Rinsed/ Irrigated with Saline -Foul Odor after Cleansing No -Bioengineered Tissue No -Bleeding Controlled with Pressure -Treatment Response Procedure Tolerated Well [See Physician Procedure note for Specifics] Pain Scale: 0-10 Numeric [Pain] -Is Patient Pain Free? Yes Musculoskeletal: No Muscle Wasting Neurological: Cranial nerves II-XII grossly intact Psych/Mental Status: Normal Affect Debridement Note Post-Debridement Measurements/Treatment WC - Nurse 2 - General Ulcer CM Notes Start: 06/24/18 09:59 Freq: Status: Active Protocol: Activity Type Activity Date Activity User E-Sign Co-Sign Detail Recorded Client Recorded Date Recorded By Document 06/24/18 10:23 MW [id number] 06/24/18 10:31 MW Document 07/01/18 08:39 MW [id number] 07/01/18 08:47 MW Document 07/08/18 10:36 MW [id number] 07/08/18 10:40 MW Document 07/15/18 09:32 MW [id number] 07/15/18 09:35 MW Document 07/22/18 10:33 MW [id number] 07/22/18 10:35 MW 06/24/18 07/01/18 07/08/18 10:23 08:39 10:36 Wound Center Nurse 2 #5 LEFT INFERIOR CURTIS -Time 10:24 08:39 10:36 -Correct Patient Yes Yes Yes -Correct Side, Site, Position Yes Yes Yes -Correct Procedure Yes Yes Yes -Procedure Performed Yes Yes Yes -Type of Procedure Debridement Debridement Debridement -Clinical Debridement Subcutaneous Subcutaneous Subcutaneous -Post Debridement Size (cm) - Length 1.5 1.0 0.7 -Post Debridement Size (cm) - Width 1.5 1.2 0.7 -Post Debridement Size (cm) - Depth 0.1 0.1 0.1 -Total Square Cm 2.25 1.20 0.49 -Wound/Ulcer Outcome Not Healed Not Healed Not Healed -Ulcer Cleansing Rinsed/ Rinsed/ Rinsed/ Irrigated with Irrigated with Irrigated with Saline Saline Saline -Foul Odor after Cleansing No No No -Bioengineered Tissue Yes Yes No -Type of bioengineered Tissue EPIFIX EPIFIX -Expiration Date 02/20/23 02/20/23 -Product Lot Number [id number] -Percent Used 100 100 -Saline Lot Number [id number] -Bleeding Controlled with Pressure Pressure Pressure -Treatment Response Procedure Procedure Procedure Tolerated Well Tolerated Well Tolerated Well #4 LEFT SUPERIOR CURTIS -Time 10:24 08:39 10:36 -Correct Patient Yes Yes Yes -Correct Side, Site, Position Yes Yes Yes -Correct Procedure Yes Yes Yes -Procedure Performed Yes Yes Yes -Type of Procedure Debridement Debridement Debridement -Clinical Debridement Subcutaneous Subcutaneous Subcutaneous -Post Debridement Size (cm) - Length 1.5 1.5 0.8 -Post Debridement Size (cm) - Width 0.6 0.6 0.3 -Post Debridement Size (cm) - Depth 0.1 0.1 0.1 -Total Square Cm 0.90 0.90 0.24 -Wound/Ulcer Outcome Not Healed Not Healed Not Healed -Ulcer Cleansing Rinsed/ Rinsed/ Irrigated with Irrigated with Saline Saline -Foul Odor after Cleansing No No -Bioengineered Tissue No Yes No -Type of bioengineered Tissue EPIFIX -Expiration Date 02/20/23 02/20/23 -Product Lot Number [id number] -Percent Used 100 100 -Saline Lot Number [id number] -Bleeding Controlled with Pressure Pressure Pressure -Treatment Response Procedure Procedure Procedure Tolerated Well Tolerated Well Tolerated Well Pain Scale: 0-10 Numeric Is Patient Pain Free? Yes Yes Yes 07/15/18 07/22/18 09:32 10:33 Wound Center Nurse 2 #5 LEFT INFERIOR CURTIS -Time 09:32 10:33 -Correct Patient Yes Yes -Correct Side, Site, Position Yes Yes -Correct Procedure Yes Yes -Procedure Performed Yes Yes -Type of Procedure Debridement Debridement -Clinical Debridement Subcutaneous Subcutaneous -Post Debridement Size (cm) - Length 0.5 0.4 -Post Debridement Size (cm) - Width 0.5 0.4 -Post Debridement Size (cm) - Depth 0.1 0.1 -Total Square Cm 0.25 0.16 -Wound/Ulcer Outcome Not Healed Not Healed -Ulcer Cleansing Rinsed/ Rinsed/ Irrigated with Irrigated with Saline Saline -Foul Odor after Cleansing No No -Bioengineered Tissue No No -Type of bioengineered Tissue -Expiration Date -Product Lot Number -Percent Used -Saline Lot Number -Bleeding Controlled with Pressure Pressure -Treatment Response Procedure Procedure Tolerated Well Tolerated Well #4 LEFT SUPERIOR CURTIS -Time 09:33 10:33 -Correct Patient Yes Yes -Correct Side, Site, Position Yes Yes -Correct Procedure Yes Yes -Procedure Performed Yes Yes -Type of Procedure Debridement Debridement -Clinical Debridement Subcutaneous Subcutaneous -Post Debridement Size (cm) - Length 0.8 0.1 -Post Debridement Size (cm) - Width 0.4 0.1 -Post Debridement Size (cm) - Depth 0.1 0.1 -Total Square Cm 0.32 0.01 -Wound/Ulcer Outcome Not Healed Not Healed -Ulcer Cleansing Rinsed/ Rinsed/ Irrigated with Irrigated with Saline Saline -Foul Odor after Cleansing No No -Bioengineered Tissue No No -Type of bioengineered Tissue -Expiration Date -Product Lot Number -Percent Used -Saline Lot Number -Bleeding Controlled with Pressure Pressure -Treatment Response Procedure Procedure Tolerated Well Tolerated Well Pain Scale: 0-10 Numeric Is Patient Pain Free? Yes Yes Wound debrided: Left lower extrmity superior Wound Grade/Stage: Stage II Type of Debridement: Excisional debridement Anesthesia Used: 5% Lidocaine Gel Depth: Down to and including healthy tissue, in the subcutaneous layer Percentage of wound debrided: 100 Instrument Used: #15 blade Tissue Removed: Devitalized tissue Severity: Fat Layer Exposed Amount of bleeding with debridement: Mild Bleeding Controlled with: Pressure Patient tolerated procedure well - Additional Wound Wound debrided: Left lower extremity inferior Wound Grade/Stage: Stage II Type of Debridement: Excisional debridement Anesthesia Used: 4% Lidocaine Solution Depth: Down to and including healthy tissue, in the subcutaneous layer Percentage of wound debrided: 100 Instrument Used: #15 blade Tissue Removed: Devitalized tissue and slough Severity: Fat Layer Exposed Amount of bleeding with debridement: Mild Bleeding Controlled with: Pressure Patient tolerated procedure: Patient tolerated procedure well Assessment/Plan Active Problems Traumatic wound (Chronic) Penetrating wound with fat layer exposed. Open wound of left lower extremity (Chronic) Assessment: Penetrating traumatic left lower extremity wounds with delayed healing. Left lower extremity cellulitis. Plan: Improving wounds. Debridement of both wounds done as documenetd above. Procedure was well tolerated. Continue Promogran with Adaptic over top. Change every other day. Continue Tubi mold filler for edema management. Elevate lower extremity when seated and in bed. Increased protein intake and protein supplements also recommended. Follow up in 1 week. Advised to call with any questions or concerns. This note was generated with [employer] software. It may contain incorrect words, spelling, and punctuation that were not noted in checking the note before signing.
--- NOTE | 2018-07-22 10:40 | PN.PCM_ITS ---
(1) Open wound of left lower extremity Status: Chronic Current Visit: Yes Qualifiers: Code(s): S81.802A - Unspecified open wound, left lower leg, initial encounter (2) Traumatic wound Status: Chronic Current Visit: Yes Comment: Penetrating wound with fat layer exposed. (3) Chronic venous insufficiency Status: Chronic Current Visit: No Code(s): I87.2 - Venous insufficiency (chronic) (peripheral) Type of Wound Chief Complaint: Recent traumatic injury to the left anterior tibial surface with persistent wound History of Wound: This is a 77-year-old male with multiple pre-existing medical problems. He was in his normal state of health until February 2018. At that time, he sustained trauma to the left anterior tibial surface, resulting in 2 adjacent superficial wounds. He was evaluated by his primary care physician, and placed on oral cephalexin, which has now been completed. The traumatic wounds failed to heal, and the patient presented for further evaluation and management. The patient typically sleeps on a flat mattress at night, though occasionally sleeps in a recliner due to breathing problems. He claims to be active. He does not ambulate liberally, however, claiming to suffer from shortness of breath which o ccurs with activity. 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 It is uncertain whether this was deep or superficial thrombophlebitis. He has been being seen by several physicians at the wound center, most recently Dr. Thomas and Dr. Valentine. He had been using santyl but was changed to promogran last week. He has had increased pain and redness and went to the ER and was given doxycycline. He is tolerating this medicine. He is on day 5 of 10. He states that the pain has not improved. No cultures have been taken. Denies fever or chills or drainage. Progress of Wound: Improving. - Physical Exam Vital Signs Temp Pulse Resp BP 95.9 F L 105 H 20 H 122/77 H 07/22/18 10:16 07/22/18 10:16 07/22/18 10:16 07/22/18 10:16 General: Alert, Oriented x3, Cooperative, No apparent distress HEENT: Atraumatic Oral: Moist Mucosa Neck: Supple Lungs: Normal air movement Abdomen: Soft, Non Tender Extremities: No cyanosis Wound Measurements and Assessment WC - Nurse 1 - General Ulcer Measurement Start: 06/24/18 09:59 Freq: Status: Active Protocol: Activity Type Activity Date Activity User E-Sign Co-Sign Detail Recorded Client Recorded Date Recorded By Document 07/22/18 10:16 DL [id number] 07/22/18 10:29 DL 07/22/18 10:16 Wound Center Nurse 1 [Ulcer Assessment] #5 LEFT INFERIOR CURTIS -Combined with other wound No -Current Size (cm) - Length 0.3 -Current Size (cm) - Width 0.3 -Current Size (cm) - Depth 0.1 -Total Square Cm 0.09 -Photo Taken No -Epithelialization Small 1-33% -Tunneling No -Undermining/Tunneling No -Circular Undermining No -Exudate Amt Small (1-33%) -Exudate Type Serosanguineous -Wound Margin Flat & Intact -Granulation Amt Small (1-33%) -Granulation Quality [place] -Slough/Fibrin Yes -Necrosis Amt Medium (34-66%) -Necrotic Tissue Type Adherent Slough -Structure Exposed N/A -Texture ([place]-wound Skin Appearance) Assessed Scarring -Moisture ([place]-wound Skin Appearance Assessed ) Dry/Scaly -Color ([place]-wound Skin Appearance) Assessed Hemosiderin Staining -Temperature ([place]-wound Skin No Abnormality Appearance) (Pt Warm) -Tenderness on Palpation ([place]-wound No Skin Appearance) -Ulcer Cleansing Rinsed/ Irrigated with Saline -Foul Odor after Cleansing No -Anesthetic Used 5% Lidocaine Gel #4 LEFT SUPERIOR CURTIS -Combined with other wound No -Current Size (cm) - Length 0.9 -Current Size (cm) - Width 0.3 -Current Size (cm) - Depth 0.1 -Total Square Cm 0.27 -Photo Taken No -Epithelialization Small 1-33% -Tunneling No -Undermining/Tunneling No -Circular Undermining No -Exudate Amt Small (1-33%) -Exudate Type Serosanguineous -Wound Margin Flat & Intact -Granulation Amt Small (1-33%) -Granulation Quality [place] -Slough/Fibrin Yes -Necrosis Amt Medium (34-66%) -Necrotic Tissue Type Adherent Slough -Structure Exposed N/A -Texture ([place]-wound Skin Appearance) Assessed Localized Edema -Moisture ([place]-wound Skin Appearance Assessed ) Dry/Scaly -Color ([place]-wound Skin Appearance) Assessed Hemosiderin Staining -Temperature ([place]-wound Skin No Abnormality Appearance) (Pt Warm) -Tenderness on Palpation ([place]-wound No Skin Appearance) -Ulcer Cleansing Rinsed/ Irrigated with Saline -Foul Odor after Cleansing No -Anesthetic Used 5% Lidocaine Gel [Edema Assessment] -Lower Limb Edema Present No -Left Calf (cm) 38.9 -Left Ankle (cm) 24.0 WC - Nurse 2 - General Ulcer CM Notes Start: 06/24/18 09:59 Freq: Status: Active Protocol: Activity Type Activity Date Activity User E-Sign Co-Sign Detail Recorded Client Recorded Date Recorded By Document 07/22/18 10:33 MW [id number] 07/22/18 10:35 MW 07/22/18 10:33 Wound Center Nurse 2 [Procedure/Treatment] #5 LEFT INFERIOR CURTIS -Time 10:33 -Correct Patient Yes -Correct Side, Site, Position Yes -Correct Procedure Yes -Procedure Performed Yes -Type of Procedure Debridement -Clinical Debridement Subcutaneous -Post Debridement Size (cm) - Length 0.4 -Post Debridement Size (cm) - Width 0.4 -Post Debridement Size (cm) - Depth 0.1 -Total Square Cm 0.16 -Wound/Ulcer Outcome Not Healed -Ulcer Cleansing Rinsed/ Irrigated with Saline -Foul Odor after Cleansing No -Bioengineered Tissue No -Bleeding Controlled with Pressure -Treatment Response Procedure Tolerated Well #4 LEFT SUPERIOR CURTIS -Time 10:33 -Correct Patient Yes -Correct Side, Site, Position Yes -Correct Procedure Yes -Procedure Performed Yes -Type of Procedure Debridement -Clinical Debridement Subcutaneous -Post Debridement Size (cm) - Length 0.1 -Post Debridement Size (cm) - Width 0.1 -Post Debridement Size (cm) - Depth 0.1 -Total Square Cm 0.01 -Wound/Ulcer Outcome Not Healed -Ulcer Cleansing Rinsed/ Irrigated with Saline -Foul Odor after Cleansing No -Bioengineered Tissue No -Bleeding Controlled with Pressure -Treatment Response Procedure Tolerated Well [See Physician Procedure note for Specifics] Pain Scale: 0-10 Numeric [Pain] -Is Patient Pain Free? Yes Musculoskeletal: No Muscle Wasting Neurological: Cranial nerves II-XII grossly intact Psych/Mental Status: Normal Affect Debridement Note Post-Debridement Measurements/Treatment WC - Nurse 2 - General Ulcer CM Notes Start: 06/24/18 09:59 Freq: Status: Active Protocol: Activity Type Activity Date Activity User E-Sign Co-Sign Detail Recorded Client Recorded Date Recorded By Document 06/24/18 10:23 MW [id number] 06/24/18 10:31 MW Document 07/01/18 08:39 MW [id number] 07/01/18 08:47 MW Document 07/08/18 10:36 MW [id number] 07/08/18 10:40 MW Document 07/15/18 09:32 MW [id number] 07/15/18 09:35 MW Document 07/22/18 10:33 MW [id number] 07/22/18 10:35 MW 06/24/18 07/01/18 07/08/18 10:23 08:39 10:36 Wound Center Nurse 2 #5 LEFT INFERIOR CURTIS -Time 10:24 08:39 10:36 -Correct Patient Yes Yes Yes -Correct Side, Site, Position Yes Yes Yes -Correct Procedure Yes Yes Yes -Procedure Performed Yes Yes Yes -Type of Procedure Debridement Debridement Debridement -Clinical Debridement Subcutaneous Subcutaneous Subcutaneous -Post Debridement Size (cm) - Length 1.5 1.0 0.7 -Post Debridement Size (cm) - Width 1.5 1.2 0.7 -Post Debridement Size (cm) - Depth 0.1 0.1 0.1 -Total Square Cm 2.25 1.20 0.49 -Wound/Ulcer Outcome Not Healed Not Healed Not Healed -Ulcer Cleansing Rinsed/ Rinsed/ Rinsed/ Irrigated with Irrigated with Irrigated with Saline Saline Saline -Foul Odor after Cleansing No No No -Bioengineered Tissue Yes Yes No -Type of bioengineered Tissue EPIFIX EPIFIX -Expiration Date 02/20/23 02/20/23 -Product Lot Number [id number] -Percent Used 100 100 -Saline Lot Number [id number] -Bleeding Controlled with Pressure Pressure Pressure -Treatment Response Procedure Procedure Procedure Tolerated Well Tolerated Well Tolerated Well #4 LEFT SUPERIOR CURTIS -Time 10:24 08:39 10:36 -Correct Patient Yes Yes Yes -Correct Side, Site, Position Yes Yes Yes -Correct Procedure Yes Yes Yes -Procedure Performed Yes Yes Yes -Type of Procedure Debridement Debridement Debridement -Clinical Debridement Subcutaneous Subcutaneous Subcutaneous -Post Debridement Size (cm) - Length 1.5 1.5 0.8 -Post Debridement Size (cm) - Width 0.6 0.6 0.3 -Post Debridement Size (cm) - Depth 0.1 0.1 0.1 -Total Square Cm 0.90 0.90 0.24 -Wound/Ulcer Outcome Not Healed Not Healed Not Healed -Ulcer Cleansing Rinsed/ Rinsed/ Irrigated with Irrigated with Saline Saline -Foul Odor after Cleansing No No -Bioengineered Tissue No Yes No -Type of bioengineered Tissue EPIFIX -Expiration Date 02/20/23 02/20/23 -Product Lot Number [id number] -Percent Used 100 100 -Saline Lot Number [id number] -Bleeding Controlled with Pressure Pressure Pressure -Treatment Response Procedure Procedure Procedure Tolerated Well Tolerated Well Tolerated Well Pain Scale: 0-10 Numeric Is Patient Pain Free? Yes Yes Yes 07/15/18 07/22/18 09:32 10:33 Wound Center Nurse 2 #5 LEFT INFERIOR CURTIS -Time 09:32 10:33 -Correct Patient Yes Yes -Correct Side, Site, Position Yes Yes -Correct Procedure Yes Yes -Procedure Performed Yes Yes -Type of Procedure Debridement Debridement -Clinical Debridement Subcutaneous Subcutaneous -Post Debridement Size (cm) - Length 0.5 0.4 -Post Debridement Size (cm) - Width 0.5 0.4 -Post Debridement Size (cm) - Depth 0.1 0.1 -Total Square Cm 0.25 0.16 -Wound/Ulcer Outcome Not Healed Not Healed -Ulcer Cleansing Rinsed/ Rinsed/ Irrigated with Irrigated with Saline Saline -Foul Odor after Cleansing No No -Bioengineered Tissue No No -Type of bioengineered Tissue -Expiration Date -Product Lot Number -Percent Used -Saline Lot Number -Bleeding Controlled with Pressure Pressure -Treatment Response Procedure Procedure Tolerated Well Tolerated Well #4 LEFT SUPERIOR CURTIS -Time 09:33 10:33 -Correct Patient Yes Yes -Correct Side, Site, Position Yes Yes -Correct Procedure Yes Yes -Procedure Performed Yes Yes -Type of Procedure Debridement Debridement -Clinical Debridement Subcutaneous Subcutaneous -Post Debridement Size (cm) - Length 0.8 0.1 -Post Debridement Size (cm) - Width 0.4 0.1 -Post Debridement Size (cm) - Depth 0.1 0.1 -Total Square Cm 0.32 0.01 -Wound/Ulcer Outcome Not Healed Not Healed -Ulcer Cleansing Rinsed/ Rinsed/ Irrigated with Irrigated with Saline Saline -Foul Odor after Cleansing No No -Bioengineered Tissue No No -Type of bioengineered Tissue -Expiration Date -Product Lot Number -Percent Used -Saline Lot Number -Bleeding Controlled with Pressure Pressure -Treatment Response Procedure Procedure Tolerated Well Tolerated Well Pain Scale: 0-10 Numeric Is Patient Pain Free? Yes Yes Wound debrided: Left lower extrmity superior Wound Grade/Stage: Stage II Type of Debridement: Excisional debridement Anesthesia Used: 5% Lidocaine Gel Depth: Down to and including healthy tissue, in the subcutaneous layer Percentage of wound debrided: 100 Instrument Used: #15 blade Tissue Removed: Devitalized tissue Severity: Fat Layer Exposed Amount of bleeding with debridement: Mild Bleeding Controlled with: Pressure Patient tolerated procedure well - Additional Wound Wound debrided: Left lower extremity inferior Wound Grade/Stage: Stage II Type of Debridement: Excisional debridement Anesthesia Used: 4% Lidocaine Solution Depth: Down to and including healthy tissue, in the subcutaneous layer Percentage of wound debrided: 100 Instrument Used: #15 blade Tissue Removed: Devitalized tissue and slough Severity: Fat Layer Exposed Amount of bleeding with debridement: Mild Bleeding Controlled with: Pressure Patient tolerated procedure: Patient tolerated procedure well Assessment/Plan Active Problems Traumatic wound (Chronic) Penetrating wound with fat layer exposed. Open wound of left lower extremity (Chronic) Assessment: Penetrating traumatic left lower extremity wounds with delayed healing. Left lower extremity cellulitis. Plan: Improving wounds. Debridement of both wounds done as documenetd above. Procedure was well tolerated. Continue Promogran with Adaptic over top. Change every other day. 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 Elevate lower extremity when seated and in bed. Increased protein intake and protein supplements also recommended. Follow up in 1 week. Advised to call with any questions or concerns. This note was generated with [employer] software. It may contain incorrect words, spelling, and punctuation that were not noted in checking the note before signing.
== END 2018-07-22 23:59 ==
LOC: WC 10:15
PROVIDERS: Family Provider Internal Medicine; PCP Internal Medicine; Referring Provider Surgery; Visit Provider Internal Medicine
DX: I87.2 Venous insufficiency (chronic) (peripheral) (principal); S81.832A Puncture wound without foreign body, left lower leg, initial encounter; X58.XXXA Exposure to other specified factors, initial encounter; Z86.72 Personal history of thrombophlebitis; R06.02 Shortness of breath; L03.116 Cellulitis of left lower limb
CPT/HCPCS: 11042; 15271; Q4131

== ENCOUNTER 2018-08-20 10:00 | Outpatient (RCR) | payer MEDICARE, OTHER, SELFPAY ==
[2018-07-23 00:59] VITALS: BP 122/77; PULSE 105; RESP 20; TEMP 35.5
[2018-07-29 08:18] VITALS: BP 113/76; PULSE 61; RESP 18; TEMP 36
--- NOTE | 2018-07-29 08:39 | PN.PCM_ITS ---
(1) Chronic venous insufficiency Status: Chronic Current Visit: No Code(s): I87.2 - Venous insufficiency (chronic) (peripheral) (2) Open wound of left lower extremity Status: Chronic Current Visit: Yes Qualifiers: Code(s): S81.802A - Unspecified open wound, left lower leg, initial encounter Type of Wound Chief Complaint: Recent traumatic injury to the left anterior tibial surface with persistent wound History of Wound: This is a 77-year-old male with multiple pre-existing medical problems. He was in his normal state of health until February 2018. At that time, he sustained trauma to the left anterior tibial surface, resulting in 2 adjacent superficial wounds. He was evaluated by his primary care physician, and placed on oral cephalexin, which has now been completed. The traumatic wounds failed to heal, and the patient presented for further evaluation and management. The patient typically sleeps on a flat mattress at night, though occasionally sleeps in a recliner due to breathing problems. He claims to be active. He does not ambulate liberally, however, claiming to suffer from shortness of breath which occurs with activity. 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 It is uncertain whether this was deep or superficial thrombophlebitis. He has been being seen by several physicians at the wound center, most recently Dr. Thomas and Dr. Valentine. He had been using santyl but was changed to promogran last week. He has had increased pain and redness and went to the ER and was given doxycycline. He is tolerating this medicine. He is on day 5 of 10. He states that the pain has not improved. No cultures have been taken. Denies fever or chills or drainage. Progress of Wound: Improving. - Physical Exam Vital Signs Temp Pulse Resp BP 96.8 F L 61 18 113/76 07/29/18 08:18 07/29/18 08:18 07/29/18 08:18 07/29/18 08:18 General: Alert, Oriented x3, Cooperative, No apparent distress HEENT: Atraumatic Oral: Moist Mucosa Neck: Supple Lungs: Normal air movement Abdomen: Non Tender Extremities: No cyanosis Skin: Ulcer/ Wound Wound Measurements and Assessment WC - Nurse 1 - General Ulcer Measurement Start: 07/29/18 08:18 Freq: Status: Active Protocol: Activity Type Activity Date Activity User E-Sign Co-Sign Detail Recorded Client Recorded Date Recorded By Document 07/29/18 08:18 RB [id number] 07/29/18 08:26 RB 07/29/18 08:18 Wound Center Nurse 1 [Ulcer Assessment] #5 LEFT INFERIOR CURTIS -Combined with other wound No -Current Size (cm) - Length 0.5 -Current Size (cm) - Width 0.4 -Current Size (cm) - Depth 0.1 -Total Square Cm 0.20 -Photo Taken No -Tunneling No -Undermining/Tunneling No -Circular Undermining No -Classification - Thickness Full Thickness without Exposed Support Structure -Exudate Amt None Present (0 %) -Wound Margin Distinct, Outline Attached -Granulation Amt Small (1-33%) -Granulation Quality [place] -Slough/Fibrin Yes -Necrosis Amt Large (67-100%) -Necrotic Tissue Type Eschar -Structure Exposed N/A -Texture ([place]-wound Skin Appearance) Assessed -Moisture ([place]-wound Skin Appearance Assessed ) -Color ([place]-wound Skin Appearance) Assessed -Temperature ([place]-wound Skin No Abnormality Appearance) (Pt Warm) -Tenderness on Palpation ([place]-wound No Skin Appearance) -Ulcer Cleansing Rinsed/ Irrigated with Saline -Foul Odor after Cleansing No -Anesthetic Used 5% Lidocaine Gel #4 LEFT SUPERIOR CURTIS -Combined with other wound No -Current Size (cm) - Length 0.1 -Current Size (cm) - Width 0.1 -Current Size (cm) - Depth 0.1 -Total Square Cm 0.01 -Photo Taken No -Tunneling No -Undermining/Tunneling No -Circular Undermining No -Exudate Amt Small (1-33%) -Exudate Type Serosanguineous -Wound Margin Distinct, Outline Attached -Granulation Amt Large (67-100%) -Granulation Quality [place] -Slough/Fibrin Yes -Necrosis Amt Small (1-33%) -Necrotic Tissue Type Adherent Slough -Structure Exposed N/A -Texture ([place]-wound Skin Appearance) Assessed -Moisture ([place]-wound Skin Appearance Assessed ) -Color ([place]-wound Skin Appearance) Assessed -Temperature ([place]-wound Skin No Abnormality Appearance) (Pt Warm) -Tenderness on Palpation ([place]-wound No Skin Appearance) -Ulcer Cleansing Rinsed/ Irrigated with Saline -Foul Odor after Cleansing No -Anesthetic Used 5% Lidocaine Gel [Edema Assessment] -Lower Limb Edema Present Yes -Left Calf (cm) 37.2 -Left Ankle (cm) 22 WC - Nurse 2 - General Ulcer CM Notes Start: 07/29/18 08:18 Freq: Status: Active Protocol: Activity Type Activity Date Activity User E-Sign Co-Sign Detail Recorded Client Recorded Date Recorded By Document 07/29/18 08:35 MW [id number] 07/29/18 08:36 MW 07/29/18 08:35 Wound Center Nurse 2 [Procedure/Treatment] #5 LEFT INFERIOR CURTIS -Time 08:35 -Correct Patient Yes -Correct Side, Site, Position Yes -Correct Procedure Yes -Procedure Performed Yes -Type of Procedure Debridement -Clinical Debridement Subcutaneous -Post Debridement Size (cm) - Length 0.3 -Post Debridement Size (cm) - Width 0.3 -Post Debridement Size (cm) - Depth 0.1 -Total Square Cm 0.09 -Wound/Ulcer Outcome Not Healed -Ulcer Cleansing Rinsed/ Irrigated with Saline -Foul Odor after Cleansing No -Bioengineered Tissue No -Bleeding Controlled with Pressure -Treatment Response Procedure Tolerated Well #4 LEFT SUPERIOR CURTIS -Time 08:35 -Correct Patient Yes -Correct Side, Site, Position Yes -Correct Procedure Yes -Procedure Performed No -Post Debridement Size (cm) - Length 0 -Post Debridement Size (cm) - Width 0 -Post Debridement Size (cm) - Depth 0 -Total Square Cm 0 -Wound/Ulcer Outcome Healed- Epithelialized [See Physician Procedure note for Specifics] Pain Scale: 0-10 Numeric [Pain] -Is Patient Pain Free? Yes Musculoskeletal: No Muscle Wasting Neurological: Cranial nerves II-XII grossly intact Psych/Mental Status: Normal Affect Debridement Note Post-Debridement Measurements/Treatment - Nurse 2 - General Ulcer CM Notes Start: 07/29/18 08:18 Freq: Status: Active Protocol: Activity Type Activity Date Activity User E-Sign Co-Sign Detail Recorded Client Recorded Date Recorded By Document 07/29/18 08:35 MW [id number] 07/29/18 08:36 MW 07/29/18 08:35 Wound Center Nurse 2 #5 LEFT INFERIOR CURTIS -Time 08:35 -Correct Patient Yes -Correct Side, Site, Position Yes -Correct Procedure Yes -Procedure Performed Yes -Type of Procedure Debridement -Clinical Debridement Subcutaneous -Post Debridement Size (cm) - Length 0.3 -Post Debridement Size (cm) - Width 0.3 -Post Debridement Size (cm) - Depth 0.1 -Total Square Cm 0.09 -Wound/Ulcer Outcome Not Healed -Ulcer Cleansing Rinsed/ Irrigated with Saline -Foul Odor after Cleansing No -Bioengineered Tissue No -Bleeding Controlled with Pressure -Treatment Response Procedure Tolerated Well #4 LEFT SUPERIOR CURTIS -Time 08:35 -Correct Patient Yes -Correct Side, Site, Position Yes -Correct Procedure Yes -Procedure Performed No -Post Debridement Size (cm) - Length 0 -Post Debridement Size (cm) - Width 0 -Post Debridement Size (cm) - Depth 0 -Total Square Cm 0 -Wound/Ulcer Outcome Healed- Epithelialized Pain Scale: 0-10 Numeric Is Patient Pain Free? Yes Wound debrided: Left lower extremity Inferior Wound Grade/Stage: Stage II Type of Debridement: Excisional debridement Anesthesia Used: 4% Lidocaine Solution Depth: Down to and including healthy tissue, in the subcutaneous layer Percentage of wound debrided: 100 Instrument Used: 7mm curette Tissue Removed: Slough and devitalized tissue Severity: Fat Layer Exposed Amount of bleeding with debridement: Mild Bleeding Controlled with: Pressure Patient tolerated procedure well Assessment/Plan Active Problems Open wound of left lower extremity (Chronic) Assessment: Penetrating traumatic left lower extremity wounds with delayed healing. Left lower extremity cellulitis. Plan: Superior wound has healed. Debridement done as documenetd above. Procedure was well tolerated. Continue Promogran with Adaptic over top. Change daily. Continue [employer] executive marketing assistant for edema management. Elevate lower extremity when seated and in bed. Increased protein intake and protein supplements also recommended. Follow up in 1 week. Advised to call with any questions or concerns. This note was generated with [employer] software. It may contain incorrect words, spelling, and punctuation that were not noted in checking the note before signing.
[2018-08-05 09:57] VITALS: RESP 16; TEMP 35.5
--- NOTE | 2018-08-05 10:51 | PN.PCM_ITS ---
(1) Chronic venous insufficiency Status: Chronic Current Visit: No Code(s): I87.2 - Venous insufficiency (chronic) (peripheral) (2) Open wound of left lower extremity Status: Chronic Current Visit: Yes Qualifiers: Code(s): S81.802A - Unspecified open wound, left lower leg, initial encounter Type of Wound Chief Complaint: Recent traumatic injury to the left anterior tibial surface with persistent wound History of Wound: This is a 77-year-old male with multiple pre-existing medical problems. He was in his normal state of health until February 2018. At that time, he sustained trauma to the left anterior tibial surface, resulting in 2 adjacent superficial wounds. He was evaluated by his primary care physician, and placed on oral cephalexin, which has now been completed. The traumatic wounds failed to heal, and the patient presented for further evaluation and management. The patient typically sleeps on a flat mattress at night, though occasionally sleeps in a recliner due to breathing problems. He claims to be active. He does not ambulate liberally, however, claiming to suffer from shortness of breath which occurs with activity. 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 It is uncertain whether this was deep or superficial thrombophlebitis. He has been being seen by several physicians at the wound center, most recently Dr. Thomas and Dr. Valentine. He had been using santyl but was changed to promogran last week. He has had increased pain and redness and went to the ER and was given doxycycline. He is tolerating this medicine. He is on day 5 of 10. He states that the pain has not improved. No cultures have been taken. Denies fever or chills or drainage. Progress of Wound: Improving. - Physical Exam Vital Signs Temp Pulse Resp BP 96 F L 61 16 113/76 08/05/18 09:57 07/29/18 08:18 08/05/18 09:57 07/29/18 08:18 General: Alert, Oriented x3, Cooperative, No apparent distress HEENT: Atraumatic Oral: Moist Mucosa Neck: Supple Lungs: Normal air movement Abdomen: Soft Extremities: No cyanosis, Edema Skin: Ulcer/ Wound Wound Measurements and Assessment WC - Nurse 1 - General Ulcer Measurement Start: 07/29/18 08:18 Freq: Status: Active Protocol: Activity Type Activity Date Activity User E-Sign Co-Sign Detail Recorded Client Recorded Date Recorded By Document 08/05/18 09:57 [facility] [id number] 08/05/18 10:02 [facility] 08/05/18 09:57 Wound Center Nurse 1 [Ulcer Assessment] #5 LEFT INFERIOR CURTIS -Combined with other wound No -Current Size (cm) - Length 0.4 -Current Size (cm) - Width 0.2 -Current Size (cm) - Depth 0.1 -Total Square Cm 0.08 -Epithelialization None Present -Tunneling No -Undermining/Tunneling No -Circular Undermining No -Exudate Amt None Present (0 %) -Wound Margin Distinct, Outline Attached -Granulation Amt None Present (0 %) -Slough/Fibrin Yes -Necrosis Amt Large (67-100%) -Necrotic Tissue Type Adherent Slough -Texture (Zenobia-wound Skin Appearance) Scarring -Moisture ([place]-wound Skin Appearance Dry/Scaly ) -Color (Zenobia-wound Skin Appearance) Hemosiderin Staining -Temperature ([place]-wound Skin No Abnormality Appearance) (Pt Warm) -Tenderness on Palpation (Zenobia-wound No Skin Appearance) -Ulcer Cleansing Rinsed/ Irrigated with Saline -Foul Odor after Cleansing No -Anesthetic Used 4% Lidocaine Solution [Edema Assessment] -Lower Limb Edema Present Yes -Left Calf (cm) 37.5 -Left Ankle (cm) 22 - Nurse 2 - General Ulcer CM Notes Start: 07/29/18 08:18 Freq: Status: Active Protocol: Activity Type Activity Date Activity User E-Sign Co-Sign Detail Recorded Client Recorded Date Recorded By Document 08/05/18 10:18 [id number] 08/05/18 10:19 08/05/18 10:18 Wound Center Nurse 2 [Procedure/Treatment] #5 LEFT INFERIOR CURTIS -Time 10:18 -Correct Patient Yes -Correct Side, Site, Position Yes -Correct Procedure Yes -Procedure Performed Yes -Type of Procedure Debridement -Clinical Debridement Subcutaneous -Post Debridement Size (cm) - Length 0.3 -Post Debridement Size (cm) - Width 0.2 -Post Debridement Size (cm) - Depth 0.1 -Total Square Cm 0.06 -Wound/Ulcer Outcome Not Healed -Ulcer Cleansing Not Cleansed -Foul Odor after Cleansing No -Bioengineered Tissue No -Bleeding Controlled with NA -Treatment Response Procedure Tolerated Well [See Physician Procedure note for Specifics] Pain Scale: 0-10 Numeric [Pain] -Is Patient Pain Free? Yes Musculoskeletal: No Muscle Wasting Neurological: Cranial nerves II-XII grossly intact Psych/Mental Status: Normal Affect Debridement Note Post-Debridement Measurements/Treatment WC - Nurse 2 - General Ulcer CM Notes Start: 07/29/18 08:18 Freq: Status: Active Protocol: Activity Type Activity Date Activity User E-Sign Co-Sign Detail Recorded Client Recorded Date Recorded By Document 07/29/18 08:35 MW [id number] 07/29/18 08:36 MW Document 08/05/18 10:18 CS [id number] 08/05/18 10:19 CS 07/29/18 08/05/18 08:35 10:18 Wound Center Nurse 2 #5 LEFT INFERIOR CURTIS -Time 08:35 10:18 -Correct Patient Yes Yes -Correct Side, Site, Position Yes Yes -Correct Procedure Yes Yes -Procedure Performed Yes Yes -Type of Procedure Debridement Debridement -Clinical Debridement Subcutaneous Subcutaneous -Post Debridement Size (cm) - Length 0.3 0.3 -Post Debridement Size (cm) - Width 0.3 0.2 -Post Debridement Size (cm) - Depth 0.1 0.1 -Total Square Cm 0.09 0.06 -Wound/Ulcer Outcome Not Healed Not Healed -Ulcer Cleansing Rinsed/ Not Cleansed Irrigated with Saline -Foul Odor after Cleansing No No -Bioengineered Tissue No No -Bleeding Controlled with Pressure NA -Treatment Response Procedure Procedure Tolerated Well Tolerated Well #4 LEFT SUPERIOR CURTIS -Time 08:35 -Correct Patient Yes -Correct Side, Site, Position Yes -Correct Procedure Yes -Procedure Performed No -Post Debridement Size (cm) - Length 0 -Post Debridement Size (cm) - Width 0 -Post Debridement Size (cm) - Depth 0 -Total Square Cm 0 -Wound/Ulcer Outcome Healed- Epithelialized Pain Scale: 0-10 Numeric Is Patient Pain Free? Yes Yes Wound debrided: Left lower extremity Wound Grade/Stage: Stage II Type of Debridement: Excisional debridement Anesthesia Used: 4% Lidocaine Solution Depth: Down to and including healthy tissue, in the subcutaneous layer Percentage of wound debrided: 100 Instrument Used: - - 1 mm Tissue Removed: Slough and devitalized tissue Severity: Fat Layer Exposed Amount of bleeding with debridement: Mild Bleeding Controlled with: Pressure Patient tolerated procedure well Assessment/Plan Active Problems Open wound of left lower extremity (Chronic) Assessment: Penetrating traumatic left lower extremity wounds with delayed healing. Left lower extremity cellulitis. Plan: Superior wound stays healed. Debridement done as documenetd above. Procedure was well tolerated. Continue Promogran with Adaptic over top. Change every third day. 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 Elevate lower extremity when seated and in bed. Increased protein intake and protein s upplements also recommended. Follow up in 1 week. Advised to call with any questions or concerns. This note was generated with [employer] dictation software. It may contain incorrect words, spelling, and punctuation that were not noted in checking the note before signing.
[2018-08-20 10:19] VITALS: BP 123/78; PULSE 63; RESP 16; TEMP 35.1
--- NOTE | 2018-08-20 11:12 | PCM.WC.PN ---
(1) Chronic venous insufficiency Status: Chronic Current Visit: No Code(s): I87.2 - Venous insufficiency (chronic) (peripheral) (2) Open wound of left lower extremity Status: Chronic Current Visit: Yes Qualifiers: Code(s): S81.802A - Unspecified open wound, left lower leg, initial encounter (3) Ulcer of left lower extremity with fat layer exposed Status: Acute Current Visit: Yes Code(s): L97.922 - Non-pressure chronic ulcer of unspecified part of left lower leg with fat layer exposed Type of Wound Chief Complaint: Recent traumatic injury to the left anterior tibial surface with persistent wound History of Wound: This is a 77-year-old male with multiple pre-existing medical problems. He was in his normal state of health until February 2018. At that time, he sustained trauma to the left anterior tibial surface, resulting in 2 adjacent superficial wounds. He was evaluated by his primary care physician, and placed on oral cephalexin, which has now been completed. The traumatic wounds failed to heal, and the patient presented for further evaluation and management. The patient typically sleeps on a flat mattress at night, though occasionally sleeps in a recliner due to breathing problems. He claims to be active. He does not ambulate liberally, however, claiming to suffer from shortness of breath which occurs with activity. 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 It is uncertain whether this was deep or superficial thrombophlebitis. He has been being seen by several physicians at the wound center, most recently Dr. Thomas and Dr. Valentine. He had been using santyl but was changed to promogran last week. He has had increased pain and redness and went to the ER and was given doxycycline. He is tolerating this medicine. He is on day 5 of 10. He states that the pain has not improved. No cultures have been taken. Denies fever or chills or drainage. Progress of Wound: Old ulcers have now healed however, patient presents with a new left lower extremity ulcer. He denies any known precipitating factor to the best of his knowledge cannot recollect trauma. Was noted about a week ago after he woke up. Has applied Promogran with some improvement per patient. He denies chills, fever or feeling of unwell. - Physical Exam Vital Signs Temp Pulse Resp BP 95.1 F L 63 16 123/78 H 08/20/18 10:19 08/20/18 10:19 08/20/18 10:19 08/20/18 10:19 General: Alert, Oriented x3, Cooperative, No apparent distress HEENT: Atraumatic, Normocephalic Oral: Moist Mucosa Neck: Supple Lungs: Normal air movement Abdomen: Non Tender Extremities: No cyanosis Skin: Ulcer/ Wound Wound Measurements and Assessment WC - Nurse 1 - General Ulcer Measurement Start: 07/29/18 08:18 Freq: Status: Active Protocol: Activity Type Activity Date Activity User E-Sign Co-Sign Detail Recorded Client Recorded Date Recorded By Document 08/20/18 10:19 [id number] 08/20/18 10:24 08/20/18 10:19 Wound Center Nurse 1 [Ulcer Assessment] #6 LEFT GARCIA -Combined with other wound No -Current Size (cm) - Length 2.1 -Current Size (cm) - Width 1 -Current Size (cm) - Depth 0.1 -Total Square Cm 2.1 -Date of Last Picture (Recall this 08/20/18 field) -Photo Taken Yes -Epithelialization None Present -Tunneling No -Undermining/Tunneling No -Circular Undermining No -Exudate Type Serous -Wound Margin Distinct, Outline Attached -Granulation Amt Medium (34-66%) -Granulation Quality Red -Slough/Fibrin Yes -Necrosis Amt None Present (0 %) -Necrotic Tissue Type Adherent Slough -Structure Exposed None/Limited to Skin Breakdown -Texture (Zenobia-wound Skin Appearance) No Abnormality -Moisture ([place]obia-wound Skin Appearance No Abnormality ) Assessed -Color ([place]enobia-wound Skin Appearance) No Abnormality Assessed -Temperature ([place]-wound Skin No Abnormality Appearance) (Pt Warm) -Tenderness on Palpation ([place]obia-wound Yes Skin Appearance) -Ulcer Cleansing Rinsed/ Irrigated with Saline -Foul Odor after Cleansing No -Anesthetic Used 5% Lidocaine Gel #5 LEFT INFERIOR GARCIA -Combined with other wound No -Current Size (cm) - Length 0.1 -Current Size (cm) - Width 0.1 -Current Size (cm) - Depth 0.1 -Total Square Cm 0.01 -Date of Last Picture (Recall this 08/20/18 field) -Photo Taken Yes -Epithelialization Large 67-100% -Tunneling No -Undermining/Tunneling No -Circular Undermining No -Temperature (Zenobia-wound Skin No Abnormality Appearance) (Pt Warm) -Tenderness on Palpation ([place]enobia-wound No Skin Appearance) -Ulcer Cleansing Rinsed/ Irrigated with Saline -Foul Odor after Cleansing No -Anesthetic Used 5% Lidocaine Gel [Edema Assessment] -Lower Limb Edema Present No -Left Calf (cm) 36 -Left Ankle (cm) 22 WC - Nurse 2 - General Ulcer CM Notes Start: 07/29/18 08:18 Freq: Status: Active Protocol: Activity Type Activity Date Activity User E-Sign Co-Sign Detail Recorded Client Recorded Date Recorded By Document 08/20/18 11:00 MW [id number] 08/20/18 11:03 MW 08/20/18 11:00 Wound Center Nurse 2 [Procedure/Treatment] #6 LEFT GARCIA -Time 11:00 -Correct Patient Yes -Correct Side, Site, Position Yes -Correct Procedure Yes -Procedure Performed Yes -Type of Procedure Debridement -Clinical Debridement Subcutaneous -Post Debridement Size (cm) - Length 2.0 -Post Debridement Size (cm) - Width 1.2 -Post Debridement Size (cm) - Depth 0.1 -Total Square Cm 2.40 -Wound/Ulcer Outcome Not Healed -Ulcer Cleansing Rinsed/ Irrigated with Saline -Foul Odor after Cleansing No -Bioengineered Tissue No -Bleeding Controlled with Pressure -Offloading No -Treatment Response Procedure Tolerated Well #5 LEFT INFERIOR GARCIA -Time 11:00 -Correct Patient Yes -Correct Side, Site, Position Yes -Correct Procedure Yes -Procedure Performed No -Post Debridement Size (cm) - Length 0 -Post Debridement Size (cm) - Width 0 -Post Debridement Size (cm) - Depth 0 -Total Square Cm 0 -Wound/Ulcer Outcome Healed- Epithelialized [See Physician Procedure note for Specifics] Pain Scale: 0-10 Numeric [Pain] -Is Patient Pain Free? Yes Musculoskeletal: No Muscle Wasting Neurological: Cranial nerves II-XII grossly intact Psych/Mental Status: Normal Affect Debridement Note Post-Debridement Measurements/Treatment JANIA - Nurse 2 - General Ulcer CM Notes Start: 07/29/18 08:18 Freq: Status: Active Protocol: Activity Type Activity Date Activity User E-Sign Co-Sign Detail Recorded Client Recorded Date Recorded By Document 07/29/18 08:35 MW [id number] 07/29/18 08:36 MW Document 08/05/18 10:18 CS [id number] 08/05/18 10:19 CS Document 08/20/18 11:00 MW [id number] 08/20/18 11:03 MW 07/29/18 08/05/18 08/20/18 08:35 10:18 11:00 Wound Center Nurse 2 #6 LEFT GARCIA -Time 11:00 -Correct Patient Yes -Correct Side, Site, Position Yes -Correct Procedure Yes -Procedure Performed Yes -Type of Procedure Debridement -Clinical Debridement Subcutaneous -Post Debridement Size (cm) - Length 2.0 -Post Debridement Size (cm) - Width 1.2 -Post Debridement Size (cm) - Depth 0.1 -Total Square Cm 2.40 -Wound/Ulcer Outcome Not Healed -Ulcer Cleansing Rinsed/ Irrigated with Saline -Foul Odor after Cleansing No -Bioengineered Tissue No -Bleeding Controlled with Pressure -Offloading No -Treatment Response Procedure Tolerated Well #5 LEFT INFERIOR GARCIA -Time 08:35 10:18 11:00 -Correct Patient Yes Yes Yes -Correct Side, Site, Position Yes Yes Yes -Correct Procedure Yes Yes Yes -Procedure Performed Yes Yes No -Type of Procedure Debridement Debridement -Clinical Debridement Subcutaneous Subcutaneous -Post Debridement Size (cm) - Length 0.3 0.3 0 -Post Debridement Size (cm) - Width 0.3 0.2 0 -Post Debridement Size (cm) - Depth 0.1 0.1 0 -Total Square Cm 0.09 0.06 0 -Wound/Ulcer Outcome Not Healed Not Healed Healed- Epithelialized -Ulcer Cleansing Rinsed/ Not Cleansed Irrigated with Saline -Foul Odor after Cleansing No No -Bioengineered Tissue No No -Bleeding Controlled with Pressure NA -Treatment Response Procedure Procedure Tolerated Well Tolerated Well #4 LEFT SUPERIOR GARCIA -Time 08:35 -Correct Patient Yes -Correct Side, Site, Position Yes -Correct Procedure Yes -Procedure Performed No -Post Debridement Size (cm) - Length 0 -Post Debridement Size (cm) - Width 0 -Post Debridement Size (cm) - Depth 0 -Total Square Cm 0 -Wound/Ulcer Outcome Healed- Epithelialized Pain Scale: 0-10 Numeric Is Patient Pain Free? Yes Yes Yes Wound debrided: Left lower extremity Wound Grade/Stage: Stage II Type of Debridement: Excisional debridement Anesthesia Used: 4% Lidocaine Solution Depth: Down to and including healthy tissue, in the subcutaneous layer Percentage of wound debrided: 100 Instrument Used: 3mm curette Tissue Removed: Slough and devitalized tissue Severity: Fat Layer Exposed Amount of bleeding with debridement: Mild Bleeding Controlled with: Pressure Patient tolerated procedure well Assessment/Plan Active Problems Open wound of left lower extremity (Chronic) Ulcer of left lower extremity with fat layer exposed (Acute) Assessment: Penetrating traumatic left lower extremity wounds with delayed healing. Left lower extremity cellulitis. Plan: Superior wound stays healed. Prior inferior wound is also healed. New left garcia ulcer. Debridement done as documenetd above. Procedure was well tolerated. Continue Promogran with Adaptic over top. Change daily. Continue Tubi prison guard supervisor for edema management. Elevate lower extremity when seated and in bed. Increased protein intake and protein supplements also recommended. Follow up in 2 weeks. Advised to call with any questions or concerns. This note was generated with [employer] dictation software. It may contain incorrect words, spelling, and punctuation that were not noted in checking the note before signing.
--- NOTE | 2018-08-20 11:15 | PN.PCM_ITS ---
(1) Chronic venous insufficiency Status: Chronic Current Visit: No Code(s): I87.2 - Venous insufficiency (chronic) (peripheral) (2) Open wound of left lower extremity Status: Chronic Current Visit: Yes Qualifiers: Code(s): S81.802A - Unspecified open wound, left lower leg, initial encounter (3) Ulcer of left lower extremity with fat layer exposed Status: Acute Current Visit: Yes Code(s): L97.922 - Non-pressure chronic ulcer of unspecified part of left lower leg with fat layer exposed Type of Wound Chief Complaint: Recent traumatic injury to the left anterior tibial surface with persistent wound History of Wound: This is a 77-year-old male with multiple pre-existing medical problems. He was in his normal state of health until February 2018. At that time, he sustained trauma to the left anterior tibial surface, resulting in 2 adjacent superficial wounds. He was evaluated by his primary care physician, and placed on oral cephalexin, which has now been completed. The traumatic wounds failed to heal, and the patient presented for further evaluation and management. The patient typically sleeps on a flat mattress at night, though occasionally sleeps in a recliner due to breathing problems. He claims to be active. He does not ambulate liberally, however, claiming to suffer from shortness of breath which occurs with activity. 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 It is uncertain whether this was deep or superficial thrombophlebitis. He has been being seen by several physicians at the wound center, most recently Dr. Thomas and Dr. Valentine. He had been using santyl but was changed to promogran last week. He has had increased pain and redness and went to the ER and was given doxycycline. He is tolerating this medicine. He is on day 5 of 10. He states that the pain has not improved. No cultures have been taken. Denies fever or chills or drainage. Progress of Wound: Old ulcers have now healed however, patient presents with a new left lower extremity ulcer. He denies any known precipitating factor to the best of his knowledge cannot recollect trauma. Was noted about a week ago after he woke up. Has applied Promogran with some improvement per patient. He denies chills, fever or feeling of unwell. - Physical Exam Vital Signs Temp Pulse Resp BP 95.1 F L 63 16 123/78 H 08/20/18 10:19 08/20/18 10:19 08/20/18 10:19 08/20/18 10:19 General: Alert, Oriented x3, Cooperative, No apparent distress HEENT: Atraumatic, Normocephalic Oral: Moist Mucosa Neck: Supple Lungs: Normal air movement Abdomen: Non Tender Extremities: No cyanosis Skin: Ulcer/ Wound Wound Measurements and Assessment WC - Nurse 1 - General Ulcer Measurement Start: 07/29/18 08:18 Freq: Status: Active Protocol: Activity Type Activity Date Activity User E-Sign Co-Sign Detail Recorded Client Recorded Date Recorded By Document 08/20/18 10:19 [id number] 08/20/18 10:24 08/20/18 10:19 Wound Center Nurse 1 [Ulcer Assessment] #6 LEFT GARCIA -Combined with other wound No -Current Size (cm) - Length 2.1 -Current Size (cm) - Width 1 -Current Size (cm) - Depth 0.1 -Total Square Cm 2.1 -Date of Last Picture (Recall this 08/20/18 field) -Photo Taken Yes -Epithelialization None Present -Tunneling No -Undermining/Tunneling No -Circular Undermining No -Exudate Type Serous -Wound Margin Distinct, Outline Attached -Granulation Amt Medium (34-66%) -Granulation Quality Red -Slough/Fibrin Yes -Necrosis Amt None Present (0 %) -Necrotic Tissue Type Adherent Slough -Structure Exposed None/Limited to Skin Breakdown -Texture (Zenobia-wound Skin Appearance) No Abnormality -Moisture (Zenobia-wound Skin Appearance No Abnormality ) Assessed -Color (Zenobia-wound Skin Appearance) No Abnormality Assessed -Temperature (Zenobia-wound Skin No Abnormality Appearance) (Pt Warm) -Tenderness on Palpation (Zenobia-wound Yes Skin Appearance) -Ulcer Cleansing Rinsed/ Irrigated with Saline -Foul Odor after Cleansing No -Anesthetic Used 5% Lidocaine Gel #5 LEFT INFERIOR GARCIA -Combined with other wound No -Current Size (cm) - Length 0.1 -Current Size (cm) - Width 0.1 -Current Size (cm) - Depth 0.1 -Total Square Cm 0.01 -Date of Last Picture (Recall this 08/20/18 field) -Photo Taken Yes -Epithelialization Large 67-100% -Tunneling No -Undermining/Tunneling No -Circular Undermining No -Temperature (Zenobia-wound Skin No Abnormality Appearance) (Pt Warm) -Tenderness on Palpation (Zenobia-wound No Skin Appearance) -Ulcer Cleansing Rinsed/ Irrigated with Saline -Foul Odor after Cleansing No -Anesthetic Used 5% Lidocaine Gel [Edema Assessment] -Lower Limb Edema Present No -Left Calf (cm) 36 -Left Ankle (cm) 22 WC - Nurse 2 - General Ulcer CM Notes Start: 07/29/18 08:18 Freq: Status: Active Protocol: Activity Type Activity Date Activity User E-Sign Co-Sign Detail Recorded Client Recorded Date Recorded By Document 08/20/18 11:00 MW [id number] 08/20/18 11:03 MW 08/20/18 11:00 Wound Center Nurse 2 [Procedure/Treatment] #6 LEFT GARCIA -Time 11:00 -Correct Patient Yes -Correct Side, Site, Position Yes -Correct Procedure Yes -Procedure Performed Yes -Type of Procedure Debridement -Clinical Debridement Subcutaneous -Post Debridement Size (cm) - Length 2.0 -Post Debridement Size (cm) - Width 1.2 -Post Debridement Size (cm) - Depth 0.1 -Total Square Cm 2.40 -Wound/Ulcer Outcome Not Healed -Ulcer Cleansing Rinsed/ Irrigated with Saline -Foul Odor after Cleansing No -Bioengineered Tissue No -Bleeding Controlled with Pressure -Offloading No -Treatment Response Procedure Tolerated Well #5 LEFT INFERIOR GARCIA -Time 11:00 -Correct Patient Yes -Correct Side, Site, Position Yes -Correct Procedure Yes -Procedure Performed No -Post Debridement Size (cm) - Length 0 -Post Debridement Size (cm) - Width 0 -Post Debridement Size (cm) - Depth 0 -Total Square Cm 0 -Wound/Ulcer Outcome Healed- Epithelialized [See Physician Procedure note for Specifics] Pain Scale: 0-10 Numeric [Pain] -Is Patient Pain Free? Yes Musculoskeletal: No Muscle Wasting Neurological: Cranial nerves II-XII grossly intact Psych/Mental Status: Normal Affect Debridement Note Post-Debridement Measurements/Treatment JANIA - Nurse 2 - General Ulcer CM Notes Start: 07/29/18 08:18 Freq: Status: Active Protocol: Activity Type Activity Date Activity User E-Sign Co-Sign Detail Recorded Client Recorded Date Recorded By Document 07/29/18 08:35 MW [id number] 07/29/18 08:36 MW Document 08/05/18 10:18 CS [id number] 08/05/18 10:19 CS Document 08/20/18 11:00 MW [id number] 08/20/18 11:03 MW 07/29/18 08/05/18 08/20/18 08:35 10:18 11:00 Wound Center Nurse 2 #6 LEFT GARCIA -Time 11:00 -Correct Patient Yes -Correct Side, Site, Position Yes -Correct Procedure Yes -Procedure Performed Yes -Type of Procedure Debridement -Clinical Debridement Subcutaneous -Post Debridement Size (cm) - Length 2.0 -Post Debridement Size (cm) - Width 1.2 -Post Debridement Size (cm) - Depth 0.1 -Total Square Cm 2.40 -Wound/Ulcer Outcome Not Healed -Ulcer Cleansing Rinsed/ Irrigated with Saline -Foul Odor after Cleansing No -Bioengineered Tissue No -Bleeding Controlled with Pressure -Offloading No -Treatment Response Procedure Tolerated Well #5 LEFT INFERIOR GARCIA -Time 08:35 10:18 11:00 -Correct Patient Yes Yes Yes -Correct Side, Site, Position Yes Yes Yes -Correct Procedure Yes Yes Yes -Procedure Performed Yes Yes No -Type of Procedure Debridement Debridement -Clinical Debridement Subcutaneous Subcutaneous -Post Debridement Size (cm) - Length 0.3 0.3 0 -Post Debridement Size (cm) - Width 0.3 0.2 0 -Post Debridement Size (cm) - Depth 0.1 0.1 0 -Total Square Cm 0.09 0.06 0 -Wound/Ulcer Outcome Not Healed Not Healed Healed- Epithelialized -Ulcer Cleansing Rinsed/ Not Cleansed Irrigated with Saline -Foul Odor after Cleansing No No -Bioengineered Tissue No No -Bleeding Controlled with Pressure NA -Treatment Response Procedure Procedure Tolerated Well Tolerated Well #4 LEFT SUPERIOR GARCIA -Time 08:35 -Correct Patient Yes -Correct Side, Site, Position Yes -Correct Procedure Yes -Procedure Performed No -Post Debridement Size (cm) - Length 0 -Post Debridement Size (cm) - Width 0 -Post Debridement Size (cm) - Depth 0 -Total Square Cm 0 -Wound/Ulcer Outcome Healed- Epithelialized Pain Scale: 0-10 Numeric Is Patient Pain Free? Yes Yes Yes Wound debrided: Left lower extremity Wound Grade/Stage: Stage II Type of Debridement: Excisional debridement Anesthesia Used: 4% Lidocaine Solution Depth: Down to and including healthy tissue, in the subcutaneous layer Percentage of wound debrided: 100 Instrument Used: 3mm curette Tissue Removed: Slough and devitalized tissue Severity: Fat Layer Exposed Amount of bleeding with debridement: Mild Bleeding Controlled with: Pressure Patient tolerated procedure well Assessment/Plan Active Problems Open wound of left lower extremity (Chronic) Ulcer of left lower extremity with fat layer exposed (Acute) Assessment: Penetrating traumatic left lower extremity wounds with delayed healing. Left lower extremity cellulitis. Plan: Superior wound stays healed. Prior inferior wound is also healed. New left garcia ulcer. Debridement done as documenetd above. Procedure was well tolerated. Continue Promogran with Adaptic over top. Change daily. Continue Tubi radio rigger for edema management. Elevate lower extremity when seated and in bed. Increased protein intake and protein supplements also recommended. Follow up in 2 weeks. Advised to call with any questions or concerns. This note was generated with [employer] dictation software. It may contain incorrect words, spelling, and punctuation that were not noted in checking the note before signing.
== END 2018-08-21 23:59 ==
LOC: WC 10:00
PROVIDERS: Family Provider Internal Medicine; PCP Internal Medicine; Referring Provider Surgery; Visit Provider Internal Medicine
DX: I87.2 Venous insufficiency (chronic) (peripheral) (principal); S81.832A Puncture wound without foreign body, left lower leg, initial encounter; X58.XXXA Exposure to other specified factors, initial encounter; Z86.72 Personal history of thrombophlebitis; R06.02 Shortness of breath; L03.116 Cellulitis of left lower limb
CPT/HCPCS: 11042

== ENCOUNTER 2018-09-16 09:30 | Outpatient (RCR) | payer MEDICARE, OTHER, SELFPAY ==
[2018-08-22 00:57] VITALS: BP 123/78; PULSE 63; RESP 16; TEMP 35.1
[2018-09-02 08:46] VITALS: BP 172/87; PULSE 76; RESP 18; TEMP 35.3
--- NOTE | 2018-09-02 10:18 | PCM.WC.PN ---
(1) Ulcer of left lower extremity with fat layer exposed Status: Chronic Current Visit: Yes Code(s): L97.922 - Non-pressure chronic ulcer of unspecified part of left lower leg with fat layer exposed (2) Left leg swelling Status: Chronic Current Visit: No Code(s): M79.89 - Other specified soft tissue disorders (3) Open wound of left lower extremity Status: Chronic Current Visit: No Qualifiers: Code(s): S81.802A - Unspecified open wound, left lower leg, initial encounter Type of Wound Chief Complaint: Recent traumatic injury to the left anterior tibial surface with persistent wound History of Wound: This is a 77-year-old male with multiple pre-existing medical problems. He was in his normal state of health until February 2018. At that time, he sustained trauma to the left anterior tibial surface, resulting in 2 adjacent superficial wounds. He was evaluated by his primary care physician, and placed on oral cephalexin, which has now been completed. The traumatic wounds failed to heal, and the patient presented for further evaluation and management. The patient typically sleeps on a flat mattress at night, though occasionally sleeps in a recliner due to breathing problems. He claims to be active. He does not ambulate liberally, however, claiming to suffer from shortness of breath which occurs with activity. 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 It is uncertain whether this was deep or superficial thrombophlebitis. He has been being seen by several physicians at the wound center, most recently Dr. Thomas and Dr. Valentine. He had been using santyl but was changed to promogran last week. He has had increased pain and redness and went to the ER and was given doxycycline. He is tolerating this medicine. He is on day 5 of 10. He states that the pain has not improved. No cultures have been taken. Denies fever or chills or drainage. Progress of Wound: Improving. No new complaints - Physical Exam Vital Signs Temp Pulse Resp BP 95.5 F L 76 18 172/87 H 09/02/18 08:46 09/02/18 08:46 09/02/18 08:46 09/02/18 08:46 General: Alert, Oriented x3, Cooperative, No apparent distress HEENT: Atraumatic Oral: Moist Mucosa Neck: Supple Lungs: Normal air movement Abdomen: Non Tender, Obese Extremities: No cyanosis Skin: Ulcer/ Wound Wound Measurements and Assessment WC - Nurse 1 - General Ulcer Measurement Start: 09/02/18 08:43 Freq: Status: Active Protocol: Activity Type Activity Date Activity User E-Sign Co-Sign Detail Recorded Client Recorded Date Recorded By Document 09/02/18 08:46 CS [id number] 09/02/18 08:47 CS 09/02/18 08:46 Wound Center Nurse 1 [Ulcer Assessment] #6 LEFT GARCIA -Combined with other wound No -Current Size (cm) - Length 1.1 -Current Size (cm) - Width 0.6 -Current Size (cm) - Depth 0.1 -Total Square Cm 0.66 -Photo Taken No -Epithelialization None Present -Tunneling No -Undermining/Tunneling No -Circular Undermining No -Necrosis Amt Large (67-100%) -Necrotic Tissue Type Eschar -Texture (Zenobia-wound Skin Appearance) Scarring -Moisture (Zenobia-wound Skin Appearance No Abnormality ) Assessed -Color (Zenobia-wound Skin Appearance) No Abnormality Assessed -Temperature (Zenobia-wound Skin No Abnormality Appearance) (Pt Warm) -Tenderness on Palpation (Zenobia-wound Yes Skin Appearance) -Ulcer Cleansing Rinsed/ Irrigated with Saline -Foul Odor after Cleansing No -Anesthetic Used 5% Lidocaine Gel [Edema Assessment] -Lower Limb Edema Present No -Left Calf (cm) 36.3 -Left Ankle (cm) 23.5 WC - Nurse 2 - General Ulcer CM Notes Start: 09/02/18 08:43 Freq: Status: Active Protocol: Activity Type Activity Date Activity User E-Sign Co-Sign Detail Recorded Client Recorded Date Recorded By Document 09/02/18 09:24 MW [id number] 09/02/18 09:25 MW 09/02/18 09:24 Wound Center Nurse 2 [Procedure/Treatment] #6 LEFT GARCIA -Time 09:24 -Correct Patient Yes -Correct Side, Site, Position Yes -Correct Procedure Yes -Procedure Performed Yes -Type of Procedure Debridement -Clinical Debridement Subcutaneous -Post Debridement Size (cm) - Length 1.0 -Post Debridement Size (cm) - Width 0.6 -Post Debridement Size (cm) - Depth 0.1 -Total Square Cm 0.60 -Wound/Ulcer Outcome Not Healed -Ulcer Cleansing Rinsed/ Irrigated with Saline -Foul Odor after Cleansing No -Bioengineered Tissue No -Bleeding Controlled with Pressure -Offloading No -Treatment Response Procedure Tolerated Well [See Physician Procedure note for Specifics] Pain Scale: 0-10 Numeric [Pain] -Is Patient Pain Free? Yes Musculoskeletal: No Muscle Wasting Neurological: Cranial nerves II-XII grossly intact Psych/Mental Status: Normal Affect Debridement Note Post-Debridement Measurements/Treatment WC - Nurse 2 - General Ulcer CM Notes Start: 09/02/18 08:43 Freq: Status: Active Protocol: Activity Type Activity Date Activity User E-Sign Co-Sign Detail Recorded Client Recorded Date Recorded By Document 09/02/18 09:24 MW [id number] 09/02/18 09:25 MW 09/02/18 09:24 Wound Center Nurse 2 #6 LEFT GARCIA -Time 09:24 -Correct Patient Yes -Correct Side, Site, Position Yes -Correct Procedure Yes -Procedure Performed Yes -Type of Procedure Debridement -Clinical Debridement Subcutaneous -Post Debridement Size (cm) - Length 1.0 -Post Debridement Size (cm) - Width 0.6 -Post Debridement Size (cm) - Depth 0.1 -Total Square Cm 0.60 -Wound/Ulcer Outcome Not Healed -Ulcer Cleansing Rinsed/ Irrigated with Saline -Foul Odor after Cleansing No -Bioengineered Tissue No -Bleeding Controlled with Pressure -Offloading No -Treatment Response Procedure Tolerated Well Pain Scale: 0-10 Numeric Is Patient Pain Free? Yes Wound debrided: Left lower extremity Wound Grade/Stage: Stage II Type of Debridement: Excisional debridement Anesthesia Used: 4% Lidocaine Solution Depth: Down to and including healthy tissue, in the subcutaneous layer Percentage of wound debrided: 100 Instrument Used: 3mm curette Tissue Removed: Slough and devitalized tisue Severity: Fat Layer Exposed Amount of bleeding with debridement: Mild Bleeding Controlled with: Pressure Patient tolerated procedure well Assessment/Plan Active Problems Ulcer of left lower extremity with fat layer exposed (Chronic) Assessment: Penetrating traumatic left lower extremity wounds with delayed healing. Left lower extremity cellulitis. Plan: Improving left garcia ulcer. Debridement done as documenetd above. Procedure was well tolerated. Continue Promogran with Adaptic over top. Change daily. Continue Tubi supervisory cbp officer for edema management. Elevate lower extremity when seated and in bed. Increased protein intake and protein supplements also recommended. Follow up in 1 week. Advised to call with any questions or concerns. This note was generated with [employer] software. It may contain incorrect words, spelling, and punctuation that were not noted in checking the note before signing.
--- NOTE | 2018-09-02 10:23 | PN.PCM_ITS ---
(1) Ulcer of left lower extremity with fat layer exposed Status: Chronic Current Visit: Yes Code(s): L97.922 - Non-pressure chronic ulcer of unspecified part of left lower leg with fat layer exposed (2) Left leg swelling Status: Chronic Current Visit: No Code(s): M79.89 - Other specified soft tissue disorders (3) Open wound of left lower extremity Status: Chronic Current Visit: No Qualifiers: Code(s): S81.802A - Unspecified open wound, left lower leg, initial encounter Type of Wound Chief Complaint: Recent traumatic injury to the left anterior tibial surface with persistent wound History of Wound: This is a 77-year-old male with multiple pre-existing medical problems. He was in his normal state of health until February 2018. At that time, he sustained trauma to the left anterior tibial surface, resulting in 2 adjacent superficial wounds. He was evaluated by his primary care physician, and placed on oral cephalexin, which has now been completed. The traumatic wounds failed to heal, and the patient presented for further evaluation and management. The patient typically sleeps on a flat mattress at night, though occasionally sleeps in a recliner due to breathing problems. He claims to be active. He does not ambulate liberally, however, claiming to suffer from shortness of breath which occurs with activity. 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 It is uncertain whether this was deep or superficial thrombophlebitis. He has been being seen by several physicians at the wound center, most recently Dr. Thomas and Dr. Valentine. He had been using santyl but was changed to promogran last week. He has had increased pain and redness and went to the ER and was given doxycycline. He is tolerating this medicine. He is on day 5 of 10. He states that the pain has not improved. No cultures have been taken. Denies fever or chills or drainage. Progress of Wound: Improving. No new complaints - Physical Exam Vital Signs Temp Pulse Resp BP 95.5 F L 76 18 172/87 H 09/02/18 08:46 09/02/18 08:46 09/02/18 08:46 09/02/18 08:46 General: Alert, Oriented x3, Cooperative, No apparent distress HEENT: Atraumatic Oral: Moist Mucosa Neck: Supple Lungs: Normal air movement Abdomen: Non Tender, Obese Extremities: No cyanosis Skin: Ulcer/ Wound Wound Measurements and Assessment WC - Nurse 1 - General Ulcer Measurement Start: 09/02/18 08:43 Freq: Status: Active Protocol: Activity Type Activity Date Activity User E-Sign Co-Sign Detail Recorded Client Recorded Date Recorded By Document 09/02/18 08:46 CS [id number] 09/02/18 08:47 CS 09/02/18 08:46 Wound Center Nurse 1 [Ulcer Assessment] #6 LEFT GARCIA -Combined with other wound No -Current Size (cm) - Length 1.1 -Current Size (cm) - Width 0.6 -Current Size (cm) - Depth 0.1 -Total Square Cm 0.66 -Photo Taken No -Epithelialization None Present -Tunneling No -Undermining/Tunneling No -Circular Undermining No -Necrosis Amt Large (67-100%) -Necrotic Tissue Type Eschar -Texture (Zenobia-wound Skin Appearance) Scarring -Moisture (Zenobia-wound Skin Appearance No Abnormality ) Assessed -Color (Zenobia-wound Skin Appearance) No Abnormality Assessed -Temperature (Zenobia-wound Skin No Abnormality Appearance) (Pt Warm) -Tenderness on Palpation (Zenobia-wound Yes Skin Appearance) -Ulcer Cleansing Rinsed/ Irrigated with Saline -Foul Odor after Cleansing No -Anesthetic Used 5% Lidocaine Gel [Edema Assessment] -Lower Limb Edema Present No -Left Calf (cm) 36.3 -Left Ankle (cm) 23.5 WC - Nurse 2 - General Ulcer CM Notes Start: 09/02/18 08:43 Freq: Status: Active Protocol: Activity Type Activity Date Activity User E-Sign Co-Sign Detail Recorded Client Recorded Date Recorded By Document 09/02/18 09:24 MW [id number] 09/02/18 09:25 MW 09/02/18 09:24 Wound Center Nurse 2 [Procedure/Treatment] #6 LEFT GARCIA -Time 09:24 -Correct Patient Yes -Correct Side, Site, Position Yes -Correct Procedure Yes -Procedure Performed Yes -Type of Procedure Debridement -Clinical Debridement Subcutaneous -Post Debridement Size (cm) - Length 1.0 -Post Debridement Size (cm) - Width 0.6 -Post Debridement Size (cm) - Depth 0.1 -Total Square Cm 0.60 -Wound/Ulcer Outcome Not Healed -Ulcer Cleansing Rinsed/ Irrigated with Saline -Foul Odor after Cleansing No -Bioengineered Tissue No -Bleeding Controlled with Pressure -Offloading No -Treatment Response Procedure Tolerated Well [See Physician Procedure note for Specifics] Pain Scale: 0-10 Numeric [Pain] -Is Patient Pain Free? Yes Musculoskeletal: No Muscle Wasting Neurological: Cranial nerves II-XII grossly intact Psych/Mental Status: Normal Affect Debridement Note Post-Debridement Measurements/Treatment WC - Nurse 2 - General Ulcer CM Notes Start: 09/02/18 08:43 Freq: Status: Active Protocol: Activity Type Activity Date Activity User E-Sign Co-Sign Detail Recorded Client Recorded Date Recorded By Document 09/02/18 09:24 MW [id number] 09/02/18 09:25 MW 09/02/18 09:24 Wound Center Nurse 2 #6 LEFT GARCIA -Time 09:24 -Correct Patient Yes -Correct Side, Site, Position Yes -Correct Procedure Yes -Procedure Performed Yes -Type of Procedure Debridement -Clinical Debridement Subcutaneous -Post Debridement Size (cm) - Length 1.0 -Post Debridement Size (cm) - Width 0.6 -Post Debridement Size (cm) - Depth 0.1 -Total Square Cm 0.60 -Wound/Ulcer Outcome Not Healed -Ulcer Cleansing Rinsed/ Irrigated with Saline -Foul Odor after Cleansing No -Bioengineered Tissue No -Bleeding Controlled with Pressure -Offloading No -Treatment Response Procedure Tolerated Well Pain Scale: 0-10 Numeric Is Patient Pain Free? Yes Wound debrided: Left lower extremity Wound Grade/Stage: Stage II Type of Debridement: Excisional debridement Anesthesia Used: 4% Lidocaine Solution Depth: Down to and including healthy tissue, in the subcutaneous layer Percentage of wound debrided: 100 Instrument Used: 3mm curette Tissue Removed: Slough and devitalized tisue Severity: Fat Layer Exposed Amount of bleeding with debridement: Mild Bleeding Controlled with: Pressure Patient tolerated procedure well Assessment/Plan Active Problems Ulcer of left lower extremity with fat layer exposed (Chronic) Assessment: Penetrating traumatic left lower extremity wounds with delayed healing. Left lower extremity cellulitis. Plan: Improving left garcia ulcer. Debridement done as documenetd above. Procedure was well tolerated. Continue Promogran with Adaptic over top. Change daily. Continue Tubi stripping shovel operator for edema management. Elevate lower extremity when seated and in bed. Increased protein intake and protein supplements also recommended. Follow up in 1 week. Advised to call with any questions or concerns. This note was generated with [employer] software. It may contain incorrect words, spelling, and punctuation that were not noted in checking the note before signing.
[2018-09-09 08:11] VITALS: BP 162/108; PULSE 68; RESP 16; TEMP 36.3
--- NOTE | 2018-09-09 08:34 | PCM.WC.PN ---
(1) Ulcer of left lower extremity with fat layer exposed Status: Chronic Current Visit: Yes Code(s): L97.922 - Non-pressure chronic ulcer of unspecified part of left lower leg with fat layer exposed (2) Left leg swelling Status: Chronic Current Visit: No Code(s): M79.89 - Other specified soft tissue disorders (3) Open wound of left lower extremity Status: Chronic Current Visit: No Qualifiers: Code(s): S81.802A - Unspecified open wound, left lower leg, initial encounter Type of Wound Chief Complaint: Recent traumatic injury to the left anterior tibial surface with persistent wound History of Wound: This is a 77-year-old male with multiple pre-existing medical problems. He was in his normal state of health until February 2018. At that time, he sustained trauma to the left anterior tibial surface, resulting in 2 adjacent superficial wounds. He was evaluated by his primary care physician, and placed on oral cephalexin, which has now been completed. The traumatic wounds failed to heal, and the patient presented for further evaluation and management. The patient typically sleeps on a flat mattress at night, though occasionally sleeps in a recliner due to breathing problems. He claims to be active. He does not ambulate liberally, however, claiming to suffer from shortness of breath which occurs with activity. 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 It is uncertain whether this was deep or superficial thrombophlebitis. He has been being seen by several physicians at the wound center, most recently Dr. Thomas and Dr. Valentine. He had been using santyl but was changed to promogran last week. He has had increased pain and redness and went to the ER and was given doxycycline. He is tolerating this medicine. He is on day 5 of 10. He states that the pain has not improved. No cultures have been taken. Denies fever or chills or drainage. Progress of Wound: Improving. No new complaints - Physical Exam Vital Signs Temp Pulse Resp BP 97.4 F L 68 16 162/108 H 09/09/18 08:11 09/09/18 08:11 09/09/18 08:11 09/09/18 08:11 General: Alert, Oriented x3, Cooperative, No apparent distress HEENT: Atraumatic, Normocephalic Oral: Moist Mucosa Neck: Supple Lungs: Normal air movement Extremities: No cyanosis Skin: Ulcer/ Wound Wound Measurements and Assessment WC - Nurse 1 - General Ulcer Measurement Start: 09/02/18 08:43 Freq: Status: Active Protocol: Activity Type Activity Date Activity User E-Sign Co-Sign Detail Recorded Client Recorded Date Recorded By Document 09/09/18 08:11 CS [id number] 09/09/18 08:13 CS 09/09/18 08:11 Wound Center Nurse 1 [Ulcer Assessment] #6 LEFT CURTIS -Combined with other wound No -Current Size (cm) - Length 0.7 -Current Size (cm) - Width 0.5 -Current Size (cm) - Depth 0.1 -Total Square Cm 0.35 -Photo Taken No -Epithelialization None Present -Tunneling No -Undermining/Tunneling No -Circular Undermining No -Exudate Amt Small (1-33%) -Exudate Type Serosanguineous -Wound Margin Distinct, Outline Attached -Granulation Amt Medium (34-66%) -Granulation Quality Red -Necrosis Amt Medium (34-66%) -Necrotic Tissue Type Adherent Slough -Temperature (Zenobia-wound Skin No Abnormality Appearance) (Pt Warm) -Tenderness on Palpation (Zenobia-wound Yes Skin Appearance) -Ulcer Cleansing Rinsed/ Irrigated with Saline -Foul Odor after Cleansing No -Anesthetic Used 5% Lidocaine Gel [Edema Assessment] -Lower Limb Edema Present No -Left Calf (cm) 38.4 -Left Ankle (cm) 22.5 WC - Nurse 2 - General Ulcer CM Notes Start: 09/02/18 08:43 Freq: Status: Active Protocol: Activity Type Activity Date Activity User E-Sign Co-Sign Detail Recorded Client Recorded Date Recorded By Document 09/09/18 08:24 MW [id number] 09/09/18 08:26 MW 09/09/18 08:24 Wound Center Nurse 2 [Procedure/Treatment] #6 LEFT CURTIS -Time 08:25 -Correct Patient Yes -Correct Side, Site, Position Yes -Correct Procedure Yes -Procedure Performed Yes -Type of Procedure Debridement -Clinical Debridement Subcutaneous -Post Debridement Size (cm) - Length 0.7 -Post Debridement Size (cm) - Width 0.5 -Post Debridement Size (cm) - Depth 0.1 -Total Square Cm 0.35 -Wound/Ulcer Outcome Not Healed -Ulcer Cleansing Rinsed/ Irrigated with Saline -Foul Odor after Cleansing No -Bioengineered Tissue No -Bleeding Controlled with Pressure -Offloading No -Treatment Response Procedure Tolerated Well [See Physician Procedure note for Specifics] Pain Scale: 0-10 Numeric [Pain] -Is Patient Pain Free? Yes Musculoskeletal: No Muscle Wasting Neurological: Cranial nerves II-XII grossly intact Psych/Mental Status: Normal Affect Debridement Note Post-Debridement Measurements/Treatment WC - Nurse 2 - General Ulcer CM Notes Start: 09/02/18 08:43 Freq: Status: Active Protocol: Activity Type Activity Date Activity User E-Sign Co-Sign Detail Recorded Client Recorded Date Recorded By Document 09/02/18 09:24 MW [id number] 09/02/18 09:25 MW Document 09/09/18 08:24 MW [id number] 09/09/18 08:26 MW 09/02/18 09/09/18 09:24 08:24 Wound Center Nurse 2 #6 LEFT CURTIS -Time 09:24 08:25 -Correct Patient Yes Yes -Correct Side, Site, Position Yes Yes -Correct Procedure Yes Yes -Procedure Performed Yes Yes -Type of Procedure Debridement Debridement -Clinical Debridement Subcutaneous Subcutaneous -Post Debridement Size (cm) - Length 1.0 0.7 -Post Debridement Size (cm) - Width 0.6 0.5 -Post Debridement Size (cm) - Depth 0.1 0.1 -Total Square Cm 0.60 0.35 -Wound/Ulcer Outcome Not Healed Not Healed -Ulcer Cleansing Rinsed/ Rinsed/ Irrigated with Irrigated with Saline Saline -Foul Odor after Cleansing No No -Bioengineered Tissue No No -Bleeding Controlled with Pressure Pressure -Offloading No No -Treatment Response Procedure Procedure Tolerated Well Tolerated Well Pain Scale: 0-10 Numeric Is Patient Pain Free? Yes Yes Wound debrided: Left lower extremity Wound Grade/Stage: Stage II Type of Debridement: Excisional debridement Anesthesia Used: 5% Lidocaine Gel Depth: Down to and including healthy tissue, in the subcutaneous layer Percentage of wound debrided: 100 Instrument Used: - - 2mm Tissue Removed: Slough and devitalized tissue Severity: Fat Layer Exposed Amount of bleeding with debridement: Mild Bleeding Controlled with: Pressure Patient tolerated procedure well Assessment/Plan Active Problems Ulcer of left lower extremity with fat layer exposed (Chronic) Assessment: Penetrating traumatic left lower extremity wounds with delayed healing. Left lower extremity cellulitis. Plan: Improved. Debridement done as documenetd above. Procedure was well tolerated. Continue Promogran with Adaptic over top. Change daily. 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 Elevate lower extremity when seated and in bed. Increased protein intake and protein supplements also recommended. Follow up in 1 week. Advised to call with any questions or concerns. This note was generated with [employer] dictation software. It may contain incorrect words, spelling, and punctuation that were not noted in checking the note before signing.
--- NOTE | 2018-09-09 08:37 | PN.PCM_ITS ---
(1) Ulcer of left lower extremity with fat layer exposed Status: Chronic Current Visit: Yes Code(s): L97.922 - Non-pressure chronic ulcer of unspecified part of left lower leg with fat layer exposed (2) Left leg swelling Status: Chronic Current Visit: No Code(s): M79.89 - Other specified soft tissue disorders (3) Open wound of left lower extremity Status: Chronic Current Visit: No Qualifiers: Code(s): S81.802A - Unspecified open wound, left lower leg, initial encounter Type of Wound Chief Complaint: Recent traumatic injury to the left anterior tibial surface with persistent wound History of Wound: This is a 77-year-old male with multiple pre-existing medical problems. He was in his normal state of health until February 2018. At that time, he sustained trauma to the left anterior tibial surface, resulting in 2 adjacent superficial wounds. He was evaluated by his primary care physician, and placed on oral cephalexin, which has now been completed. The traumatic wounds failed to heal, and the patient presented for further evaluation and management. The patient typically sleeps on a flat mattress at night, though occasionally sleeps in a recliner due to breathing problems. He claims to be active. He does not ambulate liberally, however, claiming to suffer from shortness of breath which occurs with activity. 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 It is uncertain whether this was deep or superficial thrombophlebitis. He has been being seen by several physicians at the wound center, most recently Dr. Thomas and Dr. Valentine. He had been using santyl but was changed to promogran last week. He has had increased pain and redness and went to the ER and was given doxycycline. He is tolerating this medicine. He is on day 5 of 10. He states that the pain has not improved. No cultures have been taken. Denies fever or chills or drainage. Progress of Wound: Improving. No new complaints - Physical Exam Vital Signs Temp Pulse Resp BP 97.4 F L 68 16 162/108 H 09/09/18 08:11 09/09/18 08:11 09/09/18 08:11 09/09/18 08:11 General: Alert, Oriented x3, Cooperative, No apparent distress HEENT: Atraumatic, Normocephalic Oral: Moist Mucosa Neck: Supple Lungs: Normal air movement Extremities: No cyanosis Skin: Ulcer/ Wound Wound Measurements and Assessment WC - Nurse 1 - General Ulcer Measurement Start: 09/02/18 08:43 Freq: Status: Active Protocol: Activity Type Activity Date Activity User E-Sign Co-Sign Detail Recorded Client Recorded Date Recorded By Document 09/09/18 08:11 CS [id number] 09/09/18 08:13 CS 09/09/18 08:11 Wound Center Nurse 1 [Ulcer Assessment] #6 LEFT CURTIS -Combined with other wound No -Current Size (cm) - Length 0.7 -Current Size (cm) - Width 0.5 -Current Size (cm) - Depth 0.1 -Total Square Cm 0.35 -Photo Taken No -Epithelialization None Present -Tunneling No -Undermining/Tunneling No -Circular Undermining No -Exudate Amt Small (1-33%) -Exudate Type Serosanguineous -Wound Margin Distinct, Outline Attached -Granulation Amt Medium (34-66%) -Granulation Quality Red -Necrosis Amt Medium (34-66%) -Necrotic Tissue Type Adherent Slough -Temperature (Zenobia-wound Skin No Abnormality Appearance) (Pt Warm) -Tenderness on Palpation (Zenobia-wound Yes Skin Appearance) -Ulcer Cleansing Rinsed/ Irrigated with Saline -Foul Odor after Cleansing No -Anesthetic Used 5% Lidocaine Gel [Edema Assessment] -Lower Limb Edema Present No -Left Calf (cm) 38.4 -Left Ankle (cm) 22.5 WC - Nurse 2 - General Ulcer CM Notes Start: 09/02/18 08:43 Freq: Status: Active Protocol: Activity Type Activity Date Activity User E-Sign Co-Sign Detail Recorded Client Recorded Date Recorded By Document 09/09/18 08:24 MW [id number] 09/09/18 08:26 MW 09/09/18 08:24 Wound Center Nurse 2 [Procedure/Treatment] #6 LEFT CURTIS -Time 08:25 -Correct Patient Yes -Correct Side, Site, Position Yes -Correct Procedure Yes -Procedure Performed Yes -Type of Procedure Debridement -Clinical Debridement Subcutaneous -Post Debridement Size (cm) - Length 0.7 -Post Debridement Size (cm) - Width 0.5 -Post Debridement Size (cm) - Depth 0.1 -Total Square Cm 0.35 -Wound/Ulcer Outcome Not Healed -Ulcer Cleansing Rinsed/ Irrigated with Saline -Foul Odor after Cleansing No -Bioengineered Tissue No -Bleeding Controlled with Pressure -Offloading No -Treatment Response Procedure Tolerated Well [See Physician Procedure note for Specifics] Pain Scale: 0-10 Numeric [Pain] -Is Patient Pain Free? Yes Musculoskeletal: No Muscle Wasting Neurological: Cranial nerves II-XII grossly intact Psych/Mental Status: Normal Affect Debridement Note Post-Debridement Measurements/Treatment WC - Nurse 2 - General Ulcer CM Notes Start: 09/02/18 08:43 Freq: Status: Active Protocol: Activity Type Activity Date Activity User E-Sign Co-Sign Detail Recorded Client Recorded Date Recorded By Document 09/02/18 09:24 MW [id number] 09/02/18 09:25 MW Document 09/09/18 08:24 MW [id number] 09/09/18 08:26 MW 09/02/18 09/09/18 09:24 08:24 Wound Center Nurse 2 #6 LEFT CURTIS -Time 09:24 08:25 -Correct Patient Yes Yes -Correct Side, Site, Position Yes Yes -Correct Procedure Yes Yes -Procedure Performed Yes Yes -Type of Procedure Debridement Debridement -Clinical Debridement Subcutaneous Subcutaneous -Post Debridement Size (cm) - Length 1.0 0.7 -Post Debridement Size (cm) - Width 0.6 0.5 -Post Debridement Size (cm) - Depth 0.1 0.1 -Total Square Cm 0.60 0.35 -Wound/Ulcer Outcome Not Healed Not Healed -Ulcer Cleansing Rinsed/ Rinsed/ Irrigated with Irrigated with Saline Saline -Foul Odor after Cleansing No No -Bioengineered Tissue No No -Bleeding Controlled with Pressure Pressure -Offloading No No -Treatment Response Procedure Procedure Tolerated Well Tolerated Well Pain Scale: 0-10 Numeric Is Patient Pain Free? Yes Yes Wound debrided: Left lower extremity Wound Grade/Stage: Stage II Type of Debridement: Excisional debridement Anesthesia Used: 5% Lidocaine Gel Depth: Down to and including healthy tissue, in the subcutaneous layer Percentage of wound debrided: 100 Instrument Used: - - 2mm Tissue Removed: Slough and devitalized tissue Severity: Fat Layer Exposed Amount of bleeding with debridement: Mild Bleeding Controlled with: Pressure Patient tolerated procedure well Assessment/Plan Active Problems Ulcer of left lower extremity with fat layer exposed (Chronic) Assessment: Penetrating traumatic left lower extremity wounds with delayed healing. Left lower extremity cellulitis. Plan: Improved. Debridement done as documenetd above. Procedure was well tolerated. Continue Promogran with Adaptic over top. Change daily. 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 Elevate lower extremity when seated and in bed. Increased protein intake and protein supplements also recommended. Follow up in 1 week. Advised to call with any questions or concerns. This note was generated with [employer] dictation software. It may contain incorrect words, spelling, and punctuation that were not noted in checking the note before signing.
[2018-09-16 09:55] VITALS: BP 141/76; PULSE 67; RESP 16; TEMP 35.8
--- NOTE | 2018-09-16 10:42 | PN.PCM_ITS ---
(1) Ulcer of left lower extremity with fat layer exposed Status: Chronic Current Visit: Yes Code(s): L97.922 - Non-pressure chronic ulcer of unspecified part of left lower leg with fat layer exposed (2) Left leg swelling Status: Chronic Current Visit: No Code(s): M79.89 - Other specified soft tissue disorders (3) Open wound of left lower extremity Status: Chronic Current Visit: No Qualifiers: Code(s): S81.802A - Unspecified open wound, left lower leg, initial encounter Type of Wound Chief Complaint: Recent traumatic injury to the left anterior tibial surface with persistent wound History of Wound: This is a 77-year-old male with multiple pre-existing medical problems. He was in his normal state of health until February 2018. At that time, he sustained trauma to the left anterior tibial surface, resulting in 2 adjacent superficial wounds. He was evaluated by his primary care physician, and placed on oral cephalexin, which has now been completed. The traumatic wounds failed to heal, and the patient presented for further evaluation and management. The patient typically sleeps on a flat mattress at night, though occasionally sleeps in a recliner due to breathing problems. He claims to be active. He does not ambulate liberally, however, claiming to suffer from shortness of breath which occurs with activity. 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 It is uncertain whether this was deep or superficial thrombophlebitis. He has been being seen by several physicians at the wound center, most recently Dr. Thomas and Dr. Valentine. He had been using santyl but was changed to promogran last week. He has had increased pain and redness and went to the ER and was given doxycycline. He is tolerating this medicine. He is on day 5 of 10. He states that the pain has not improved. No cultures have been taken. Denies fever or chills or drainage. Progress of Wound: Improving. No new complaints - Physical Exam Vital Signs Temp Pulse Resp BP 96.4 F L 67 16 141/76 H 09/16/18 09:55 09/16/18 09:55 09/16/18 09:55 09/16/18 09:55 General: Alert, Oriented x3, Cooperative, No apparent distress HEENT: Atraumatic Oral: Moist Mucosa Neck: Supple Lungs: Normal air movement Abdomen: Non Tender Skin: Ulcer/ Wound Wound Measurements and Assessment - Nurse 1 - General Ulcer Measurement Start: 09/02/18 08:43 Freq: Status: Active Protocol: Activity Type Activity Date Activity User E-Sign Co-Sign Detail Recorded Client Recorded Date Recorded By Document 09/16/18 09:55 [facility] [id number] 09/16/18 09:59 [facility] 09/16/18 09:55 Wound Center Nurse 1 [Ulcer Assessment] #6 LEFT CURTIS -Combined with other wound No -Current Size (cm) - Length 0.1 -Current Size (cm) - Width 0.1 -Current Size (cm) - Depth 0.1 -Total Square Cm 0.01 -Date of Last Picture (Recall this 09/16/18 field) -Photo Taken Yes -Epithelialization Large 67-100% -Tunneling No -Undermining/Tunneling No -Circular Undermining No -Texture (Zenobia-wound Skin Appearance) Scarring -Moisture (Zenobia-wound Skin Appearance Dry/Scaly ) -Color (Zenobia-wound Skin Appearance) Hemosiderin Staining -Temperature (Zenobia-wound Skin No Abnormality Appearance) (Pt Warm) -Tenderness on Palpation (Zenobia-wound No Skin Appearance) -Ulcer Cleansing Rinsed/ Irrigated with Saline -Foul Odor after Cleansing No -Anesthetic Used 5% Lidocaine Gel [Edema Assessment] -Left Calf (cm) 37.6 -Left Ankle (cm) 23.5 - Nurse 2 - General Ulcer CM Notes Start: 09/02/18 08:43 Freq: Status: Active Protocol: Activity Type Activity Date Activity User E-Sign Co-Sign Detail Recorded Client Recorded Date Recorded By Document 09/16/18 10:28 [id number] 09/16/18 10:30 09/16/18 10:28 Wound Center Nurse 2 [Procedure/Treatment] #6 LEFT CURTIS -Time 10:29 -Correct Patient Yes -Correct Side, Site, Position Yes -Correct Procedure Yes -Procedure Performed Yes -Type of Procedure Debridement -Clinical Debridement Subcutaneous -Post Debridement Size (cm) - Length 0.1 -Post Debridement Size (cm) - Width 0.1 -Post Debridement Size (cm) - Depth 0.1 -Total Square Cm 0.01 -Wound/Ulcer Outcome Not Healed -Ulcer Cleansing Rinsed/ Irrigated with Saline -Foul Odor after Cleansing No -Bioengineered Tissue No -Topical Lidocaine (%) 4 -Lidocaine (ml) 5 -Bleeding Controlled with NA -Offloading No -Treatment Response Procedure Tolerated Well [See Physician Procedure note for Specifics] Pain Scale: 0-10 Numeric [Pain] -Is Patient Pain Free? Yes Musculoskeletal: No Muscle Wasting Neurological: Cranial nerves II-XII grossly intact Psych/Mental Status: Normal Affect Debridement Note Post-Debridement Measurements/Treatment WC - Nurse 2 - General Ulcer CM Notes Start: 09/02/18 08:43 Freq: Status: Active Protocol: Activity Type Activity Date Activity User E-Sign Co-Sign Detail Recorded Client Recorded Date Recorded By Document 09/02/18 09:24 MW [id number] 09/02/18 09:25 MW Document 09/09/18 08:24 MW [id number] 09/09/18 08:26 MW Document 09/16/18 10:28 JS [id number] 09/16/18 10:30 JS 09/02/18 09/09/18 09/16/18 09:24 08:24 10:28 Wound Center Nurse 2 #6 LEFT CURTIS -Time 09:24 08:25 10:29 -Correct Patient Yes Yes Yes -Correct Side, Site, Position Yes Yes Yes -Correct Procedure Yes Yes Yes -Procedure Performed Yes Yes Yes -Type of Procedure Debridement Debridement Debridement -Clinical Debridement Subcutaneous Subcutaneous Subcutaneous -Post Debridement Size (cm) - Length 1.0 0.7 0.1 -Post Debridement Size (cm) - Width 0.6 0.5 0.1 -Post Debridement Size (cm) - Depth 0.1 0.1 0.1 -Total Square Cm 0.60 0.35 0.01 -Wound/Ulcer Outcome Not Healed Not Healed Not Healed -Ulcer Cleansing Rinsed/ Rinsed/ Rinsed/ Irrigated with Irrigated with Irrigated with Saline Saline Saline -Foul Odor after Cleansing No No No -Bioengineered Tissue No No No -Topical Lidocaine (%) 4 -Lidocaine (ml) 5 -Bleeding Controlled with Pressure Pressure NA -Offloading No No No -Treatment Response Procedure Procedure Procedure Tolerated Well Tolerated Well Tolerated Well Pain Scale: 0-10 Numeric Is Patient Pain Free? Yes Yes Yes Wound debrided: Left lower extremity Wound Grade/Stage: Stage II Type of Debridement: Excisional debridement Anesthesia Used: 4% Lidocaine Solution Depth: Down to and including healthy tissue, in the subcutaneous layer Percentage of wound debrided: 100 Instrument Used: 3mm curette Tissue Removed: Slough and devitalized tissue Severity: Fat Layer Exposed Amount of bleeding with debridement: Mild Bleeding Controlled with: Pressure Patient tolerated procedure well Assessment/Plan Active Problems Ulcer of left lower extremity with fat layer exposed (Chronic) Assessment: Penetrating traumatic left lower extremity wounds with delayed healing. Left lower extremity cellulitis. Plan: Improved. Minimal area left debridement done as documenetd above. Procedure was well tolerated. Continue Promogran with Adaptic over top. Change daily. Continue Tubi frame wirer for edema management. Elevate lower extremity when seated and in bed. Increased protein intake and protein supplements also recommended. Follow up in 2 weeks. Advised to call with any questions or concerns. This note was generated with [employer] dictation software. It may contain incorrect words, spelling, and punctuation that were not noted in checking the note before signing.
== END 2018-09-21 23:59 ==
LOC: WC 09:30
PROVIDERS: Family Provider Internal Medicine; PCP Internal Medicine; Referring Provider Surgery; Visit Provider Internal Medicine
DX: S81.832A Puncture wound without foreign body, left lower leg, initial encounter (principal); X58.XXXA Exposure to other specified factors, initial encounter; M79.89 Other specified soft tissue disorders; L03.116 Cellulitis of left lower limb; L97.822 Non-pressure chronic ulcer of other part of left lower leg with fat layer exposed
CPT/HCPCS: 11042

== ENCOUNTER → 2018-10-12 12:08 | Outpatient (CLI) | payer MEDICARE, OTHER, SELFPAY ==
[2018-10-12 11:58] VITALS: BMI 32.9
--- NOTE | 2018-10-12 12:10 | RAD_ITS ---
STUDY: X-RAY - LEFT HAND REASON FOR EXAM: Male, 78 years old. Pain and swelling following injury. TECHNIQUE: 3 view(s) of the hand. COMPARISON: Comparison is made with prior examination dated September 04, 2016. 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 Normal distal radioulnar joint. Multiple small cystic changes are seen in the carpal bones. Normal carpal articulations Normal carpometacarpal articulation of the thumb. Normal second through fifth carpometacarpal joints. Normal metacarpi. Normal metacarpophalangeal joint of the thumb. Normal interphalangeal joint of the thumb. Normal proximal and distal phalanges of the thumb. Normal metacarpophalangeal joints of the second through fifth fingers. 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 Normal phalanges of the second through fifth fingers. Soft tissue swelling. 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 Soft tissue swelling. Electronically Signed: Vimal Livingston MD at 12:48 EST Tel [phone], Service support ,
--- OUTSIDE RECORDS SUMMARY | 2018-12-14 23:10 | XMS RPT_ITS ---
:1940 Author Organization OHIP Support Name Relationship Address Phone NANO CHASE Unavailable [address] + [place] [id number] JANET JAEGER Unavailable [address] + [place] [id number] R Unavailable Unavailable Unavailable SALVATORE NANO Unavailable [address] + [place] [id number] JANET JAEGER Unavailable [address] + [place] [id number] R Unavailable Unavailable Unavailable SALVATORE, NANO Unavailable [address] + [place] [id number] ALPENAJANET Unavailable [address] + [place] [id number] R Unavailable Unavailable Unavailable SALVATORE, NANO Unavailable Unavailable + ALPENA, R Unavailable [address] + [place] [address] SALVATORE NANO Unavailable Unavailable + ALPENA, R Unavailable [address] + [place] [id number] SALVATORE NANO Unavailable [address] + [place] [id number] JANET JAEGER Unavailable [address] + [place] [address] R Unavailable Unavailable Unavailable SALVATORE, NANO Unavailable [address] + [place] [id number] JANET JAEGER Unavailable [address] + [place] [address] R Unavailable Unavailable Unavailable SALVATORE, NANO Unavailable [address] + [place] [id number] JANET JAEGER Unavailable [address] + [place] [id number] R Unavailable Unavailable Unavailable SALVATORE, NANO Unavailable Unavailable + WESLEY ROLANDO Unavailable Unavailable + SALVATORE, NANO Unavailable Unavailable + ALPENA, R Unavailable [address] + [place] [address] SALVATORE, NANO Unavailable [address] + [place] [id number] ALPENAJANET Unavailable [address] + [place] [id number] R Unavailable Unavailable Unavailable SALVATORE, NANO Unavailable [address] + [address] Un[address] + [place] [id number] R Unavailable Unavailable Unavailable SALVATORE, NANO Unavailable [address] + [address] Un[address] + [place] [id number] R Unavailable Unavailable Unavailable SALVATORE, NANO Unavailable Unavailable + WESLEY ROLANDO Unavailable Unavailable + SALVATORE, NANO Unavailable [address] + [place] [id number] ALPENAJANET Unavailable [address] + [place] [id number] R Unavailable Unavailable Unavailable SALVATORE, NANO Unavailable Unavailable + ALPENA, R Unavailable [address] + [place] [id number] JOHNSON, NANO Unavailable Unavailable + ALPENA, R Unavailable [address] [place] [address] [address] + [place] [phone] SALVATORE, NANO Unavailable Unavailable + JAEGER ROLANDO Unavailable Unavailable + SALVATORE, NANO Unavailable [address] + [place] [id number] JAEGERHAILEYA Unavailable [address] + [place] [id number] R Unavailable Unavailable Unavailable SALVATORE, NANO Unavailable [address] + [place] [id number] ALPENAHAILEYA Unavailable [address] + [place] [id number] R Unavailable Unavailable Unavailable SALVATORE, NANO Unavailable Unavailable + JAEGER, R ROLANDO Unavailable Unavailable + SALVATORE, NANO Unavailable Unavailable + ALPENA, R Unavailable [address] + [place] [id number] JOHNSON, NANO Unavailable Unavailable + ALPENA, R Unavailable [address] + [address], NANO Unavailable Unavailable + ALPENA, R Unavailable [address] + [address], NANO Unavailable [address] + [place] [id number] ALPENAHAILEYA Unavailable [address] + [place] [id number] R Unavailable Unavailable Unavailable SALVATORE, NANO Unavailable [address] + [place] [id number] ALPENAHAILEYA Unavailable [address] + [place] [id number] R Unavailable Unavailable Unavailable SALVATORE, NANO Unavailable Unavailable + ROLANDO JAEGER Unavailable Unavailable + JOHNSON NANO Unavailable Unavailable + ALPENA, R Unavailable [address] + [place] [id number] SALVATORE, NANO Unavailable Unavailable + JAEGER, Manolo MARSHALL Unavailable Unavailable + SALVATORE, NANO Unavailable [address] + [place] [id number] ALPENA JANET Unavailable [address] + [place] [id number] R Unavailable Unavailable Unavailable SALVATORE, NANO Unavailable [address] + [place] [address] ALPENAJANET Unavailable [address] + [place] [address] R Unavailable Unavailable Unavailable SALVATORE, NANO Unavailable [address] + [place] [address] ALPENAJANET Unavailable [address] + [place] [address] R Unavailable Unavailable Unavailable SALVATORE, NANO Unavailable Unavailable + JAEGER ROLANDO Unavailable Unavailable + JOHNSON, NANO Unavailable [address] + [place] [id number] ALPENAJANET Unavailable [address] + [place] [address] R Unavailable Unavailable Unavailable JOHNSON, NANO Unavailable [address] + [place] [id number] ALPENAJANET Unavailable [address] + [place] [address] R Unavailable Unavailable Unavailable SALVATORE, NANO Unavailable [address] + [place] [address] ALPENAJANET Unavailable [address] + [place] [id number] R Unavailable Unavailable Unavailable JOHNSON, NANO Unavailable [address] + [place] [id number] ALPENAJANET Unavailable [address] + [place] [address] R Unavailable Unavailable Unavailable SALVATORE, NANO Unavailable Unavailable + ROLANDO JAEGER Unavailable Unavailable + JOHNSON, NANO Unavailable [address] + [place] [id number] ALPENAHAILEYA Unavailable [address] + [place] [id number] R Unavailable Unavailable Unavailable SALVATORE, NANO Unavailable [address] + [place] [address] ALPENAJANET Unavailable [address] + [place] [id number] R Unavailable Unavailable Unavailable SALVATORE, NANO Unavailable [address] + [place] [id number] ALPENAJANET Unavailable [address] + [place] [address] R Unavailable Unavailable Unavailable SALVATORE, NANO Unavailable [address] + [place] [id number] ALPENAJANET Unavailable [address] + [place] [address] R Unavailable Unavailable Unavailable SALVATORE, NANO Unavailable [address] + [place] [id number] ALPENAJANET Unavailable [address] + [place] [address] R Unavailable Unavailable Unavailable SALVATORE, NANO Unavailable [address] + [address] Un[address] + [place] [address] R Unavailable Unavailable Unavailable SALVATORE, NANO Unavailable [address] + [address] Un[address] + [place] [address] R Unavailable Unavailable Unavailable SALVATORE, NANO Unavailable [address] + [address] Un[address] + [place] [address] R Unavailable Unavailable Unavailable SALVATORE, NANO Unavailable Unavailable + ALPENA, R Unavailable [address] + [address], NANO Unavailable [address] + [address] Un[address] + [place] [address] R Unavailable Unavailable Unavailable SALVATORE, NANO Unavailable [address] + [place] [id number] ALPENAJANET Unavailable [address] + [place] [address] R Unavailable Unavailable Unavailable SALVATORE, NANO Unavailable Unavailable + ROLANDO JAEGER Unavailable Unavailable + JOHNSON, NANO Unavailable [address] + [place] [address] JANET JAEGER Unavailable [address] + [place] [id number] R Unavailable Unavailable Unavailable SALVATORE, NANO Unavailable [address] + [place] [address] JAEGERJANET Unavailable [address] + [place] [id number] R Unavailable Unavailable Unavailable SALVATORE, NANO Unavailable [address] + [place] [id number] JAEGERJANET Unavailable [address] + [place] [address] R Unavailable Unavailable Unavailable SALVATORE, NANO Unavailable Unavailable + ALPENA, R Unavailable [address] + [place] [id number] SALVATORE, NANO Unavailable [address] + [place] [id number] JAEGERJANET Unavailable [address] + [place] [id number] R Unavailable Unavailable Unavailable SALVATORE, NANO Unavailable Unavailable + JAEGERAUDREYAN Unavailable Unavailable + SALVATORE, NANO Unavailable Unavailable + AUDREY JAEGERAN Unavailable Unavailable + MAUREEN CHASEMY Unavailable Unavailable + JAEGER ROLANDO Unavailable Unavailable + SALAVTORE, NANO Unavailable Unavailable + ALPENA, R Unavailable [address] + [place] [id number] JOHNSON, NANO Unavailable Unavailable + ALPENA, R Unavailable [address] + [place] [id number] JOHNSON, NANO Unavailable Unavailable + JAEGER, R Unavailable [address] + [place] [id number] JOHNSON, NANO Unavailable Unavailable + JAEGER, R Unavailable [address] + [place] [address] NANO CHASE Unavailable Unavailable + JAEGER, R Unavailable [address] + [place] [address] SALVATORE NANO Unavailable [address] + [place] [address] HAILEY JAEGERA Unavailable [address] + [place] [id number] R Unavailable Unavailable Unavailable NANO CHASE Unavailable Unavailable + JAEGER, R Unavailable [address] + [place] [id number] Care Team Providers Name Role Phone BRAULIO ANTONIOAzael Attending Unavailable SULOVE, SAKSHAM Primary Care Unavailable EDGAR HERNANDEZ Attending Unavailable SULOVE, SAKSHAM Referring Unavailable SULOVE, SAKSHAM Primary Care Unavailable EDGAR HERNANDEZ Admitting Unavailable SULOVE, SAKSHAM Referring Unavailable SULOVE, SAKSHAM Primary Care Unavailable EDGAR HERNANDEZ Attending Unavailable SULOVE, SAKSHAM Primary Care Unavailable EDGAR HERNANDEZ Admitting Unavailable SULOVE, SAKSHAM Referring Unavailable SULOVE, SAKSHAM Primary Care Unavailable HERMINIO TIERNEY Attending Unavailable SULOVE, SAKSHAM Primary Care Unavailable EDGAR HERNANDEZ Attending Unavailable SULOVE, SAKSHAM Primary Care Unavailable EDGAR HERNANDEZ Attending Unavailable SULOVE, SAKSHAM Primary Care Unavailable EDGAR HERNANDEZ Attending Unavailable EDGAR HERNANDEZ Referring Unavailable SULOVE, SAKSHAM Primary Care Unavailable JOSETTE BENOIT Attending Unavailable SULOVE, SAKSHAM Primary Care Unavailable EDGAR HERNANDEZ Attending Unavailable EDGAR HERNANDEZ Referring Unavailable SULOVE, SAKSHAM Primary Care Unavailable EDGAR HERNANDEZ Attending Unavailable EDGAR HERNANDEZ Referring Unavailable SULOVE, SAKSHAM Primary Care Unavailable JOSETTE BENOIT Attending Unavailable OBERHAUSER, ALIZE Primary Care Unavailable JOSETTE BENOIT Attending Unavailable OBERHAUSER, ALIZE Primary Care Unavailable JOSETTE BENOIT Attending Unavailable OBERHAUSER, ALIZE Primary Care Unavailable OBERHAUSER, ALIZE Attending Unavailable OBERHAUSER, ALIZE Primary Care Unavailable DAVEDGAR WILLS Attending Unavailable OBERHAUSER, ALIZE Primary Care Unavailable AMY RAMIREZ Attending Unavailable CHRISTIANO CHEW Referring Unavailable Davakis, Dr. Edgar Wilson Admitting Unavailable Davakis, Dr. Edgar Wilson Attending Unavailable Schwan, Mrs. Josette Whitten Admitting Unavailable Schwan, Mrs. Josette Whitten Attending Unavailable Edgar Hernandez Admitting Unavailable Edgar Hernandez Attending Unavailable Sulove, Saksham Primary Care Unavailable Tavallaee, Leonard M Admitting Unavailable Tavallaee, Leonard M Attending Unavailable Tavallaee, Leonard M Referring Unavailable Sulove, Saksham Primary Care Unavailable Vadada, Chiki Admitting Unavailable Vadada, Chiki Attending Unavailable Sulove, Saksham Primary Care Unavailable Edgar Hernandez Admitting Unavailable Edgar Hernandez Attending Unavailable Edgar Hernandez Referring Unavailable Sulove, Saksham Primary Care Unavailable Edgar Hernandez Admitting Unavailable Edgar Hernandez Attending Unavailable Oberhauser, Alize L Primary Care Unavailable Sulove, Saksham Attending Unavailable Sulove, Saksham Primary Care Unavailable Sulove, Saksham Admitting Unavailable Sulove, Saksham Attending Unavailable Sulove, Saksham Primary Care Unavailable Lexx Lombardi Admitting Unavailable Lexx Lombardi Attending Unavailable Sulove, Saksham Primary Care Unavailable Tavallaee, Leonard M Attending Unavailable Sulove, Saksham Primary Care Unavailable Oberhauser, Alize L Admitting Unavailable Oberhauser, Alize L Attending Unavailable Oberhauser, Alize L Primary Care Unavailable Edison Jayden Admitting Unavailable Edison Jayden Attending Unavailable Sulove, Saksham Primary Care Unavailable Edgar Hernandez Admitting Unavailable Edgar Hernandez Attending Unavailable Sulove, Saksham Primary Care Unavailable Amy Rogers Admitting Unavailable Amy Rogers Attending Unavailable Sulove, Saksham Primary Care Unavailable Schwan Josette Admitting Unavailable SchwanDontain Attending Unavailable Sulove, Saksham Primary Care Unavailable Savage Espinoza Admitting Unavailable Savage Espinoza Attending Unavailable Sulove, Saksham Primary Care Unavailable Vadada, Chiki Admitting Unavailable Vadada, Chiki Attending Unavailable Sulove, Saksham Primary Care Unavailable Savage Espinoza Attending Unavailable [facility], [facility] Unavailable Savage Espinoza Admitting Unavailable Savage Espinoza Attending Unavailable [place], [facility] Primary Care Unavailable Oberhauser, Alize L Attending Unavailable Oberhauser, Alize L Primary Care Unavailable Oberhauser, Alize L Admitting Unavailable Oberhauser, Alize L Attending Unavailable Oberhauser, Alize L Primary Care Unavailable Schwan, Josette Admitting Unavailable Schwan, Josette Attending Unavailable Oberhauser, Alize L Primary Care Unavailable Sulove, Saksham Admitting Unavailable Sulove, Saksham Attending Unavailable Oberhauser, Alize L Primary Care Unavailable Oleghe, Efewongbe Attending Unavailable Oleghe, Efewongbe Referring Unavailable Oleghe, Efewongbe Attending Unavailable Jose Raul Thomas Referring Unavailable Sulove, [facility] Primary Care Unavailable Oleghe, Efewongbe Attending Unavailable Oleghe, Efewongbe Referring Unavailable Oleghe, Efewongbe Attending Unavailable Oleghe, Efewongbe Referring Unavailable Faisal Jaimes Attending Unavailable [place], [facility] Referring Unavailable Sul[place], [facility] Primary Care Unavailable Jose Raul Thomas Attending Unavailable Sulove, [facility] Primary Care Unavailable Jose Raul Thomas Referring Unavailable Jose Raul Thomas Referring Unavailable Sulove, [facility] Primary Care Unavailable Oleghe, Efewongbe Attending Unavailable Sulove, [facility] Primary Care Unavailable Faisal Roger Attending Unavailable Oleghe, Efewongbe Attending Unavailable Jose Raul Thomas Referring Unavailable Sulove, [facility] Primary Care Unavailable Oleghe, Efewongbe Consulting Unavailable Oleghe, Efewongbe Attending Unavailable Oleghe, Efewongbe Referring Unavailable Oleghe, Efewongbe Attending Unavailable Jose Raul Thomas Referring Unavailable Sulove, [facility] Primary Care Unavailable Oleghe, Efewongbe Attending Unavailable Oleghe, Efewongbe Referring Unavailable Oleghe, Efewongbe Attending Unavailable Oleghe, Efewongbe Referring Unavailable Oleghe, Efewongbe Attending Unavailable Oleghe, Efewongbe Referring Unavailable Oleghe, Efewongbe Attending Unavailable Oleghe, Efewongbe Referring Unavailable Oleghe, Efewongbe Attending Unavailable Thomas, Jose Raul Referring Unavailable Sulove, [facility] Primary Care Unavailable Oleghe, Efewongbe Attending Unavailable Oleghe, Efewongbe Attending Unavailable Oleghe, Efewongbe Referring Unavailable Arvin, Santiago Attending Unavailable Sulove, Saksham Referring Unavailable Arvin, Santiago Attending Unavailable Arvin, Santiago Referring Unavailable Sulove, [facility] Primary Care Unavailable Oleghe, Efewongbe Attending Unavailable Oleghe, Efewongbe Attending Unavailable Oleghe, Efewongbe Attending Unavailable Oleghe, Efewongbe Attending Unavailable Thomas, Jose Raul Referring Unavailable [place], [facility] Primary [facility] Unavailable Oleghe, Efewongbe Attending Unavailable Oleghe, Efewongbe Referring Unavailable Oleghe, Efewongbe Attending Unavailable Oleghe, Efewongbe Referring Unavailable Oleghe, Efewongbe Attending Unavailable Oleghe, Efewongbe Referring Unavailable Oleghe, Efewongbe Attending Unavailable Oleghe, Efewongbe Referring Unavailable Oleghe, Efewongbe Attending Unavailable Oleghe, Efewongbe Referring Unavailable Oleghe, Efewongbe Attending Unavailable Oleghe, Efewongbe Referring Unavailable Oleghe, Efewongbe Attending Unavailable Thomas, Jose Ralu Referring Unavailable Sulove, [facility] Primary Care Unavailable Ira Caal Attending Unavailable [place], [facility] Referring Unavailable Oleghe, Efewongbe Attending Unavailable Oleghe, Efewongbe Referring Unavailable Oleghe, Efewongbe Attending Unavailable Oleghe, Efewongbe Referring Unavailable Oleghe, Efewongbe Attending Unavailable Oleghe, Efewongbe Referring Unavailable Oleghe, Efewongbe Attending Unavailable Thomas, Jose Raul Referring Unavailable Sulove, [facility] Primary Care Unavailable PROBLEMS PROBLEMS DATE TYPE CONDITION / CODE ATTENDING STATUS SOURCE 10/12/2018 Unknown S60.222A - Contusion Santiago Sheridan Active [facility] of left hand, Community initial encounter / Hospital S60.222A(ICD-10) Repository 09/24/2018 Admitting Presence of DAVID, Active [facility] diagnosis automatic EDGAR Nevarez (implantable) Repository cardiac defibrillator / Z95.810(ICD-10) 07/22/2018 [facility] / EDGAR Nevarez I10(ICD-10) Repository 08/30/2015 Admitting Persistent atrial DAVAKIS, Active [facility] diagnosis fibrillation / EDGAR CURRY Geri I48.1(ICD-10) Repository 09/29/2018 Unknown L97.922 - Oleghe, [facility] part of left lower Repository leg with fat layer exposed / L97.922(ICD-10) 09/29/2018 Unknown M79.89 - Other Oleghe, [facility] M79.89(ICD-10) Repository 09/01/2018 Unknown I87.2 - Venous Oleghe, [facility] (peripheral[facility] / Repository I87.2(ICD-10) 08/12/2018 Unknown 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, 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, [facility]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 / Hospital M19.031(ICD-10) Repository 08/12/2018 Unknown 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, Active Jaime osteoarthritis, 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 / Hospital M19.032(ICD-10) Repository 08/06/2018 Admitting Unknown / JOSETTE BENOIT Active [facility] diagnosis UNK(Unknown) ABBIE Three Repository 07/22/2018 Admitting Paroxysmal atrial DAVAKIS, Active [facility] diagnosis fibrillation / EDGAR CURRY Geri I48.0(ICD-10) Repository 07/22/2018 Admitting Encounter for JOSETTE BENOIT Active [facility] diagnosis therapeutic drug ABBIE Three level monitoring / Repository Z51.81(ICD-10) 07/20/2018 Admitting Shortness of breath DAVAKIS, Active [facility] diagnosis / R06.02(ICD-10) EDGAR Nevarez Repository 07/16/2018 Unknown S81.812A - Oleghe, Active [facility] Laceration without [facility] foreign body, left Hospital lower leg, initial Repository encounter / S81.812A(ICD-10) 07/09/2018 Unknown S81.802A - Oleghe, Active [facility], left lower Hospital leg, initial Repository encounter / S81.802A(ICD-10) 05/11/2018 Unknown R60.0 - Localized Oleghe, Active [facility] edema / Efewongbe Community R60.0(ICD-10) Hospital Repository 01/02/2017 Admitting Chronic atrial DAVAKIS, [facility] diagnosis fibrillation / EDGAR Nevarez I48.2(ICD-10) Repository 05/20/2016 Admitting Atherosclerotic DAVAKIS, [facility]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 / I25.10(ICD-10) 03/17/2018 Unknown Z00.00 - Encounter Jose Raul Thomas Active [facility] for [facility] without abnormal Repository findings / Z00.00(ICD-10) 01/08/2018 Admitting Dyspnea, unspecified NA [facility] diagnosis / R06.00(ICD-10) Three Repository 12/30/2017 Admitting 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 REPOSITORY TYPE CODE TESTS RESULT OUT OF RANGE REFERENCE UNITS LAB [id number](LO 8.0-11.0 second(s) INC) High PT POC 32.0 LAB [id number](LO 1.0-1.2 INC) High INR POC 2.8 Result Comment: Source Capillary Performed By: #### [id number] #### STACEY POC Subsection [facility] [place] [address] PT/INR POC ORDER Collected: 10/12/2018 Status: F Source: SCIENTOLOGIST 1:[address] [facility] REPOSITORY TYPE CODE TESTS RESULT OUT OF RANGE REFERENCE UNITS LAB [id number](LOINC) Normal Collected PT/INR POC Order Performed By: #### [id number] #### STACEY POC Subsection [facility] [place] [address] URGENT CARE VISIT Observed: 10/12/2018 Status: F Source: JAIME REPORT 1:01 PM [facility] [address] [place], [place] [address] OFFICE VISIT Date of Service: 10/12/18 MR#: [id number] Acct: [id number] Name: PHILIPPE JAEGER Rep #: [id number] : 1940 Provider: Santiago SHAW Age/Sex: 78/M [facility] [facility] Status: Signed Intake Vital Signs10/12/18 Height 6 ft 1 in Intake Visit Reasons: LEFT HAND XRAY/ INJURY Chief Complaint: Left hand 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 Accompanied by: self Is patient in pain?: No Allergies wheat Allergy (Verified 10/12/18 11:59) Other Medications Carvedilol [Coreg] 25 mg PO BID 06/21/13 [History Confirmed 10/12/18] Ipratropium [place] 0.06% [ATROVENT NASAL SPRAY] 2 spray NASAL BID 06/21/13 [History Confirmed 10/12/18] Ropinirole HCl [Requip] 0.5 mg PO QHS 06/21/13 [History Confirmed 10/12/18] Simvastatin [Zocor] 20 mg PO QHS 06/21/13 [History Confirmed 10/12/18] Warfarin [Coumadin] 5 mg PO DAILY 06/21/13 [History Confirmed 10/12/18] traMADol [Ultram (G)] 50 mg PO DAILY PRN PRN 06/21/13 [History Confirmed 10/12/18] Calcium Carb/Vitamin D3/Vit K1 [Citracal Soft Chew] 1 ea PO DAILY 03/10/18 [History Confirmed 10/12/18] Cholecalciferol (Vitamin D3) [Vitamin D3] 2,000 unit PO BID 03/10/18 [History Confirmed 10/12/18] Losartan Potassium 100 mg PO DAILY 03/10/18 [History Confirmed 10/12/18] Magnesium 100 mg PO DAILY 03/10/18 [History Confirmed 10/12/18] Potassium 30 mg PO DAILY 03/10/18 [History Confirmed 10/12/18] Doxycycline Monohydrate 100 mg PO BID #20 cap 03/29/18 [Rx Confirmed 10/12/18] cephalexin 500 mg capsule 500 mg PO Q12H 10 Days #20 cap 10/12/18 [Rx Confirmed 10/12/18] PFSH Medical History Arthritis (Acute) Cancer (Acute) Fatigue (Acute) Heart disease (Acute) Incontinence (Acute) Kidney disease (Acute) Shortness of breath (Acute) Chronic neck and back pain (Chronic) Hypertension (Chronic) Family History Other Hypertension Social History Smoking Status: Never smoker HPI HPI Chief Complaint: Left hand Details: PHILIPPE JAEGER, is a 78 M who presents to the office today for left hand pain and swelling after having his left hand hit by a piece of wood 2 days ago. Patient states that he was using a leg when a piece of wood flew off hitting his left hand and causing a small abrasion to the ring finger. He states that the hand has swollen since then however he continues to have full range of motion, strength and sensation to the hand. 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 He reports having thin skin. He does also report having moderate arthritis in both of his hands. He denies any erythema or streaking. He has had no fever, chills, sweats. No nausea, vomiting, diarrhea. Patient does state that his last tetanus immunization has been in the past 5 years. No other associated symptoms or alleviating/aggravating factors. ROS Const Constitutional: No chills, fever(s), fatigue or abnormal sleep pattern Resp Respiratory: No shortness of breath or chest congestion Cardio Cardiology: No chest pain at rest, chest pain with exertion or shortness of breath Musc Musculoskeletal: Positive for joint swelling, joint pain and stiffness; no limited range of motion, numbness, tingling or deformity Skin Skin: Positive for wounds (Abrasion to the left ring finger); no lesions Neuro Neurology: No behavioral changes, confusion, numbness or tingling Psych Psychiatric: No behavioral changes, No confusion, No abnormal sleep pattern Endo Endocrine: No fatigue Exam Const General: cooperative, healthy appearing Resp Effort AND Inspection: normal respiratory effort Auscultation: Bilateral: Clear to Auscultation Cardio Palpation: normal PMI Rate: regular rate Rhythm: regular rhythm Skin Other: Surface abrasion to the base of the left ring finger dorsal aspect as well as several other abrasions and skin tears to both hands. The abrasion to the base of the left ring finger has scabbed over with no surrounding erythema or warmth. There is additionally some mild swelling particular to the dorsal aspect of the left hand. Otherwise skin exam normal. Neuro General: alert, CN's II-XI intact bilaterally Motor: muscle tone normal throughout, strength 5/5 throughout Sensory Exam: no sensory deficits noted Extrem General: full ROM, normal capillary refill, normal exam except as noted Other: Left fifth digit amputation. Patient has full range of motion with no pain to palpation of the left hand digits. Psych Appearance: grossly normal Mental Status: mental status grossly normal Assessment AND Plan Problems 1. Contusion of left hand, initial encounter S60.222A Status Acute 2. Abrasion of right hand, initial encounter S60.511A Status Acute Plan Keflex as prescribed today. X-ray of the left hand read by radiologist finding no acute fractures or bony abnormalities other than the amputation of the left fifth digit. Patient started on Keflex due to history of a wound to the left curtis which recently healed and multiple other abrasions and skin tears to the hands. Patient advised of potential red flags including but not limited to signs of infection and when appropriate to report to the ED. Patient verbalized understanding and agreement with all the above. Orders Orders: Medications New: Coding Level of Care Code Off vis,est,level 3 Diagnoses Contusion of left hand, initial encounter S60.222A Abrasion of right hand, initial encounter S60.511A 10/12/18 1301 <Electronically signed by Santiago SHAW> Date Santiago SHAW Cosigner Signature: Date (if applicable) CC: HAND MIN 3 VIEWS Observed: 10/12/2018 Status: F Source: JAIME 12:10 PM [facility] REPOSITORY [facility] Imaging Services [address] [place], [place] [address] [address] Hand Min 3 Views MR#: [id number] Acct: [id number] Name: PHILIPPE JAEGER Rep #: [id number] : 1940 M 78 From: Vimal Livingston MD PCP: Dat Bullard Status: REG CLI Study: Hand Min 3 Views Date of Exam: 10/12/18 Exam# [id number] Ordering Dr: Santiago Sheridan STUDY: X-RAY - LEFT HAND REASON FOR EXAM: Male, 78 years old. Pain and swelling following injury. TECHNIQUE: 3 view(s) of the hand. COMPARISON: Comparison is made with prior examination dated September 04, 2016. 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 Normal distal radioulnar joint. Multiple small cystic changes are seen in the carpal bones. Normal carpal articulations Normal carpometacarpal articulation of the thumb. Normal second through fifth carpometacarpal joints. Normal metacarpi. Normal metacarpophalangeal joint of the thumb. Normal interphalangeal joint of the thumb. Normal proximal and distal phalanges of the thumb. Normal metacarpophalangeal joints of the second through fifth fingers. 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 Normal phalanges of the second through fifth fingers. Soft tissue swelling. 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 Soft tissue swelling. Electronically Signed: Vimal Livingston MD at 12:48 EST Tel [phone], Service support , CC: Dat Bullard; Santiago SHAW Plate Finisher: Signed BMP Collected: 09/08/2018 Status: F Source: SCIENTOLOGIST 9:[address] [facility] REPOSITORY TYPE CODE TESTS RESULT OUT OF RANGE REFERENCE UNITS LAB [id number](L 70-99 mg/dL OINC) High Glucose Lvl 100 LAB [id number](L 6-23 mg/dL OINC) High BUN 29 LAB 0202097(LO 0.5-1.3 mg/dL INC) High Creatinine 1.6 LAB [id number](L 5.4-30.0 ratio OINC) Normal BUN/Creat Ratio 18.1 LAB 92004120(L 8.6-10.3 mg/dL OINC) Calcium Normal Lvl 9.5 LAB 02201179(L 136-145 mEq/L OINC) Sodium Normal Lvl 141 LAB 92153461(L 3.5-5.3 mEq/L OINC) Normal Potassium Lvl 5.0 LAB 09117478(L 98-107 mEq/L OINC) Chloride Normal 106 LAB [id number](L 21.0-32.0 mEq/L OINC) High CO2 33.0 LAB [id number](L 10-20 mEq/L OINC) Low AGAP 7 Performed By: #### [id number] #### STACEY [employer] [address] [place] [address] EGFR Collected: 09/08/2018 Status: F Source: SCIENTOLOGIST 9:[address] [facility] REPOSITORY Order Comment: Order added by Discern Expert. TYPE CODE TESTS RESULT OUT OF RANGE REFERENCE UNITS LAB 12585457(LO mL/min/1.73 INC) m2 Normal eGFR 43 LAB 11013068(LO mL/min/1.73 INC) m2 Normal eGFR AA 52 Performed By: #### [id number] #### STACEY [employer] [address] [place], [place] [address] PT/INR CAPILLARY Collected: 08/25/2018 Status: F Source: SCIENTOLOGIST 11:[address] [facility] REPOSITORY TYPE CODE TESTS RESULT OUT OF RANGE REFERENCE UNITS LAB [id number](LO 8.0-11.0 second(s) INC) High PT POC 28.0 LAB [id number](LO 1.0-1.2 INC) High INR POC 2.5 Result Comment: Source Capillary Performed By: #### [id number] #### STACEY POC Subsection [address] [place] [address] PT/INR POC ORDER Collected: 08/25/2018 Status: F Source: SCIENTOLOGIST 11:[address] [facility] REPOSITORY TYPE CODE TESTS RESULT OUT OF RANGE REFERENCE UNITS LAB [id number](LOINC) Normal Collected PT/INR POC Order Performed By: #### [id number] #### STACEY POC [address] [place], [place] [address] ORTHOPEDIC VISIT Observed: 08/18/2018 Status: F Source: [place] REPORT 10:42 AM [facility] REPOSITORY [facility] Orthopaedics AND Sports Medicine [address] [place] [address] [address] [place] [address] OFFICE VISIT Date of Service: 08/11/18 MR#: [id number] Acct: [id number] Name: PHILIPPE JAEGER Rep #: [id number] : 1940 Provider: Ira Caal DO Age/Sex: 78/M [place] [facility] [place]: Signed Intake Intake Visit Reasons: Bilat Wrist Is patient in pain?: Yes Allergies wheat Allergy (Verified 03/29/18 11:19) Other Medications Carvedilol [Coreg] 25 mg PO BID 06/21/13 [History Confirmed 03/29/18] Ipratropium [place] 0.06% [ATROVENT NASAL SPRAY] 2 spray NASAL BID 06/21/13 [History Confirmed 03/29/18] Ropinirole HCl [Requip] 0.5 mg PO QHS 06/21/13 [History Confirmed 03/29/18] Simvastatin [Zocor] 20 mg PO QHS 06/21/13 [History Confirmed 03/29/18] Warfarin [Coumadin] 5 mg PO DAILY 06/21/13 [History Confirmed 03/29/18] traMADol [Ultram (G)] 50 mg PO DAILY PRN PRN 06/21/13 [History Confirmed 03/29/18] Calcium Carb/Vitamin D3/Vit K1 [Citracal Soft Chew] 1 ea PO DAILY 03/10/18 [History Confirmed 03/29/18] Cholecalciferol (Vitamin D3) [Vitamin D3] 2,000 unit PO BID 03/10/18 [History Confirmed 03/29/18] Losartan Potassium 100 mg PO DAILY 03/10/18 [History Confirmed 03/29/18] Magnesium 100 mg PO DAILY 03/10/18 [History Confirmed 03/29/18] Potassium 30 mg PO DAILY 03/10/18 [History Confirmed 03/29/18] Doxycycline Monohydrate 100 mg PO BID #20 cap 03/29/18 [Rx] PFSH Social History Smoking Status: Never smoker HPI Bilat Wrist: Details: PHILIPPE JAEGER is a 78 year old M here today for bilateral wrist pain, his last injections were 12/24/[address] Jaimes. He has relief for a couple months and was able to go back to enjoying his woodworking. He has pain constantly now and is unable to even hold the newspaper for very long due to the pain, he is unable to enjoy normal activities as he used to. His pain is in the medial part of both wrists. Denies any bracing. Denies numbness, tingling or other associated symptoms. He did consider stem cell injections but has concerns with the cost benefit ratio. Ortho Exam Right Wrist/Hand Right Wrist: Yes ROM-Extension 0-60 (40), ROM-Flexion 0-80 (40), ROM-Pronation 0-80 (60) and ROM-Supination 0-90 (80); no TTP Fracture site, Snuffbox tenderness, Dallin's Test or Wen Test Motor: EPL: 5, FDP-2: 5, 1st Dorsal Interosseous: 5, APB: 5 Sensation: Radial: I, Ulnar: I, Median: I Left Wrist/Hand Contralateral Normal: No A1 leopoldo trigger: No Left Wrist: Yes ROM-Extension 0-60 (40), Yes ROM-Pronation 0-80 (60), Yes ROM-Supination 0-90 (80) and Yes ROM-Flexion 0-80 (60); no Snuffbox tenderness, no Durken's Test, no Dallin's Test or no Wen Test Motor: EPL: 5, FDP-2: 5, 1st Dorsal Interosseous: 5, APB: 5 Sensation: Radial: I, Ulnar: I, Median: I Office Procedures Ortho Injections Injections Details: Obtained consent for injection. Under sterile conditions, injected the patients bilateral A1 with 1cc bupivacaine and 1/2cc kenalog each. The patient tolerated the injection well without any noted complication. Patient should call our office if redness develops, pain worsens or if they have any concerns. Office Meds [place] Performing Provider: Ira Caal DO Administered by: Ira Caal DO on 08/11/18 16:55 Dose Route Admin Location Lot Number Expiration DateNDC Crystal Syrup Maker 40 mg Intra-Articularbilateral A1 [id number] 08/22/19 [id number] [facility] [address] [employer] Assessment AND Plan 1. Osteoarthritis of both wrists, unspecified osteoarthritis type M19.031; M19.032 Plan discussed treatment options with patient. elected to proceed with injection. Reviewed the risk and benefits of continued injections and patient elects to continue with conservative care. Follow up in [] or sooner if pain, swelling, numbness or associated symptoms, or concerns develop. All questions answered. Patient in agreement of plan. Orders Orders: Medications Discontinued: Kenalog (triamcinolone acetonide) Discontinued 40 mg Intra- Articular ONCE 1 mL 0RF NS Reason: Office Medication has been Documented as given Coding Level of Care Code No Charge Diagnoses Osteoarthritis of both wrists, unspecified osteoarthritis type M19.031; M19.032 Osteoarthritis type: unspecified 08/18/18 1042 <Electronically signed by Ira Caal DO> Date Ira Caal DO Cosigner Signature: Date (if applicable) CC: RENAL Observed: 08/12/2018 Status: F Source: SCIENTOLOGIST 11:[address] [facility] REPOSITORY Exam Date/Time: 08/12/2018 11:39 EST Reason for Exam: CKD;Renal failure Report STUDY: US Renal 08/12/2018 11:39 am INDICATION: 78 y/o M with Renal failure. History of prostate cancer. COMPARISON: Correlation with CT scan from 08/10/2012.. ACCESSION NUMBER(S): [id number] ORDERING CLINICIAN: Savage Espinoza TECHNIQUE: Grayscale imaging and color Doppler were utilized. FINDINGS: RIGHT KIDNEY: The right kidney measured 10.5 cm in length. This is within the limits of normal. There was normal right renal echogenicity. Mild diffuse cortical thinning and lobulation. No shadowing stone, hydronephrosis, or perinephric edema. No gross right renal mass. LEFT KIDNEY: The left kidney measured 11.4 cm in length. This is within the limits of normal. There was normal left renal echogenicity. Mild diffuse cortical thinning and lobulation. No shadowing stone, hydronephrosis, or perinephric edema. No gross left renal mass. BLADDER: Prevoid bladder volume was 114 mL. Bilateral ureteral jets were demonstrated. No shadowing stone or mass in the urinary bladder. IMPRESSION: Bilateral renal cortical scarring and thinning. No hydronephrosis. FINAL REPORT Dictated: 08/14/2018 8:49 am Jose Eduardo Rodríguez MD Signed (Electronic Signature): 08/14/2018 8:49 am Signed by: Jose Eduardo Rodríguez MD Technologist: QUE HCT & HGB Collected: 08/06/2018 Status: F Source: SCIENTOLOGIST 1:[address] [facility] REPOSITORY TYPE CODE TESTS RESULT OUT OF RANGE REFERENCE UNITS LAB [id number](LO 13.5-18.0 G/DL INC) Normal Hgb 15.4 LAB 89917259(LO 42.0-52.0 % INC) Normal Hct 46.2 Performed By: #### [id number] #### STACEY [employer] [address] [place] [address] LYTES Collected: 08/06/2018 Status: F Source: SCIENTOLOGIST 1:[address] [facility] REPOSITORY TYPE CODE TESTS RESULT OUT OF RANGE REFERENCE UNITS LAB [id number](L 10-20 mEq/L OINC) AGAP Normal 10 LAB [id number](L 136-145 mEq/L OINC) Normal Sodium Lvl 139 LAB 56005018(L 3.5-5.3 mEq/L OINC) Normal Potassium Lvl 4.8 LAB 43417177(L 98-107 mEq/L OINC) Normal Chloride 103 LAB 73257832(L 21.0-32.0 mEq/L OINC) CO2 Normal 31.0 Performed By: #### [id number] #### STACEY [employer] [facility] [place] [address] BUN Collected: 08/06/2018 Status: F Source: SCIENTOLOGIST 1:[address] [facility] REPOSITORY TYPE CODE TESTS RESULT OUT OF RANGE REFERENCE UNITS LAB [id number](LO 6-23 mg/dL INC) High BUN 33 Performed By: #### [id number] #### STACEY [employer] [address] [place] [address] CREATININE Collected: 08/06/2018 Status: F Source: SCIENTOLOGIST 1:[address] [facility] REPOSITORY TYPE CODE TESTS RESULT OUT OF REFERENCE UNITS RANGE LAB [id number](LO 0.5-1.3 mg/dL INC) High Creatinine 2.2 Performed By: #### [id number] #### STACEY [employer] [address] [place] [address] ALBUMIN Collected: 08/06/2018 Status: F Source: SCIENTOLOGIST 1:[address] [facility] REPOSITORY TYPE CODE TESTS RESULT OUT OF RANGE REFERENCE UNITS LAB 97793646(LO 3.4-5.0 gm/dL INC) Normal Albumin Lvl 4.2 Performed By: #### [id number] #### STACEY [employer] [address] [place] [address] CALCIUM Collected: 08/06/2018 Status: F Source: SCIENTOLOGIST 1:[address] [facility] REPOSITORY TYPE CODE TESTS RESULT OUT OF RANGE REFERENCE UNITS LAB [id number](LO 8.6-10.3 mg/dL INC) Normal Calcium Lvl 9.4 Performed By: #### [id number] #### STACEY [employer] [address] [place] [address] PHOSPHORUS Collected: 08/06/2018 Status: F Source: SCIENTOLOGIST 1:[address] [facility] REPOSITORY TYPE CODE TESTS RESULT OUT OF RANGE REFERENCE UNITS LAB [id number](L 2.5-4.9 mg/dL OINC) Normal Phosphorus 4.2 Performed By: #### [id number] #### STACEY [employer] [address] [place] [address] EGFR Collected: 08/06/2018 Status: F Source: SCIENTOLOGIST 1:[address] [facility] REPOSITORY Order Comment: Order added by Discern Expert. TYPE CODE TESTS RESULT OUT OF RANGE REFERENCE UNITS LAB [id number](LO mL/min/1.73 INC) m2 Normal eGFR 30 LAB [id number](LO mL/min/1.73 INC) m2 Normal eGFR AA 36 Performed By: #### [id number] #### STACEY [employer] [address] [place] [address] U CREATININE Collected: 08/06/2018 Status: F Source: SCIENTOLOGIST 1:[address] [facility] REPOSITORY TYPE CODE TESTS RESULT OUT OF RANGE REFERENCE UNITS LAB [id number](L 20-300 mg/dL OINC) U Normal Creatinine 109 Performed By: #### [id number] #### STACEY [employer] [address] [place] [address] U PROTEIN Collected: 08/06/2018 Status: F Source: SCIENTOLOGIST 1:[address] [facility] REPOSITORY TYPE CODE TESTS RESULT OUT OF RANGE REFERENCE UNITS LAB [id number](LO 1-14 mg/dL INC) Normal Ur Total 13 Protein Performed By: #### [id number] #### STACE[facility] [employer] [address] [place], [place] [address] HOLTER MONIT Observed: 07/31/2018 Status: F Source: [facility] 10:05 AM THREE REPOSITORY Heart rate ranged from 59-97 bpm with an average heart rate of 63 bpm. The longest pause was 1.1 seconds. 2750 ventricular ectopic beats with 13 couplets. No ventricular runs. Total QRS complex number was [id number]. No supraventricular ectopic beats. Atrial fibrillation present with paced ventricular beats. No symptoms listed. Management per requesting provider. PT/INR CAPILLARY Collected: 07/29/2018 Status: F Source: SCIENTOLOGIST 10:[address] [facility] REPOSITORY TYPE CODE TESTS RESULT OUT OF RANGE REFERENCE UNITS LAB [id number](LO 8.0-11.0 second(s) INC) High PT POC 23.0 LAB [id number](LO 1.0-1.2 INC) High INR POC 2.0 Result Comment: Source Capillary Performed By: #### [id number] #### STACEY POC [address] [place], [place] [address] PT/INR POC ORDER Collected: 07/29/2018 Status: F Source: SCIENTOLOGIST 10:[address] [facility] REPOSITORY TYPE CODE TESTS RESULT OUT OF RANGE REFERENCE UNITS LAB CD:[id number](LOINC) Normal Collected PT/INR POC Order Performed By: #### [id number] #### STACEY POC [address] [place], [place] [address] BASIC METABOLIC PANEL Collected: 07/28/2018 Status: F Source: [facility] 9:31 AM [facility] REPOSITORY TYPE CODE TESTS RESULT OUT OF REFERENCE UNITS RANGE LAB GLU 70-99 mg/dL High Glucose 106 Result Comment: This test result might be falsely depressed or falsely elevated on samples drawn from patients taking Sulfasalazine and Sulfapyridine. Venipuncture should occur prior to taking either of these drugs. LAB BUN 8-25 mg/dL BUN High 31 LAB CREA 0.80-1.30 mg/dL Creatinine High 1.84 LAB eGFR >60 ml/min/1.73s Low q.m eGFR,NonAfrican-Am erican 36 Result Comment: Non- GFR Calc eGFR is an estimated Glomerular Filtration Rate based on the value of the patient's serum creatinine. In outpatients, eGFR should be used as a helpful tool in screening for CKD. In inpatients or patients with acute renal failure, eGFR represents the GFR at the moment of the draw and should be used with caution. LAB eGFRB >60 ml/min/1.73sq.m eGFR, -[place] Low 43 Result Comment: GFR Calc LAB CALCM 8.4-10.2 mg/dL Calcium 9.0 LAB NA 135-145 mmol/L Sodium 140 LAB K 3.5-5.1 mmol/L Potassium 4.7 LAB CL 98-108 mmol/L Chloride 103 LAB CO2 21-32 mmol/L CO2 29 Performed By: #### CHEM8, MG #### Unless otherwise noted, all testing performed by [address] [address] CLIA: [id number] Payroll Assistant: Abdi Todd M.D. MAGNESIUM Collected: 07/28/2018 Status: F Source: [facility] 9:31 AM [facility] REPOSITORY TYPE CODE TESTS RESULT OUT OF RANGE REFERENCE UNITS LAB MG 1.6-2.4 mg/dL Normal Magnesium 2.1 Performed By: #### CHEM8, MG #### Unless otherwise noted, all testing performed by [address] [address] CLIA: [id number] Payroll Assistant: Abdi Todd M.D. XR CHEST 2 VIEWS Observed: 07/22/2018 Status: F Source: SCIENTOLOGIST 3:[address] [facility] REPOSITORY Exam Date/Time: 07/22/2018 15:31 EDT Reason for Exam: sob Report STUDY: XR Chest 2 Views; 07/22/2018 3:31 pm INDICATION: sob. COMPARISON: 07/29/2017 ACCESSION NUMBER(S): [id number] ORDERING CLINICIAN: Josette Benoit FINDINGS: PA and lateral views of the chest were obtained. A 3 lead pacer/AICD is seen over the left chest. No focal infiltrate, pleural effusion or pneumothorax is identified. The cardiac silhouette is within normal limits for size. Mild discogenic degenerative changes are seen throughout the thoracic spine. IMPRESSION: No focal infiltrate or pneumothorax. FINAL REPORT Dictated: 07/23/2018 10:54 am Patric Woody MD Signed (Electronic Signature): 07/23/2018 10:54 am Signed by: Patric Woody MD Technologist: ECHOCARDIOGRAM COMPLETE Observed: 07/21/2018 Status: F Source: [facility] 9:35 AM THREE REPOSITORY Transthoracic Echocardiogram Patient: WESLEY Balderrama [facility] Rec#: [id number] (Age): 1940(78y) Height: 187.96(cm)/73(i Study Date: 07/20/2018 Weight: 106.14(kg)/234( Room#: BSA: [id number] Type: Loc: Sex: M Reading: Maurizio Kinney MD Referring: EDGAR HERNANDEZ JAMES [employer] Shovel Operator: Ira Spring RD, RVT History: Aortic Valve disorder. Atrial fibrillation. Cardiomyopathy. Coronary artery disease. LBBB. Other. Dilated aortic rootPacemaker implant. Prior echo. Study Quality The study quality is fair. Summary: Patient identity verified (pause and confirm). Current HP present on patient chart. Procedure explained and patient verified understanding. Consent obtained for procedure. Conclusions: Atrial fibrillation. The LV Ejection Fraction is 55%. There is abnormal ventricular septal wall motion consistent with right ventricular pacemaker. The left atrium is moderate to severely dilated. A device lead is noted. There is mild aortic regurgitation. There is mild to moderate dilatation of the ascending aorta. Findings Reason For Study: Aortic Valve Disorder. Dyspnea. Left Ventricle: The left ventricular chamber size is normal. The LV Ejection Fraction is 55%. The estimated ejection fraction is 55-60%. There is abnormal ventricular septal wall motion consistent with right ventricular pacemaker. Left Atrium: The left atrium is moderate to severely dilated. Right Ventricle: The right ventricular chamber size and systolic function are within normal limits. A device lead is noted. Right Atrium: The right atrium appears normal. Aortic Valve: The aortic valve is trileaflet. There is mild aortic regurgitation. The pressure half time of the aortic regurgitation is 682 msec. Mitral Valve: The mitral valve leaflets appear normal. There is a trace of mitral regurgitation. Tricuspid Valve: The tricuspid valve leaflets are normal. There is mild tricuspid regurgitation. The right ventricular systolic pressure is 32 mmHg. Pulmonic Valve: The pulmonic valve appears grossly normal in structure and function. Pericardium: The pericardium appears normal. Aorta: There is mild dilatation of the ascending aorta. HR 60 BP 124/81 Measurements Chambers 2D Name Value Normal Range IVSd (2D) 1.66 cm none LVPWd (2D) 1.49 cm none IVS:LVPW ratio (2D) 1.11 ratio none LVIDd (2D) 5.04 cm none LVIDs (2D) 3.93 cm none LVIDd (2D) index 2.17 cm/m2 none LVIDs (2D) index 1.69 cm/m2 none LV FS (2D) 22.02 % none LV FS (Teichholz) (2D) 22 % none LV FS (cube) (2D) 22 % none EF Teichholz (2D) 44.27 % none Ao root diameter (2D) 4.6 cm none LA dimension (AP) 2D 5.7 cm none LA:Ao ratio (2D) 1.24 ratio none Aortic root diameter (2D) inde1.98 cm/m2 none LA dimension (2D) index 2.45 cm/m2 none Volumes/Mass Name Value Normal Range LA ESV SP 4CH (MOD) 174 ml none LA ESV SP 2CH (MOD) 188 ml none LA ESV BP (MOD) 183 ml none LA ESV BP (MOD) index 78.78 ml/m2 none LV EDV SP 4CH (MOD) 90 ml none LV ESV SP 4CH (MOD) 36.9 ml none EF SP 4CH (MOD) 59 % none LV EDV SP 2CH (MOD) 99.8 ml none LV ESV SP 2CH (MOD) 56.6 ml none EF SP 2CH (MOD) 43.29 % none LV EDV BP 95.4 ml none LV ESV BP 49.3 ml none BP EF (MOD) 48.32 % none LV EDV BP index 41.07 ml/m2 none LV ESV BP index 21.22 ml/m2 none LV mass (2D) 351.15 g none LV mass (2D) index 151.16 g/m2 none Diastolic/Systolic Function Name Value Normal Range MV E-wave Vmax 0.71 m/sec none MV deceleration time 127 msec none LV E:e' septal ratio 8.9 ratio none LV E:e' lateral ratio 6.8 ratio none TAPSE 2.08 cm none Aortic Valve Name Value Normal Range AV Vmax 1.13 m/sec (1 - 1.7) AV VTI 21.9 cm none AV peak gradient 5.11 mmHg (Less Than 36) AV mean gradient 3 mmHg (Less Than 20) LVOT diameter 2.5 cm (1.7 - 2.5) LVOT Vmax 0.84 m/sec (0.7 - 1.1) LVOT VTI 16.7 cm none LVOT peak gradient 3 mmHg none LVOT mean gradient 1 mmHg none DOI (VTI) 0.76 ratio none DOI (Vmax) 0.74 ratio none SV LVOT 81.93 ml none CO LVOT 4.92 l/min none Cardiac index 2.12 l/min/m2 none JERO (continuity Vmax) 3.63 cm2 none JREO (continuity Vmax) index 1.56 cm2/m2 none JERO (continuity VTI) 3.74 cm2 none JERO (continuity VTI) index 1.61 cm2/m2 none AR PHT 682 msec none AR peak gradient 44 mmHg none Ascending Ao 4.3 cm none Mitral Valve Name Value Normal Range MV Vmax 1.61 m/sec (0.6 - 1.3) MV VTI 38.9 cm none MV peak gradient 10.37 mmHg none MV mean gradient 2 mmHg none MR Vmax 5.21 m/sec none MR VTI 193 cm none MVA (continuity VTI) 2.11 cm2 none Tricuspid Valve Name Value Normal Range TR Vmax 2.54 m/sec none TR peak gradient 25.81 mmHg none RAP 3 mmHg none RVSP 32 mmHg none Pulmonic Valve/Qp:Qs Name Value Normal Range PV Vmax 0.78 m/sec (0.6 - 0.9) PV VTI 12.5 cm none PV peak gradient 2.4 mmHg none PV mean gradient 1 mmHg none OK end-diastolic Vmax 1.26 m/sec none PA end-diastolic pressure 9.35 mmHg none Electronically Signed at 07/21/2018 09:35:30 by: Maurizio Kinney MD BMP Collected: 06/30/2018 Status: F Source: SCIENTOLOGIST 8:[address] [facility] REPOSITORY TYPE CODE TESTS RESULT OUT OF RANGE REFERENCE UNITS LAB [id number](L 6-16 mEq/L OINC) AGAP Normal 9 LAB 80772550(L 70-99 mg/dL OINC) High Glucose Lvl 101 LAB 52692466(L 6-23 mg/dL OINC) High BUN 25 LAB 4165216(LO 0.6-1.3 mg/dL INC) High Creatinine 1.7 LAB [id number](L 5.4-30.0 ratio OINC) Normal BUN/Creat Ratio 14.7 LAB [id number](L 8.6-10.3 mg/dL OINC) Calcium Normal Lvl 9.5 LAB [id number](L 136-145 mEq/L OINC) Sodium Normal Lvl 139 LAB [id number](L 3.5-5.3 mEq/L OINC) Normal Potassium Lvl 4.9 LAB [id number](L 98-107 mEq/L OINC) Chloride Normal 106 LAB [id number](L 21.0-32.0 mEq/L OINC) CO2 Normal 29.0 Performed By: #### [id number] #### STACEY [employer] [address] [place] [address] EGFR Collected: 06/30/2018 Status: F Source: SCIENTOLOGIST 8:[address] [facility] REPOSITORY Order Comment: Order added by Discern Expert. TYPE CODE TESTS RESULT OUT OF RANGE REFERENCE UNITS LAB [id number](LO mL/min/1.73 INC) m2 Normal eGFR 40 LAB [id number](LO mL/min/1.73 INC) m2 Normal eGFR AA 48 Performed By: #### [id number] #### STACEY [employer] [address] [place] [address] PT Collected: 06/30/2018 Status: F Source: SCIENTOLOGIST 8:[address] [facility] REPOSITORY TYPE CODE TESTS RESULT OUT OF RANGE REFERENCE UNITS LAB [id number](LO 1.0-1.2 INC) High INR 2.3 Result Comment: INR Recommended Therapeuptic Ranges: Prophylaxis/treatment of DVT and PE?2.0-3.0 Prevention of systemic embolism?.2.0-3.0 Mechanical prosthetic values?2.5-3.5 CRITICAL VALUES?.>4.0 LAB [id number](LOINC) 11.6-14.6 second(s) High PT 24.1 Performed By: #### [id number] #### STACEY [employer] [address] [place] [address] PSA SCREEN Collected: 06/09/2018 Status: F Source: SCIENTOLOGIST 8:[address] [facility] REPOSITORY TYPE CODE TESTS RESULT OUT OF RANGE REFERENCE UNITS LAB [id number](LO ng/mL INC) Normal PSA <0.08 Result Comment: AGE-SPECIFIC REFERENCE RANGES FOR SERUM PSA REFERENCE RANGE NG/ML AGE ASIANS BLACKS WHITE 40-49 0- 2 0-2 0-2.5 50-59 0- 3 0-4 0-3.5 60-69 0- 4 0-4.5 0-4.5 70-79 0- 5 0-5.5 0-6.5 PSA INCREASES WITH AGE, RACE, AND EJACULATION WITHIN 48 HRS. [facility] VOL24,NO.2, , PG.339 Performed By: #### [id number] #### STACEY [employer] [address] [place] [address] PT/INR POC ORDER Collected: 06/02/2018 Status: F Source: SCIENTOLOGIST 10:[address] [facility] REPOSITORY TYPE CODE TESTS RESULT OUT OF RANGE REFERENCE UNITS LAB [id number](LOINC) Normal Collected PT/INR POC Order Performed By: #### [id number] #### STACEY POC Subsection [address] [place] [address] PT/INR CAPILLARY Collected: 06/02/2018 Status: F Source: SCIENTOLOGIST 10:[address] [facility] REPOSITORY TYPE CODE TESTS RESULT OUT OF RANGE REFERENCE UNITS LAB [id number](LO 8.0-11.0 second(s) INC) High PT POC 25.0 LAB [id number](LO 1.0-1.2 INC) High INR POC 2.2 Result Comment: Source Capillary Performed By: #### [id number] #### STACEY POC Subsection [address] [place] [address] PT/INR CAPILLARY Collected: 04/27/2018 Status: F Source: SCIENTOLOGIST 10:[address] [facility] REPOSITORY TYPE CODE TESTS RESULT OUT OF RANGE REFERENCE UNITS LAB [id number](LO 8.0-11.0 second(s) INC) High PT POC 21.0 LAB [id number](LO 1.0-1.2 INC) High INR POC 1.8 Result Comment: Source Capillary Performed By: #### [id number] #### STACEY POC Subsection [address] [place] [address] PT/INR POC ORDER Collected: 04/27/2018 Status: F Source: SCIENTOLOGIST 10:[address] [facility] REPOSITORY TYPE CODE TESTS RESULT OUT OF RANGE REFERENCE UNITS LAB CD:[id number](LOINC) Normal Collected PT/INR POC Order Performed By: #### [id number] #### STACEY POC Subsection [address] [place] [address] HCT & HGB Collected: 04/15/2018 Status: F Source: SCIENTOLOGIST 12:[address] [facility] REPOSITORY TYPE CODE TESTS RESULT OUT OF RANGE REFERENCE UNITS LAB [id number](LO 13.5-18.0 G/DL INC) Normal Hgb 14.0 LAB [id number](LO 42.0-52.0 % INC) Low Hct 40.4 Performed By: #### [id number] #### STACEY [employer] [address] [place], [place] [address] PT Collected: 04/15/2018 Status: F Source: SCIENTOLOGIST 4:13 AM [facility] REPOSITORY TYPE CODE TESTS RESULT OUT OF RANGE REFERENCE UNITS LAB [id number](LO 1.0-1.2 INC) High INR 2.9 Result Comment: INR Recommended Therapeuptic Ranges: Prophylaxis/treatment of DVT and PE?2.0-3.0 Prevention of systemic embolism?.2.0-3.0 Mechanical prosthetic values?2.5-3.5 CRITICAL VALUES?.>4.0 LAB [id number](LOINC) 11.6-14.6 second(s) High PT 28.1 Performed By: #### [id number] #### STACEY [employer] [employer] [address] [place] [address] CBC W/ AUTO DIFF Collected: 04/15/2018 Status: F Source: SCIENTOLOGIST 4:[address] [facility] REPOSITORY TYPE CODE TESTS RESULT OUT OF RANGE REFERENCE UNITS LAB [id number](L 3.6-11.0 E3/mcL OINC) Normal WBC 8.0 LAB [id number](L 3.90-6.10 E6/mcL OINC) Normal RBC 4.14 LAB [id number](L 13.5-18.0 G/DL OINC) Normal Hgb 14.1 LAB [id number](L 42.0-52.0 % OINC) Low Hct 40.7 LAB [id number](L 11.5-14.5 % OINC) Normal RDW 14.2 LAB [id number](L 27.0-31.0 pg OINC) High MCH 34.0 LAB [id number](L 33.0-37.0 G/DL OINC) Normal MCHC 34.6 LAB [id number](L 78.0-100.0 fL OINC) Normal MCV 98.4 LAB [id number](L 7.4-11.0 fL OINC) Normal MPV 8.4 LAB [id number](L 130-400 E3/mcL OINC) Normal Platelet 207 Performed By: #### [id number] #### STACEY CruzHemo [facility] [place] [id number] AUTO DIFF Collected: 04/15/2018 Status: F Source: SCIENTOLOGIST 4:[address] [facility] REPOSITORY Order Comment: Order Added by Discern Expert. TYPE CODE TESTS RESULT OUT OF RANGE REFERENCE UNITS LAB [id number](L 37.0-75.0 % OINC) Normal Neutro Auto 65.6 LAB [id number](L 20.0-55.0 % OINC) Normal Lymph Auto 22.9 LAB [id number](L 0.0-10.0 % OINC) Normal [place] Auto 7.7 LAB 83284672(L 0.0-11.0 % OINC) Normal Eos Auto 2.4 LAB 15195624(L 0.0-2.0 % OINC) Normal Basophil Auto 1.4 LAB 15825345(L 1.4-6.5 E3/mcL OINC) Normal Neutro 5.3 Absolute LAB 79486042(L 1.2-3.4 E3/mcL OINC) Normal Lymph Absolute 1.8 LAB 61577272(L 0.0-0.7 E3/mcL OINC) Normal [place] Absolute 0.6 LAB 82036946(L 0.0-0.7 E3/mcL OINC) Normal Eos Absolute 0.2 LAB 67531642(L 0.0-0.2 E3/mcL OINC) Normal Basophil 0.1 Absolute Performed By: #### [id number] #### STACEYLizet CruzHemarmando [facility] [place] [id number] BMP Collected: 04/15/2018 Status: F Source: SCIENTOLOGIST 4:[address] [facility] REPOSITORY TYPE CODE TESTS RESULT OUT OF RANGE REFERENCE UNITS LAB [id number](L 70-99 mg/dL OINC) High Glucose Lvl 107 LAB 02324862(L 7-18 mg/dL OINC) High BUN 36 LAB 0781370(LO 0.6-1.3 mg/dL INC) High Creatinine 1.5 LAB 56871278(L 5.4-30.0 ratio OINC) Normal BUN/Creat Ratio 24.0 LAB 39660462(L 8.4-10.2 mg/dL OINC) Calcium Normal Lvl 9.0 LAB 02782399(L 136-145 mEq/L OINC) Sodium Normal Lvl 137 LAB 94399092(L 3.5-5.1 mEq/L OINC) Normal Potassium Lvl 4.7 LAB 73756637(L 98-107 mEq/L OINC) Chloride Normal 103 LAB 91054102(L 24.0-30.0 mEq/L OINC) CO2 Normal 25.9 Performed By: #### [id number] #### STACEY [employer] [address] [place] [address] EGFR Collected: 04/15/2018 Status: F Source: SCIENTOLOGIST 4:13 AM [facility] REPOSITORY Order Comment: Order added by Discern Expert. TYPE CODE TESTS RESULT OUT OF RANGE REFERENCE UNITS LAB [id number](LO mL/min/1.73 INC) m2 Normal eGFR 45 LAB [id number](LO mL/min/1.73 INC) m2 Normal eGFR AA 55 Performed By: #### [id number] #### STACEY [employer] [address] [place] [address] HCT & HGB Collected: 04/14/2018 Status: F Source: SCIENTOLOGIST 7:54 PM [facility] REPOSITORY TYPE CODE TESTS RESULT OUT OF RANGE REFERENCE UNITS LAB [id number](LO 13.5-18.0 G/DL INC) Normal Hgb 15.0 LAB [id number](LO 42.0-52.0 % INC) Normal Hct 43.4 Performed By: #### [id number] #### STACEY [employer] [address] [place] [address] PT Collected: 04/14/2018 Status: F Source: SCIENTOLOGIST 7:51 AM [facility] REPOSITORY TYPE CODE TESTS RESULT OUT OF RANGE REFERENCE UNITS LAB [id number](LO 1.0-1.2 INC) High INR 3.0 Result Comment: INR Recommended Therapeuptic Ranges: Prophylaxis/treatment of DVT and PE?2.0-3.0 Prevention of systemic embolism?.2.0-3.0 Mechanical prosthetic values?2.5-3.5 CRITICAL VALUES?.>4.0 LAB [id number](LOINC) 11.6-14.6 second(s) High PT 29.4 Performed By: #### [id number] #### STACEY Hematology Autom[employer]section [facility] [place] [address] CBC W/ AUTO DIFF Collected: 04/14/2018 Status: F Source: SCIENTOLOGIST 7:[address] [facility] REPOSITORY TYPE CODE TESTS RESULT OUT OF RANGE REFERENCE UNITS LAB [id number](L 3.6-11.0 E3/mcL OINC) High WBC 12.0 LAB [id number](L 3.90-6.10 E6/mcL OINC) Normal RBC 4.60 LAB [id number](L 13.5-18.0 G/DL OINC) Normal Hgb 15.3 LAB 85259816(L 42.0-52.0 % OINC) Normal Hct 45.1 LAB 94322414(L 11.5-14.5 % OINC) High RDW 14.6 LAB [id number](L 27.0-31.0 pg OINC) High MCH 33.3 LAB [id number](L 33.0-37.0 G/DL OINC) Normal MCHC 33.9 LAB [id number](L 78.0-100.0 fL OINC) Normal MCV 98.2 LAB [id number](L 7.4-11.0 fL OINC) Normal MPV 7.7 LAB [id number](L 130-400 E3/mcL OINC) Normal Platelet 213 Performed By: #### [id number] #### STACEY Rem[employer] [place] [id number] AUTO DIFF Collected: 04/14/2018 Status: F Source: SCIENTOLOGIST 7:51 AM [facility] REPOSITORY Order Comment: Order Added by Discern Expert. TYPE CODE TESTS RESULT OUT OF RANGE REFERENCE UNITS LAB [id number](L 37.0-75.0 % OINC) Normal Neutro Auto 73.7 LAB [id number](L 20.0-55.0 % OINC) Low Lymph Auto 15.9 LAB 08990353(L 0.0-10.0 % OINC) Normal [place] Auto 7.0 LAB 90033899(L 0.0-11.0 % OINC) Normal Eos Auto 2.5 LAB 21730030(L 0.0-2.0 % OINC) Normal Basophil Auto 0.9 LAB 51390644(L 1.4-6.5 E3/mcL OINC) High Neutro 8.9 Absolute LAB 76526526(L 1.2-3.4 E3/mcL OINC) Normal Lymph Absolute 1.9 LAB 06870894(L 0.0-0.7 E3/mcL OINC) High [place] Absolute 0.8 LAB 38210983(L 0.0-0.7 E3/mcL OINC) Normal Eos Absolute 0.3 LAB 51226605(L 0.0-0.2 E3/mcL OINC) Normal Basophil 0.1 Absolute Performed By: #### [id number] #### STACEY Cason [facility] [place] [address] CMP Collected: 04/14/2018 Status: F Source: SCIENTOLOGIST 7:51 AM [facility] REPOSITORY TYPE CODE TESTS RESULT OUT OF RANGE REFERENCE UNITS LAB [id number](L 70-99 mg/dL OINC) Glucose Normal Lvl 96 LAB [id number](L 8.4-10.2 mg/dL OINC) Calcium Normal Lvl 8.9 LAB 45808318(L 136-145 mEq/L OINC) Sodium Normal Lvl 136 LAB 17834854(L 3.5-5.1 mEq/L OINC) Normal Potassium Lvl 4.6 LAB 41802136(L 98-107 mEq/L OINC) Chloride Normal 103 LAB 66457315(L 24.0-30.0 mEq/L OINC) CO2 Normal 24.4 LAB 65629140(L 7-18 mg/dL OINC) High BUN 40 LAB 1035250(LO 0.6-1.3 mg/dL INC) High Creatinine 1.7 LAB 49840706(L 42-121 Int._Unit/ OINC) Low L Alk Phos 37 LAB 56888913(L 0.2-1.0 mg/dL OINC) High Bili Total 1.6 LAB 17244100(L 3.2-5.0 G/DL OINC) Albumin Normal Lvl 3.9 LAB 57721020(L 6.4-8.3 G/DL OINC) Total Normal Protein 6.9 LAB 78331288(L 10-40 Int._Unit/ OINC) L ALT Normal 16 LAB 02158318(L 10-42 Int._Unit/ OINC) L AST Normal 21 LAB 50150151(L 5.4-30.0 ratio OINC) Normal BUN/Creat Ratio 23.5 LAB 77726013(L 2.0-4.0 G/DL OINC) Globulin Normal 3.0 LAB 56540818(L 1.1-1.9 ratio OINC) A/G Normal Ratio 1.3 Performed By: #### [id number] #### STACEY [employer] [address] [place] [address] EGFR Collected: 04/14/2018 Status: F Source: SCIENTOLOGIST 7:[address] [facility] REPOSITORY Order Comment: Order added by Discern Expert. TYPE CODE TESTS RESULT OUT OF RANGE REFERENCE UNITS LAB 34080494(LO mL/min/1.73 INC) m2 Normal eGFR 39 LAB 03656532(LO mL/min/1.73 INC) m2 Normal eGFR AA 47 Performed By: #### [id number] #### STACEY [employer] [address] [place] [address] PT/INR CAPILLARY Collected: 04/10/2018 Status: F Source: SCIENTOLOGIST 10:[address] [facility] REPOSITORY TYPE CODE TESTS RESULT OUT OF RANGE REFERENCE UNITS LAB 61973971(LO 8.0-11.0 second(s) INC) High PT POC 33.0 LAB [id number](LO 1.0-1.2 INC) High INR POC 2.9 Result Comment: Source Capillary Performed By: #### [id number] #### STACEY POC Subsection [address] [place] [address] PT/INR POC ORDER Collected: 04/10/2018 Status: F Source: SCIENTOLOGIST 10:[address] [facility] REPOSITORY TYPE CODE TESTS RESULT OUT OF RANGE REFERENCE UNITS LAB CD:[id number](LOINC) Normal Collected PT/INR POC Order Performed By: #### [id number] #### STACEY POC Subsection [address] [place] [address] WOUND CTR HISTORY Observed: 04/03/2018 Status: F Source: JAIME AND PHYSICAL 6:49 PM [facility] REPOSITORY [facility] [address] [place] [address] Wound Ctr History AND Physical 04/03/18 1836 MR#: [id number] Acct: [id number] Name: PHILIPPE JAEGER Rep #: [id number] : 1940 78 From: Yue Tavarez DO PCP: Dat Bullard Status: REG RCR Y Location: WC (1) Traumatic wound Status: Chronic Current Visit: Yes (2) Anticoagulated on Coumadin Status: Chronic Current Visit: Yes Code(s): Z51.81 - Encounter for therapeutic drug level monitoring; Z79.01 - intermediate manager (current) use of anticoagulants (3) Open wound of left lower extremity Status: Chronic Current Visit: Yes Qualifiers: Encounter type: subsequent encounter Qualified Code(s): S81.802D - Unspecified open wound, left lower leg, subsequent encounter Code(s): S81.802A - Unspecified open wound, left lower leg, initial encounter (4) 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 He was in his normal state of health until February 2018. At that time, he sustained trauma to the left anterior tibial surface, resulting in 2 adjacent superficial wounds. He was evaluated by his primary care physician, and placed on oral cephalexin, which has now been completed. The traumatic wounds failed to heal, and the patient presented for further evaluation and management. The patient typically sleeps on a flat mattress at night, though occasionally sleeps in a recliner due to breathing problems. He claims to be active. He does not ambulate liberally, however, claiming to suffer from shortness of breath which occurs with activity. 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 It is uncertain whether this was deep or superficial thrombophlebitis. He has been being seen by several physicians at the wound center, most recently Dr. Thomas and Dr. Valentine. He had been using santyl but was changed to promogran last week. He has had increased pain and redness and went to the ER and was given doxycycline. He is tolerating this medicine. He is on day 5 of 10. He states that the pain has not improved. No cultures have been taken. Denies fever or chills or drainage. 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 Patient's father was a smoker. Patient's mother at age of 87 from an abdominal aortic aneurysm. Patient had a sister who at the age of 37 from kidney failure. He also had a sister who at the age of 44 from a brain aneurysm. Lives: Spouse/ Significant Other Smoking Status: Never smoker Tobacco Use: Non-smoker Alcohol: None Drugs: None Review of Systems Constitutional: Denies: Chills, Fever, Weight Change Eyes: Denies: Pain, Vision Change HEENT: Denies: Difficulty Hearing, Difficulty Swallowing, Sinus Congestion Cardiovascular: Denies: Chest Pain, Palpitations Respiratory: Denies: Cough, Shortness of Breath Gastrointestinal: Denies: Diarrhea, Nausea, Vomiting Genitourinary: Denies: Dysuria, Hematuria Musculoskeletal: Reports: Back Pain, Joint Pain Skin: Reports: Wounds Endocrine: Denies: Heat/ Cold Intolerance, Polydipsia, Polyuria Hematologic/ Lymphatic: Denies: Easy Bruising, Easy Bleeding - Physical Exam Vital Signs Temp Pulse Resp BP 96.9 F L 61 16 157/98 H 04/03/18 15:41 04/03/18 15:41 04/03/18 15:41 04/03/18 15:41 General: Alert, Oriented x3, Cooperative, No apparent distress HEENT: Atraumatic, Normocephalic Oral: Moist Mucosa Neck: Supple, No JVD Lungs: Clear to auscultation Cardiovascular: Regular rate, Regular Rhythm Abdomen: Soft, Non Tender Extremities: Edema Skin: Ulcer/ Wound Wound Measurements and Assessment WC - Nurse 1 - General Ulcer Measurement Start: 04/01/18 12:20 Freq: Status: Active Protocol: Activity Type Activity Date Activity User E-Sign Co-Sign Detail Wound Center Nurse 1 [Ulcer Assessment] #4 LEFT INFERIOR CURTIS cluster -Combined with other wound No No WC - Nurse 2 - General Ulcer CM Notes Start: 04/01/18 12:20 Freq: Status: Active Protocol: Activity Type Activity Date Activity User E-Sign Co-Sign Detail Wound Center Nurse 2 Psych/Mental Status: Normal Affect, Appropriate Debridement Note Post-Debridement Measurements/Treatment WC - Nurse 2 - General Ulcer CM Notes Start: 04/01/18 12:20 Freq: Status: Active Protocol: Activity Type Activity Date Activity User E-Sign Co-Sign Detail Wound Center Nurse 2 #4 LEFT INFERIOR CURTIS cluster -Time 13:27 16:30 Wound debrided: left inferior curtis cluster Laterality: Left Type of Debridement: Excisional debridement Anesthesia Used: 4% Lidocaine Solution Depth: Down to and including healthy tissue, in the subcutaneous layer Percentage of wound debrided: 100 Instrument Used: 5mm curette Tissue Removed: yellow slough, devitalized tissue Severity: Fat Layer Exposed Amount of bleeding with debridement: Mild Bleeding Controlled with: Compression and gauze Patient tolerated procedure well - Additional Wound Wound debrided: left superior curtis Laterality: Left Type of Debridement: Excisional debridement Anesthesia Used: 4% Lidocaine Solution Depth: Down to and including healthy tissue, in the subcutaneous layer Percentage of wound debrided: 100 Instrument Used: 5mm curette Tissue Removed: yellow slough, devitalized tissue Severity: Fat Layer Exposed Amount of bleeding with debridement: Mild Bleeding Controlled with: Compression and gauze Patient tolerated procedure: Patient tolerated procedure well Assessment/Plan Active Problems Traumatic wound (Chronic) Anticoagulated on Coumadin (Chronic) Leg edema, left (Chronic) Open wound of left lower extremity (Chronic) 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 Left lower extremity cellulitis. Plan: Cellulitis improved but he continues to still be significantly tender. No obvious signs of infection otherwise. Debridement done as documented above. Procedure was tolerated. Advised to complete course of Abx. Culture obtained. Advised tylenol and tramadol for pain. Could consider xray or CT for evaluation for osteomyelitis if he still continues to have pain out of proportion to clinical appearance. Significant eschar present on inferior wound - changed back to Santyl. Continued Promogran to superior wound. Change daily. 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 Elevate lower extremity when sitting and in bed. Increased protein intake. Follow up in 1 week. Advised to call with any questions or concerns. 04/03/18 184 <Electronically signed by Yue Tavarez DO> Date Yue Tavarez DO CC: Signed Observed: 04/03/2018 Status: F Source: JAIME CULTURE, DEEP WOUND 4:40 PM [facility] REPOSITORY Comments: LLE ULCER Gram Stain Gram Stain No White Blood Cells No organisms seen Wound Culture ORGANISM 1: Staphylococcus aureus Amount Growth Rare ORGANISM 2: Staphylococcus lugdunensis Amount Growth 1+ Staphylococcus aureus: REACTION Benzylpenicillin NF >=0.5 R Cefoxitin *NF - Clindamycin $$ <=0.25 R Inducable Clindamycin [place] + Erythromycin $ 1 R Gentamicin $ >=16 R Levofloxacin $ <=0.12 S Linezolid $$$$ 2 S Moxifloxicin *NF <=0.25 S Oxacillin NF <=0.25 S Tigecycline $$$$ <=0.12 S Rifampin $$ <=0.5 S Tetracycline NF <=1 S Trimethoprim/Sulfametho $ <=10 S Vancomycin $ <=0.5 S (NF) indicates non-formulary drug at [facility]. Approval by Infectious Disease Specialist required before non-formulary drugs may be ordered and/or dispensed. * CLSI guidelines does not recommend testing of cephalosporins. This interpretation is deduced from Beta-lactam/penicillin results. Staphylococcus lugdunensis: REACTION Benzylpenicillin NF >=0.5 R Cefoxitin *NF - Clindamycin $$ <=0.25 S Inducable Clindamycin Res[place] - Erythromycin $ <=0.25 S Gentamicin $ <=0.5 S Levofloxacin $ <=0.12 S Oxacillin NF <=0.25 S Tigecycline $$$$ <=0.12 S Rifampin $$ <=0.5 S Tetracycline NF >=16 R Vancomycin $ <=0.5 S (NF) indicates non-formulary drug at [facility]. Approval by Infectious Disease Specialist required before non-formulary drugs may be ordered and/or dispensed. * CLSI guidelines does not recommend testing of cephalosporins. This interpretation is deduced from Beta-lactam/penicillin results. Cult, Anaerobic Studies have confirmed that Anaerobic Gram Positive Cocci are routinely susceptible to: Penicillin/Ampicillin, Ampicillin/Sulbactam, Piperacillin/Tazobactam, Cefoxatin, Ertapenem, Imipenem, Meropenem and Metronidazole and vary in resistance to: Clindamycin and Moxifloxacin. ORGANISM 1: Anaerobic cocci Performed By: #### M100.1500 #### [facility] [place], [place], [address] PT/INR CAPILLARY Collected: 03/31/2018 Status: F Source: SCIENTOLOGIST 11:[address] [facility] REPOSITORY TYPE CODE TESTS RESULT OUT OF RANGE REFERENCE UNITS LAB [id number](LO 8.0-11.0 second(s) INC) High PT POC 33.0 LAB [id number](LO 1.0-1.2 INC) High INR POC 2.9 Result Comment: Source Capillary Performed By: #### [id number] #### STACEY POC Subsection [address] [place] [address] PT/INR POC ORDER Collected: 03/31/2018 Status: F Source: SCIENTOLOGIST 11:10 AM [facility] REPOSITORY TYPE CODE TESTS RESULT OUT OF RANGE REFERENCE UNITS LAB CD:[id number]([facility]) Normal Collected PT/INR POC Order Performed By: #### [id number] #### STACEY POC Subsection [facility] [place] [address] EMERGENCY DEPARTMENT Observed: 03/29/2018 Status: F Source: [place] SUMMARY 12:28 PM [facility] REPOSITORY [facility] Medical Records Department [address] [place] [address] Emergency Department Summary 03/29/18 1151 MR#: [id number] Acct: [id number] Name: PHILIPPE JAEGER Rep #: [id number] : 1940 78 From: Faisal Roger MD PCP: Dat [facility] Status: DEP ER - ER Visit Summary Date of Service: 03/29/18 Chief Complaint: Left leg redness History of Present Illness: The patient is a 78 M presents to the emergency department with increasing redness of his left leg. The patient had an injury about 6 weeks ago. He has a nonhealing wound. There is some erythema around and he was on antibiotics for 10 days with little improvement. He has been following at the wound care center. He has had negative lower extremity Dopplers. He has had normal lower extremity arterial studies. He states that over the past 2 days, the redness has increased and is had some increasing pain. He denies any fevers or chills. The patient is on Coumadin for history of atrial fibrillation. Physical Examination: Exam is relatively unremarkable. Patient does have a nonhealing wound on the anterior aspect of the left curtis. There is some surrounding cellulitis. There is no purulence. There is a lymphogenic streak. Compartments are soft. Test Results: [] Emergency Department Course and Treatment: The patient has had some increasing redness around his chronic wound. There is minimal cellulitis. There is no streaking. I did obtain screening labs which are unremarkable. The patient has not had fever or chills. He has no evidence of sepsis. I am going to start him on oral doxycycline therapy as he is on Coumadin. He is comfortable with this plan of care and will continue to follow-up with the wound care center. Treatment Plan: [] Disposition: Discharge Impression: 1. Left lower extremity cellulitis This note was generated with [employer] software. It may contain incorrect words, spelling, and punctuation that were not noted in review of the chart prior to signing ED Disposition - Plan for ED Patient: Chief Complaint: Cellulitis Instructions: Discharge Instructions for Cellulitis Prescriptions: Doxycycline Monohydrate 100 mg PO BID #20 cap Referrals: Dat Bullard [Primary Care Provider] - What to do if you have Problems For any increased pain, shortness of breath, bleeding, nausea or vomiting, chest pain, or any unexpected problems, contact your Primary Care Provider. Call [facility] ([phone]) or report to the closest Emergency Room. Call 911 if necessary. 03/29/18 1228 <Electronically signed by Faisal Roger MD> Date Faisal Roger MD Cosigner Signature (If Indicated): Date CC: Dat [facility]ard CBC W/DIFF, AUTOMATED Collected: 03/29/2018 Status: F Source: [place] 11:35 AM [facility] [place] REPOSITORY TYPE CODE TESTS RESULT OUT OF RANGE REFERENCE UNITS LAB L100.1000 4.4-11.0 K/mm3 Normal WBC 7.4 LAB L100.1200 4.6-6.2 M/mm3 Low RBC 4.22 LAB L100.1300 13.0-16.5 g/dl Normal HGB 14.3 LAB L100.1400 40-54 % Normal HCT 41.2 LAB L100.1500 80-94 fL High MCV 97.6 LAB L100.1600 27.0-32.0 pg High MCH 33.9 LAB L100.1700 32-36 g/gl Normal MCHC 34.7 LAB L100.1810 11.6-14.6 % Normal RDW CV 14.1 LAB L100.1820 35.1-43.9 fl High RDW SD 48.9 LAB L100.1900 150-450 K/mm3 Normal PLT 163 LAB L100.2000 6.2-12.0 fl Normal MPV 8.8 LAB L100.2100 47-70 % Normal NEUT% 69.3 LAB L100.2200 19-41 % Low LY% 17.3 LAB L100.2300 0-10 % Normal MONO% 10.0 LAB L100.2400 0-5 % Normal EO% 2.3 LAB L100.2500 0-1 % Normal BASO% 0.7 LAB L100.2550 0.0-0.9 % Normal IM GRAN % 0.400 Result Comment: IG% - Immature Granulocytes (promyelocytes, myelocytes and metamyelocytes) > 1% indicates that a LEFT SHIFT is Present. LAB L100.2620 2.0-7.7 X10 3/uL Normal Absolute Neut 5.2 LAB L100.2720 0.83-4.51 X10 3/ul Normal Absolute Lymph 1.28 Performed By: #### L100.0100 #### [facility] [address] [place], [address] BASIC METABOLIC Collected: 03/29/2018 Status: F Source: [place] PROFILE (BMP) 11:35 AM [facility] REPOSITORY TYPE CODE TESTS RESULT OUT OF RANGE REFERENCE UNITS LAB L501.0100 74-106 mg/dL Normal GLU 99 Result Comment: Please note revised GLUCOSE reference range effective 2017. LAB L501.1000 7-18 mg/dL High BUN 29 LAB L501.1100 0.70-1.30 mg/dL High CREAT,SERUM 1.89 Result Comment: The validity of the calculated GFR AND GFRAA in patients over 70 years has not been determined. Clinical correlation is essential. LAB L501.1110 >60 mL/min Low EST GFR 37 Result Comment: Non- GFR Calc LAB L501.1115 >60 mL/min Low EST GFR - AA 45 Result Comment: GFR Calc LAB L501.1255 ml/min Normal Estimated CRCL 37.45 LAB L501.1300 10-20 RATIO Normal BUN/CRE 15.3 LAB L501.2200 8.5-10 mg/dL Normal .1 CA 8.7 LAB L501.5300 136-14 mmol/L Normal 5 NA 141 LAB L501.5600 3.5-5. mmol/L Normal 1 K 4.6 LAB L501.5900 98-107 mmol/L Normal CL 106 LAB L501.6100 21.0-3 mmol/L Normal 2.0 CO2 27.0 LAB L501.6200 5-15 Normal GAP 8 Performed By: #### L500.2500 #### [facility] [address] [place], [address] LOWER EXT ARTERIAL Observed: 03/17/2018 Status: F Source: [facility] 3:20 PM [facility] REPOSITORY [facility] Cardiovascular Services [address] [place] [address] 03/17/18 1512 MR#: [id number] Acct: [id number] Name: PHILIPPE JAEGER Rep #: [id number] : 1940 77 From: Jose Raul Thomas MD Attending Dr: Jose Raul Thomas MD Status: REG RCR Ordering Dr: Date: 03/17/18 Location: WC Sex: M C Admitted: Arterial Study - Arterial Study Arterial Study: This is a 77-year-old male with suspected peripheral arterial occlusive disease. He is brought to the noninvasive vascular laboratory at this time for the purpose of bilateral noninvasive lower extremity arterial assessment. Doppler signal assessment was used to evaluate the pulses at ankle level bilaterally. The posterior tibial and dorsalis pedis pulses were triphasic bilaterally. Segmental limb pressures were obtained bilaterally. The right ankle pressure, as determined by posterior tibial pulse, was measured at 196 mmHg. The right ankle pressure, as determined by dorsalis pedis pulse, was measured at 198 mmHg. The right digital pressure was measured at 192 mmHg. The left ankle pressure, as determined by posterior tibial pulse, was measured at 211 mmHg. The left ankle pressure, as determined by dorsalis pedis pulse, was measured at 199 mmHg. The left digital pressure was measured at 253 mmHg. Pulse-volume recordings were obtained bilaterally and segmentally. Waveform amplitudes appeared to be satisfactory at all levels bilaterally, including low thigh, calf, ankle, and digital levels. Resting ankle-brachial indices were calculated bilaterally. The resting right ankle-brachial index was calculated to be 1.32. The resting left ankle-brachial index was calculated to be 1.41. Digital-brachial indices were calculated bilaterally. The right digital-brachial index was calculated to be 1.28. The left digital-brachial index was calculated to be 1.69. Impression: Based upon the findings of this resting noninvasive lower extremity arterial study, there is no evidence of significant atherosclerotic peripheral arterial occlusive disease in the lower extremities bilaterally. Triphasic waveforms were noted at ankle level bilaterally. The resting right ankle-brachial index is normal. The resting left ankle-brachial index is supra-normal. The right digital-brachial index is normal. The left digital-brachial index is supra-normal. The supra-normal values of the resting ankle- brachial index and the digital-brachial index in the left lower extremity suggest arterial calcification. Clinical correlation is advised. 03/17/18 1520 <Electronically signed by Jose Raul Thomas MD> Date Jose Raul Thomas MD CC: Dat Thomas MD Date Dictated: 03/17/18 1512 Date Transcribed: 03/17/18 151 Plate Finisher: SHAYLEE Orosco VENOUS DUPLEX LOWER Observed: 03/17/2018 Status: F Source: [place] EXTREMITY 2:21 PM [facility] REPOSITORY [facility] Cardiovascular Services [address] [place] [address] Venous Duplex US - John Extrem 03/17/18 0804 MR#: [id number] Acct: [id number] Name: PHILIPPE JAEGER Rep #: [id number] : 1940 77 From: Jose Raul Thomas MD Attending Dr: Jose Raul Thomas MD Status: REG RCR Ordering Dr: Jose Raul Thomas MD Date: 03/17/18 Location: Sex: M C Admitted: Reason For Study: venous insufficiency RIGHT LEFT CFV is compressible, spontaneous, phasic, CFV is compressible, spontaneous, phasic, competent and demonstrates normal competent, and demonstrates normal augmentation. augmentation. FV is compressible, spontaneous, phasic, FV is compressible, spontaneous, phasic, competent and demonstrates normal competent and demonstrates normal augmentation. augmentation. POP V is compressible, spontaneous, phasic, POP V is compressible, spontaneous, phasic, competent and demonstrates normal competent and demonstrates normal augmentation. augmentation. T/P Trunk is compressible. T/P Trunk is compressible. PTV is compressible. PTV is compressible. RT PerV is compressible. LT PerV is compressible. S-F Junction is incompetent for greater S-F Junction is competent. than .5 seconds. GSV is incompetent throughout for greater GSV is incompetent throughout for greater than .5 seconds. GSV measures .497 c .473 than .5 seconds. GSV measures .495 x .499 cm. cm. ASV below the knee is incompetent for SSV is competent. greater than .5 seconds. ASV measures .323 Procedure x .335 cm. Exam performed in department. SSV is incompetent for greater than .5 The exam was diagnostic. seconds. SSV measures .220 x .237 cm. Interpretation Summary Deep veins of the lower extremities are bilaterally patent and compressible segmentally. There is no evidence of deep vein thrombosis on either side. Valvular competence appears intact within the proximal deep venous systems bilaterally. The greater saphenous veins appear bilaterally patent and compressible segmentally. The right sapheno-femoral junction is incompetent . The left sapheno- femoral junction is competent . Segmental valvular incompetence is noted within the greater saphenous veins bilaterally. The right small saphenous vein is patent and competent. The left small saphenous vein is patent and incompetent. The left accessory saphenous vein below the knee is incompetent. Ordering Physician: Jose Raul Thomas Performed By: Gilmer Ren RVT 03/17/18 1421 Date Jose Raul Thomas MD CC: Dat [facility]; Jose Raul Thomas MD Date Dictated: 03/17/18 0804 Date Transcribed: 03/17/18 142 Plate Finisher: Signed WOUND CTR HISTORY Observed: 03/17/2018 Status: F Source: [place] PHYSICAL 11:43 AM [facility] REPOSITORY [facility] [address] [place] [address] Wound Ctr History AND Physical 03/17/18 1134 MR#: [id number] Acct: [id number] Name: PHILIPPE JAEGER Rep #: [id number] : 1940 77 From: Jose Raul Thomas MD PCP: Dat Bullard Status: REG RCR Y Location: (1) Traumatic wound Status: Acute Current Visit: Yes (2) Atrial fibrillation Status: Chronic Current Visit: No Qualifiers: Atrial fibrillation type: chronic Qualified Code(s): I48.2 - Chronic atrial fibrillation Code(s): I48.91 - Unspecified atrial fibrillation (3) CHF (congestive heart failure) Status: Chronic Current Visit: No Code(s): I50.9 - Heart failure, unspecified (4) History of permanent cardiac pacemaker placement Status: Chronic Current Visit: No Code(s): Z95.0 - Presence of cardiac pacemaker (5) Renal insufficiency Status: Chronic Current Visit: No Code(s): N28.9 - Disorder of kidney and ureter, unspecified (6) Hyperlipidemia Status: Chronic Current Visit: No Code(s): E78.5 - Hyperlipidemia, unspecified (7) Exertional dyspnea Status: Chronic Current Visit: No Code(s): R06.09 - Other forms of dyspnea (8) Anticoagulated on Coumadin Status: Chronic Current Visit: Yes Code(s): Z51.81 - Encounter for therapeutic drug level monitoring; Z79.01 - intermediate manager (current) use of anticoagulants (9) History of thrombophlebitis Status: Chronic Current Visit: No Code(s): Z86.72 - Personal history of thrombophlebitis (10) Left leg swelling Status: Chronic Current Visit: Yes Code(s): M79.89 - Other specified soft tissue disorders (11) Leg edema, left Status: Chronic Current Visit: Yes Code(s): R60.0 - Localized edema (12) Lipodermatosclerosis Status: Chronic Current Visit: Yes Code(s): I83.10 - Varicose veins of unspecified lower extremity with inflammation (13) Chronic venous insufficiency Status: Chronic Current Visit: Yes Code(s): I87.2 - Venous insufficiency (chronic) (peripheral) (14) Obesity (BMI 30.0-34.9) Status: Chronic Current Visit: No Code(s): E66.9 - Obesity, unspecified History of Present Illness Date of Service: 03/17/18 Chief Complaint: Recent traumatic injury to the left anterior tibial surface with persistent wound History of Wound: This is a 77-year-old male with multiple pre-existing medical problems. He was in his normal state of health until approximately 3 weeks prior to presentation. At that time, he sustained trauma to the left anterior tibial surface, resulting in 2 adjacent superficial wounds. He was evaluated by his primary care physician, and placed on oral cephalexin, which has now been completed. The traumatic wounds failed to heal, and the patient presented for further evaluation and management. The patient typically sleeps on a flat mattress at night, though occasionally sleeps in a recliner due to breathing problems. He claims to be active. He does not ambulate liberally, however, claiming to suffer from shortness of breath which occurs with activity. 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 It is uncertain whether this was deep or superficial thrombophlebitis. Past Medical History Past Medical History: Chronic Problems Atrial fibrillation (Chronic) CHF (congestive heart failure) (Chronic) History of permanent cardiac pacemaker placement (Chronic) Renal insufficiency (Chronic) Hyperlipidemia (Chronic) Exertional dyspnea (Chronic) Anticoagulated on Coumadin (Chronic) History of thrombophlebitis (Chronic) Left leg swelling (Chronic) Leg edema, left (Chronic) Lipodermatosclerosis (Chronic) Chronic venous insufficiency (Chronic) Obesity (BMI 30.0-34.9) (Chronic) Surgical History: total hip arthroplasty, total knee arthroplasty, - - Ablation and pacemaker/defibrillator insertion Allergies/Adverse Reactions: Allergies wheat Allergy (Verified 06/21/13 15:32) Other has Ciliac disease Home Medications: Ambulatory Orders Medication Instructions Recorded - Family History Paternal - - The patient's father at the age of 72 with a history of emphysema. Patient's father was a smoker. Patient's mother at age of 87 from an abdominal aortic aneurysm. Patient had a sister who at the age of 37 from kidney failure. He also had a sister who at the age of 44 from a brain aneurysm. Lives: Spouse/ Significant Other Smoking Status: Never smoker Tobacco Use: Non-smoker Alcohol: Rare Drugs: None Review of Systems Constitutional: Denies: Chills, Fever, Weight Change Eyes: Denies: Pain, Vision Change HEENT: Denies: Difficulty Hearing, Difficulty Swallowing, Sinus Congestion Cardiovascular: Denies: Chest Pain, Palpitations Respiratory: Denies: Cough, Shortness of Breath Gastrointestinal: Denies: Diarrhea, Nausea, Vomiting Genitourinary: Denies: Dysuria, Hematuria Endocrine: Denies: Heat/ Cold Intolerance, Polydipsia, Polyuria Hematologic/ Lymphatic: Denies: Easy Bruising, Easy Bleeding - Physical Exam Vital Signs Temp Pulse Resp BP 96.8 F L 61 18 140/90 H 03/17/18 10:15 03/17/18 10:15 03/17/18 10:15 03/17/18 10:15 General: Alert, Oriented x3, Cooperative, No apparent distress, Well developed, Well nourished HEENT: Atraumatic, PERRLA, EOMI, Normocephalic Oral: Moist Mucosa Neck: No JVD Lungs: Normal air movement Abdomen: Non-Distended Extremities: No clubbing, No cyanosis, No Calf Tenderness, - - Very slight swelling and edema is noted in the lower extremities bilaterally. The traumatic wounds on the left anterior tibial surface appear slightly improved. There is a moderate amount of bioburden. There is no sign of infection or cellulitis. Dimensions are documented elsewhere. Skin: No rashes Wound Measurements and Assessment WC - Nurse 1 - General Ulcer Measurement Start: 03/10/18 09:01 Freq: Status: Active Protocol: Activity Type Activity Date Activity User E-Sign Co-Sign Detail Recorded Client Recorded Date Recorded By Document 03/17/18 10:15 TM [id number] 03/17/18 10:19 [facility] - Nurse 2 - General Ulcer CM Notes Start: 03/10/18 09:01 Freq: Status: Active Protocol: Activity Type Activity Date Activity User E-Sign Co-Sign Detail Recorded Client Recorded Date Recorded By Document 03/17/18 11:19 CS [id number] 03/17/18 11:26 CS Musculoskeletal: No Muscle Wasting Neurological: Cranial nerves II-XII grossly intact, Neuro grossly intact Psych/Mental Status: Normal Affect, Appropriate, Alert and oriented to time, place, person, mood and affect Debridement Note Post-Debridement Measurements/Treatment WC - Nurse 2 - General Ulcer CM Notes Start: 03/10/18 09:01 Freq: Status: Active Protocol: Activity Type Activity Date Activity User E-Sign Co-Sign Detail Wound Center Nurse 2 #4 LEFT INFERIOR CURTIS Laterality: Left - Anterior tibial surface 2 Type of Debridement: Excisional debridement Anesthesia Used: 4% Lidocaine Solution Depth: Down to and including healthy tissue, in the subcutaneous layer Percentage of wound debrided: 100 Instrument Used: 5mm curette Severity: Fat Layer Exposed Amount of bleeding with debridement: Mild Bleeding Controlled with: Compression and gauze Patient tolerated procedure well Assessment/Plan Active Problems Traumatic wound (Acute) Anticoagulated on Coumadin (Chronic) Left leg swelling (Chronic) Leg edema, left (Chronic) Lipodermatosclerosis (Chronic) Chronic venous insufficiency (Chronic) Assessment: This is a 77-year-old male multiple medical problems. He presented with trauma to the left anterior tibial surface approximately 3 weeks prior to presentation, and two superficial wounds on the left anterior tibial surface which failed to heal appropriately. The patient has completed a course of oral cephalexin, as prescribed by his primary care physician. The battery of diagnostic tests have been completed. Laboratory results have been reviewed, and are as follows: Glucose 81, BUN 23, creatinine 1.60, total protein 7.1, albumin 3.7, calcium 9.0, AST 20, alkaline phosphatase 44, ALT 28, total bilirubin 0.80, sodium 142, potassium 4.9, chloride 106, serum prealbumin 26.9, white blood count 6.2, hemoglobin 14.5, hematocrit 43.2, platelets 154,000. Venous duplex has been performed, revealing incompetence of the right great saphenous vein, the left great saphenous vein, left small saphenous vein, and the left accessory saphenous vein. A noninvasive lower extremity arterial study appears relatively normal. Plan: The patient has been advised to elevate his lower extremities as much as possible. Elevation is to be accomplished with his legs at heart level, or higher. This is to be implemented even during daytime hours. The patient has been encouraged to refrain from sleeping in a recliner. Activity has been encouraged. We are to implement compression to the left lower extremity by means of SurePress wraps, which will be applied daily. We are to continue the use of collagenase Santyl topically to the superficial wounds on the left anterior tibial surface. Collagenase Santyl will be applied on a daily basis. Patient is to return in 2 weeks for reevaluation, as he will be on vacation next week. Influenza vaccine was not administered today. Patient is not a smoker. Patient weighs 243 pounds. He stands 6 feet 1 inches tall. His BMI is 32.1, which places him in an obese class I category. Weight loss has been recommended, and collaboration with his primary care physician has been recommended. 03/17/18 1143 <Electronically signed by Jose Raul Thomas MD> Date Jose Raul Thomas MD CC: Signed CBC-COMPLETE BLOOD CNT Collected: 03/10/2018 Status: F Source: [place] NO DIFF 10:45 AM [facility] REPOSITORY TYPE CODE TESTS RESULT OUT OF RANGE REFERENCE UNITS LAB L100.1000 4.4-11.0 K/mm3 Normal WBC 6.2 LAB L100.1200 4.6-6.2 M/mm3 Low RBC 4.42 LAB L100.1300 13.0-16.5 g/dl Normal HGB 14.5 LAB L100.1400 40-54 % Normal HCT 43.2 LAB L100.1500 80-94 fL High MCV 97.7 LAB L100.1600 27.0-32.0 pg High MCH 32.8 LAB L100.1700 32-36 g/gl Normal MCHC 33.6 LAB L100.1810 11.6-14.6 % Normal RDW CV 14.1 LAB L100.1820 35.1-43.9 fl High RDW SD 50.0 LAB L100.1900 150-450 K/mm3 Normal PLT 154 LAB L100.2000 6.2-12.0 fl Normal MPV 9.5 Performed By: #### L100.0500 #### [facility] [address] [place], [address] COMPREHENSIVE METABOLIC Collected: 03/10/2018 Status: F Source: [place] PROFIL 10:45 AM [facility] REPOSITORY TYPE CODE TESTS RESULT OUT OF RANGE REFERENCE UNITS LAB L501.0100 74-106 mg/dL Normal GLU 81 Result Comment: Please note revised GLUCOSE reference range effective 2017. LAB L501.1000 7-18 mg/dL High BUN 23 LAB L501.1100 0.70-1.30 mg/dL High CREAT,SERUM 1.60 Result Comment: The validity of the calculated GFR AND GFRAA in patients over 70 years has not been determined. Clinical correlation is essential. LAB L501.1110 >60 mL/min Low EST GFR 45 Result Comment: Non- GFR Calc LAB L501.1115 >60 mL/min Low EST GFR - AA 54 Result Comment: GFR Calc LAB L501.1255 ml/min Normal Estimated CRCL 43.70 LAB L501.1300 10-20 RATIO Normal BUN/CRE 14.4 LAB L501.1500 6.4-8. g/dL Normal 2 T PROT 7.1 LAB L501.1800 3.2-5. g/dL Normal 0 ALB 3.7 LAB L501.1950 2.2-4. g/dL Normal 2 GLOB 3.4 LAB L501.2000 0.9-2. RATIO Normal 4 A/G 1.1 LAB L501.2200 8.5-10 mg/dL Normal .1 CA 9.0 LAB L501.4100 15-37 U/L Normal AST 20 LAB L501.4305 45-117 U/L Low ALK P 44 LAB L501.4405 16-61 U/L Normal ALT 28 LAB L501.4600 0.20-1 mg/dL Normal .00 T BILI 0.80 LAB L501.5300 136-14 mmol/L Normal 5 NA 142 LAB L501.5600 3.5-5. mmol/L Normal 1 K 4.9 LAB L501.5900 98-107 mmol/L Normal CL 106 LAB L501.6100 21.0-3 mmol/L Normal 2.0 CO2 29.0 LAB L501.6200 5-15 Normal GAP 7 Performed By: #### L500.4050, L506.0500 #### [facility] [address] [place], [place], [address] PREALBUMIN Collected: 03/10/2018 Status: F Source: [place] 10:45 AM [facility] REPOSITORY TYPE CODE TESTS RESULT OUT OF RANGE REFERENCE UNITS LAB L506.0500 20.0-40.0 mg/dL Normal PREALBUMIN 26.9 Performed By: #### L500.4050, L506.0500 #### [facility] [address] [place], [address] WOUND CTR HISTORY Observed: 03/10/2018 Status: F Source: [place] AND PHYSICAL 10:06 AM [facility] REPOSITORY [facility] [address] [place] [address] Wound Ctr History AND Physical 03/10/18 0949 MR#: [id number] Acct: [id number] Name: PHILIPPE JAEGER Rep #: [id number] : 1940 77 From: Jose Raul Thomas MD PCP: Dat Bullard Status: REG RCR Y Location: (1) Traumatic wound Status: Acute Current Visit: Yes (2) Atrial fibrillation Status: Chronic Current Visit: No Qualifiers: Atrial fibrillation type: chronic Qualified Code(s): I48.2 - Chronic atrial fibrillation Code(s): I48.91 - Unspecified atrial fibrillation (3) CHF (congestive heart failure) Status: Chronic Current Visit: No Code(s): I50.9 - Heart failure, unspecified (4) History of permanent cardiac pacemaker placement Status: Chronic Current Visit: No Code(s): Z95.0 - Presence of cardiac pacemaker (5) Renal insufficiency Status: Chronic Current Visit: No Code(s): N28.9 - Disorder of kidney and ureter, unspecified (6) Hyperlipidemia Status: Chronic Current Visit: No Code(s): E78.5 - Hyperlipidemia, unspecified (7) Exertional dyspnea Status: Chronic Current Visit: No Code(s): R06.09 - Other forms of dyspnea (8) Anticoagulated on Coumadin Status: Chronic Current Visit: Yes Code(s): Z51.81 - Encounter for therapeutic drug level monitoring; Z79.01 - intermediate (current) use of anticoagulants (9) History of thrombophlebitis Status: Chronic Current Visit: No Code(s): Z86.72 - Personal history of thrombophlebitis (10) Left leg swelling Status: Chronic Current Visit: Yes Code(s): M79.89 - Other specified soft tissue disorders (11) Leg edema, left Status: Chronic Current Visit: Yes Code(s): R60.0 - Localized edema (12) Lipodermatosclerosis Status: Chronic Current Visit: Yes Code(s): I83.10 - Varicose veins of unspecified lower extremity with inflammation (13) Chronic venous insufficiency Status: Chronic Current Visit: Yes Code(s): I87.2 - Venous insufficiency (chronic) (peripheral) (14) Obesity (BMI 30.0-34.9) Status: Chronic Current Visit: No Code(s): E66.9 - Obesity, unspecified History of Present Illness Date of Service: 03/10/18 Chief Complaint: Recent traumatic injury to the left anterior tibial surface with persistent wound History of Wound: This is a 77-year-old male with multiple pre-existing medical problems. He was in his normal state of health until approximately 3 weeks ago. At that time, he sustained trauma to the left anterior tibial surface, resulting in 2 adjacent superficial wounds. He was evaluated by his primary care physician, and placed on oral cephalexin, which he continues to take on a daily basis, with approximately 3 days remaining. The traumatic wounds have failed to heal, and the patient presents at this time for further evaluation and management. The patient typically sleeps on a flat mattress at night, though occasionally sleeps in a recliner due to breathing problems. He claims to be active. He does not ambulate liberally, however, claiming to suffer from shortness of breath which occurs with activity. 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 It is uncertain whether this was deep or superficial thrombophlebitis. Past Medical History Past Medical History: Chronic Problems Atrial fibrillation (Chronic) CHF (congestive heart failure) (Chronic) History of permanent cardiac pacemaker placement (Chronic) Renal insufficiency (Chronic) Hyperlipidemia (Chronic) Exertional dyspnea (Chronic) Anticoagulated on Coumadin (Chronic) History of thrombophlebitis (Chronic) Left leg swelling (Chronic) Leg edema, left (Chronic) Lipodermatosclerosis (Chronic) Chronic venous insufficiency (Chronic) Obesity (BMI 30.0-34.9) (Chronic) Past Medical History: Patient has a history of atrial fibrillation, congestive heart failure, hypertension, prior pacemaker/defibrillator placement, renal insufficiency, and hyperlipidemia. He also has a history of right lower extremity thrombophlebitis. He suffers from exertional dyspnea. His history is negative for myocardial infarction, diabetes mellitus, cerebrovascular accident, pulmonary disease, and thyroid disease. Surgical History: total hip arthroplasty, total knee arthroplasty, - - Ablation and pacemaker/defibrillator insertion Allergies/Adverse Reactions: Allergies wheat Allergy (Verified 06/21/13 15:32) Other has Ciliac disease Home Medications: Ambulatory Orders Medication Instructions Recorded - Family History Paternal - - The patient's father at the age of 72 with a history of emphysema. Patient's father was a smoker. Patient's mother at age of 87 from an abdominal aortic aneurysm. Patient had a sister who at the age of 37 from kidney failure. He also had a sister who at the age of 44 from a brain aneurysm. Lives: Spouse/ Significant Other Smoking Status: Never smoker Tobacco Use: Non-smoker Alcohol: Rare Drugs: None Review of Systems Constitutional: Denies: Chills, Fever, Weight Change Eyes: Denies: Pain, Vision Change HEENT: Denies: Difficulty Hearing, Difficulty Swallowing, Sinus Congestion Cardiovascular: Denies: Chest Pain, Palpitations Respiratory: Denies: Cough, Shortness of Breath Gastrointestinal: Denies: Diarrhea, Nausea, Vomiting Genitourinary: Denies: Dysuria, Hematuria Endocrine: Denies: Heat/ Cold Intolerance, Polydipsia, Polyuria Hematologic/ Lymphatic: Denies: Easy Bruising, Easy Bleeding - Physical Exam Vital Signs Temp Pulse Resp BP 96.0 F L 60 18 134/76 H 03/10/18 09:02 03/10/18 09:02 03/10/18 09:02 03/10/18 09:02 General: Alert, Oriented x3, Cooperative, No apparent distress, Well developed, Well nourished HEENT: Atraumatic, PERRLA, EOMI, Normocephalic Oral: Moist Mucosa Neck: Supple, No JVD, Negative Carotid Bruits, Negative Hepatojugular Reflux, No Nodes, No Nuchal Rigidity, Trachea Midline Lungs: Clear to auscultation, Normal air movement, No rhonchi, No wheeze, No rales Cardiovascular: Regular rate, Regular Rhythm, Normal S1, Normal S2, No murmurs, - - The patient's implanted pacemaker is palpable in the left upper chest. Abdomen: Soft, Non Tender, Non-Distended, Obese Extremities: No clubbing, No cyanosis, No Calf Tenderness, - - Mild swelling is noted in the patient's left lower extremity. Both lower extremities demonstrate chronic changes of venous insufficiency, namely hyperpigmentation and lipodermatosclerosis in the gaiter areas. 2 small superficial ulcerations are noted on the left anterior tibial surface, result of recent trauma. Mentions are documented elsewhere. There is no obvious sign of infection or cellulitis. There is a moderate amount of bioburden and some frankly necrotic tissue present. Skin: No rashes Wound Measurements and Assessment WC - Nurse 1 - General Ulcer Measurement Start: 03/10/18 09:01 Freq: Status: Active Protocol: Activity Type Activity Date Activity User E-Sign Co-Sign Detail Recorded Client Recorded Date Recorded By Document 03/10/18 09:02 DV [id number] 03/10/18 09:19 DV Wound Center Nurse 1 [Ulcer Assessment] #4 LEFT INFERIOR CURTIS Musculoskeletal: No Muscle Wasting Neurological: Cranial nerves II-XII grossly intact, Neuro grossly intact Psych/Mental Status: Normal Affect, Appropriate, Alert and oriented to time, place, person, mood and affect Debridement Note Laterality: Left - Anterior tibial surface Type of Debridement: Excisional debridement Anesthesia Used: 4% Lidocaine Solution Depth: Down to and including healthy tissue, in the subcutaneous layer Percentage of wound debrided: 100 Instrument Used: 5mm curette Severity: Fat Layer Exposed Amount of bleeding with debridement: Mild Bleeding Controlled with: Compression and gauze Patient tolerated procedure well Assessment/Plan Active Problems Traumatic wound (Acute) Anticoagulated on Coumadin (Chronic) Left leg swelling (Chronic) Leg edema, left (Chronic) Lipodermatosclerosis (Chronic) Chronic venous insufficiency (Chronic) Assessment: Is a 77-year-old male multiple medical problems. He presents with trauma to the left anterior tibial surface approximately 3 weeks ago, and two superficial wounds on the left anterior tibial surface which have failed to heal appropriately. Patient is currently on cephalexin, as prescribed by his primary care physician. Plan: The patient has been advised to elevate his lower extremities as much as possible. Elevation is to be accomplished with his legs at heart level, or higher. This is to be implemented even during daytime hours. The patient has been encouraged to refrain from sleeping in a recliner. Activity has been encouraged. We are to implement compression initially by means of SpandaGrips to the lower extremities. We are to implement the use of collagenase Santyl topically to the superficial wounds on the left anterior tibial surface. Collagenase Santyl will be applied on a daily basis. We are to obtain a battery of diagnostic laboratory studies, including a CBC and conference of metabolic profile. With manifestations of chronic venous disease, a venous duplex examination will be performed. Because of the presence of a chronic, nonhealing wound, and noninvasive lower extremity arterial study will also be obtained. She has been advised to finish his current prescription for antibiotic. Patient is to return in 1 week for reevaluation. Influenza vaccine was not administered today. Patient is not a smoker. Patient weighs 243 pounds. He stands 6 feet 1 inches tall. His BMI is 32.1, which places him in an obese class I category. Weight loss has been recommended, and collaboration with his primary care physician has been recommended. 03/10/18 1006 <Electronically signed by Jose Raul Thomas MD> Date Jose Raul Thomas MD CC: Signed Observed: 03/03/2018 Status: F Source: SCIENTOLOGIST C WOUND 3:[address] [facility] REPOSITORY Final Report: No growth Gram Stain Report: No organisms seen. Performed By: #### [id number] #### [facility] Microbiology Subsection [address] [place] [address] Collected: 02/17/2018 Status: F Source: SCIENTOLOGIST 2:[address] [facility] REPOSITORY TYPE CODE TESTS RESULT OUT OF RANGE REFERENCE UNITS LAB [id number](L 70-99 mg/dL OINC) Glucose Normal Lvl 96 LAB [id number](L 7-18 mg/dL OINC) High BUN 35 LAB [id number](LO 0.6-1.3 mg/dL INC) High Creatinine 1.9 LAB [id number](L 5.4-30.0 ratio OINC) Normal BUN/Creat Ratio 18.4 LAB [id number](L 8.4-10.2 mg/dL OINC) Calcium Normal Lvl 9.9 LAB [id number](L 136-145 mEq/L OINC) Sodium Normal Lvl 142 LAB [id number](L 3.5-5.1 mEq/L OINC) Normal Potassium Lvl 4.0 LAB [id number](L 98-107 mEq/L OINC) Chloride Normal 103 LAB [id number](L 24.0-30.0 mEq/L OINC) CO2 Normal 26.7 Performed By: #### [id number] #### ST[facility] [address] [place], [place] [address] EGFR Collected: 02/17/2018 Status: F Source: SCIENTOLOGIST 2:[address] [facility] REPOSITORY Order Comment: Order added by Discern Expert. TYPE CODE TESTS RESULT OUT OF RANGE REFERENCE UNITS LAB [id number](LO mL/min/1.73 INC) m2 Normal eGFR 35 LAB [id number](LO mL/min/1.73 INC) m2 Normal eGFR AA 42 Performed By: #### [id number] #### ST[facility] [address] [place], [place] [address] PT/INR CAPILLARY Collected: 01/26/2018 Status: F Source: SCIENTOLOGIST 10:[address] [facility] REPOSITORY TYPE CODE TESTS RESULT OUT OF RANGE REFERENCE UNITS LAB [id number](LO 8.0-11.0 second(s) INC) High PT POC 22.0 LAB [id number](LO 1.0-1.2 INC) High INR POC 1.9 Result Comment: Source Capillary Performed By: #### [id number] #### STACEY POC Subsection [address] [place], [place] [address] PT/INR POC ORDER Collected: 01/26/2018 Status: F Source: SCIENTOLOGIST 10:[address] [facility] REPOSITORY TYPE CODE TESTS RESULT OUT OF RANGE REFERENCE UNITS LAB [id number](LOINC) Normal Collected PT/INR POC Order Performed By: #### [id number] #### STACEY POC Subsection [address] [place] [address] PROGRESS Observed: 01/13/2018 Status: COMPLETED Source: JIMENES 9:13 AM [facility] REPOSITORY HNO ID: [id number] Author: Rory (Arabella) Dalton Service: (none) Author Type: LANGUAGE SPECIALIST Type: Progress Notes Filed: 01/13/2018 9:15 AM Note Text: ASSESSMENT/PLAN: 1. 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 Vitreous floaters of both eyes - ICD9: 379.24, ICD10: H43.393 Patient was given both written and verbal information on flashes and floaters. Patient was instructed to call the office ([phone]) immediately upon noticing flashes of light, increase in floaters, or changes in vision. 3. Dry eyes, bilateral - ICD9: 375.15, ICD10: H04.123 Blink Lubricating Eye Drops, 1 drop, 2 times a day, both eyes. 4. Pseudophakia of both eyes - ICD9: V43.1, ICD10: Z96.1 Intraocular lens implant in good position both eyes. Monitor Right eye for YAG Laser Capsulotomy Left eye Capsule Open Rory Hoffman, ARABELLA I have confirmed and edited as necessary the relevant ophthalmic history, review of systems, surgical history, and ophthalmological examination findings as obtained by the ophthalmic technical staff. I have seen and examined Philippe Jaeger. I have discussed the examination findings, diagnosis, and treatment options with Philippe Jaeger and/or his family. I have also reviewed and agree with the assessment and plan as stated above and agree with all its relevant components. I gave the patient the opportunity to ask questions about the findings, diagnosis, and treatment options. NM MYOCARDIAL SPECT Observed: 01/08/2018 Status: F Source: [facility] REST/STRESS 8:[address] [facility] REPOSITORY Exam Date/Time: 01/08/2018 12:03 EDT Reason for Exam: SOB CAD DAVAKIS ORD WANDA Report Nuclear medicine cardiac SPECT stress test with ejection fraction History: Dyspnea on exertion; coronary artery disease. COMPARISON: 08/08/2016. Method: For the rest portion of the examination, the patient was injected IV with 12.9 mCi [id number] and rest SPECT images were acquired. For the stress portion of the examination, the patient was given 0.4 mg of Lexiscan and then injected IV with 43 mCi [id number] and stress SPECT images were acquired. Findings: There is diaphragmatic attenuation. There is a relatively fixed perfusion defect throughout the inferior apical wall. There is relatively normal accumulation of radiopharmaceutical throughout the remainder of the myocardium on both rest and stress images with no evidence of reversible changes. There is no left ventricular dilatation. The ejection fraction equals 66% with no focal wall motion abnormalities. IMPRESSION: No evidence of ischemia. 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 Ejection fraction equals 66%. FINAL REPORT Dictated: 01/08/2018 2:31 pm Yovany Mejía MD Signed (Electronic Signature): 01/08/2018 2:31 pm Signed by: Yovany Mejía MD Technologist: LATASHA PT Collected: 12/30/2017 Status: F Source: SCIENTOLOGIST 9:[address] [facility] REPOSITORY TYPE CODE TESTS RESULT OUT OF RANGE REFERENCE UNITS LAB [id number](LO 1.0-1.2 INC) High INR 2.8 Result Comment: INR Recommended Therapeuptic Ranges: Prophylaxis/treatment of DVT and PE?2.0-3.0 Prevention of systemic embolism?.2.0-3.0 Mechanical prosthetic values?2.5-3.5 CRITICAL VALUES?.>4.0 LAB [id number](LOINC) 11.6-14.6 second(s) High PT 27.7 Performed By: #### [id number] #### [facility] Hematology Automated Subsection [facility] [place] [address] HCT & HGB Collected: 12/30/2017 Status: F Source: SCIENTOLOGIST 9:[address] [facility] REPOSITORY TYPE CODE TESTS RESULT OUT OF RANGE REFERENCE UNITS LAB [id number](LO 13.5-18.0 G/DL INC) Normal Hgb 16.2 LAB [id number](LO 42.0-52.0 % INC) Normal Hct 47.2 Performed By: #### [id number] #### STACE[facility] [facility] [place] [address] BUN Collected: 12/30/2017 Status: F Source: SCIENTOLOGIST 9:01 [facility] REPOSITORY TYPE CODE TESTS RESULT OUT OF RANGE REFERENCE UNITS LAB [id number](LO 7-18 mg/dL INC) High BUN 34 Performed By: #### [id number] #### [place] [id number] CREATININE Collected: 12/30/2017 Status: F Source: SCIENTOLOGIST 9:01 [facility] TYPE CODE TESTS RESULT OUT OF REFERENCE UNITS RANGE LAB [id number](LO 0.6-1.3 mg/dL INC) High Creatinine 1.7 Performed By: #### [id number] #### [facility] [place] [id number] EGFR Collected: 12/30/2017 Status: F Source: SCIENTOLOGIST : [facility] Order Comment: Order added by Discern Expert. TYPE CODE TESTS RESULT OUT OF RANGE REFERENCE UNITS LAB [id number](LO mL/min/1.73 INC) m2 Normal eGFR 39 LAB [id number](LO mL/min/1.73 INC) m2 Normal eGFR AA 48 Performed By: #### [id number] #### [facility] [place] [id number] LYTES Collected: 12/30/2017 Status: F Source: SCIENTOLOGIST : [facility] TYPE CODE TESTS RESULT OUT OF RANGE REFERENCE UNITS LAB [id number](L 136-145 mEq/L OINC) Normal Sodium Lvl 141 LAB [id number](L 3.5-5.1 mEq/L OINC) Normal Potassium Lvl 4.8 LAB [id number](L 98-107 mEq/L OINC) Normal Chloride 103 LAB [id number](L 24.0-30.0 mEq/L OINC) CO2 Normal 29.3 Performed By: #### [id number] #### [facility] [address] [place] [address] VITAMIN D 25 HYDROXY Collected: 12/30/2017 Status: F Source: SCIENTOLOGIST :01 [facility] REPOSITORY TYPE CODE TESTS RESULT OUT OF RANGE REFERENCE UNITS LAB [id number](L 30.0-100.0 ng/mL OINC) Normal Vitamin D 25 46.3 Hydroxy Performed By: #### [id number] #### STACE[facility] [address] [place], [place] [address] U CREATININE Collected: 12/30/2017 Status: F Source: SCIENTOLOGIST 9:[address] [facility] REPOSITORY TYPE CODE TESTS RESULT OUT OF RANGE REFERENCE UNITS LAB [id number](L 20-300 mg/dL OINC) U Normal Creatinine 25 Performed By: #### [id number] #### [facility] [address] [place] [address] U PROTEIN Collected: 12/30/2017 Status: F Source: SCIENTOLOGIST 9:[address] [facility] REPOSITORY TYPE CODE TESTS RESULT OUT OF RANGE REFERENCE UNITS LAB [id number](LO 1-14 mg/dL INC) Normal Ur Total <6 Protein Performed By: #### [id number] #### [facility] [address] [place] [address] PTH INTACT Collected: 12/30/2017 Status: F Source: SCIENTOLOGIST 9:[address] [facility] REPOSITORY TYPE CODE TESTS RESULT OUT OF RANGE REFERENCE UNITS LAB [id number](LO 15-65 pg/mL INC) Normal PTH Intact 48 Result Comment: Performed At: [facility] [address] [id number] Anika Higuera PhD Ph:[phone] Performed By: #### [id number] #### STACE[facility] Send Outs Subsection [address] [place] [address] ORTHOPEDIC VISIT Observed: 12/29/2017 Status: F Source: JAIME REPORT 1:38 PM [facility] REPOSITORY [facility] [address] [place] [id number] OFFICE VISIT Date of Service: 12/24/17 MR#: [id number] Acct: [id number] Name: PHILIPPE JAEGER Rep #: [id number] : 1940 Provider: Faisal Jaimes DO Age/Sex: 77/M [place] [facility] [place] [place] Signed Intake Intake Visit Reasons: Wrist pain Is patient in pain?: Yes Allergies wheat Allergy (Verified 06/21/13 15:32) Other Medications Acetaminophen/Dp-Hydramine [Excedrin Pm 500-38 mg Gelcap] 1 ea PO QHS 06/21/13 [History Confirmed 06/21/13] Carvedilol [Coreg] 25 mg PO BID 06/21/13 [History Confirmed 06/21/13] Ipratropium [place] 0.06% [ATROVENT NASAL SPRAY] 2 spray NASAL BID 06/21/13 [History Confirmed 06/21/13] Lisinopril [Zestril] 10 mg PO DAILY 06/21/13 [History Confirmed 06/21/13] Ropinirole HCl [Requip] 0.5 mg PO QHS 06/21/13 [History Confirmed 06/21/13] Simvastatin [Zocor] 20 mg PO QHS 06/21/13 [History Confirmed 06/21/13] Warfarin [Coumadin] 5 mg PO DAILY 06/21/13 [History Confirmed 06/21/13] traMADol [Ultram (G)] 50 mg PO DAILY 06/21/13 [History Confirmed 06/21/13] PFS Social History Smoking Status: Never smoker HPI Pain in wrist: Details: PHILIPPE JAEGER is a 77 year old M here today for bilateral wrist pain, left worst than right. Patient has pain over his dorsal wrists. 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 Patient had an injection about a year ago which was helpful. Denies numbness, tingling or other associated symptoms. He denies any brace wear. ROS Const Reports system reviewed and no additional complaints, except as docu Eyes Reports system reviewed and no additional complaints, except as docu ENT Reports system reviewed and no additional complaints, except as docu Card Reports system reviewed and no additional complaints, except as docu Resp Reports system reviewed and no additional complaints, except as docu GI Reports system reviewed and no additional complaints, except as docu Reports system reviewed and no additional complaints, except as docu Musc Reports limited joint movement, Reports joint swelling, Reports joint pain, Reports muscle weakness Skin/Breast Reports system reviewed and no additional complaints, except as docu Neuro Yes system reviewed and no additional complaints, except as docu Psych Reports system reviewed and no additional complaints, except as docu Endo Reports system reviewed and no additional complaints, except as docu Ortho Exam Right Wrist/Hand WRIST: Patient shows bilateral wrist pain. He has inflammation into the carpus of the wrist and known history of osteoarthritis and rheumatoid changes. Remains otherwise is neurovascular intact. No erythema. Tender palpation across the radial carpal joint with compression. Crepitus appreciated. Office Procedures Ortho Injections Injections Details: Obtained consent for injection. Under sterile conditions, injected the patients bilateral wrist with a 3cc cocktail of 2.5cc bupivacaine and 0.5cc kenalog. The patient tolerated the injection well without any noted complication. Patient should call our office if redness develops, pain worsens or if they have any concerns. Office Meds Kenalog Performing Provider: Faisal Jaimes DO Administered by: Faisal Jaimes DO on 12/24/17 09:01 Dose Route Admin Location Lot Number Expiration Date NDC Crystal Syrup Maker 1 mg IM bilateral wrist [id number] 12/21/18 5582-6594-23 [facility] Assessment AND Plan 1. Pain in both wrists M25.531; M25.532 2. 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 Plan: At this point time patient requests bilateral intra- articular wrist injections. Patient was counseled and consented for bilateral wrist injections with 3 cc cocktail's of 2.5 cc of Marcaine and 0.5 cc of Kenalog. Dorsal aspects of the wrist were prepped and draped in the usual fashion and then first the right and then the left wrist were injected into the radiocarpal joint using standard technique. Patient tolerated the procedure well placed in simple compressive dressing will start active range of motion immediately. Patient can use Tylenol for pain. He will follow-up with me 3 months as needed for repeat injections. Any major issues please contact me. 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 REPOSITORY TYPE CODE TESTS RESULT OUT OF RANGE REFERENCE UNITS LAB [id number](LO 8.0-11.0 second(s) INC) High PT POC 25.0 LAB [id number](LO 1.0-1.2 INC) High INR POC 2.1 Result Comment: Source Capillary Performed By: #### [id number] #### STACE[facility] POC Subsection [address] [place] [address] PT/INR POC ORDER Collected: 12/11/2017 Status: F Source: SCIENTOLOGIST 2:[address] [facility] REPOSITORY TYPE CODE TESTS RESULT OUT OF RANGE REFERENCE UNITS LAB [id number](LOINC) Normal Collected PT/INR POC Order Performed By: #### [id number] #### STACE[facility] POC Subsection [address] [place] [address] PT/INR CAPILLARY Collected: 11/25/2017 Status: F Source: SCIENTOLOGIST 10:[address] [facility] REPOSITORY TYPE CODE TESTS RESULT OUT OF RANGE REFERENCE UNITS LAB [id number](LO 8.0-11.0 second(s) INC) High PT POC 22.0 LAB [id number](LO 1.0-1.2 INC) High INR POC 1.9 Result Comment: Source Capillary Performed By: #### [id number] #### STACE[facility] POC Subsection [address] [place] [address] PT/INR POC ORDER Collected: 11/25/2017 Status: F Source: SCIENTOLOGIST 10:[address] [facility] REPOSITORY TYPE CODE TESTS RESULT OUT OF RANGE REFERENCE UNITS LAB [id number](LOINC) Normal Collected PT/INR POC Order Performed By: #### [id number] #### STACE[facility] POC Subsection [address] [place] [address] PT Collected: 09/26/2017 Status: F Source: SCIENTOLOGIST 10:[address] [facility] REPOSITORY TYPE CODE TESTS RESULT OUT OF RANGE REFERENCE UNITS LAB [id number](LO 1.0-1.2 INC) High INR 2.3 Result Comment: INR Recommended Therapeuptic Ranges: Prophylaxis/treatment of DVT and PE?2.0-3.0 Prevention of systemic embolism?.2.0-3.0 Mechanical prosthetic values?2.5-3.5 CRITICAL VALUES?.>4.0 LAB [id number](LOINC) 11.6-14.6 second(s) High PT 23.9 Performed By: #### [id number] #### [facility] Hematology Automated Subsection [address] [place] [address] PT/INR POC Collected: 09/01/2017 Status: F Source: SCIENTOLOGIST 11:[address] [facility] REPOSITORY TYPE CODE TESTS RESULT OUT OF RANGE REFERENCE UNITS LAB [id number](LO 8.0-11.0 second(s) INC) High PT POC 23.0 LAB [id number](LO 1.0-1.2 INC) High INR POC 2.0 Performed By: #### [id number] #### STACEY POC Subsection [address] [place] [address] 87232 PT/INR POC ORDER Collected: 09/01/2017 Status: F Source: SCIENTOLOGIST 11:[address] [facility] REPOSITORY TYPE CODE TESTS RESULT OUT OF RANGE REFERENCE UNITS LAB CD:[id number](LOINC) Normal Collected PT/INR POC Order Performed By: #### [id number] #### STACEY POC Subsection [address] [place] [address] 71967 PT/INR POC Collected: 08/04/2017 Status: F Source: SCIENTOLOGIST 9:[address] [facility] REPOSITORY TYPE CODE TESTS RESULT OUT OF RANGE REFERENCE UNITS LAB [id number](LO 8.0-11.0 second(s) INC) High PT POC 38.0 LAB [id number](LO 1.0-1.2 INC) High INR POC 3.4 Performed By: #### [id number] #### STACEY POC Subsection [address] [place] [address] 11095 PT/INR POC ORDER Collected: 08/04/2017 Status: F Source: SCIENTOLOGIST 9:[address] [facility] REPOSITORY TYPE CODE TESTS RESULT OUT OF RANGE REFERENCE UNITS LAB CD:[id number] 673(LOINC) Normal Collected PT/INR POC Order Performed By: #### [id number] #### STACEY POC Subsection [address] [place] [address] ALLERGIES ALLERGIES DATE TYPE / CODE NAME / CODE REACTION SEVERITY SOURCE 10/12/2018 Drug wheat/[id number] Other Unknown Jaime Allergy/800861005(S 2(RXNORM) Community NOMED CT) Hospital Repository 01/31/2016 DRUG GLUTEN [facility] INGREDI/[id number](S Repository NOMED CT) 07/27/2004 Miscellaneous OTHER Painter Allergy/723549350(S Clinic Main NOMED CT) [place] Repository 07/27/2004 Drug NO KNOWN Jimenes Class/163345900(SNO ALLERGIES Clinic Main MED CT) [place] Repository 07/27/2004 Miscellaneous OTHER [facility] Allergy/584424146(S Repository NOMED CT) Food/187093898(SNOM Glutens [facility] ED [facility]) [facility] Repository ENCOUNTERS ENCOUNTERS ADMIT/DISCHARGE ACCOUNT NUMBER ADMITTING ENCOUNTER LOCATION SOURCE CLASS 10/12/2018 [id number] Ambulatory [facility] ing:HPRAD Repository 10/12/2018/10/12/19 [id number] Ambulatory BMSBuilding:[address] Repository 09/30/2018 [id number] [facility] ing: Repository 09/24/2018/09/24/19 [id number] Ambulatory Building:[place] [address] VPGAHANNAAMBP Three [place] Repository 09/24/2018/09/24/19 [id number] Ambulatory Building:[place] [address] Three Repository 09/16/2018 [id number] Ambulatory BMSBuilding:[facility] Repository 09/16/2018/09/21/20 [id number] Ambulatory [address] ing: Repository 09/09/2018 [id number] Ambulatory BMSBuilding:[facility] Repository 09/08/2018/09/08/20 [id number] Cy, Ambulatory [address] ing:[facility] Repository 09/08/2018 [id number] Ambulatory [facility] Repository 09/08/2018 [id number] Ambulatory Building:[facility] Three Repository 09/02/2018 [id number] Ambulatory BMSBuilding:[facility] Repository 08/25/2018 [id number] [place], [facility] Alize L [facility] Regional ing:[facility] Repository Outpatient 08/25/2018 [id number] Ambulatory [facility] Building:[facility] Repository 08/25/2018/08/25/20 [id number] [place]hauser, Ambulatory [facility] 18 Alize L Building:[facility] : Room 1 Repository 08/20/2018 [id number] Ambulatory BMSBuilding:[facility] Repository 08/20/2018/08/21/20 [id number] Ambulatory [address] Hospital ing: Repository 08/12/2018/08/12/20 [id number] Savage Espinoza Ambulatory [facility] 18 M HospitalBuild Regional ing:[facility] Repository 08/12/2018 [id number] Ambulatory 9509 [facility] Repository 08/11/2018/08/11/20 [id number] Ambulatory BMSBuilding:B Jaime 18 [facility] Repository 08/07/2018 [id number] Ambulatory [facility] Building:[facility] Repository 08/07/2018/08/07/20 [id number] Savage Espinoza Ambulatory [facility] 18 M Building:[facility] : Room 1 Repository 08/07/2018 [id number] Ambulatory Building:[facility] Three Repository 08/06/2018/08/06/20 [id number] Vadada, Ambulatory [facility] 18 [facility] HospitalBuild Regional ing:[facility] Repository 08/06/2018/08/06/20 [id number] Ambulatory Building:[place] [address] VPGAHANNAAMBP Three [place] Repository 08/06/2018 [id number] Ambulatory [address] [place] [address] Repository 08/05/2018 [id number] Ambulatory BMSBuilding:[facility] Repository 07/29/2018 [id number] Ambulatory BMSBuilding:[facility] Repository 07/28/2018 [id number] Mrs. Cy Ambulatory [facility] Repository 07/22/2018/07/22/20 [id number] Cy, [place] [address] Regional ing:[facility] Repository 07/22/2018/07/22/20 [id number] Ambulatory Building:[place] [address] Three Repository 07/22/2018/07/22/20 [id number] Ambulatory Building:[place] [address] Three Repository 07/22/2018/07/22/20 [id number] Ambulatory Building:[place] [address] VPGAHANNAAMBP Three [place] Repository 07/22/2018/07/22/20 [id number] Ambulatory [address] ing: Repository 07/22/2018 [id number] Ambulatory BMSBuilding:[facility] Repository 07/22/2018 [id number] Ambulatory [address] [place] [address] Repository 07/20/2018/07/20/20 [id number] Ambulatory Building:[place] [address] Three Repository 07/20/[id number] David Ambulatory [facility] Repository 07/15/2018 [id number] Ambulatory BMSBuilding:[facility] Repository 07/08/2018 [id number] Ambulatory BMSBuilding:[facility] Repository 07/02/2018/07/02/20 [id number] Amy Rogers Ambulatory [facility] 18 [facility] ing:[facility] Repository Room: Room 6 07/01/2018 [id number] Ambulatory BMSBuilding:[facility] Repository 06/30/2018/06/30/20 [id number] Quincy Hernandez [address] ing:[facility] Repository 06/30/2018 [id number] Ambulatory 9[facility] Repository 06/24/2018 [id number] Ambulatory BMSBuilding:[facility] Repository 06/17/2018/06/21/20 [id number] Ambulatory [address] HospitalBuild Hospital ing: Repository 06/17/2018 [id number] Ambulatory BMSBuilding:[facility] Repository 06/10/2018 [id number] Ambulatory BMSBuilding:[facility] Repository 06/09/2018/06/09/20 [id number] João Hogan [address] ing:[facility] Repository 06/09/2018 [id number] Ambulatory [address] [place] [address] Repository 06/03/2018 [id number] Ambulatory BMSBuilding:[facility] Repository 05/27/2018 [id number] Ambulatory BMSBuilding:[facility] Repository 05/20/2018/05/22/20 [id number] Ambulatory [address] HospitalBuild Hospital ing: Repository 05/20/2018 [id number] Ambulatory BMSBuilding:[facility] Repository 05/13/2018 [id number] Ambulatory B[facility]Building[facility] Repository 05/06/2018 [id number] Ambulatory BMSBuilding:[facility] Repository 04/29/2018 [id number] Ambulatory BMSBuilding:[facility] Repository 04/23/2018/04/23/20 [id number] [facility] [address] [facility] ing:[facility] Repository 04/22/2018 [id number] Ambulatory BMSBuilding:[facility] Repository 04/16/2018/04/16/20 [id number] Ambulatory Building:[address] Repository 04/16/2018/04/21/20 [id number] Ambulatory [address] HospitalBuild Hospital ing: Repository 04/16/2018 [id number] Ambulatory BMSBuilding:[facility] Repository 04/14/2018/07/25 [id number] Harjit, Inpatient [facility] 18 [facility] HospitalBuild Regional ing[facility] oom: 0302Bed: Repository 04/14/2018 [id number] Ambulatory 9509 [facility] Repository 04/08/2018 [id number] Ambulatory BMSBuilding:B Jaime [place].CF.[facility] Repository 04/01/2018 [id number] Ambulatory BMSBuilding:W Dumont [facility] Repository 03/29/2018/03/29/20 [id number] Emergency [address] ing:ED Repository 03/24/2018/03/24/20 [id number] [facility] [facility] Rep[facility] 03/17/2018/03/21/20 [id number] Ambulatory [address] ing:[place] Repository 03/03/2018/03/03/20 [id number] Aleah, Ambulatory [address] Regional ing:[facility] Repository 03/03/2018/03/03/20 [id number] Ambulatory [address] ing:[facility] Repository Room: Room 5 03/03/2018 [id number] Ambulatory [facility] Repository 02/26/2018/02/27/20 [id number] Bartolo, Ambulatory [address] Regional ing:MARTINE [facility] System Repository 02/26/2018 [id number] Ambulatory 9516 [facility] Repository 02/17/2018/02/18/20 [id number] David, Ambulatory [address] Regional ing:[facility] Repository 02/17/2018 [id number] Ambulatory [address] [place] [address] Repository 02/06/2018 [id number] Ambulatory Building:[facility] Three RIVERRD Repository 01/28/2018 [id number] Ambulatory Building:[facility] Repository 01/13/2018/01/15/20 [id number] Ambulatory [address] Repository 01/08/2018/01/09/20 [id number] Pipeakis, Ambulatory [address] Regional ing:[facility] Repository 01/08/2018/01/09/20 [id number] DAVID, Ambulatory Building:[place] [address] EDGAR OCVCOUTSIDELO Three PATRICIO CATION Repository 12/31/2017 [id number] Ambulatory Building:[facility] Repository 12/30/2017/12/31/[id number] Vadada, Ambulatory [facility]ational [facility] HospitalBuild Regional ing:[facility] Repository 12/30/2017/12/31/19 [id number] DAVID, Ambulatory Building:[place] [address] EDGAR OCVCOUTSIDELO Three PATRICIO CATION Repository 12/30/2017/12/31/19 [id number] Pipeakis, Ambulatory [address] Regional ing:[facility] Repository 12/24/2017/12/25/19 [id number] Ambulatory BMSBuilding:B Dumont 18 [facility] Repository 12/23/2017/12/24/19 [id number] Ambulatory Building:[place] [address] [facility] Two CV Repository 08/04/2017/08/25/20 [id number] Marthaove, Ambulatory [facility] Regional ing:[facility] Repository Outpatient PAYERS PAYERS ENCOUNTER GUARANTOR PAYER SUBSCRIBER SOURCE 10/12/2018 RAY Conchis [id number] Primary RAY D HALLDOB: [place] CR Insurance:MEDICARE [id number] PART A [facility] [address]Jnu: Number: Repository [id number] () Date:2018-10-12 10/12/2018 Secondary RAY D HALLDOB: Jaime Insurance:[facility]ERLY [facility] [id number] Number: [facility] [id number] Repository Date:4104-93-56QG[address] [address]GX: 10/12/2018 Tertiary NOT GIVENUNK [place] Insurance:SELF PAY [facility] Number: Effective Repository Date:2018-10-12 10/12/2018 RAY D [id number] Primary RAY D HALLDOB: Jaime CR Insurance:MEDICARE [id number] [address]Ete: Number: Repository [id number] (HP) Date:2018-10-12 10/12/2018 Secondary RAY D HALLDOB: [place] Insurance:STATE [id number] [facility] Number: [facility] [id number] Repository Date:3988-19-63YV [address] [place] [address]NU: 10/12/2018 Tertiary NOT GIVENUNK Jaime Insurance:SELF PAY [facility] Number: Effective Repository Date:2018-10-12 09/30/2018 RAY D [id number] Primary RAY D HALLDOB: [place] CR Insurance:MEDICARE [id number] [address]Rqe: Number: Repository [id number] (HP) Date:2018-03-10 09/30/2018 Secondary RAY D HALLDOB: [place] Insurance:[facility]ERLY [facility] [id number] Hospital[facility] Number: [facility] [id number] Repository Date:6595-82-63IN [address] [place] [address]SJ: 09/30/2018 Tertiary NOT GIVENUNK Dum[place] Insurance:SELF PAY [facility] Number: Effective Repository Date:2018-09-22 09/24/2018 RAY D HALLDOB: Primary RAY D HALLDOB: [facility] [id number] [facility] [id number] Three Repository [facility] ic Number: [address], [id number] [address] [place] [address] 160[address]Vvg: Date:2561-62-47HJL [place] [address]Aas: J15 PART A CLAIMSPO () [address] [address]JZCFYJZPE, () [place] [address]RS: 09/24/2018 Secondary RAY D HALLDOB: [place] [facility] Insurance:COMMERCIALP [id number] Three Repository olicy Number: 7 [facility] [id number] [address] [place] [address], Date:9360-99-46QI [address]OX [place] [address]Meo: 3070[place]OS[place] [address]WP: [phone]) (HP) [phone] 09/24/2018 RAY D HALLDOB: Primary RAY D HALLDOB: [place] [facility] Insurance:MEDICAREPol [id number] Three Repository [facility] ic Number: [address] [place] [address], [id number] [address] [place] [address]Eai: Date:6071-17-00KUB [place] [address]Vwh: J15 PART A CLAIMSPO () [address] [address]AZOZVZJXB, () [place] [address]DG: 09/24/2018 Secondary RAY D HALLDOB: [place] [facility] Insurance:COMMERCIALP [id number] Three Repository olicy Number: [address] [place] [address] [id number] [address] [place] [address], Date:5263-87-39LZ [place]OX [place] [address]Qhw: 307Luis [place] [address]WP: [phone]) () [phone] 09/16/2018 RAY D [id number] Primary RAY D HALLDOB: [place] CR Insurance:MEDICARE [id number] [address], PART A [facility] [place] [address]Kil: Number: Repository [id number] () Date:2018-03-10 09/16/2018 Secondary RAY D HALLDOB: [place] Insurance:STATE [id number] [facility] Regional[facility] Number: [facility] [id number] Repository Date:8304-28-52WX [address] [place], [place] [address], [place] [address]VZ: 09/16/2018 Tertiary NOT GIVENUNK Jaime Insurance:SELF PAY [facility] Number: Effective Repository Date:2018-09-16 09/16/2018 RAY D [id number] Primary RAY D HALLDOB: [place] CR Insurance:MEDICARE [id number] A [facility] [address]Xny: Number: Repository [id number] () Date:2018-03-10 09/16/2018 Secondary RAY D HALLDOB: Jaime Insurance:STATE [id number] Hospital[facility] Number: [facility] [id number] Repository Date:6829-48-85FF BOX [facility] [place] [address]HV: 09/16/2018 Tertiary NOT GIVENUNK Jaime Insurance:SELF PAY [facility] Number: Effective Repository Date:2018-08-22 09/09/2018 RAY D [id number] Primary RAY D HALLDOB: [place] CR Insurance:MEDICARE [id number] A [facility] [place] [address]Lbj: Number: Repository [id number] () Date:2018-03-10 09/09/2018 Secondary RAY D HALLDOB: Jaime Insurance:[facility]ERLY [facility] [id number] Hospital[facility] Number: [facility] [id number] Repository Date:1895-07-35QM [address] [place], [place] [address], [place] [address]AW: 09/09/2018 Tertiary NOT GIVENUNK Dum[place] Insurance:SELF PAY [facility] Number: Effective Repository Date:2018-09-09 09/08/2018 RAY D HALLDOB: Primary RAY D HALLDOB: Congregational [id number] Insurance:MedicarePol [id number] icy Number: Effective [address] [place] [address], Date:2018-09-[address] [place] [address], Repository [place] 2406-96-11Okfo [place] [address]Emc: Name:CD:[id number] [address]Jfx: 776550GJELCPSJGSNICOLLET, [place] (HP) [id number]: (776) (HP) [phone] (WP) 09/08/2018 Secondary RAY D HALLDOB: Congregational Insurance:[facility]ERLY [facility] [id number] [facility] FARMPolicy Number: 7 [facility] System Effective [address] [place] [address], Repository Date:2018-09-08 [place] 1942-26-49Oxta [address]Bhh: Name:CD:[id number] [address]PRWILFREDONICOLLET, [place] ()Tel: ([phone]) [phone]: (WP) [phone] 09/08/2018 RAY HALLDOB: Primary RAY HALLDOB: [place] Insurance:MedicarePol [id number] [place] [address] icy Number: [address] [place] [id number] [id number]: Date:Plan Name:[facility] [id number]: A (HP) (HP) 09/08/2018 Secondary RAY HALLDOB: University Insurance:MedicarePol [id number] [facility] icy Number: [address] [place] [id number], Date:Plan Name:[facility] [id number]: B () 09/08/2018 Tertiary RAY HALLDOB: University Insurance:Anderson [id number] Hospitals Insurance PlanPolicy [address] [place] [address] Repository Number: [address] [place] [address] [id number] [place] [id number]: Date:Plan Name:Health (HP) 09/08/2018 RAY D HALLDOB: Primary RAY D HALLDOB: [facility] Insurance:MEDICAREPol [id number] Three Repository [facility] icy Number: [address], [id number] [address] [place] [address]Gsp: Date:4441-19-88XBF [place] [address]Pho: J15 PART A CLAIMSPO (HP) [address] [address]LHAQSBCCK, () [place] [address]IR: 09/08/2018 Secondary RAY D HALLDOB: [place] [facility] Insurance:COMMERCIALP [id number] Three Repository olicy Number: 7 [facility] [id number] [place], Date:2005-09-[birth year] - [place] [address]Ubn: 3317-51-33DH [address] [place] [address] () [address]NN: 09/08/2018 Tertiary RAY D HALLDOB: [place] [facility] Insurance:COMMERCIALP [id number] Three Repository olicy Number: 7 [id number] [place], Date:3198-87-92MM [address] [place] [address]Mej: [address] [address]KK: ([phone]) () [phone] 09/02/2018 RAY D [id number] Primary RAY D HALLDOB: [place] CR Insurance:MEDICARE [id number] [address], PART A [facility] [place] [address]Ely: Number: Repository [id number] () Date:2018-03-10 09/02/2018 Secondary RAY D HALLDOB: Jaime Insurance:STATE [id number] [facility] Number: [facility] [id number] Repository Date:1263-03-46EQ [address] [facility]ITAL[place], [place] [address]XK: 09/02/2018 Tertiary NOT GIVENUNK Jaime Insurance:SELF PAY [facility] Number: Effective Repository Date:2018-09-02 08/25/2018 RAY D HALLDOB: Primary RAY D HALLDOB: Congregational [id number] Insurance:MedicarePol [id number] [place] [address] icy Number: Effective [address] [place] [address] [address], Date:2018-08-25 - [address] [place] [address], Repository [place] 8390-64-70Qtqy [facility]Sxm: Name:CD:[id number] [address] [address]Wnq: 216864ZLOEPCOLYK, [place] (HP) [phone]: (800) (HP) 000-0000 (WP) 08/25/2018 Secondary RAY D HALLDOB: Congregational Insurance:STATE [id number] [place], [place] [address]Policy Number: [address] [place] [address] [place] [address], Repository Date:2018-08-25 - [place] 0063-43-33Gnpx [address]Xjj: Name:CD:[id number] [address] [place] [address] (HP)Tel: [phone]) [phone]: (WP) [phone] 08/25/2018 RAY D HALLDOB: Primary RAY D HALLDOB: Congregational Insurance:MedicarePol [id number] [place] [address] icy Number: Effective [address] [place] [address] [address], Date:2018-08-25 - [address] [place] [address], Repository [place] 6267-81-80Ufco [facility]Yys: Name:CD:[id number] [address] [address]Mvp: [address]69[address]VICHZFUCCK, [place] (HP) [phone]: (800) (HP) 000-0000 (WP) 08/25/2018 Secondary RAY D HALLDOB: Congregational Insurance:[facility]ERLY [facility] [id number] [place] [address] Number: [address] [place] [address] ROAD [facility] Effective [address] [place] [address], Repository Date:2018-08-25 - [place] 0552-75-99Bvtf [address]Qys: Name:CD:[id number] [address] [place] [address] (HP)Tel: ([phone]) [phone]: (WP) [phone] 08/25/2018 RAY D HALLDOB: Primary RAY D HALLDOB: Congregational [id number] Insurance:[facility] [id number] [facility] [address] MED[address] System [place], PRIMARYPolicy Number: [address] [place] [address], [place] [address]Ijs: Date:2018-08-25 [address]Hfi: 2100-12-31Plan (HP) Name:CD:[id number] O (HP)Tel: (000) [address] [address]NPCOIUDEM, 000-0000 (WP) [place] [address]PE: 08/25/2018 Secondary RAY D HALLDOB: Congregational Insurance:[facility] STATE [id number] [place] [address] Number: [address] [place] [address] [place] [address], Repository Date:2018-08-25 - [place] 6989-20-90Funf [address]Ewh: Name:CD:[phone] (HP) (WP) 08/20/2018 RAY D [id number] Primary RAY D HALLDOB: [place] CR Insurance:MEDICARE [id number] A [facility] [place] [address]Aet: Number: Repository [id number] (HP) Date:2018-03-10 08/20/2018 Secondary RAY D HALLDOB: Jaime Insurance:[facility]ERLY [facility] [id number] [facility] Number: [facility] [id number] Repository Date:9500-41-40LN BOX [facility]ITAL[facility]ILFR[facility], [place] [address]FA: 08/20/2018 Tertiary NOT GIVENUNK Dum[place] Insurance:SELF PAY [facility] Number: Effective Repository Date:2018-08-20 08/20/2018 RAY D [id number] Primary RAY D HALLDOB: [place] CR Insurance:MEDICARE [id number] A [facility] [address]Fkt: Number: Repository [id number] (HP) Date:2018-03-10 08/20/2018 Secondary RAY D HALLDOB: [place] Insurance:STATE [id number] Hospital[facility] Number: Hospital [id number] Repository Date:4452-90-70AO [address] [place] [address]DE: 08/20/2018 Tertiary NOT GIVENUNK Jaime Insurance:SELF PAY [facility] Number: Effective Repository Date:2018-07-23 08/12/2018 RAY D HALLDOB: Primary RAY D HALLDOB: Congregational [id number] Insurance:MedicarePol [id number] [place] [address] icy Number: Effective [address], Date:2018-08-[address] [place] [address], Repository [place] 2554-93-09Sqpc [place] [address]Usq: Name:CD:[id number] [place] [id number]: [id number], [place] () [id number]: ([phone]) () [phone] (WP) 08/12/2018 Secondary RAY D HALLDOB: Congregational Insurance:[facility]ERLY [facility] [id number] [place] [address] Number: 7 [facility] Effective [address] [place] [address], Repository Date:2018-08-10 - [place] 4795-87-70Qpix [address]Vde: Name:CD:[id number] [address] [place] [address] ()Tel: ([phone]) [phone]: (WP) [phone] 08/12/2018 RAY HALLDOB: Primary RAY HALLDOB: University [id number] Insurance:MedicarePol [id number] [address] [place] [address] ROAD icy Number: [address] [facility] [address] Repository [place]adeo[place], [id number] [address] [place] [address] [id number]: Date:Plan Name:[facility] [id number]: A (HP) (HP) 08/12/2018 Secondary RAY HALLDOB: University Insurance:MedicarePol [id number] Hospitals icy Number: [address] [place] [address] Repository [id number] [address] [place] [address], Date:Plan Name:[facility] [place] [id number]: B (HP) 08/12/2018 Tertiary RAY HALLDOB: University Insurance:State [facility] [id number] Hospitals Insurance PlanPol[address] Repository Number: [facility], [id number] [place] [id number]: Date:Plan Name:Health () 08/11/2018 RAY D [id number] Primary RAY D HALLDOB: [place] Insurance:MEDICARE [id number], PART A [facility] [address]Kjz: Number: Repository [id number] (HP) Date:2018-08-11 08/11/2018 Secondary RAY D HALLDOB: [place] Insurance:[facility]LY [facility] [id number] [facility] Number: [facility] [id number] Repository Date:3795-44-43OK[address] [address]FX: 08/11/2018 Tertiary NOT GIVENUNK Jaime Insurance:SELF PAY [facility] Number: Effective Repository Date:2018-08-11 08/07/2018 RAY D HALLDOB: Primary RAY D HALLDOB: Congregational Insurance:[facility] [id number] [facility] [address] System [place], PR[place]Policy Number: [place], [facility] [place] [address]Bcy: Date:2018-08-07 [address]Kso: 0003-86-73Jwbn (HP) Name:CD:[id number] O (HP)Tel: (000) [address]HZAEKYTYD, 000-0000 (WP) [place] [address]RC: 08/07/2018 Secondary RAY D HALLDOB: Congregational Insurance:[address] [place] [address] [id number] [facility] FARMPolicy Number: [address] [place] [address] [place] [address], Repository Date:2018-08-07 [place] 9334-31-50Pqyv [address]Mmc: Name:CD:[id number] (HP) (WP) 08/07/2018 RAY D HALLDOB: Primary RAY D HALLDOB: Congregational Insurance:[facility] [id number] [facility] [address] MED[address] System [place], PRIMARYPolicy Number: [address] [place] [address], [facility] [place] [address]Dre: Date:2018-08-07 [address]Zsr: 9568-16-86Pxyj (HP) Name:CD:[id number] O (HP)Tel: (000) [address] [address]GWOTIYJSV, 000-0000 (WP) [place] [address]AS: 08/07/2018 Secondary RAY D HALLDOB: Congregational Insurance:[address] [place] [address] [id number] [facility] FARMPolicy Number: [address] [place] [address] [place] [address], Repository Date:2018-08-07 [place] 5561-00-64Nxqi [address]Kxp: Name:CD:[id number] (HP) (WP) 08/07/2018 RAY D HALLDOB: Primary RAY D HALLDOB: [facility] Insurance:MEDICAREPol [id number] Three Repository [facility] icy Number: [address] [place] [address], [id number] [address] [place] [address]Mqi: Date:7365-24-64NAY [place] [address]Jmr: J15 PART A CLAIMSPO (HP) [address] [address]KEIKEMMGA, (HP) [place] [address]ER: 08/07/2018 Secondary RAY D HALLDOB: [place] [facility] Insurance:COMMERCIALP [id number] Three Repository olicy Number: 7 [facility] [id number] [address] [place] [address], Date:2005-09-22 - [place] [address]Pes: 7497-45-81TT [address], [place] (HP) [address]IJ: 08/07/2018 Tertiary RAY D HALLDOB: [place] [facility] Insurance:COMMERCIALP [id number] Three Repository olicy Number: 7 [id number] [address] [place] [address], Date:7352-94-65YW [facility] [address]Htn: [address] [address]AI: ([phone]) (HP) [phone] 08/06/2018 RAY D HALLDOB: Primary RAY D HALLDOB: Congregational Insurance:MedicarePol [id number] [facility] icy Number: Effective [address], Date:2018-08-06 - [address] [place] [address], Repository [place] 2067-19-34Tqww [place] [address]Twa: Name:CD:[id number] [address] [address]Ryy: 853328IKTVJOQUTT, [place] (HP) [phone]: ([phone]) (HP) [phone] () 08/06/2018 Secondary RAY D HALLDOB: Congregational Insurance:[facility], [facility] [id number] [facility]Policy Number: [address] [place] [address] [place] [address], Repository Date:2018-08-06 - [place] 9811-78-78Khpb [address]Ryd: Name::[id number] [address], [place] ()Tel: (197) [phone]: () [phone] 08/06/2018 RAY D HALLDOB: Primary RAY D HALLDOB: [facility] Insurance:MEDICAREPol [id number] Three Repository [facility] icy Number: [address], [id number] [address] [place] [address]Kkw: Date:1666-64-11LLK [place] [address]Cnu: J15 PART A CLAIMSPO (HP) [address] [address]RJALJNOHZ, () [place] [address]DG: 08/06/2018 Secondary RAY D HALLDOB: [facility] Insurance:COMMERCIALP [id number] Three Repository olicy Number: [address] [place] [address] [id number] [address] [place] [address], Date:6876-70-97VE [place]OX [place] [address]Xzx: [address] [address]WP: [phone]) (HP) [phone] 08/06/2018 RAY D HALLDOB: Primary RAY D HALLDOB: [place] Insurance:MedicarePol [id number] [place] [address] icy Number: [address] [place] [address], [id number] [id number]: Date:Plan Name:[facility] [id number]: A (HP) (HP) 08/06/2018 Secondary RAY D HALLDOB: [place] Insurance:MedicarePol [id number] Hospitals icy Number: [address] [place] [id number], Date:Plan Name:[facility] [id number]: B (HP) 08/06/2018 Tertiary RAY D HALLDOB: University Insurance:State [facility] [id number] Hospitals Insurance PlanPolic[address] Repository Number: 175[facility], [id number] [place] [id number]: Date:Plan Name:[facility] () 08/05/2018 RAY D [id number] Primary RAY D HALLDOB: Ja[place] CR Insurance:MEDICARE [id number] [address]Cqy: Number: Repository [id number] () Date:2018-03-10 08/05/2018 Secondary RAY D HALLDOB: [place] Insurance:[facility], [facility] [id number] [facility] Number: Hospital [id number] Repository Date:3443-39-22KM [address] [place] [address]12[address]BF: 08/05/2018 Tertiary NOT GIVENUNK [place] Insurance:SELF PAY [facility] Number: Effective Repository Date:2018-08-05 07/29/2018 RAY D [id number] Primary RAY D HALLDOB: [place] CR Insurance:MEDICARE [id number] [address]Sbt: Number: Repository [id number] () Date:2018-03-10 07/29/2018 Secondary RAY D HALLDOB: [place] Insurance:[facility], [facility] [id number] [facility] Number: Hospital [id number] Repository Date:9890-23-41WD [address] [place] [address] 69[address]BE: 07/29/2018 Tertiary NOT GIVENUNK [place] Insurance:SELF PAY [facility] Number: Effective Repository Date:2018-07-29 07/28/2018 Primary RAY D HALLDOB: [facility] [id number] Vangie Number: [address] [place] [address] [id number] [address] [place] [address], Repository Date:Plan Name:[facility] 418[address]Jwv: A (HP) 07/28/2018 Secondary RAY D HALLDOB: [facility] Insurance:MedicarePol [id number] [place] and icy Number: [address] [place] [address] [id number] [address] [place] [address], Repository Date:Plan Name:[place] [address]Une: B (HP) 07/28/2018 Tertiary RAY D HALLDOB: [facility] Insurance:[employer] [id number] [place] and InsurancePolicy [address] [place] [address] Number: 175[facility], Repository [id number] [place] [address]Fpd: Date:Plan Name:HealthPO Box (HP) [address] [place] [address] [id number]: 07/22/2018 RAY D HALLDOB: Primary RAY D HALLDOB: Congregational Insurance:MedicarePol [id number] [place] [address] icy Number: Effective [address] [place] [address], Date:2018-07-22 - [address] [place] [address] 6956-86-76Tvaj [place] [address]Cax: Name:CD:[id number] [facility] [address]Nnt: 106310LGBYMUUUKZ, [place] (HP) [phone]: [phone]) () [phone] (WP) 07/22/2018 Secondary RAY D HALLDOB: Congregational Insurance:[facility], [facility] [id number] [place], [place] [address] Number: [address] [place] [address] [place] [address], Repository Date:2018-07-22 - [place] 2353-09-26Tnvj [address]Dtr: Name:CD:[id number] [address] [place] [address] ()Tel: (727) [phone]: (WP) [phone] 07/22/2018 RAY D HALLDOB: Primary RAY D HALLDOB: [facility] [id number] Insurance:MEDICAREPol [id number] Three Repository [facility] icy Number: [address], [id number] [address] [place] [address] 56[address]Zvd: Date:9789-93-46FZK [place] [address]Uev: J15 PART A CLAIMSPO () [address] [address]SQBQDBOGP, () AYDE [address]UQ: 07/22/2018 Secondary RAY D HALLDOB: [place] [facility] Insurance:COMMERCIALP [id number] Three Repository olicy Number: Kassie [facility] [id number] [address] [place] [address], Date:5634-79-64ZB [place]OX [place] [address]Woh: [address] [address]WP: ([phone]) () [phone] 07/22/2018 RAY D HALLDOB: Primary RAY D HALLDOB: [facility] [id number] Insurance:MEDICAREPol [id number] Three Repository [facility] icy Number: Kassie [address], [id number] [address] [place] [address] 418[address]Xgd: Date:6756-01-66WZU [place] [address]Wvn: J61 PART A CLAIMSPO () [address] [address]YFXLDZSKU, () AYDE [address]DC: 07/22/2018 Secondary RAY D HALLDOB: [place] [facility] Insurance:COMMERCIALP [id number] Three Repository olicy Number: Kassie [facility] [id number] [address] [place] [address], Date:4905-83-55PJ [place]OX [place] [address]Tou: [address] [address]WP: ([phone]) (HP) [phone] 07/22/2018 RAY D HALLDOB: Primary RAY D HALLDOB: [facility] Insurance:MEDICAREPol [id number] Three Repository [facility] icy Number: [address], [id number] [address] [place] [address] 235[address]Sen: Date:6103-05-75LAS [place] [address]Ahv: J15 PART A CLAIMSPO () [address] [address]UPRXACFWK, () [place] [address]VH: 07/22/2018 Secondary RAY D HALLDOB: [place] [facility] Insurance:COMMERCIALP [id number] Three Repository olicy Number: 7 [facility] [id number] [address] [place] [address], Date:4164-37-53FR [place] [address]Pco: [address] [place] [address]WP: (648) (HJ) [phone] 07/22/2018 RAY D [id number] Primary RAY D HALLDOB: [place] Insurance:MEDICARE [id number] [place] [address]Ghi: Number: Repository [id number] () Date:2018-03-10 07/22/2018 Secondary RAY D HALLDOB: [place] Insurance:[facility], [facility] [id number] [facility] Number: [facility] [id number] Repository Date:4006-39-59LO [address] [place] [address] 08[address]TR: 07/22/2018 Tertiary NOT GIVENUNK [place] Insurance:SELF PAY [facility] Number: Effective Repository Date:2018-06-22 07/22/2018 RAY D [id number] Primary RAY D HALLDOB: [place] Insurance:MEDICARE [id number] [place] [address]Esi: Number: Repository [id number] () Date:2018-03-10 07/22/2018 Secondary RAY D HALLDOB: [place] Insurance:[facility], [facility] [id number] [facility] Number: Hospital [id number] Repository Date:9683-95-80UB [address] [address]LQ: 07/22/2018 Tertiary NOT GIVENMAYA [place] Insurance:SELF PAY [facility] Number: Effective Repository Date:2018-07-22 07/22/2018 RAY HALLDOB: Primary RAY HALLDOB: [place] Insurance:MedicarePol [id number] [place] [address] icy Number: [address] [place] [address] Repository [place], [id number] [id number]: Date:Plan Name:[facility] [id number]: A (HP) (HP) 07/22/2018 Secondary RAY HALLDOB: [place] Insurance:MedicarePol [id number] Hospitals icy Number: [address] [place] [address] Repository [id number], Date:Plan Name:[facility] [id number]: B () 07/22/2018 Tertiary RAY HALLDOB: [place] Insurance:[place] [id number] Hospitals Insurance Plan[address] Repository Number: [address] [id number] [place] [id number]: Date:Plan Name:Health () 07/20/2018 RAY D HALLDOB: Primary RAY D HALLDOB: [facility] [id number] Insurance:MEDICAREPol [id number] Three Repository [facility] icy Number: [address] [place] [address], [id number] [address] [place] [address]Tlc: Date:1961-93-02TDJ [place] [address]Smt: J15 PART A CLAIMSPO () [address] [address]OCJKENVDQ, () [place] [address]II: 07/20/2018 Secondary RAY D HALLDOB: [place] [facility] Insurance:COMMERCIALP [id number] Three Repository ic Number: [address] [place] [address] [id number] [address] [place] [address], Date:4102-80-12WA [address]OX [place] [address]Smk: [place] [address]WP: (970) (HP) [phone] 07/20/2018 Primary RAY D [place]DOB: [place] Insurance:MedicarePol [id number] [place] [facility] Number: [address] [place] [address] [id number] [place] [address], Repository Date:5857-54-29Xoyn [place] [address]Orl: Name:Leno Hinds () 07/20/2018 Secondary RAY D HALLDOB: [place] Insurance:MedicarePol [id number] [place] [address] Number: [address] [place] [address] [id number] [address] [place] [address], Repository Date:5654-68-21Rbcd [place] [address]Ilu: Name:Leno Orellana () 07/20/2018 Tertiary RAY D HALLDOB: [facility] Insurance:[employer] [id number] [place] [address] Number: 175[facility], Repository [id number] [place] [address]Sct: Date:Plan Name:[facility] Box () Zelda [place] [id number]: 07/15/2018 RAY D [id number] Primary RAY D HALLDOB: [place] Insurance:MEDICARE [id number], PART A [facility] [place] [address]Tdi: Number: Repository [id number] () Date:2018-03-10 07/15/2018 Secondary RAY D HALLDOB: [place] Insurance:STATE [id number] [facility] Number: [facility] [id number] Repository Date:8695-07-13AC BOX [facility] [place] [address]KJ: 07/15/2018 Tertiary NOT GIVENUNK [place] Insurance:SELF PAY [facility] Number: Effective Repository Date:2018-07-15 07/08/2018 RAY D [id number] Primary RAY D HALLDOB: [place] Insurance:MEDICARE [id number] A [facility] [address]Cme: Number: Repository [id number] (HP) Date:2018-03-10 07/08/2018 Secondary RAY D HALLDOB: [place] Insurance:STATE [id number] [facility] Number: Hospital [id number] Repository Date:2314-13-19GS [address] [place] [address], [place] [address]KN: 07/08/2018 Tertiary NOT GIVENUNK [place] Insurance:SELF PAY [facility] Number: Effective Repository Date:2018-07-08 07/02/2018 RAY D HALLDOB: Primary RAY D HALLDOB: [place] Insurance:[facility] [id number] [facility] [address] MED[address] System [place], PRIMARYPolicy Number: [address] [place] [address] [place] [address]Waw: Date:2018-07-02 [address]Xry: 1367-39-65Dnmn () Name:CD:[id number] O ()Tel: (000) [address] [address]IOJAXIUHL, 000-0000 (WP) [place] [address]YM: 07/02/2018 Secondary RAY D HALLDOB: Cong[place]ational Insurance:1500 [facility] [id number] [place] [address] Number: [address] [place] [address] [place] [address], Repository Date:2018-07-02 - [place] 9853-26-95Hgwg [address]Zmd: Name:CD:[id number] () (WP) 07/01/2018 RAY D [id number] Primary RAY D HALLDOB: [place] Insurance:MEDICARE [id number], PART A [facility] [address]Aur: Number: Repository [id number] (HP) Date:2018-03-10 07/01/2018 Secondary RAY D HALLDOB: [place] Insurance:STATE [id number] [facility] Number: Hospital [id number] Repository Date:1676-43-56HC [address] [place] [address]VQ: 07/01/2018 Tertiary NOT GIVENUNK [place] Insurance:SELF PAY [facility] Number: Effective Repository Date:2018-07-01 06/30/2018 RAY D HALLDOB: Primary RAY D HALLDOB: Congregational [id number] Insurance:MedicarePol [id number] [place] [address] icy Number: Effective [address] [place] [address], Date:2018-06-[address] [place] [address], [facility] 3838-85-50Clof [place] [address]Twh: Name:CD:[id number] [place] [id number]: 150454VURCZKSVZO, [place] () [id number]: (687) () [phone] (WP) 06/30/2018 Secondary RAY D HALLDOB: [place] Insurance:[facility]LY [facility], [facility] [id number] [place] [address] Number: [address] [place] [address] [place] [address], Repository Date:2018-06-30 - [place] 0378-48-19Sgoa [address]Jyo: Name:CD:[id number] [address] [place] [address] ()Tel: (251) [phone]: (WP) [phone] 06/30/2018 RAY HALLDOB: Primary RAY HALLDOB: University Insurance:MedicarePol [id number] [place] [address] ROAD icy Number: [address] [facility] [address] Repository [address] [place] [address] [id number] [address] [place] [address] [id number]: Date:Plan Name:[facility] [id number]: A (HP) (HP) 06/30/2018 Secondary RAY HALLDOB: University [facility] [id number] Hospitals icy Number: [address] [place] [address] Repository [id number] [address] [place] [address], Date:Plan Name:[facility] [id number]: B (HP) 06/30/2018 Tertiary RAY HALLDOB: University Insurance:State [facility] [id number] Hospitals Insurance Plan[address] Repository Number: [address] [place] [address] [id number] [place] [id number]: Date:Plan Name:[facility] () 06/24/2018 RAY D [id number] Primary RAY D HALLDOB: [place] Insurance:MEDICARE [id number] [place] [address]Eec: Number: Repository [id number] () Date:2018-03-10 06/24/2018 Secondary RAY D HALLDOB: [place] Insurance:[facility] [id number] Hospital[facility] Number: [facility] [id number] Repository Date:2365-89-39VQ [address] [place] [address] 93[address]XZ: 06/24/2018 Tertiary NOT GIVENUNK [place] Insurance:SELF PAY [facility] Number: Effective Repository Date:2018-06-24 06/17/2018 RAY D [id number] Primary RAY D HALLDOB: [place] Insurance:MEDICARE [id number] [address] [place] [address]Nuo: Number: Repository [id number] () Date:2018-03-10 06/17/2018 Secondary RAY D HALLDOB: [place] Insurance:[facility]LY [facility], [facility] [id number] Hospital[facility] Number: [facility] [id number] Repository Date:0494-96-44VJ [address], [place] [address]GN: 06/17/2018 Tertiary NOT GIVENUNK [place] Insurance:SELF PAY [facility] Number: Effective Repository Date:2018-05-23 06/17/2018 RAY D [id number] Primary RAY D HALLDOB: [place] Insurance:MEDICARE [id number] [place] [address]Bty: Number: Repository [id number] () Date:2018-03-10 06/17/2018 Secondary RAY D HALLDOB: [place] Insurance:STATE [id number] Hospital[facility] Number: [facility] [id number] Repository Date:3067-38-81IQ BOX [facility] [place] [address]PQ: 06/17/2018 Tertiary NOT GIVENUNK [place] Insurance:SELF PAY [facility] Number: Effective Repository Date:2018-06-17 06/10/2018 RAY D [id number] Primary RAY D HALLDOB: [place] Insurance:MEDICARE [id number] [place] [address]Yyw: Number: Repository [id number] () Date:2018-03-10 06/10/2018 Secondary RAY D HALLDOB: [place] Insurance:[facility], [facility] [id number] Hospital[facility] Number: [facility] [id number] Repository Date:1124-55-69FG [address] [place], [place] [address], [place] [address]WH: 06/10/2018 Tertiary NOT GIVENUNK [place] Insurance:SELF PAY [facility] Number: Effective Repository Date:2018-06-10 06/09/2018 RAY D HALLDOB: Primary RAY D HALLDOB: Congregational [id number] [facility] [id number] icy Number: Effective [address] [place] [address], Date:2018-06-[address] [place] [address], Repository [place] [id number] [place] [address]Dte: Name:[id number] [address]Izr: [id number], [place] (HP) [phone]: [phone]) (HP) [phone] () 06/09/2018 Secondary RAY D HALLDOB: Congregational Insurance:[facility]LY [facility], [facility]–1983 [id number] [place] [address] FARMPolicy Number: [address] [place] [address] System Effective [address] [place] [address], Repository Date:2018-06-09 - [place] [id number] [id number]: Name:CD:[id number], [place] ()Tel: [phone]: ([phone] 06/09/2018 RAY HALLDOB: Primary RAY HALLDOB: [place] [id number] Insurance:MedicarePol [id number] [place] [address] icy Number: [address] [place] [id number] [id number]: Date:Plan Name:[facility] [id number]: A (HP) () 06/09/2018 Secondary RAY HALLDOB: University Insurance:MedicarePol [id number] Hospitals icy Number: [address] [place] [id number], Date:Plan Name:[facility] [id number]: B () 06/09/2018 Tertiary RAY HALLDOB: University Insurance:[place] [id number] Hospitals Insurance PlanPolic[address] Repository Number: [address] [place] [address] [id number] [place] [id number]: Date:Plan Name:Health () 06/03/2018 RAY D [id number] Primary RAY D HALLDOB: Jaime CR Insurance:MEDICARE [id number], PART A [facility] [address]Ias: Number: Repository [id number] (HP) Date:2018-03-10 06/03/2018 Secondary RAY D HALLDOB: Ja[place] Insurance:[facility], [facility] [id number] Number: Hospital [id number] Repository Date:2295-88-95XH [address] [place] [address] 44480VE: 06/03/2018 Tertiary NOT GIVENUNK [place] Insurance:SELF PAY [facility] Number: Effective Repository Date:2018-06-03 05/27/2018 RAY D [id number] Primary RAY D HALLDOB: [place] CR Insurance:MEDICARE [id number] [address]Kzu: Number: Repository [id number] (HP) Date:2018-03-10 05/27/2018 Secondary RAY D HALLDOB: [place] Insurance:[facility], [facility] [id number] [facility] Number: [facility] [id number] Repository Date:3921-89-89FI [address] [place] [address] 24008CM: 05/27/2018 Tertiary NOT GIVENUNK [place] Insurance:SELF PAY [facility] Number: Effective Repository Date:2018-05-27 05/20/2018 RAY D [id number] Primary RAY D HALLDOB: [place] CR Insurance:MEDICARE [id number] [address]Liy: Number: Repository [id number] (HP) Date:2018-03-10 05/20/2018 Secondary RAY D HALLDOB: [place] Insurance:[facility] [id number] [facility] Number: [facility] [id number] Repository Date:5507-08-82LR [facility]OX [facility] [address]KH: 05/20/2018 Tertiary NOT GIVENUNK Jaime Insurance:SELF PAY [facility] Number: Effective Repository Date:2018-04-22 05/20/2018 RAY D [id number] Primary RAY D HALLDOB: [place] CR Insurance:MEDICARE [id number] [place] [address]Mny: Number: Repository [id number] (HP) Date:2018-03-10 05/20/2018 Secondary RAY D HALLDOB: [place] Insurance:STATE [id number] Number: Hospital [id number] Repository Date:0724-78-50UI [facility]OX [facility], [place] [address]CL: 05/20/2018 Tertiary NOT GIVENUNK [place] Insurance:SELF PAY [facility] Number: Effective Repository Date:2018-05-20 05/13/2018 RAY D [id number] Primary RAY D HALLDOB: [place] CR Insurance:MEDICARE [id number] [place] [address]Piw: Number: Repository [id number] (HP) Date:2018-03-10 05/13/2018 Secondary RAY D HALLDOB: [place] Insurance:[facility] [id number] [facility] Number: Hospital [id number] Repository Date:0071-40-41TD [address] [facility] [address]VU: 05/13/2018 Tertiary NOT GIVENUNK Jaime Insurance:SELF PAY [facility] Number: Effective Repository Date:2018-05-13 05/06/2018 RAY D [id number] Primary RAY D HALLDOB: [place] CR Insurance:MEDICARE [id number] [place] [address]Oxr: Number: Repository [id number] (HP) Date:2018-03-10 05/06/2018 Secondary RAY D HALLDOB: [place] Insurance:STATE [id number] [facility] Number: Hospital [id number] Repository Date:7723-59-57FI [address] [place], [place] [address], [place] [address]VG: 05/06/2018 Tertiary NOT GIVENUNK Jaime Insurance:SELF PAY [facility] Number: Effective Repository Date:2018-05-06 04/29/2018 RAY D [id number] Primary RAY D HALLDOB: [place] CR Insurance:MEDICARE [id number], PART A [facility] [address]Uxz: Number: Repository [id number] (HP) Date:2018-03-10 04/29/2018 Secondary RAY D HALLDOB: Jaime Insurance:STATE [id number] [facility] Number: Hospital [id number] Repository Date:1761-58-12RU [address] [place] [address] 611[address]LT: 04/29/2018 Tertiary NOT GIVENUNK [place] Insurance:SELF PAY [facility] Number: Effective Repository Date:2018-04-29 04/23/2018 RAY D HALLDOB: Primary RAY D HALLDOB: Congregational [id number] Insurance:MedicarePol [id number] Number: Effective [address] [place] [address], Date:2018-04-16 - [address] [place] [address] 8983-67-53Qncx [place] [address]Hkc: Name:CD:[id number] [place] [id number]: 239140ILDQGNEVSE, [place] (HP) [phone]: 800) () [phone] (WP) 04/23/2018 Secondary RAY D HALLDOB: Congregational Insurance:STATE [id number] Number: [address] [place] [address] [place] [address], Repository Date:2018-04-16 - [place] 3247-05-13Brbr [address]Csa: Name:CD:[id number] [address], [place] ()Tel: ([phone]) [phone]: (WP) [phone] 04/22/2018 RAY D [id number] Primary RAY D HALLDOB: Jaime CR Insurance:MEDICARE [id number] A [facility] [address]Nzn: Number: Repository [id number] () Date:2018-03-10 04/22/2018 Secondary RAY D HALLDOB: [place] Insurance:[facility] [id number] [facility] Number: [facility] [id number] Repository Date:2565-48-67NF [address] [facility], [place] [address]CL: 04/22/2018 Tertiary NOT GIVENUNK [place] Insurance:SELF PAY [facility] Number: Effective Repository Date:2018-04-22 04/16/2018 RAY D HALLDOB: Primary RAY D HALLDOB: [place] [facility] [id number] Three Repository [facility] Number: [id number] [address]Ewj: Date:4526-07-92DZJ [place] [address]Ssk: 15 PART A CLAIMSPO () [address]SLDRJWCUX, () [place] [address]TB: 04/16/2018 Secondary RAY D HALLDOB: [place] [facility] Insurance:COMMERCIALP [id number] Three Repository [facility] Number: 7 [facility] [id number] [address] [place] [address], Date:9731-70-99VZ [place]OX [place] [address]Psl: [address] [address]HW: [phone]) (HP) [phone] 04/16/2018 RAY D [id number] Primary RAY D HALLDOB: [place] CR Insurance:MEDICARE [id number] PART A [facility] [address]Rza: Number: Repository [id number] () Date:2018-03-10 04/16/2018 Secondary RAY D HALLDOB: [place] Insurance:STATE [id number] Hospital[facility] Number: [facility] [id number] Repository Date:8901-71-59GZ [address] [address]JD: 04/16/2018 Tertiary NOT GIVENUNK [place] Insurance:SELF PAY [facility] Number: Effective Repository Date:2018-03-22 04/16/2018 RAY D [id number] Primary RAY D HALLDOB: Jaime CR Insurance:MEDICARE [id number] PART A [facility] [address]Fph: Number: Repository [id number] (HP) Date:2018-03-10 04/16/2018 Secondary RAY D HALLDOB: [place] Insurance:[facility] [id number] [facility] Number: [facility] [id number] Repository Date:5839-43-71TM [address] [address]FF: 04/16/2018 Tertiary NOT GIVENUNK Jaime Insurance:SELF PAY [facility] Number: Effective Repository Date:2018-04-16 04/14/2018 RAY D HALLDOB: Primary RAY D HALLDOB: Congregational [id number] [facility] [id number] Number: Effective [address] [place] [address], Date:2018-04-[address] [place] [address], [place]ository [place] 4739-12-73Yyzd [place] [address]Wxv: Name:CD:[id number] [place] [id number]: 316161ZYEFOKCMQS, [place] (HP) [phone]: (084) (HP) [phone] () 04/14/2018 Secondary RAY D HALLDOB: Cong[place]ational Insurance:STATE [id number] [place] [address] Number: [address] [place] [address] [place] [address], Repository Date:2018-04-14 - [place] 7293-88-25Igix [address]Vmt: Name:CD:[id number] [address] [place] [address] ()Tel: ([phone]) [phone]: () [phone] 04/14/2018 RAY HALLDOB: Primary RAY HALLDOB: University Insurance:MedicarePol [id number] icy Number: [address] [place] [address] [place] [id number] [id number]: Date:Plan Name:[facility] [id number]: A () () 04/14/2018 Secondary RAY HALLDOB: University Insurance:MedicarePol [id number] Hospitals icy Number: [address] [place] [address] [id number], Date:Plan Name:[facility] [id number]: B () 04/14/2018 Tertiary RAY HALLDOB: University Insurance:State [facility] [id number] Repository Number[facility] [id number] [place] [id number]: Date:Plan Name:[facility] () 04/08/2018 RAY D [id number] Primary RAY D HALLDOB: [place] CR Insurance:MEDICARE [id number], PART A [facility] [address]Gkw: Number: Repository [id number] () Date:2018-03-10 04/08/2018 Secondary RAY D HALLDOB: [place] Insurance:[facility] [id number] Hospital[facility] Number: [facility] [id number] Repository Date:9614-73-27KE [address] [address]PW: 04/08/2018 Tertiary NOT GIVENUNK Jaime Insurance:SELF PAY [facility] Number: Effective Repository Date:2018-04-08 04/01/2018 RAY D [id number] Primary RAY D HALLDOB: Jaime CR Insurance:MEDICARE [id number] [address]Dwg: Number: Repository [id number] () Date:2018-03-10 04/01/2018 Secondary RAY D HALLDOB: [place] Insurance:[facility]LY [facility] [id number] [facility] Number: [facility] [id number] Repository Date:7942-64-36XJ [address] [place] [address] 012[address]EX: 04/01/2018 Tertiary NOT GIVENUNK [place] Insurance:SELF PAY [facility] Number: Effective Repository Date:2018-04-01 03/29/2018 RAY D [id number] Primary RAY D HALLDOB: Jaime CR Insurance:MEDICARE [id number] [address]Qqp: Number: Repository [id number] () Date:2018-03-29 03/29/2018 Secondary RAY D HALLDOB: [place] Insurance:[facility]LY [facility] [id number] [facility] Number: [facility] [id number] Repository Date:4533-50-29BJ [address] [place] [address] 88[address]NO: 03/29/2018 Tertiary NOT GIVENUNK Jaime Insurance:SELF PAY [facility] Number: Effective Repository Date:2018-03-29 2018 RAY D HALLDOB: Primary RAY D HALLDOB: [facility] Insurance:MEDICAREPol [id number] Repository [facility] Number: [address] [id number] [address] [place] [address] 145[address]Atp: Date:7506-92-05KWD [place] [address]Hyh: J15 PART A CLAIMSPO () [address] [address]DXNORMYIU, () [place] [address]VM: 2018 Secondary RAY D HALLDOB: [facility] Insurance:COMMERCIALP [id number] Repository olicy Number: [address] [place] [address] [id number] [address] [place] [address], Date:8646-06-27KX BOX [place] [address]Ory: [place] [address]WP: [phone]) (EU) [phone] 03/17/2018 RAY D [id number] Primary RAY D HALLDOB: [place] CR Insurance:MEDICARE [id number], PART A [facility] [address]Ljy: Number: Repository [id number] (HP) Date:2018-03-10 03/17/2018 Secondary RAY D HALLDOB: [place] Insurance:STATE [id number] Community FARMPolic Number: [facility] [id number] Repository Date:7547-74-60EK [address] [place] [address] 805[address]ZE: 03/17/2018 Tertiary NOT GIVENUNK Jaime Insurance:SELF PAY [facility] Number: Effective Repository Date:2018-03-10 03/03/2018 RAY D HALLDOB: Primary RAY D HALLDOB: Cong[place]ational Insurance:MedicarePol [id number] [place] [address] ROAD icy Number: Effective [address] [place] [address], Date:2018-03-[address] [place] [address], Repository [place] [id number]: 1657-33-84Pjig [place] [id number]: Name:CD:[id number] BOX () 598058MBYIJLCLYHNICOLLET, [place] ()Tel: ([phone]) [phone]: () [phone] 03/03/2018 Secondary RAY D HALLDOB: Congregational Insurance:STATE [id number] [place] [address] Number: [address] [place] [address] [place] [address], Repository Date:2018-03-03 - [place] [id number]: 8995-77-86Oehx Name:CD:[id number] BOX ()Tel: 000 [place], [place] 000-0000 (WP) [id number]: 03/03/2018 RAY D HALLDOB: Primary RAY D HALLDOB: Congregational Insurance:[facility] [id number] [facility] [address] System [place], [facility]Policy Number: [place], Repository [place] [id number]: Effective [place] [id number]: Date:2018-03-03 - (HP) 4264-18-49Qeoa ()Tel: (000) Name:CD:[id number] O 000-0000 (WP) [address] [address] [address]KY: 03/03/2018 Secondary RAY D HALLDOB: Congregational Insurance:[address] [place] [address] [id number] [place], [place] [address]Policy Number: [address] [place] [address] [place] [address], Repository Date:2018-03-03 [place] [id number]: 1020-66-35Bguu Name:CD:[id number] () (WP) 03/03/2018 RAY HALLDOB: Primary RAY HALLDOB: [place] Insurance[facility] [id number] [place] [address] icy Number: [address] [place] [address], [id number] [id number]: Date:Plan Name:[facility] [id number]: A (HP) (HP) 03/03/2018 Secondary RAY HALLDOB: [place] Insurance:MedicarePol [id number] Hospitals icy Number: [address] [place] [address] Repository [id number], Date:Plan Name:[facility] [id number]: B (HP) 03/03/2018 Tertiary RAY HALLDOB: University Insurance:[place] [id number] [facility] Insurance PlanPolicy [address] [place] [address] Repository Number: [place], [id number] [place] [id number]: Date:Plan Name:Health (HP) 02/26/2018 RAY D HALLDOB: Primary RAY D HALLDOB: Congregational Insurance:MedicarePol [id number] [place] [address] icy Number: Effective [address] [place] [address], Date:2017-12-08 - [address] [place] [address], Repository [place] [id number]: 7522-24-22Hpsg [place] [id number]: Name:CD:[id number] BOX (HP) 771690LQOHTKHHZW, [place] ()Tel: (884) [phone]: (WP) [phone] 02/26/2018 Secondary RAY D HALLDOB: Congregational Insurance:[facility], [facility] [id number] [address] [place], [place] [address]Policy Number: [address] [place] [address] [place] [address], Repository Date:2017-12-08 - [place] [id number]: 0194-03-60Cvpj Name:CD:[id number] BOX ()Tel: (085) [place], [place] 000[address] (WP) [id number]: 02/26/2018 RAY HALLDOB: Primary RAY HALLDOB: [place] [id number] Insurance:MedicarePol [id number] [facility] icy Number: [address] [place] [address] Repository [place], [id number] [address] [place] [address] [id number]: Date:Plan Name:[facility] [id number]: A (HP) (HP) 02/26/2018 Secondary RAY HALLDOB: [place] Insurance:MedicarePol [id number] [facility] icy Number: [address] [place] [address] Repository [id number], Date:Plan Name:[facility] [id number]: B (HP) 02/26/2018 Tertiary RAY HALLDOB: [place] Insurance:[place] [id number] [facility] Insurance PlanPolicy [address] [place] [address] Repository Number: [facility], [id number] [place] [id number]: Date:Plan Name:Health (HP) 02/17/2018 RAY D HALLDOB: Primary RAY D HALLDOB: Congregational [id number] Insurance:MedicarePol [id number] [facility] icy Number: Effective [address] [place] [address] [place] [address], Date:2018-02-17 - [address] [place] [address], [facility] 0407-51-83Guqw [place] [address]Vwd: Name:CD:[id number] [address] [address]Eli: 334[address]RNEAYZOIJS, [place] (HP) [phone]: 800) (HP) [phone] (WP) 02/17/2018 Secondary RAY D WESLEYDOB: Congregational Insurance:[facility]LY [facility] [id number] [place], [place] [address]Policy Number: [address] [place] [address] [place] [address], Repository Date:2018-02-17 - [place] 9773-78-31Mvpe [address]Onr: Name:CD:[id number] [address] [place] [address] (HP)Tel: ([phone]) [phone]: (WP) [phone] 02/17/2018 RAY HALLDOB: Primary RAY HALLDOB: [place] [id number] Insurance:MedicarePol [id number] [facility] icy Number: [address] [place] [address] [place] [address], [id number] [id number]: Date:Plan Name:[facility] [id number]: A (HP) (HP) 02/17/2018 Secondary RAY HALLDOB: University Insurance:MedicarePol [id number] Hospitals icy Number: 7 [facility] Repository [id number] [address] [place] [address], Date:Plan Name:[facility] [id number]: B (HP) 02/17/2018 Tertiary RAY HALLDOB: University Insurance:[place] [id number] Hospitals Insurance PlanPolicy [address] [place] [address] Repository Number: [place], [id number] [place] [id number]: Date:Plan Name:Health (HP) 02/06/2018 RAY D HALLDOB: Primary RAY D HALLDOB: [facility] Insurance:MEDICAREPol [id number] Three Repository [facility] icy Number: [address] [place] [address] [facility], [id number] [address] [place] [address], [place] [address]Xmw: Date:1050-61-44ZRQ [place] [address]Jsc: J15 PART A CLAIMSPO (HP) [address] [address]VITWEJBHG, (HP) [place] [address]HC: 02/06/2018 Secondary RAY D HALLDOB: [place] [facility] Insurance:COMMERCIALP [id number] Three Repository olicy Number: [address] [place] [address] [id number] [address] [place] [address], Date:2005-09-22 - [place] [address]Kpo: 2369-74-31ES [address], [place] (HP) [address]MN: 02/06/2018 Tertiary RAY D HALLDOB: [place] [facility] Insurance:COMMERCIALP [id number] Three Repository olicy Number: [address] [place] [address] [id number] [address] [place] [address], Date:3594-14-59HS [address]OX [place] [address]Rtk: [address] [address]CB: ([phone]) (HP) [phone] 01/28/2018 RAY D HALLDOB: Primary RAY D HALLDOB: [place] [facility] Insurance:MEDICAREPol [id number] Three Repository [facility] icy Number: Kassie [address], [id number] [address] [place] [address]Beu: Date:7388-14-78VRI [place] [address]Mpy: J15 PART A CLAIMSPO (HP) [address] [address]MGNFYFYAS, (HP) [place] [address]ZO: 01/28/2018 Secondary RAY D HALLDOB: [place] [facility] Insurance:COMMERCIALP [id number] Three Repository olicy Number: [address] [place] [address] [id number] [address] [place] [address], Date:2005-09-22 - [place] [address]Llx: 9529-97-36EY [address], [place] () [address]FF: 01/28/2018 Tertiary RAY D HALLDOB: [place] [facility] Insurance:COMMERCIALP [id number] Three Repository olicy Number: [address] [place] [address] [id number] [address] [place] [address], Date:1107-88-54RJ [address]OX [place] [address]Ggq: [address]70[place] [address]DE: ([phone]) (HP) [phone] 01/08/2018 RAY D HALLDOB: Primary RAY D HALLDOB: Congregational Insurance:MedicarePol [id number] [facility] icy Number: Effective [address] [place] [address] ROAD System [address] [place] [address], Date:2018-01-01 - [address] [place] [address], Repository [place] [id number]: 3608-31-98Bvhe [place] [id number]: Name:CD:[id number] BOX (HP) [address]YWJBDMFAZW, [place] (HP)Tel: ([phone]) [phone]: (WP) [phone] 01/08/2018 Secondary RAY D HALLDOB: [place] Insurance:STATE [id number] [facility]: Kassie [facility] System Effective [address] [place] [address], Repository Date:2018-01-01 - [place] [id number]: 4074-79-45Ofeo Name:CD:[id number] BOX (HP)Tel: 000 [address], [place] 000[address] () [id number]: 01/08/2018 RAY D HALLDOB: Primary RAY D HALLDOB: [facility] Insurance:MEDICAREPol [id number] Three Repository [facility] icy Number: Kassie [address], [id number] [address] [place] [address]Rxp: Date:0106-21-60NOG [place] [address]Oeh: J15 PART A CLAIMSPO () [address] [address]LTKNHMWEQ, () [place] [address]CU: 01/08/2018 Secondary RAY D HALLDOB: [place] [facility] Insurance:COMMERCIALP [id number] Three Repository olicy Number: [address] [place] [address] [id number] [address] [place] [address], Date:3687-14-79LU [address] [place] [address]Win: [address] [address]WP: ([phone]) (II) [phone] 12/31/2017 RAY D HALLDOB: Primary RAY D HALLDOB: [facility] [id number] Insurance:MEDICAREPol [id number] Three Repository [facility] icy Number: Kassie [address], [id number] [address]Zxb: Date:9221-49-25CDB [place] [address]Lsx: J57 PART A CLAIMSPO (HP) [address] [address]FTIWUENZB, () [place] [address]EL: 12/31/2017 Secondary RAY D HALLDOB: [place] [facility] Insurance:COMMERCIALP [id number] Three Repository olicy Number: 7 [facility] [id number] [address] [place] [address], Date:2005-09-22 - [place] [address]Dud: 9111-60-71PB [address], [place] (HP) [address]YW: 12/31/2017 Tertiary RAY D HALLDOB: [place] [facility] Insurance:COMMERCIALP [id number] Three Repository olicy Number: 7 [facility] [id number] [address] [place] [address], Date:4556-36-77[place] [address] [place] [address]Ldb: [place] ) [phone] [phone]: [phone]) (ZT) [phone] 12/30/2017 RAY D HALLDOB: Primary RAY D HALLDOB: [employer]ational Insurance:MedicarePol [id number] [facility] [address] icy Number: Effective [address] [place] [address], Date:2017-12-[address] [place] [address], Repository [place] [id number]: [id number] [place] [id number]: Name:[id number] [address] () [address]JCQANZABJT, [place] ()Tel: [phone]: (WP) [phone] 12/30/2017 Secondary RAY D HALLDOB: Congregational Insurance:[facility]ERLY [facility], [facility] [id number] [facility] FARMPolicy Number: [address] [place] [address] [place] [address], Repository Date:2017-12-30 - [place] [id number]: [id number] Name:[id number] BOX (HP)Tel: [phone]) [address] [phone] (WP) [phone]: 12/30/2017 RAY D HALLDOB: Primary RAY D HALLDOB: [place] [facility] [id number] Insurance:MEDICAREPol [id number] Three Repository [facility] icy Number: [address] [place] [address], [id number] [place] [address]Sqh: Date:0419-28-84SEP [place] [address]Cpp: J15 PART A CLAIMSPO (HP) [address] [address]DVMOBZBZV, () [place] [address]PB: 12/30/2017 Secondary RAY D HALLDOB: [place] [facility] Insurance:COMMERCIALP [id number] Three Repository olicy Number: [address] [place] [address] [id number] [address] [place] [address], Date:2295-29-41[place] [address]Dqk: [address] [address]JQ: [phone]) () [phone] 12/30/2017 RAY D HALLDOB: Primary RAY D HALLDOB: Congregational [id number] Insurance:MedicarePol [id number] [facility] icy Number: Effective [address] [place] [address], Date:2017-12-08 - [address] [place] [address], [facility] [id number]: [id number] [place] [id number]: Name:[id number] [address] () [place], [place] ()Tel: [phone]: (WP) [phone] 12/30/2017 Secondary RAY D HALLDOB: Congregational Insurance:STATE [id number] [facility]Policy Number: [address] [place] [address] [place] [address], Repository Date:2017-12-08 - [place] [id number]: [id number] Name:[id number] BOX ()Tel: [phone]) 9891[place]ABHAYPLANKINTON, [place] [phone] (WP) [id number]: 12/24/2017 RAY D [id number] Primary [facility] D [facility]: [facility]ICARE [id number] [address], PART A [facility] [address]Pyj: Number: Repository [phone] [id number] () Date:2017-12-17 12/24/2017 Secondary RAY D HALLDOB: Jaime Insurance:STATE [id number] Hospital [id number] Repository Date:[id number] [address] [place] [address]38[address]YO: 12/24/2017 Tertiary NOT GIVENUNK [place]ont Insurance:SELF PAY [facility] Number: Effective Repository Date:2017-12-17 12/23/2017 RAY D HALLDOB: Primary RAY D HALLDOB: [facility] Insurance:MEDICAREPol [id number] [facility] icy Number: [address] [place] [address] [id number] [place] [address]Ayg: Date:[id number] [place] [address]Ryy: J15 PART A CLAIMSPO () [address], () [place] [address]BR: 12/23/2017 Secondary RAY D HALLDOB: [facility] Insurance:COMMERCIALP [id number] Repository olic Number: [address] [place] [address] [id number] [address] [place] [address], Date:[id number]OX [place] [address]Lkd: [address] [address]WP: [phone] ([phone] 08/04/2017 RAY D HALLDOB: Primary RAY D HALLDOB: Congregational [id number] Insurance:MedicarePol [id number] [facility] icy Number: Effective [address], Date:2017-08-01 - [address] [place] [address] [id number] [address]Hlp: Name:[id number] [address] [address]Llw: [id number], [place] (HP) [phone]: [phone]) (HP) [phone] (WP) 08/04/2017 Devin [place]: Congregational Insurance:[facility]ERLY [facility], [facility] [id number] [facility] Number: 7 [facility] Effective [address] [place] [address], Repository Date:2017-08-01 - [place] [id number] [address]Ook: Name:CD:[id number] [address], [place] ()Tel: [phone]) [phone]: [phone]
== END ==
PROVIDERS: Family Provider Internal Medicine; PCP Internal Medicine; Referring Provider Physician Assistant Surgical; Visit Provider Physician Assistant Surgical
DX: S60.222A Contusion of left hand, initial encounter (principal)
CPT/HCPCS: 73130

== ENCOUNTER → 2020-02-01 10:31 | Outpatient (CLI) | payer MEDICARE, OTHER, SELFPAY ==
[2018-10-12 11:58] VITALS: BMI 32.9
== END ==
PROVIDERS: PCP Internal Medicine; Referring Provider Dermatology; Visit Provider Dermatology
DX: L97.819 Non-pressure chronic ulcer of other part of right lower leg with unspecified severity (principal); L97.829 Non-pressure chronic ulcer of other part of left lower leg with unspecified severity
CPT/HCPCS: 36415